=== PATIENT | male | born 1960 | race Caucasian/White ===

== ENCOUNTER 2017-05-13 15:17 | Emergency (ER) | payer OTHER ==
[2017-05-13 15:43] VITALS: BMI 26.5
--- NOTE | 2017-05-13 15:49 | PDOC ---
*Physical Exam - Vital Signs Last Vital Signs Temp Pulse Resp BP Pulse Ox 85 16 134/75 95 05/13/17 15:37 05/13/17 15:37 05/13/17 15:37 05/13/17 15:37 Medical Decision Making - Medical Decision Making 05/13/17 15:49 The patient was seen and evaluated in conjunction with DION Callahan under my direct supervision, ancillary studies were reviewed. I independently interviewed and evaluated the patient and I agree with the plan as outlined by Carlos . *DC/Admit/Observation/Transfer Diagnosis at time of Disposition: Cough - Discharge Dispostion Disposition: HOME Condition at time of disposition: Good - Referrals - Patient Instructions Printed Discharge Instructions: DI for Cough -- Adult Additional Instructions: Chest x-ray showed no signs of pneumonia. I do recommend providing feedings and keeping patient upright half hour after feedings to avoid aspiration. Use inhalers as recommended and keep nasal passages clear. - Post Discharge Activity
--- NOTE | 2017-05-13 17:47 | PDOC ---
History of Present Illness - General Chief Complaint: Shortness of Breath Stated Complaint: DIFF BREATHING Time Seen by Provider: 05/13/17 15:47 History Source: Long Term Records, Primary Care Provider Exam Limitations: No Limitations - History of Present Illness Initial Comments: 05/13/17 17:45 57-year-old male with history of MRDD and a PEG tube presents the ED for evaluation of possible pneumonia. As per staff patient was noted to have a moist cough along with mild wheezing this morning. Patient has had no fever, recent change in medications, recent change in PEG feedings. As per staff patient has had no vomiting episodes and has no difficulty breathing since arrival. Timing/Duration: reports: just prior to arrival Severity: reports: mild Possible Cause: Yes: occasional episodes Modifying Factors: improves with: other Associated Symptoms: reports: cough, wheezing Past History - Travel Traveled outside of the country in the last 30 days: No - Past Medical History Allergies/Adverse Reactions: Allergies Allergy/AdvReac Type Severity Reaction Status Date / Time Benzodiazepines Allergy Unknown Verified 05/13/17 15:45 Home Medications: Ambulatory Orders Budesonide [Pulmicort] 1 neb IH BID 07/04/12 Docusate Sodium [Colace Oral Solution -] 200 mg GT DAILY 07/04/12 Omeprazole [Prilosec (RX)] 20 mg GT DAILY 07/04/12 levETIRAcetam [Keppra Oral Solution -] 1,500 mg PO BID 07/04/12 Calcium Citrate/Vitamin D3 [Citracal + D Caplet] 1 each GT BID 06/27/13 OXcarbazepine [Trileptal] 60 mg GT BID 06/27/13 Albuterol 0.083% Nebulizer Mehnaz [Ventolin 0.083%] 1 neb NEB Q4H PRN 07/18/14 Alendronate Sodium [Binosto] 70 mg PO WEEKLY 07/18/14 Arformoterol Tartrate [Brovana] 15 mcg IH BID 07/18/14 Clindamycin Phos/Skin Clnsr 19 [Clindacin Etz Kit] 1 each TP HS 07/18/14 Ipratropium/Albuterol Sulfate [Iprat-Albut 0.5-3(2.5) mg/3 ml] 3 ml IH Q6H 07/18 Multivitamins [Tab-A-Vit -] 1 tab GT DAILY 07/18/14 [id number]/Sod Sulf,Bicarb,Cl/KCl [Peg 3350 Electrolyte Soln] 17 grams PO DAILY Anemia: No Asthma: Yes Cancer: No Cardiac Disorders: No CVA: No (hydrocephalous chronic) COPD: No CHF: No Dementia: No Diabetes: No GI Disorders: Yes (gerd/hiatal hernia/dysphagia/constipation) Disorders: No HTN: No Hypercholesterolemia: No Liver Disease: No Seizures: Yes Thyroid Disease: No (osteoporosis, osteoporosis) - Surgical History Abdominal Surgery: No Appendectomy: No Cardiac Surgery: No Cholecystectomy: No Lung Surgery: No Neurologic Surgery: No Orthopedic Surgery: No - Immunization History Immunization Up to Date: Yes - Suicide/Smoking/Psychosocial Hx Smoking Status: No Smoking History: Never smoked Have you smoked in the past 12 months: No Number of Cigarettes Smoked Daily: 0 Information on smoking cessation initiated: No Hx Alcohol Use: No Drug/Substance Use Hx: No Substance Use Type: None Hx Substance Use Treatment: No Patient Lives Alone: No Lives with/in: shelter Review of Systems - Review of Systems Able to Perform ROS?: No Constitutional: No: Symptoms Reported HEENTM: No: Symptoms Reported Respiratory: Yes: Cough, Wheezing ABD/GI: No: Symptoms Reported Musculoskeletal: No: Symptoms Reported Integumentary: No: Symptoms Reported Neurological: No: Symptoms reported *Physical Exam - Vital Signs Last Vital Signs Temp Pulse Resp BP Pulse Ox 85 16 134/75 95 05/13/17 15:37 05/13/17 15:37 05/13/17 15:37 05/13/17 15:37 - Physical Exam General Appearance: Yes: Nourished, Appropriately Dressed. No: Apparent Distress Respiratory/Chest: positive: Lungs Clear, Normal Breath Sounds. negative: Respiratory Distress, Accessory Muscle Use Cardiovascular: positive: Regular Rhythm, Regular Rate. negative: Murmur Gastrointestinal/Abdominal: positive: Other (PEG tube in place) Extremity: positive: Normal Capillary Refill. negative: Pedal Edema Integumentary: positive: Normal Color, Warm, Moist Neurologic: positive: Motor Strength 5/5 (moving extremities) ED Treatment Course - RADIOLOGY Radiology Studies Ordered: Category Date Time Status CHEST PA & LAT [RAD] Stat Radiology 05/13/17 16:33 Ordered Medical Decision Making - Medical Decision Making 05/13/17 17:08 Patient sent here to rule out pneumonia secondary to cough and wheezing noted this morning. Patient has had no other complaints including fever. Patient upon arrival had no acute findings. O2 sat 98% with no respiratory distress. Patient ordered for chest x-ray 05/13/17 18:35 Chest x-ray negative for infiltrate. Patient will be sent back to [facility] with staff *DC/Admit/Observation/Transfer Diagnosis at time of Disposition: Cough - Discharge Dispostion Disposition: RETIREMENT FACILITY Condition at time of disposition: Good - Referrals - Patient Instructions Printed Discharge Instructions: DI for Cough -- Adult Additional Instructions: Chest x-ray showed no signs of pneumonia. I do recommend providing feedings and keeping patient upright half hour after feedings to avoid aspiration. Use inhalers as recommended and keep nasal passages clear. - Post Discharge Activity
[2017-05-13 19:11] VITALS: BP 132/89; PULSE 81; TEMP 98.1
== END 2017-05-13 19:43 ==
LOC: JER 15:17
DX: R05 Cough (principal); F79 Unspecified intellectual disabilities; G91.9 Hydrocephalus, unspecified; G40.909 Epilepsy, unspecified, not intractable, without status epilepticus; Z93.1 Gastrostomy status
CPT/HCPCS: 71046-TC-FY; 99282-25

== ENCOUNTER 2018-08-21 17:42 | Inpatient (IN) | payer OTHER ==
--- NOTE | 2018-08-21 18:44 | PDOC ---
History of Present Illness - General Chief Complaint: Respiratory Stated Complaint: LOW OXYGEN Time Seen by Provider: 08/21/18 18:29 History Source: Care Provider Exam Limitations: Language Barrier - History of Present Illness Initial Comments: 08/21/18 18:58 Edison Holly is a 58yM with PMHx of mental retardation, seizure, spastic quadriplegia, hydrocephalus, asthma, blind, PEG tube presenting with hypoxia. History provided by product representative from [facility]. He has had increased wheezing, reduced motor activity, and nasal congestion over the last 2 days. Today, he was found with O2 sat of 87% at room air, elevated HR of 108, elevated RR of 24 and temperature of 98.2F (normal 96). Placed on supplemental O2, and subsequently transferred here for further evaluation. No changes in medication regimen Past History - Past Medical History Allergies/Adverse Reactions: Allergies Allergy/AdvReac Type Severity Reaction Status Date / Time Benzodiazepines Allergy Unknown Verified 08/21/18 18:25 Home Medications: Ambulatory Orders Budesonide [Pulmicort] 1 neb IH BID 07/04/12 Omeprazole [Prilosec (RX)] 20 mg GT DAILY 07/04/12 levETIRAcetam [Keppra Oral Solution -] 1,500 mg PO BID 07/04/12 Calcium Citrate/Vitamin D3 [Citracal + D Caplet] 1 each GT BID 06/27/13 Albuterol 0.083% Nebulizer Mehnaz [Ventolin 0.083%] 1 neb NEB Q4H PRN 07/18/14 Arformoterol Tartrate [Brovana] 15 mcg IH BID 07/18/14 Clindamycin Phos/Skin Clnsr 19 [Clindacin Etz Kit] 1 each TP HS 07/18/14 Ipratropium/Albuterol Sulfate [Iprat-Albut 0.5-3(2.5) mg/3 ml] 3 ml IH Q6H 07/18 Multivitamins [Tab-A-Vit -] 1 tab GT DAILY 07/18/14 Electrolyte,Oral [Pedialyte -] 60 ml GT BID 08/21/18 Polyethylene Glycol 3350 [Clearlax] 17 gm GT DAILY 08/21/18 Sennosides [Senna] 2 tab GT HS 08/21/18 Anemia: No Asthma: Yes Cancer: No Cardiac Disorders: No CVA: No (hydrocephalous chronic) COPD: No CHF: No Dementia: No Diabetes: No GI Disorders: Yes (gerd/hiatal hernia/dysphagia/constipation) Disorders: No HTN: No Hypercholesterolemia: No Liver Disease: No Seizures: Yes Thyroid Disease: No (osteoporosis, osteoporosis) Other medical history: profound intellectual and physical disabilities, Spastic Quadriplegia - Surgical History Abdominal Surgery: No Appendectomy: No Cardiac Surgery: No Cholecystectomy: No GI Surgery: Yes (G tube) Lung Surgery: No Neurologic Surgery: No Orthopedic Surgery: No - Immunization History Immunization Up to Date: Yes - Suicide/Smoking/Psychosocial Hx Smoking Status: No Smoking History: Never smoked Have you smoked in the past 12 months: No Number of Cigarettes Smoked Daily: 0 Information on smoking cessation initiated: No Hx Alcohol Use: No Drug/Substance Use Hx: No Substance Use Type: None Hx Substance Use Treatment: No Review of Systems - Review of Systems Able to Perform ROS?: No (non verbal) Is the patient limited Israeli proficient: Yes *Physical Exam - Vital Signs Last Vital Signs Temp Pulse Resp BP Pulse Ox 98.6 F 93 H 20 112/76 95 08/21/18 18:18 08/21/18 18:18 08/21/18 18:18 08/21/18 18:18 08/21/18 18:31 - Physical Exam General Appearance: Yes: Nourished, Other (lying down, curled up facing left side of bed). No: Apparent Distress HEENT: positive: Nasal Congestion, Rhinorrhea, Other (eyes turned upwards). negative: Pale Conjunctivae, Scleral Icterus (R), Scleral Icterus (L), Excessive drooling Respiratory/Chest: positive: Crackles (bilateral), Rhonchi (bilateral, L worse than R, upper lung rivera more prominent). negative: Respiratory Distress, Labored Respiration, Dullness Cardiovascular: positive: Regular Rhythm, Regular Rate, S1, S2. negative: Edema , JVD, Murmur Gastrointestinal/Abdominal: positive: Flat, Soft, Other (PEG tube, non- erythematous insertion site). negative: Pulsatile Mass, Distended, Guarding, Rebound Integumentary: positive: Normal Color Neurologic: positive: Respond to painful stimul. negative: Fully Oriented, Alert ED Treatment Course - LABORATORY CBC & Chemistry Diagram: 08/21/18 19:30 08/21/18 19:30 Medical Decision Making - Critical Care Time Total Critical Care Time (minutes): 30 Critical Care Statement: The care of this patient involved high complexity decision making to prevent further life threatening deterioration of the patient 's condition and/or to evaluate & treat vital organ system(s) failure or risk of failure. - Medical Decision Making 08/21/18 18:59 portable CXR showed indeterminate increased interstitial markings in lung rivera , ordered chest CT sepsis order set based on abnormal vital signs at longterm lactate 0.[address] showed bilateral atelectatic changes and patchy airspace opacities suggestive of pneumonic infiltrates Started 1L NS and zosyn to cover aspiration pneumonia (last ED visit) Edison Holly is a 58yM with PMHx of mental retardation, seizure, spastic quadriplegia, hydrocephalus, blind, PEG tube presenting with hypoxia. Likely sepsis secondary to pneumonia. Normal labs, lactate 0.8. Chest CT showed bilateral atelectatic changes and patchy airspace opacities suggestive of pneumonic infiltrates. Started zosyn to cover for aspiration pneumonia, which was what he was treated for during his last ED visit. Admitted to inpatient service for multiple comorbidities, treatment of lung infection, and acute respiratory failure. *DC/Admit/Observation/Transfer Diagnosis at time of Disposition: Sepsis due to pneumonia - Discharge Dispostion Decision to Admit order: Yes - Referrals - Patient Instructions - Post Discharge Activity
[2018-08-21 19:50] LABS: BASO % 0.5 % (0-2.0); EOS % 1.6 % (0-4.5); HEMATOCRIT 44.5 % (35.4-49); HEMOGLOBIN 15.3 GM/dL (11.7-16.9); LYMPH % 20.1 % (8-40); MCH 31.5 pg (25.7-33.7); MCHC 34.4 g/dl (32.0-35.9); MEAN CELL VOLUME 91.6 fl (80-96); MEAN PLT VOLUME 8.3 fl (7.5-11.1); MONO % 9.4 % (3.8-10.2); NEUT % 68.4 % (42.8-82.8); PLATELET COUNT 241 K/MM3 (134-434); RBC 4.86 M/mm3 (4.00-5.60); RDW 13.5 % (11.9-15.9); WHITE BLOOD COUNT 7.5 K/mm3 (4.0-10.0)
[2018-08-21 19:53] LABS: VENOUS PC02 43.8 mmHg (41-51); VENOUS PH 7.44 (7.31-7.41); VENOUS PO2 59.4 mmHg (30-40)
[2018-08-21 20:05] LABS: INR 0.96 (0.83-1.09); PROTHROMBIN TIME (PATIENT) 11.3 SEC (9.7-13.0)
[2018-08-21 20:08] LABS: ACTIVATED PTT 34.9 SECONDS (25.2-36.5)
[2018-08-21 20:21] LABS: ALBUMIN 3.3 g/dl (3.4-5.0); ALK PHOS 166 U/L (45-117); ANION GAP 4 MMOL/L (8-16); BILIRUBIN,TOTAL 0.3 mg/dL (0.2-1); BLOOD UREA NITROGEN 11.4 mg/dL (7-18); CHLORIDE 98 mmol/L (98-107); CO2 31 mmol/L (21-32); CREATININE 0.7 mg/dL (0.55-1.3); GLUCOSE,RANDOM 90 mg/dL (74-106); POTASSIUM 3.9 mmol/L (3.5-5.1); SGOT/AST 51 U/L (15-37); SGPT/ALT 51 U/L (13-61); SODIUM 133 mmol/L (136-145); TOT PROT 6.9 g/dl (6.4-8.2)
[2018-08-21] MEDS ORDERED: PIPERACILLIN/TAZOB 4.5 GM 4.5 GM in DEXTROSE 5%-WATER 100 ML IVPB ONE (21:13)
[2018-08-21] MEDS ORDERED: SODIUM CHLORIDE 0.9% 500 ML INFUS.BAG IV ONE (21:14)
[2018-08-21] MEDS ORDERED: ALBUTEROL SO4 2.5/IPRATROPIUM 0.5 INH SOL 3 ML VIAL.NEB. NEB ONE ×2 (21:22→21:50)
[2018-08-21] MEDS ORDERED: methylPREDNISolone NA SUCC 125 MG/2 ML VIAL IVPUSH ONE (21:24)
[2018-08-21 21:26] LABS: PH,URINE 7.5 (5.0-8.0); URINE APPEARANCE CLEAR; URINE BILIRUBIN NEGATIVE (NEGATIVE); URINE COLOR YELLOW; URINE GLUCOSE (UA) NEGATIVE (NEGATIVE); URINE KETONE NEGATIVE (NEGATIVE); URINE LEUK ESTERASE NEGATIVE (NEGATIVE); URINE NITRITE NEGATIVE (NEGATIVE); URINE PROTEIN NEGATIVE (NEGATIVE); URINE UROBILINOGEN 0.2 mg/dL (0.2-1.0)
--- NOTE | 2018-08-21 21:30 | PDOC ---
Documentation entered by Leigh Ann Cm SCRIBE, acting as scribe for Yulissa Jolley DO. Yulissa Jolley DO: This documentation has been prepared by the Soila rudolph Adrianna, SCRIBE, under my direction and personally reviewed by me in its entirety. I confirm that the documentation accurately reflects all work, treatment, procedures, and medical decision making performed by me. Attending Attestation - Resident Resident Name: Mariano Rajan - ED Attending Attestation I have performed the following: I have examined & evaluated the patient, The case was reviewed & discussed with the resident, I agree w/resident's findings & plan - HPI HPI: The patient is a 58 year old male, with a significant PMH of mental retardation , hydrocephalus, quadriplegia, seizure disorder, legally blind, recurrent apiration pneumonia, and asthma, who presents to the ED [facility] from [place] for evaluation of hypoxia. As per patient's aid at bedside, he has developed wheezing and congestion x 2 days. Today, patient was found to be hypoxic (87% on room air), with an elevated heart rate, RR, and temperature. He was sent to the ED for evaluation. Patient is non-verbal at baseline. Allergies: Benzodiazepines Surgical History: GT, PEG Social History: Mental retardation. Legally blind. Non-verbal. 08/21/18 19:47 - Physicial Exam PE: GENERAL: chronically il mild distress HEAD: No signs of trauma EYES: ENT: Moist mucosa LUNGS:. Prolonged expiratory phase with end expiratory wheezing bilaterall HEART: Regular rate and rhythm, ABDOMEN: Soft, nondistended CHEST WALL: NEUROLOGICAL: Alert SKIN: Warm, Dry 08/21/18 19:49 08/21/18 21:27 - Critical Care Time Total Critical Care Time: 60 Critical Care Statement: The care of this patient involved high complexity decision making to prevent further life threatening deterioration of the patient 's condition and/or to evaluate & treat vital organ system(s) failure or risk of failure. - Medical Decision Making 08/21/18 21:26 58-year-old male with shortness of breath and cough Chest x-ray and CT of the chest show left-sided infiltrate that appears new when compared to previous Patient now exhibits prolonged expiratory phase and and expiratory wheezing on reevaluation at 9:20 PM Plan for ian Aritao nebs and IV steroids with admission to medical service
[2018-08-21] MEDS ORDERED: PIPERACILLIN/TAZOB 4.5 GM 4.5 GM/100 ML BAG IVPB ONE (21:50)
[2018-08-21] MEDS ORDERED: methylPREDNISolone NA SUCC 125 MG/2 ML VIAL ONE (21:50)
--- NOTE | 2018-08-22 00:15 | HP ---
CHIEF COMPLAINT: Respiratory distress PCP: HISTORY OF PRESENT ILLNESS: 58M with pmh of MR, PEG-dependent, seizure disorder, hydrocephalus, quadraplegia , legal blindness, asthma, h/o of aspiration PNA brought in from [facility] due to concern by patient's family of respiratory issues. Patient was displaying wheezing, rhinorrhea x2d; desaturating to 87% on room air. At [facility] , the patient was placed on supplemental O2, at one point requiring nonrebreather 10L. Patient is noncommunicative. Crime Investigator Special Agent at bedside reports no fevers. ER course was notable for: (1) venturi-mask, @12L (2) CXR with increased interstitial markings (3) CT Chest showing b/l atelectatic changes, patchy airspace opacities Recent Travel: PAST MEDICAL HISTORY: MR, PEG-dependent, seizure disorder, hydrocephalus, quadraplegia, legal blindness, asthma, h/o of aspiration PNA PAST SURGICAL HISTORY: PEG Social History: Smoking: none Alcohol: none Drugs: none Family History: Allergies Benzodiazepines Allergy (Unknown, Verified 08/21/18 18:25) HOME MEDICATIONS: Home Medications Medication Instructions Recorded Budesonide [Pulmicort] 1 neb IH BID 07/04/12 Omeprazole [Prilosec (RX)] 20 mg GT DAILY 07/04/12 levETIRAcetam [Keppra Oral 1,500 mg PO BID 07/04/12 Solution -] Calcium Citrate/Vitamin D3 1 each GT BID 06/27/13 [Citracal + D Caplet] Albuterol 0.083% Nebulizer Mehnaz 1 neb NEB Q4H PRN 07/18/14 [Ventolin 0.083%] Arformoterol Tartrate [Brovana] 15 mcg IH BID 07/18/14 Clindamycin Phos/Skin Clnsr 19 1 each TP HS 07/18/14 [Clindacin Etz Kit] Ipratropium/Albuterol Sulfate 3 ml IH Q6H 07/18/14 [Iprat-Albut 0.5-3(2.5) mg/3 ml] Multivitamins [Tab-A-Vit -] 1 tab GT DAILY 07/18/14 Electrolyte,Oral [Pedialyte -] 60 ml GT BID 08/21/18 Polyethylene Glycol 3350 [Clearlax] 17 gm GT DAILY 08/21/18 Sennosides [Senna] 2 tab GT HS 08/21/18 REVIEW OF SYSTEMS - unable to assess as the patient has severe MR, unable to communicate PHYSICAL EXAMINATION Vital Signs - 24 hr 08/21/18 08/21/18 08/21/18 18:18 18:28 18:29 Temperature 98.6 F Pulse Rate 93 H Pulse Rate [ Apical] Respiratory 20 Rate Blood Pressure 112/76 Blood Pressure [Left Arm] O2 Sat by Pulse 95 95 95 Oximetry (%) 08/21/18 08/21/18 08/21/18 18:30 18:31 20:20 Temperature Pulse Rate Pulse Rate [ Apical] Respiratory Rate Blood Pressure Blood Pressure [Left Arm] O2 Sat by Pulse 95 95 89 L Oximetry (%) 08/21/18 20:28 Temperature Pulse Rate Pulse Rate [ 89 Apical] Respiratory 20 Rate Blood Pressure Blood Pressure 118/77 [Left Arm] O2 Sat by Pulse 93 L Oximetry (%) GENERAL: Awake, no acute distress HEAD: AT/NC. No temporal wasting EYES: cloudy lenses EARS, NOSE, THROAT: rhinorhea. Moist mucous membranes. Nonproductive spontaneous cough NECK: Normal range of motion, supple without lymphadenopathy, JVD, or masses. LUNGS: expiratory wheezes HEART: Regular rate and rhythm, normal S1 and S2 without murmur, rub or gallop. ABDOMEN: Soft, nontender, not distended, no guarding, no rebound, no masses. Gtube in place MUSCULOSKELETAL: upper and lower extremity contractures NEUROLOGICAL: unable to speak. Spontaneous movement of upper extremities PSYCHIATRIC: does not respond to questioning or acknowledge provider presence SKIN: Warm, dry, normal turgor, no rashes or lesions noted, normal capillary refill. Laboratory Results - last 24 hr 08/21/18 08/21/18 08/21/18 19:30 19:30 19:30 WBC 7.5 RBC 4.86 Hgb 15.3 Hct 44.5 MCV 91.6 MCH 31.5 MCHC 34.4 RDW 13.5 Plt Count 241 D MPV 8.3 D Absolute Neuts (auto) 5.1 Neutrophils % 68.4 Lymphocytes % 20.1 Monocytes % 9.4 Eosinophils % 1.6 Basophils % 0.5 D Nucleated RBC % 0 PT with INR 11.30 INR 0.96 PTT (Actin FS) 34.9 VBG pH 7.44 H POC VBG pCO2 43.8 POC VBG pO2 59.4 H VBG HCO3 28.9 VBG O2 Sat (Amol) 90.4 H VBG Base Excess 4.5 H Sodium Potassium Chloride Carbon Dioxide Anion Gap BUN Creatinine Est GFR (CKD-EPI)AfAm Est GFR (CKD-EPI)NonAf Random Glucose Lactic Acid Calcium Total Bilirubin AST ALT Alkaline Phosphatase Troponin I B-Natriuretic Peptide Total Protein Albumin Urine Color Urine Appearance Urine pH Ur Specific [place] Urine Protein Urine Glucose (UA) Urine Ketones Urine Blood Urine Nitrite Urine Bilirubin Urine Urobilinogen Ur Leukocyte Esterase 08/21/18 08/21/18 08/21/18 19:30 19:30 21:15 WBC RBC Hgb Hct MCV MCH MCHC RDW Plt Count MPV Absolute Neuts (auto) Neutrophils % Lymphocytes % Monocytes % Eosinophils % Basophils % Nucleated RBC % PT with INR INR PTT (Actin FS) VBG pH POC VBG pCO2 POC VBG pO2 VBG HCO3 VBG O2 Sat (Amol) VBG Base Excess Sodium 133 L Potassium 3.9 Chloride 98 Carbon Dioxide 31 Anion Gap 4 L BUN 11.4 Creatinine 0.7 Est GFR (CKD-EPI)AfAm 120.56 Est GFR (CKD-EPI)NonAf 104.02 Random Glucose 90 Lactic Acid 0.8 Calcium 9.0 Total Bilirubin 0.3 AST 51 H ALT 51 Alkaline Phosphatase 166 H Troponin I < 0.02 B-Natriuretic Peptide 79.0 Total Protein 6.9 Albumin 3.3 L Urine Color Yellow Urine Appearance Clear Urine pH 7.5 Ur Specific [place] 1.008 L Urine Protein Negative Urine Glucose (UA) Negative Urine Ketones Negative Urine Blood Negative Urine Nitrite Negative Urine Bilirubin Negative Urine Urobilinogen 0.2 Ur Leukocyte Esterase Negative ASSESSMENT/PLAN: 58M with pmh of MR, PEG-dependent, seizure disorder, hydrocephalus, quadraplegia , legal blindness, asthma, h/o of aspiration PNA presenting with respiratory issues possibly 2/2 to asthma exacerbation vs URI. Afebrile and w/o leukocytosis. # respiratory distress >CXR(08/22/18): increased interstitial lung markings >CT chest(08/22/18): b/l atelectatic changes, patchy airspace opacities - s/p zosyn(08/22) -- discontinued - s/p methylprednisolone(125mg) -- discontinued - fu Legionella antigen - albuterol PRN q6h - prednisone 60mg QD NEURO: # seizure disorder - cw home Keprra CARDIO: # no acutely active issues - vitals q4h GI: # GT-dependent - hold TF - cw home omeprazole : # no acutely active issues - monitor I/Os FEN: - NPO - D51/2NS+K @100 HEME/ID - fu BCX - fu UCX DISPO - return to [facility] pending resolution of above issues Ayan Arreguin, DO PGY-1 Medicine, PM Float [id number] 08/22/18 Visit type - Emergency Visit Emergency Visit: Yes ED Registration Date: 08/21/18 Care time: The patient presented to the Emergency Department on the above date and was hospitalized for further evaluation of their emergent condition. - New Patient This patient is new to me today: Yes Date on this admission: 08/22/18 - Critical Care Critical Care patient: No
[2018-08-22 01:17] LABS: GAMMA GLUTAMYL TRANSPEPTIDASE 36 U/L (5-85)
[2018-08-22] MEDS ORDERED: ALBUTEROL SO4 0.083% IH SOL 2.5 MG/3 ML VIAL.NEB. NEB PRN ×2 (01:31→07:27)
[2018-08-22] MEDS ORDERED: D5-1/2NS+20 MEQ KCL - 20 MEQ/1,000 ML INFUS.BAG IV SCH (03:45)
[2018-08-22] MEDS ORDERED: ALBUTEROL SO4 0.083% IH SOL 2.5 MG/3 ML VIAL.NEB. NEB ONE (04:01)
[2018-08-22 07:22] LABS: ARTERIAL BLOOD GAS BASE EXCESS 2.2 meq/l (-2-2); ARTERIAL BLOOD GAS PCO2 45.4 mmHg (35-45); ARTERIAL BLOOD GAS PO2 81.5 mmHg (80-105); ARTERIAL BLOOD GAS pH 7.39 (7.35-7.45)
[2018-08-22 07:25] LABS: ALLENS TEST POSITIVE
[2018-08-22] MEDS: ALBUTEROL SO4 2.5/IPRATROPIUM 0.5 INH SOL 3 ML VIAL.NEB. NEB SCH ×4 (08:45→20:30)
[2018-08-22] MEDS ORDERED: predniSONE 20 MG TABLET (UD) GT SCH (10:00)
[2018-08-22] MEDS ORDERED: predniSONE 20 MG TABLET (UD) PO SCH (10:00)
[2018-08-22] MEDS: AZITHROMYCIN IVPB 500 MG/250 ML BAG IVPB SCH (10:34)
[2018-08-22] MEDS: ENOXAPARIN NA (PORCINE) 40 MG/0.4 ML DISP.SYRIN SQ SCH (10:35)
[2018-08-22] MEDS: levETIRAcetam 500 MG/5 ML ORAL SOLUTION (UNIT-DOSE CUPS) GT SCH ×2 (10:35→21:45)
[2018-08-22] MEDS ORDERED: PIPERACILLIN/TAZOBACTAM 3.375 GM VIAL IVPB ONE ×2 (10:40→17:09)
[2018-08-22] MEDS ORDERED: PT OWN MED DRAWER 7, Y5N ONE ×2 (10:40→20:25)
[2018-08-22] MEDS ORDERED: DEXTROSE 5%-WATER - 50 ML IVPB ONE ×2 (10:40→17:10)
--- NOTE | 2018-08-22 10:43 | EKG ---
Test Reason : Blood Pressure : / mmHG Vent. Rate : 085 BPM Atrial Rate : 085 BPM P-R Int : 128 ms QRS Dur : 088 ms QT Int : 356 ms P-R-T Axes : 061 -27 032 degrees QTc Int : 423 ms NORMAL SINUS RHYTHM NORMAL ECG WHEN COMPARED WITH ECG OF 20-AUG-2018 11:15, CRITERIA FOR INFERIOR INFARCT ARE NO LONGER PRESENT Confirmed by DELVIN JUAREZ, PANKAJ ([id number]) on 08/22/2018 10:42:27 AM Referred By: Confirmed By:PANKAJ HARGROVE MD
[2018-08-22] MEDS: RANITIDINE HCL 150 MG/10 ML UNIT-DOSE GT SCH ×2 (10:55→21:45)
[2018-08-22] MEDS: POLYETHYLENE GLYCOL 3350 119 GM BTL GT SCH (10:55)
[2018-08-22] MEDS: PIPERACILLIN/TAZOB 3.375 GM 3.375 GM in DEXTROSE 5%-WATER - 50 ML IVPB SCH ×2 (10:55→17:15)
--- NOTE | 2018-08-22 11:31 | PN ---
Physical Exam: SUBJECTIVE: Patient seen and examined at bedside. on exam pt was unable to participate in interview. he is non verbal. pt was seen on venti mask saturating at 97%. OBJECTIVE: Vital Signs Period Temp Pulse Resp BP Sys/Karimi Pulse Ox Last 24 Hr 97.2 F-98.6 F 80-100 18-22 112-120/68-80 89-98 GENERAL: The patient is awake, alert, and fully oriented, in no acute distress. LUNGS: Breath sounds equal, + crackles B/L, no accessory muscle use. HEART: Regular rate and rhythm, S1, S2 without murmur, rub or gallop. ABDOMEN: Soft, nondistended, normoactive bowel sounds EXTREMITIES: 2+ pulses, warm, well-perfused, no edema. SKIN: Warm, dry, normal turgor, no rashes or lesions noted Laboratory Last Values WBC 7.5 K/mm3 (4.0-10.0) 08/21/18 19:30 RBC 4.86 M/mm3 (4.00-5.60) 08/21/18 19:30 Hgb 15.3 GM/dL (11.7-16.9) 08/21/18 19:30 Hct 44.5 % (35.4-49) 08/21/18 19:30 MCV 91.6 fl (80-96) 08/21/18 19:30 MCH 31.5 pg (25.7-33.7) 08/21/18 19:30 MCHC 34.4 g/dl (32.0-35.9) 08/21/18 19:30 RDW 13.5 % (11.9-15.9) 08/21/18 19:30 Plt Count 241 K/MM3 (134-434) D 08/21/18 19:30 MPV 8.3 fl (7.5-11.1) D 08/21/18 19:30 Absolute Neuts (auto) 5.1 K/mm3 (1.5-8.0) 08/21/18 19:30 Neutrophils % 68.4 % (42.8-82.8) 08/21/18 19:30 Lymphocytes % 20.1 % (8-40) 08/21/18 19:30 Monocytes % 9.4 % (3.8-10.2) 08/21/18 19:30 Eosinophils % 1.6 % (0-4.5) 08/21/18 19:30 Basophils % 0.5 % (0-2.0) D 08/21/18 19:30 Nucleated RBC % 0 % (0-0) 08/21/18 19:30 PT with INR 11.30 SEC (9.7-13.0) 08/21/18 19:30 INR 0.96 (0.83-1.09) 08/21/18 19:30 PTT (Actin FS) 34.9 SECONDS (25.2-36.5) 08/21/18 19:30 Anticoagulation Therapy No Result Required. 08/22/18 06:50 Puncture Site Right radial 08/22/18 06:50 ABG pH 7.39 (7.35-7.45) 08/22/18 06:50 ABG pCO2 at Pt Temp 45.4 mmHg (35-45) H 08/22/18 06:50 ABG pO2 at Pt Temp 81.5 mmHg (80-105) 08/22/18 06:50 ABG HCO3 27.2 mmol/L (22-27) H 08/22/18 06:50 ABG O2 Sat (Measured) 96.0 % (95-98) 08/22/18 06:50 ABG O2 Content 19.2 % vol (15-22) 08/22/18 06:50 ABG Base Excess 2.2 meq/l (-2-2) H 08/22/18 06:50 Gian Test Positive 08/22/18 06:50 VBG pH 7.44 (7.31-7.41) H 08/21/18 19:30 POC VBG pCO2 43.8 mmHg (41-51) 08/21/18 19:30 POC VBG pO2 59.4 mmHg (30-40) H 08/21/18 19:30 VBG HCO3 28.9 mmol/L (23-29) 08/21/18 19:30 VBG O2 Sat (Amol) 90.4 % (70-80) H 08/21/18 19:30 VBG Base Excess 4.5 meq/l (-2-2) H 08/21/18 19:30 O2 Delivery Device V/m 08/22/18 06:50 Oxygen Flow Rate 50% 08/22/18 06:50 Vent Mode No Result Required. 08/22/18 06:50 Vent Rate No Result Required. 08/22/18 06:50 Mechanical Rate No Result Required. 08/22/18 06:50 Pressure Support Vent No Result Required. 08/22/18 06:50 Sodium 133 mmol/L (136-145) L 08/21/18 19:30 Potassium 3.9 mmol/L (3.5-5.1) 08/21/18 19:30 Chloride 98 mmol/L (98-107) 08/21/18 19:30 Carbon Dioxide 31 mmol/L (21-32) 08/21/18 19:30 Anion Gap 4 MMOL/L (8-16) L 08/21/18 19:30 BUN 11.4 mg/dL (7-18) 08/21/18 19:30 Creatinine 0.7 mg/dL (0.55-1.3) 08/21/18 19:30 Est GFR (CKD-EPI)AfAm 120.56 08/21/18 19:30 Est GFR (CKD-EPI)NonAf 104.02 08/21/18 19:30 Random Glucose 90 mg/dL (74-106) 08/21/18 19:30 Lactic Acid 0.8 mmol/L (0.4-2.0) 08/21/18 19:30 Calcium 9.0 mg/dL (8.5-10.1) 08/21/18 19:30 Total Bilirubin 0.3 mg/dL (0.2-1) 08/21/18 19:30 GGT 36 U/L (5-85) 08/21/18 19:30 AST 51 U/L (15-37) H 08/21/18 19:30 ALT 51 U/L (13-61) 08/21/18 19:30 Alkaline Phosphatase 166 U/L (45-117) H 08/21/18 19:30 Troponin I < 0.02 ng/ml (0.00-0.05) 08/21/18 19:30 B-Natriuretic Peptide 79.0 pg/ml (5-125) 08/21/18 19:30 Total Protein 6.9 g/dl (6.4-8.2) 08/21/18 19:30 Albumin 3.3 g/dl (3.4-5.0) L 08/21/18 19:30 Urine Color Yellow 08/21/18 21:15 Urine Appearance Clear 08/21/18 21:15 Urine pH 7.5 (5.0-8.0) 08/21/18 21:15 Ur Specific [place] 1.008 (1.010-1.035) L 08/21/18 21:15 Urine Protein Negative (NEGATIVE) 08/21/18 21:15 Urine Glucose (UA) Negative (NEGATIVE) 08/21/18 21:15 Urine Ketones Negative (NEGATIVE) 08/21/18 21:15 Urine Blood Negative (NEGATIVE) 08/21/18 21:15 Urine Nitrite Negative (NEGATIVE) 08/21/18 21:15 Urine Bilirubin Negative (NEGATIVE) 08/21/18 21:15 Urine Urobilinogen 0.2 mg/dL (0.2-1.0) 08/21/18 21:15 Ur Leukocyte Esterase Negative (NEGATIVE) 08/21/18 21:15 Active Medications Albuterol Sulfate (Ventolin 0.083% Nebulizer Soln -) 1 amp NEB Q4H PRN PRN Reason: SHORT OF BREATH/WHEEZING Albuterol/Ipratropium (Duoneb -) 1 amp NEB RQID [facility] Last Admin: 08/22/18 08:45 Dose: 1 amp Enoxaparin Sodium (Lovenox -) 40 mg SQ DAILY CONSTANCE Last Admin: 08/22/18 10:35 Dose: 40 mg Piperacillin Sod/Tazobactam (Sod 3.375 gm/ Dextrose) 50 mls @ 100 mls/hr IVPB Q8H-IV CONSTANCE; Protocol Azithromycin (Zithromax 500mg Ivpb (Pre-Docked)) 500 mg in 250 mls @ 250 mls/ hr IVPB DAILY CONSTANCE Last Admin: 08/22/18 10:34 Dose: 250 mls/hr Piperacillin Sod/Tazobactam (Sod 3.375 gm/ Dextrose) 50 mls @ 100 mls/hr IVPB Q8H-IV CONSTANCE; Protocol Stop: 08/23/18 02:29 Last Admin: 08/22/18 10:55 Dose: 100 mls/hr Levetiracetam (Keppra Oral Solution -) 1,500 mg GT BID CONSTANCE Last Admin: 08/22/18 10:35 Dose: 1,500 mg Polyethylene Glycol (Miralax (For Daily Use) -) 17 gm GT DAILY [facility] Last Admin: 08/22/18 10:55 Dose: 17 gm Ranitidine HCl (Zantac Oral Solution -) 150 mg GT BID [facility] Last Admin: 08/22/18 10:55 Dose: 150 mg Senna (Senna Oral Solution -) 17.6 mg PO HS [facility] Chest XRAY: Bilateral increased interstitial lung markings again seen without gross evidence of focal infiltrates CT chest: Bilateral atelectatic changes and patchy airspace opacities, as described above suggestive of pneumonic infiltrates. No pneumothorax or pleural effusion are identified. ASSESSMENT/PLAN: 58M with pmh of Mental Retardation, PEG-dependent, seizure disorder, hydrocephalus, quadraplegia, legal blindness, asthma, h/o of aspiration PNA brought in from [facility]. Pt was p/w respiratory issues. Patient was displaying wheezes, rhinorrhea x2d; desaturating to 87% on room air. Respiratory distress 2/2 Pneumonia -pt pCO2 on AB.4 -CT Chest showing b/l atetelectic changes and patchy airspace opacities -ID consult appreciated -awaiting blood cultures -tx w/ Zosyn and Azithromycin -Titrate down O2 -D/C prednisone -c/w albuterol Seizure disorder -c/w keppra DVT ppx: Lovenox SQ Visit type - Emergency Visit Emergency Visit: No - New Patient This patient is new to me today: No - Critical Care Critical Care patient: No - Discharge Referral Referred to [facility] Med P.C.: No
--- NOTE | 2018-08-22 14:26 | PN ---
Teaching Attending Note Name of Resident: Annmarie Louise ATTENDING PHYSICIAN STATEMENT I saw and evaluated the patient. I reviewed the resident's note and discussed the case with the resident. I agree with the resident's findings and plan as documented. SUBJECTIVE: Cognitively impaired, unable to participate in medical interview. OBJECTIVE: Afebrile, Hemodynamically Stable. Last Vital Signs Temp Pulse Resp BP Pulse Ox 98.1 F 98 H 18 113/80 98 08/22/18 10:25 08/22/18 10:25 08/22/18 10:08/22/18 10:08/22/18 09:00 HEENT - Atraumatic Heart - S1, S2, RRR Lungs - bibasal crackles Abdomen - Soft, non-tender. PEG in Situ. Bowel Sounds normal. Extremities - no edema, no calf tenderness, contractures++ Laboratory Results - last 24 hr 08/21/18 08/21/18 08/21/18 19:30 19:30 19:30 WBC 7.5 RBC 4.86 Hgb 15.3 Hct 44.5 MCV 91.6 MCH 31.5 MCHC 34.4 RDW 13.5 Plt Count 241 D MPV 8.3 D Absolute Neuts (auto) 5.1 Neutrophils % 68.4 Lymphocytes % 20.1 Monocytes % 9.4 Eosinophils % 1.6 Basophils % 0.5 D Nucleated RBC % 0 PT with INR 11.30 INR 0.96 PTT (Actin FS) 34.9 Anticoagulation Therapy Puncture Site ABG pH ABG pCO2 at Pt Temp ABG pO2 at Pt Temp ABG HCO3 ABG O2 Sat (Measured) ABG O2 Content ABG Base Excess Gian Test VBG pH 7.44 H POC VBG pCO2 43.8 POC VBG pO2 59.4 H VBG HCO3 28.9 VBG O2 Sat (Amol) 90.4 H VBG Base Excess 4.5 H O2 Delivery Device Oxygen Flow Rate Vent Mode Vent Rate Mechanical Rate Pressure Support Vent Sodium Potassium Chloride Carbon Dioxide Anion Gap BUN Creatinine Est GFR (CKD-EPI)AfAm Est GFR (CKD-EPI)NonAf Random Glucose Lactic Acid Calcium Total Bilirubin GGT AST ALT Alkaline Phosphatase Troponin I B-Natriuretic Peptide Total Protein Albumin Urine Color Urine Appearance Urine pH Ur Specific [place] Urine Protein Urine Glucose (UA) Urine Ketones Urine Blood Urine Nitrite Urine Bilirubin Urine Urobilinogen Ur Leukocyte Esterase 07/04/1008/21/18 08/21/18 19:30 19:30 21:15 WBC RBC Hgb Hct MCV MCH MCHC RDW Plt Count MPV Absolute Neuts (auto) Neutrophils % Lymphocytes % Monocytes % Eosinophils % Basophils % Nucleated RBC % PT with INR INR PTT (Actin FS) Anticoagulation Therapy Puncture Site ABG pH ABG pCO2 at Pt Temp ABG pO2 at Pt Temp ABG HCO3 ABG O2 Sat (Measured) ABG O2 Content ABG Base Excess Gian Test VBG pH POC VBG pCO2 POC VBG pO2 VBG HCO3 VBG O2 Sat (Amol) VBG Base Excess O2 Delivery Device Oxygen Flow Rate Vent Mode Vent Rate Mechanical Rate Pressure Support Vent Sodium 133 L Potassium 3.9 Chloride 98 Carbon Dioxide 31 Anion Gap 4 L BUN 11.4 Creatinine 0.7 Est GFR (CKD-EPI)AfAm 120.56 Est GFR (CKD-EPI)NonAf 104.02 Random Glucose 90 Lactic Acid 0.8 Calcium 9.0 Total Bilirubin 0.3 GGT 36 AST 51 H ALT 51 Alkaline Phosphatase 166 H Troponin I < 0.02 B-Natriuretic Peptide 79.0 Total Protein 6.9 Albumin 3.3 L Urine Color Yellow Urine Appearance Clear Urine pH 7.5 Ur Specific [place] 1.008 L Urine Protein Negative Urine Glucose (UA) Negative Urine Ketones Negative Urine Blood Negative Urine Nitrite Negative Urine Bilirubin Negative Urine Urobilinogen 0.2 Ur Leukocyte Esterase Negative 08/22/18 06:50 WBC RBC Hgb Hct MCV MCH MCHC RDW Plt Count MPV Absolute Neuts (auto) Neutrophils % Lymphocytes % Monocytes % Eosinophils % Basophils % Nucleated RBC % PT with INR INR PTT (Actin FS) Anticoagulation Therapy No Result Required. Puncture Site Right radial ABG pH 7.39 ABG pCO2 at Pt Temp 45.4 H ABG pO2 at Pt Temp 81.5 ABG HCO3 27.2 H ABG O2 Sat (Measured) 96.0 ABG O2 Content 19.2 ABG Base Excess 2.2 H Gian Test Positive VBG pH POC VBG pCO2 POC VBG pO2 VBG HCO3 VBG O2 Sat (Amol) VBG Base Excess O2 Delivery Device V/m Oxygen Flow Rate 50% Vent Mode No Result Required. Vent Rate No Result Required. Mechanical Rate No Result Required. Pressure Support Vent No Result Required. Sodium Potassium Chloride Carbon Dioxide Anion Gap BUN Creatinine Est GFR (CKD-EPI)AfAm Est GFR (CKD-EPI)NonAf Random Glucose Lactic Acid Calcium Total Bilirubin GGT AST ALT Alkaline Phosphatase Troponin I B-Natriuretic Peptide Total Protein Albumin Urine Color Urine Appearance Urine pH Ur Specific [place] Urine Protein Urine Glucose (UA) Urine Ketones Urine Blood Urine Nitrite Urine Bilirubin Urine Urobilinogen Ur Leukocyte Esterase Current Medications Generic Name Dose Route Start Last Admin Trade Name Freq PRN Reason Stop Dose Admin Albuterol Sulfate 1 amp 08/22/18 07:27 Ventolin 0.083% Nebulizer Soln - NEB Q4H PRN SHORT OF BREATH/WHEEZING Albuterol/Ipratropium 1 amp 08/22/18 08:00 08/22/18 13:00 Duoneb - NEB 1 amp RQID CONSTANCE Administration Enoxaparin Sodium 40 mg 08/22/18 10:00 08/22/18 10:35 Lovenox - SQ 40 mg DAILY CONSTANCE Administration Piperacillin Sod/Tazobactam 50 mls @ 100 mls/hr 08/23/18 10:00 Sod 3.375 gm/ Dextrose IVPB Q8H-IV CONSTANCE Protocol Azithromycin 500 mg in 250 mls @ 250 mls/hr 08/22/18 10:00 08/22/18 10:34 Zithromax 500mg Ivpb (Pre-Docked) IVPB 250 mls/hr DAILY CONSTANCE Administration Piperacillin Sod/Tazobactam 50 mls @ 100 mls/hr 08/22/18 10:00 08/22/18 10:55 Sod 3.375 gm/ Dextrose IVPB 08/23/18 02:29 100 mls/hr Q8H-IV CONSTANCE Administration Protocol Levetiracetam 1,500 mg 08/22/18 10:00 08/22/18 10:35 Keppra Oral Solution - GT 1,500 mg BID CONSTANCE Administration Polyethylene Glycol 17 gm 08/22/18 10:00 08/22/18 10:55 Miralax (For Daily Use) - GT 17 gm DAILY CONSTANCE Administration Ranitidine HCl 150 mg 08/22/18 10:00 08/22/18 10:55 Zantac Oral Solution - GT 150 mg BID CONSTANCE Administration Senna 17.6 mg 08/22/18 22:00 Senna Oral Solution - PO HS [facility] Home Medications Medication Instructions Recorded Budesonide [Pulmicort] 1 neb IH BID 07/04/12 Omeprazole [Prilosec (RX)] 20 mg GT DAILY 07/04/12 levETIRAcetam [Keppra Oral 1,500 mg PO BID 07/04/12 Solution -] Calcium Citrate/Vitamin D3 315 mg GT BID 06/27/13 [Citracal + D Caplet] Albuterol 0.083% Nebulizer Mehnaz 1 neb NEB Q4H PRN 07/18/14 [Ventolin 0.083%] Arformoterol Tartrate [Brovana] 15 mcg IH BID 07/18/14 Clindamycin Phos/Skin Clnsr 19 1 each TP HS 07/18/14 [Clindacin Etz Kit] Ipratropium/Albuterol Sulfate 3 ml IH Q6H 07/18/14 [Iprat-Albut 0.5-3(2.5) mg/3 ml] Multivitamins [Tab-A-Vit -] 1 tab GT DAILY 07/18/14 Electrolyte,Oral [Pedialyte -] 60 ml GT BID 08/21/18 Polyethylene Glycol 3350 [Clearlax] 17 gm GT DAILY 08/21/18 Sennosides [Senna] 2 tab GT HS 08/21/18 ASSESSMENT AND PLAN: 58 yea rold male with history of Hydrocephalus, Cognitive Impairment, Non-verbal , Seizure Disorder, Functional Quadriplegia, PEG-feed dependent, Legally Blind, Asthma, history of aspiration pneumonia, [place] resident, sent to ED with repiratory distress, wheezing, desaturation to 87%. CXR with increased interstitial markings CT Chest - b/l atelectatic changes, patchy airspace opacities consistent with infiltrates. 1. Acute Hypoxic Respiratory Failure secondary to bilateral Pneumonia ? aspiration versus Community Acquired. Started on Zosyn/Azithromycin Blood Cx pending. Urine for legionella and Sputum Cx requested. No wheeze, no sign of Asthma exacerbation, will discontinue Prednisone. For slow weaning off of O2. Continue Bronchodilator Nebs PRN. 2. History of Cognitive Impairment/Hydrocephalus/Non-verbal/Visually Impaired Feeds via PEG [place] Resident - for return to [place] after adequate in-patient treatment. 3. Seizure Disorder - Continue Keppra. DVT Px - Lovenox SQ
--- NOTE | 2018-08-22 14:52 | CON.ID ---
Consult Consult Specialty:: infectious disease Referred by:: hospitalist service Reason for Consultation:: hypoxia, pulmonary infiltrates - History of Present Illness Chief Complaint: hypoxia History of Present Illness: 58 yo man admitted from [facility] wheezing rhinorrhea and hypoxia for last 2 days +cough chest ct with patchy infiltrates no fevers noted- usually hypothermic - History Source History Provided By: Medical Record - Past Medical History [employer] DIRECTOR: Yes: Seizure, Other (Chronic hydrocephalus, Severe mental and physical disability, and quadroplegia.). No: Alzheimer's Pulmonary: Yes: Asthma, Pneumonia (multiple admissions in the past for pneumonia ) Gastrointestinal: Yes: Constipation (Dysphagia.), GERD, Hiatal Hernia, Other Infectious Disease: Yes: Other (history of meningitis at age 4 months) - Past Surgical History Additional Surgical History: peg tube - Alcohol/Substance Use Hx Alcohol Use: No History of Substance Use: reports: None - Smoking History Smoking history: Never smoked Have you smoked in the past 12 months: No Aproximately how many cigarettes per day: 0 - Social History Usual Living Arrangement: [facility] ADL: Support Services History of Recent Travel: No Home Medications - Allergies Allergies/Adverse Reactions: Allergies Allergy/AdvReac Type Severity Reaction Status Date / Time Benzodiazepines Allergy Unknown Verified 08/21/18 18:25 - Home Medications Home Medications: Ambulatory Orders Budesonide [Pulmicort] 1 neb IH BID 07/04/12 Omeprazole [Prilosec (RX)] 20 mg GT DAILY 07/04/12 levETIRAcetam [Keppra Oral Solution -] 1,500 mg PO BID 07/04/12 Calcium Citrate/Vitamin D3 [Citracal + D Caplet] 315 mg GT BID 06/27/13 Albuterol 0.083% Nebulizer Mehnaz [Ventolin 0.083%] 1 neb NEB Q4H PRN 07/18/14 Arformoterol Tartrate [Brovana] 15 mcg IH BID 07/18/14 Clindamycin Phos/Skin Clnsr 19 [Clindacin Etz Kit] 1 each TP HS 07/18/14 Ipratropium/Albuterol Sulfate [Iprat-Albut 0.5-3(2.5) mg/3 ml] 3 ml IH Q6H 07/18 Multivitamins [Tab-A-Vit -] 1 tab GT DAILY 07/18/14 Electrolyte,Oral [Pedialyte -] 60 ml GT BID 08/21/18 Polyethylene Glycol 3350 [Clearlax] 17 gm GT DAILY 08/21/18 Sennosides [Senna] 2 tab GT HS 08/21/18 Family Disease History - Family Disease History Family Disease History: Diabetes: Mother (HTN), Heart Disease: Mother, CA: Grandparent (Breast), Other: Mother Review of Systems Unable to obtain ROS, reason: unable to obtain, see HPI Physical Exam Vital Signs: Vital Signs Temperature 98.1 F 08/22/18 10:25 Pulse Rate 98 H 08/22/18 10:25 Respiratory Rate 18 08/22/18 10:25 Blood Pressure 113/80 08/22/18 10:25 O2 Sat by Pulse Oximetry (%) 98 08/22/18 09:00 Constitutional: Yes: No Distress HENT: Yes: Atraumatic, Normocephalic Cardiovascular: Yes: Regular Rate and Rhythm Respiratory: Yes: Regular, Diminished Gastrointestinal: Yes: Normal Bowel Sounds, Other (+GT). No: Tenderness, Epigastrium ...Rectal Exam: Yes: Deferred Edema: No Labs: CBC, BMP 08/21/18 19:30 08/21/18 19:30 Imaging - Results Cat Scan: Report Reviewed (patchy bilateral /nodular infiltrates), Image Reviewed Problem List - Problems (1) Hypoxia Code(s): R09.02 - HYPOXEMIA (2) Pneumonia Code(s): J18.9 - PNEUMONIA, UNSPECIFIED ORGANISM Qualifiers: Pneumonia type: pneumonia due to unspecified organism Qualified Code(s): J18.9 - Pneumonia, unspecified organism Assessment/Plan agree with zosyn and zithromax check legionella urinary angitens appears improved on steroids f/u cultures in am
[2018-08-22] MEDS: SENNOSIDES 8.8 MG/5 ML BULK BOTTLE PO SCH (21:45)
[2018-08-23] MEDS ORDERED: DEXTROSE 5%-WATER - 50 ML IVPB ONE ×3 (01:02→17:19)
[2018-08-23] MEDS ORDERED: PIPERACILLIN/TAZOBACTAM 3.375 GM VIAL IVPB ONE ×3 (01:02→17:19)
[2018-08-23] MEDS: PIPERACILLIN/TAZOB 3.375 GM 3.375 GM in DEXTROSE 5%-WATER - 50 ML IVPB SCH ×3 (01:03→17:27)
[2018-08-23 02:02] VITALS: BMI 27.2
[2018-08-23] MEDS: ALBUTEROL SO4 2.5/IPRATROPIUM 0.5 INH SOL 3 ML VIAL.NEB. NEB SCH ×4 (07:37→20:45)
[2018-08-23 07:56] LABS: HEMATOCRIT 41.8 % (35.4-49); HEMOGLOBIN 14.1 GM/dL (11.7-16.9); MCHC 33.8 g/dl (32.0-35.9); MEAN CELL VOLUME 91.6 fl (80-96); MEAN PLT VOLUME 8.7 fl (7.5-11.1); RBC 4.56 M/mm3 (4.00-5.60); RDW 13.4 % (11.9-15.9); WHITE BLOOD COUNT 9.6 K/mm3 (4.0-10.0)
[2018-08-23 08:31] LABS: BLOOD UREA NITROGEN 9.9 mg/dL (7-18); CALCIUM 8.6 mg/dL (8.5-10.1); CREATININE 0.5 mg/dL (0.55-1.3); MAGNESIUM 2.5 mg/dL (1.8-2.4); PHOSPHOROUS 3.5 mg/dL (2.5-4.9); POTASSIUM 3.6 mmol/L (3.5-5.1)
[2018-08-23 08:38] LABS: PLATELET COUNT 268 K/MM3 (134-434)
[2018-08-23] MEDS: AZITHROMYCIN IVPB 500 MG/250 ML BAG IVPB SCH (09:52)
[2018-08-23] MEDS: RANITIDINE HCL 150 MG/10 ML UNIT-DOSE GT SCH ×2 (09:55→22:01)
[2018-08-23] MEDS: ENOXAPARIN NA (PORCINE) 40 MG/0.4 ML DISP.SYRIN SQ SCH (09:56)
[2018-08-23] MEDS: levETIRAcetam 500 MG/5 ML ORAL SOLUTION (UNIT-DOSE CUPS) GT SCH ×2 (09:56→22:01)
[2018-08-23] MEDS: POLYETHYLENE GLYCOL 3350 119 GM BTL GT SCH (09:56)
[2018-08-23] MEDS ORDERED: PIPERACILLIN/TAZOB 3.375 GM 3.375 GM in DEXTROSE 5%-WATER - 50 ML IVPB SCH (10:00)
--- NOTE | 2018-08-23 11:43 | PN ---
Teaching Attending Note Name of Resident: Ele Bernard ATTENDING PHYSICIAN STATEMENT I saw and evaluated the patient. I reviewed the resident's note and discussed the case with the resident. I agree with the resident's findings and plan as documented. SUBJECTIVE: Cognitively impaired, unable to participate in medical interview. OBJECTIVE: Afebrile, Hemodynamically Stable. Sleeping. Last Vital Signs Temp Pulse Resp BP Pulse Ox 97.6 F 73 20 124/88 98 08/23/18 06:00 08/23/18 06:00 08/23/18 08:18 08/23/18 06:00 08/23/18 08:18 Heart - S1, S2, RRR Lungs - bibasal crackles Abdomen - Soft, non-tender. PEG in Situ. Bowel Sounds normal. Extremities - no edema, no calf tenderness, wasting LEs, contractures+ Laboratory Results - last 24 hr 08/23/18 08/23/18 07:28 07:28 WBC 9.6 RBC 4.56 Hgb 14.1 Hct 41.8 MCV 91.6 MCH 31.0 MCHC 33.8 RDW 13.4 Plt Count 268 MPV 8.7 Sodium 141 Potassium 3.6 Chloride 104 Carbon Dioxide 29 Anion Gap 7 L BUN 9.9 Creatinine 0.5 L Est GFR (CKD-EPI)AfAm 138.44 Est GFR (CKD-EPI)NonAf 119.45 Random Glucose 94 Calcium 8.6 Phosphorus 3.5 Magnesium 2.5 H Current Medications Generic Name Dose Route Start Last Admin Trade Name Freq PRN Reason Stop Dose Admin Albuterol Sulfate 1 amp 08/22/18 07:27 Ventolin 0.083% Nebulizer Soln - NEB Q4H PRN SHORT OF BREATH/WHEEZING Albuterol/Ipratropium 1 amp 08/22/18 08:00 08/23/18 11:17 Duoneb - NEB 1 amp RQID CONSTANCE Administration Enoxaparin Sodium 40 mg 08/22/18 10:00 08/23/18 09:56 Lovenox - SQ 40 mg DAILY CONSTANCE Administration Azithromycin 500 mg in 250 mls @ 250 mls/hr 08/22/18 10:00 08/23/18 09:52 Zithromax 500mg Ivpb (Pre-Docked) IVPB 250 mls/hr DAILY CONSTANCE Administration Piperacillin Sod/Tazobactam 50 mls @ 100 mls/hr 08/23/18 10:00 08/23/18 09:55 Sod 3.375 gm/ Dextrose IVPB 100 mls/hr Q8H-IV CONSTANCE Administration Protocol Levetiracetam 1,500 mg 08/22/18 10:00 08/23/18 09:56 Keppra Oral Solution - GT 1,500 mg BID CONSTANCE Administration Polyethylene Glycol 17 gm 08/22/18 10:00 08/23/18 09:56 Miralax (For Daily Use) - GT Not Given DAILY CONSTANCE Ranitidine HCl 150 mg 08/22/18 10:00 08/23/18 09:55 Zantac Oral Solution - GT 150 mg BID CONSTANCE Administration Senna 17.6 mg 08/22/18 22:00 08/22/18 21:45 Senna Oral Solution - PO 17.6 mg HS CONSTANCE Administration ASSESSMENT AND PLAN: 58 year old male with history of Hydrocephalus, Cognitive Impairment, Non-verbal , Seizure Disorder, Functional Quadriplegia, PEG-feed dependent, Legally Blind, Asthma, history of aspiration pneumonia, [place] resident, sent to ED with repiratory distress, wheezing, desaturation to 87%. CXR with increased interstitial markings CT Chest - b/l atelectatic changes, patchy airspace opacities consistent with infiltrates. 1. Acute Hypoxic Respiratory Failure secondary to bilateral Pneumonia ? aspiration versus Community Acquired. Continue Zosyn/Azithromycin, ID following Blood Cx negative Urine for legionella and Sputum Cx requested. No wheeze, no sign of Asthma exacerbation, Prednisone discontinued. SpO2 92% on RA, will maintain on 1L today and slowly wean. Continue Bronchodilator Nebs. 2. History of Cognitive Impairment/Hydrocephalus/Non-verbal/Visually Impaired Feeds via PEG [place] Resident - for return to [place] after adequate in-patient treatment and weaning off O2. 3. Seizure Disorder - Continue Keppra. DVT Px - Lovenox SQ
--- NOTE | 2018-08-23 14:19 | PN ---
Physical Exam: SUBJECTIVE: Patient seen and examined this AM. No acute events overnight. Remains on nasal cannulla. OBJECTIVE: Vital Signs Period Temp Pulse Resp BP Sys/Karimi Pulse Ox Last 24 Hr 96.6 F-98.4 F 73-106 18-20 114-132/69-88 98-98 GENERAL: Awake HEAD: NCAT EYES: PERRL ENT: moist mucous membranes NECK: Supple LUNGS: Diminished breath sounds at the bases, No wheezes HEART: Regular rate and rhythm, S1, S2 without murmur ABDOMEN: Soft, nontender, nondistended, + bowel sounds, G Tube in place without surrounding drainage or erythema EXTREMITIES: No edema NEUROLOGICAL: Spontaneous Upper extremity movements SKIN: Warm, dry Laboratory Results - last 24 hr 08/23/18 08/23/18 07:28 07:28 WBC 9.6 RBC 4.56 Hgb 14.1 Hct 41.8 MCV 91.6 MCH 31.0 MCHC 33.8 RDW 13.4 Plt Count 268 MPV 8.7 Sodium 141 Potassium 3.6 Chloride 104 Carbon Dioxide 29 Anion Gap 7 L BUN 9.9 Creatinine 0.5 L Est GFR (CKD-EPI)AfAm 138.44 Est GFR (CKD-EPI)NonAf 119.45 Random Glucose 94 Calcium 8.6 Phosphorus 3.5 Magnesium 2.5 H Microbiology 08/21/18 21:15 Urine - Urine - Catheterized Urine Culture - Final NO GROWTH OBTAINED 08/21/18 20:52 Blood - Peripheral Venous Blood Culture - Preliminary NO GROWTH OBTAINED AFTER 24 HOURS, INCUBATION TO CONTINUE FOR 4 DAYS. 08/21/18 19:35 Blood - Peripheral Venous Blood Culture - Preliminary NO GROWTH OBTAINED AFTER 24 HOURS, INCUBATION TO CONTINUE FOR 4 DAYS. Active Medications Albuterol Sulfate (Ventolin 0.083% Nebulizer Soln -) 1 amp NEB Q4H PRN PRN Reason: SHORT OF BREATH/WHEEZING Albuterol/Ipratropium (Duoneb -) 1 amp NEB RQID [facility] Last Admin: 08/23/18 11:17 Dose: 1 amp Enoxaparin Sodium (Lovenox -) 40 mg SQ DAILY [facility] Last Admin: 08/23/18 09:56 Dose: 40 mg Azithromycin (Zithromax 500mg Ivpb (Pre-Docked)) 500 mg in 250 mls @ 250 mls/ hr IVPB DAILY [facility] Last Admin: 08/23/18 09:52 Dose: 250 mls/hr Piperacillin Sod/Tazobactam (Sod 3.375 gm/ Dextrose) 50 mls @ 100 mls/hr IVPB Q8H-IV [facility]; Protocol Last Admin: 08/23/18 09:55 Dose: 100 mls/hr Levetiracetam (Keppra Oral Solution -) 1,500 mg GT BID [facility] Last Admin: 08/23/18 09:56 Dose: 1,500 mg Polyethylene Glycol (Miralax (For Daily Use) -) 17 gm GT DAILY [facility] Last Admin: 08/23/18 09:56 Dose: Not Given Ranitidine HCl (Zantac Oral Solution -) 150 mg GT BID [facility] Last Admin: 08/23/18 09:55 Dose: 150 mg Senna (Senna Oral Solution -) 17.6 mg PO HS [facility] Last Admin: 08/22/18 21:45 Dose: 17.6 mg IMAGING: -CXR: Bilateral increased interstitial lung markings again seen without gross evidence of focal infiltrates -CT Chest without contrast: Bilateral atelectatic changes and patchy airspace opacities, as described above suggestive of pneumonic infiltrates. No pneumothorax or pleural effusion are identified. Follow-up CT scan of the chest in a couple of weeks is needed for further evaluation. Gastrostomy tube tip is in satisfactory position, in the gastric antrum. -EKG: NSR, VR 85, QTc 423 ASSESSMENT/PLAN: 58 y/o M with PMHx of MR, Seizure disorder, Hydrocephalus, Quadraplegia, Legal blindness, Asthma, Aspiration PNA, presents from [facility] for desaturation. #AHHRF -Likely due to Aspiration VS CAP -CT Chest without contrast suggestive of pneumonic infiltrates. -Remains Afebrile without leukocytosis, No longer wheezing -O2 Saturation improving, Transitioned off of ventimask to nasal canulla -Blood Cx NGTD, Urine Cx Negative -Continue Inhaled bronchodilators -Continue Azithromycin 500mg Daily, Piperacillin/Tazobactam 3.375gm Q8H ( Started on 08/22) -ID (Dr. verde) consulted, Appreciate Rec's #Seizure disorder -Home dose Levetiracetam #FEN -No Standing fluids -Lytes WNL -Dietary consulted for Jevity feeding rates #PPx -DVT: Lovenox SQ Visit type - Emergency Visit Emergency Visit: Yes ED Registration Date: 08/21/18 Care time: The patient presented to the Emergency Department on the above date and was hospitalized for further evaluation of their emergent condition. - New Patient This patient is new to me today: No - Critical Care Critical Care patient: No - Discharge Referral Referred to [facility] No
[2018-08-23] MEDS ORDERED: PT OWN MED DRAWER 7, Y5N ONE ×2 (15:06→21:42)
[2018-08-23] MEDS: SENNOSIDES 8.8 MG/5 ML BULK BOTTLE PO SCH (22:01)
[2018-08-24] MEDS: PIPERACILLIN/TAZOB 3.375 GM 3.375 GM in DEXTROSE 5%-WATER - 50 ML IVPB SCH ×2 (02:50→09:22)
[2018-08-24] MEDS ORDERED: PIPERACILLIN/TAZOBACTAM 3.375 GM VIAL IVPB ONE ×2 (03:43→08:46)
[2018-08-24] MEDS ORDERED: DEXTROSE 5%-WATER - 50 ML IVPB ONE ×2 (03:44→08:46)
[2018-08-24] MEDS: ALBUTEROL SO4 2.5/IPRATROPIUM 0.5 INH SOL 3 ML VIAL.NEB. NEB SCH ×2 (07:34→11:00)
[2018-08-24 09:18] VITALS: BP 137/67; PULSE 95; TEMP 98.1
[2018-08-24] MEDS: AZITHROMYCIN IVPB 500 MG/250 ML BAG IVPB SCH (09:19)
[2018-08-24] MEDS: ENOXAPARIN NA (PORCINE) 40 MG/0.4 ML DISP.SYRIN SQ SCH (09:22)
[2018-08-24] MEDS: levETIRAcetam 500 MG/5 ML ORAL SOLUTION (UNIT-DOSE CUPS) GT SCH (09:22)
[2018-08-24] MEDS: RANITIDINE HCL 150 MG/10 ML UNIT-DOSE GT SCH (09:23)
[2018-08-24] MEDS: POLYETHYLENE GLYCOL 3350 119 GM BTL GT SCH (09:23)
[2018-08-24] MEDS ORDERED: PT OWN MED DRAWER 7, Y5N ONE (10:08)
--- NOTE | 2018-08-24 12:57 | DS ---
Physical Exam: SUBJECTIVE: Patient seen and examined at bedside. Pt saturating well on room air. OBJECTIVE: Vital Signs Period Temp Pulse Resp BP Sys/Karimi Pulse Ox Last 24 Hr 96.5 F-98.1 F 84-95 16-20 112-143/66-90 98-98 PHYSICAL EXAM GENERAL: The patient is awake, in no acute distress. LUNGS: Breath sounds equal, mild wheezes, no crackles, no accessory muscle use. HEART: Regular rate and rhythm, S1, S2 without murmur, rub or gallop. ABDOMEN: Soft, nontender, nondistended, normoactive bowel sounds EXTREMITIES: 2+ pulses, warm, well-perfused, no edema. SKIN: Warm, dry, normal turgor, no rashes or lesions noted. LABS Laboratory Last Values WBC 9.6 K/mm3 (4.0-10.0) 08/23/18 07:28 RBC 4.56 M/mm3 (4.00-5.60) 08/23/18 07:28 Hgb 14.1 GM/dL (11.7-16.9) 08/23/18 07:28 Hct 41.8 % (35.4-49) 08/23/18 07:28 MCV 91.6 fl (80-96) 08/23/18 07:28 MCH 31.0 pg (25.7-33.7) 08/23/18 07:28 MCHC 33.8 g/dl (32.0-35.9) 08/23/18 07:28 RDW 13.4 % (11.9-15.9) 08/23/18 07:28 Plt Count 268 K/MM3 (134-434) 08/23/18 07:28 MPV 8.7 fl (7.5-11.1) 08/23/18 07:28 Absolute Neuts (auto) 5.1 K/mm3 (1.5-8.0) 08/21/18 19:30 Neutrophils % 68.4 % (42.8-82.8) 08/21/18 19:30 Lymphocytes % 20.1 % (8-40) 08/21/18 19:30 Monocytes % 9.4 % (3.8-10.2) 08/21/18 19:30 Eosinophils % 1.6 % (0-4.5) 08/21/18 19:30 Basophils % 0.5 % (0-2.0) D 08/21/18 19:30 Nucleated RBC % 0 % (0-0) 08/21/18 19:30 PT with INR 11.30 SEC (9.7-13.0) 08/21/18 19:30 INR 0.96 (0.83-1.09) 08/21/18 19:30 PTT (Actin FS) 34.9 SECONDS (25.2-36.5) 08/21/18 19:30 Anticoagulation Therapy No Result Required. 08/22/18 06:50 Puncture Site Right radial 08/22/18 06:50 ABG pH 7.39 (7.35-7.45) 08/22/18 06:50 ABG pCO2 at Pt Temp 45.4 mmHg (35-45) H 08/22/18 06:50 ABG pO2 at Pt Temp 81.5 mmHg (80-105) 08/22/18 06:50 ABG HCO3 27.2 mmol/L (22-27) H 08/22/18 06:50 ABG O2 Sat (Measured) 96.0 % (95-98) 08/22/18 06:50 ABG O2 Content 19.2 % vol (15-22) 08/22/18 06:50 ABG Base Excess 2.2 meq/l (-2-2) H 08/22/18 06:50 Gian Test Positive 08/22/18 06:50 VBG pH 7.44 (7.31-7.41) H 08/21/18 19:30 POC VBG pCO2 43.8 mmHg (41-51) 08/21/18 19:30 POC VBG pO2 59.4 mmHg (30-40) H 08/21/18 19:30 VBG HCO3 28.9 mmol/L (23-29) 08/21/18 19:30 VBG O2 Sat (Amol) 90.4 % (70-80) H 08/21/18 19:30 VBG Base Excess 4.5 meq/l (-2-2) H 08/21/18 19:30 O2 Delivery Device V/m 08/22/18 06:50 Oxygen Flow Rate 50% 08/22/18 06:50 Vent Mode No Result Required. 08/22/18 06:50 Vent Rate No Result Required. 08/22/18 06:50 Mechanical Rate No Result Required. 08/22/18 06:50 Pressure Support Vent No Result Required. 08/22/18 06:50 Sodium 141 mmol/L (136-145) 08/23/18 07:28 Potassium 3.6 mmol/L (3.5-5.1) 08/23/18 07:28 Chloride 104 mmol/L (98-107) 08/23/18 07:28 Carbon Dioxide 29 mmol/L (21-32) 08/23/18 07:28 Anion Gap 7 MMOL/L (8-16) L 08/23/18 07:28 BUN 9.9 mg/dL (7-18) 08/23/18 07:28 Creatinine 0.5 mg/dL (0.55-1.3) L 08/23/18 07:28 Est GFR (CKD-EPI)AfAm 138.44 08/23/18 07:28 Est GFR (CKD-EPI)NonAf 119.45 08/23/18 07:28 Random Glucose 94 mg/dL (74-106) 08/23/18 07:28 Lactic Acid 0.8 mmol/L (0.4-2.0) 08/21/18 19:30 Calcium 8.6 mg/dL (8.5-10.1) 08/23/18 07:28 Phosphorus 3.5 mg/dL (2.5-4.9) 08/23/18 07:28 Magnesium 2.5 mg/dL (1.8-2.4) H 08/23/18 07:28 Total Bilirubin 0.3 mg/dL (0.2-1) 08/21/18 19:30 GGT 36 U/L (5-85) 08/21/18 19:30 AST 51 U/L (15-37) H 08/21/18 19:30 ALT 51 U/L (13-61) 08/21/18 19:30 Alkaline Phosphatase 166 U/L (45-117) H 08/21/18 19:30 Troponin I < 0.02 ng/ml (0.00-0.05) 08/21/18 19:30 B-Natriuretic Peptide 79.0 pg/ml (5-125) 08/21/18 19:30 Total Protein 6.9 g/dl (6.4-8.2) 08/21/18 19:30 Albumin 3.3 g/dl (3.4-5.0) L 08/21/18 19:30 Urine Color Yellow 08/21/18 21:15 Urine Appearance Clear 08/21/18 21:15 Urine pH 7.5 (5.0-8.0) 08/21/18 21:15 Ur Specific [place] 1.008 (1.010-1.035) L 08/21/18 21:15 Urine Protein Negative (NEGATIVE) 08/21/18 21:15 Urine Glucose (UA) Negative (NEGATIVE) 08/21/18 21:15 Urine Ketones Negative (NEGATIVE) 08/21/18 21:15 Urine Blood Negative (NEGATIVE) 08/21/18 21:15 Urine Nitrite Negative (NEGATIVE) 08/21/18 21:15 Urine Bilirubin Negative (NEGATIVE) 08/21/18 21:15 Urine Urobilinogen 0.2 mg/dL (0.2-1.0) 08/21/18 21:15 Ur Leukocyte Esterase Negative (NEGATIVE) 08/21/18 21:[address]: Bilateral atelectatic changes and patchy airspace opacities, as described above suggestive of pneumonic infiltrates. No pneumothorax or pleural effusion are identified. Follow-up CT scan of the chest in a couple of weeks is needed for further evaluation. Gastrostomy tube tip is in satisfactory position, in the gastric antrum. HOSPITAL COURSE: Date of Admission:08/21/18 58M with pmh of Mental Retardation, PEG-dependent, seizure disorder, hydrocephalus, quadraplegia, legal blindness, asthma, h/o of aspiration PNA brought in from [facility]. Pt was p/w respiratory issues. Patient was displaying wheezes, rhinorrhea x2d; desaturating to 87% on room air. Pt was placed on a venti mask. while admitted pt had CT chest showing b/l atetelectic changes and patchy airspace opacities. Pt was followed by ID. Pt was treated with Zosyn and Azithromycin x 4 days. Pt was also treated with inhaled bronchodilators prn. pt was tapered off supplemental oxygen and was stable on room air . pt is discharged on augmentin ( completing 7 d course ) and azithromycin ( to complete a 5 day course) Date of discharge 08/25/2018 Dispo: [place] Minutes to complete discharge: 36 Discharge Summary Reason For Visit: PNEUMONIA Current Active Problems Sepsis due to pneumonia (Acute) Condition: Improved - Instructions Diet, Activity, Other Instructions: You presented to the hospital with trouble breathing because of an infection in your lungs. You were treated with antibiotics. Medications: 1. Continue taking Azithromycin 250mg once a day for 2 days. 2. Continue taking Augmentin 875mg twice a day for four more days. Follow up with the following physicians: 1. Primary physician in one week, please call to schedule follow up to further manage your infection. You are being discharged back to the [facility]. Continue your medications as prescribed. Continue using your Inhalers as needed. Please return to the ER if you have any signs or symptoms of chest pain, shortness of breath, uncontrollable fever, chills, nausea, vomiting, numbness, tingling, or weakness in any part of your body, changes in vision, or slurred speech. Please return to the ER if symptoms persist, worsen, or new symptoms arise. Disposition: LONGTERM FACILITY - Home Medications Comprehensive Discharge Medication List: Ambulatory Orders Budesonide [Pulmicort] 1 neb IH BID 07/04/12 Omeprazole [Prilosec (RX)] 20 mg GT DAILY 07/04/12 levETIRAcetam [Keppra Oral Solution -] 1,500 mg PO BID 07/04/12 Calcium Citrate/Vitamin D3 [Citracal + D Caplet] 315 mg GT BID 06/27/13 Albuterol 0.083% Nebulizer Mehnaz [Ventolin 0.083% Nebulizer Soln -] 1 neb NEB Q4H PRN 07/18/14 Arformoterol Tartrate [Brovana] 15 mcg IH BID 07/18/14 Clindamycin Phos/Skin Clnsr 19 [Clindacin Etz Kit] 1 each TP HS 07/18/14 Ipratropium/Albuterol Sulfate [Iprat-Albut 0.5-3(2.5) mg/3 ml] 3 ml IH Q6H 07/18 Multivitamins [Multivit ([facility] Formulary)] 1 tab GT DAILY 07/18/14 Electrolyte,Oral [Pedialyte -] 60 ml GT BID 08/21/18 Polyethylene Glycol 3350 [Clearlax] 17 gm GT DAILY 08/21/18 Sennosides [Senna] 2 tab GT HS 08/21/18 Albuterol 0.083% Nebulizer Mehnaz [Ventolin 0.083% Nebulizer Soln -] 1 amp NEB Q4H PRN amp 08/24/18 Albuterol 2.5/Ipratropium 0.5 [Duoneb -] 1 amp NEB RQID amp 08/24/18 Amoxicillin/Potassium Clav [Augmentin 875-125 Tablet] 1 each PO BID 4 Days #8 tablet 08/24/18 Azithromycin [Zithromax 250mg Tablets -] 250 mg PO DAILY #2 tablet 08/24/18 This patient is new to me today: No Emergency Visit: No Critical Care patient: No - Discharge Referral Referred to [facility] No
--- NOTE | 2018-08-24 14:07 | PN ---
Teaching Attending Note Name of Resident: Annmarie Louise ATTENDING PHYSICIAN STATEMENT I saw and evaluated the patient. I reviewed the resident's note and discussed the case with the resident. I agree with the resident's findings and plan as documented. SUBJECTIVE: Cognitively impaired, unable to participate in medical interview. OBJECTIVE: Afebrile, Hemodynamically Stable. Resting comfortably. Last Vital Signs Temp Pulse Resp BP Pulse Ox 98.1 F 95 H 18 137/67 98 08/24/18 09:18 08/24/18 09:18 08/24/18 09:18 08/24/18 09:18 08/24/18 08:12 Heart - S1, S2, RRR Lungs - few bibasal crackles Abdomen - Soft, non-tender. PEG in Situ. Bowel Sounds normal. Extremities - no edema, no calf tenderness, wasting LEs, contractures+ Laboratory Tests 08/21/18 08/21/18 08/21/18 19:30 19:30 19:30 WBC 7.5 RBC 4.86 Hgb 15.3 Hct 44.5 MCV 91.6 MCH 31.5 MCHC 34.4 RDW 13.5 Plt Count 241 D MPV 8.3 D Absolute Neuts (auto) 5.1 Neutrophils % 68.4 Lymphocytes % 20.1 Monocytes % 9.4 Eosinophils % 1.6 Basophils % 0.5 D Nucleated RBC % 0 PT with INR 11.30 INR 0.96 PTT (Actin FS) 34.9 Anticoagulation Therapy Puncture Site ABG pH ABG pCO2 at Pt Temp ABG pO2 at Pt Temp ABG HCO3 ABG O2 Sat (Measured) ABG O2 Content ABG Base Excess Gian Test VBG pH 7.44 H POC VBG pCO2 43.8 POC VBG pO2 59.4 H VBG HCO3 28.9 VBG O2 Sat (Amol) 90.4 H VBG Base Excess 4.5 H O2 Delivery Device Oxygen Flow Rate Vent Mode Vent Rate Mechanical Rate Pressure Support Vent Sodium Potassium Chloride Carbon Dioxide Anion Gap BUN Creatinine Est GFR (CKD-EPI)AfAm Est GFR (CKD-EPI)NonAf Random Glucose Lactic Acid Calcium Phosphorus Magnesium Total Bilirubin GGT AST ALT Alkaline Phosphatase Troponin I B-Natriuretic Peptide Total Protein Albumin Urine Color Urine Appearance Urine pH Ur Specific [place] Urine Protein Urine Glucose (UA) Urine Ketones Urine Blood Urine Nitrite Urine Bilirubin Urine Urobilinogen Ur Leukocyte Esterase 08/21/18 08/21/1808/21/19 19:30 19:30 21:15 WBC RBC Hgb Hct MCV MCH MCHC RDW Plt Count MPV Absolute Neuts (auto) Neutrophils % Lymphocytes % Monocytes % Eosinophils % Basophils % Nucleated RBC % PT with INR INR PTT (Actin FS) Anticoagulation Therapy Puncture Site ABG pH ABG pCO2 at Pt Temp ABG pO2 at Pt Temp ABG HCO3 ABG O2 Sat (Measured) ABG O2 Content ABG Base Excess Gian Test VBG pH POC VBG pCO2 POC VBG pO2 VBG HCO3 VBG O2 Sat (Amol) VBG Base Excess O2 Delivery Device Oxygen Flow Rate Vent Mode Vent Rate Mechanical Rate Pressure Support Vent Sodium 133 L Potassium 3.9 Chloride 98 Carbon Dioxide 31 Anion Gap 4 L BUN 11.4 Creatinine 0.7 Est GFR (CKD-EPI)AfAm 120.56 Est GFR (CKD-EPI)NonAf 104.02 Random Glucose 90 Lactic Acid 0.8 Calcium 9.0 Phosphorus Magnesium Total Bilirubin 0.3 GGT 36 AST 51 H ALT 51 Alkaline Phosphatase 166 H Troponin I < 0.02 B-Natriuretic Peptide 79.0 Total Protein 6.9 Albumin 3.3 L Urine Color Yellow Urine Appearance Clear Urine pH 7.5 Ur Specific [place] 1.008 L Urine Protein Negative Urine Glucose (UA) Negative Urine Ketones Negative Urine Blood Negative Urine Nitrite Negative Urine Bilirubin Negative Urine Urobilinogen 0.2 Ur Leukocyte Esterase Negative 08/22/18 08/23/18 08/23/18 06:50 07:28 07:28 WBC 9.6 RBC 4.56 Hgb 14.1 Hct 41.8 MCV 91.6 MCH 31.0 MCHC 33.8 RDW 13.4 Plt Count 268 MPV 8.7 Absolute Neuts (auto) Neutrophils % Lymphocytes % Monocytes % Eosinophils % Basophils % Nucleated RBC % PT with INR INR PTT (Actin FS) Anticoagulation Therapy No Result Required. Puncture Site Right radial ABG pH 7.39 ABG pCO2 at Pt Temp 45.4 H ABG pO2 at Pt Temp 81.5 ABG HCO3 27.2 H ABG O2 Sat (Measured) 96.0 ABG O2 Content 19.2 ABG Base Excess 2.2 H Gian Test Positive VBG pH POC VBG pCO2 POC VBG pO2 VBG HCO3 VBG O2 Sat (Amol) VBG Base Excess O2 Delivery Device V/m Oxygen Flow Rate 50% Vent Mode No Result Required. Vent Rate No Result Required. Mechanical Rate No Result Required. Pressure Support Vent No Result Required. Sodium 141 Potassium 3.6 Chloride 104 Carbon Dioxide 29 Anion Gap 7 L BUN 9.9 Creatinine 0.5 L Est GFR (CKD-EPI)AfAm 138.44 Est GFR (CKD-EPI)NonAf 119.45 Random Glucose 94 Lactic Acid Calcium 8.6 Phosphorus 3.5 Magnesium 2.5 H Total Bilirubin GGT AST ALT Alkaline Phosphatase Troponin I B-Natriuretic Peptide Total Protein Albumin Urine Color Urine Appearance Urine pH Ur Specific [place] Urine Protein Urine Glucose (UA) Urine Ketones Urine Blood Urine Nitrite Urine Bilirubin Urine Urobilinogen Ur Leukocyte Esterase Discharge Medications Medication Instructions Recorded Budesonide [Pulmicort] 1 neb IH BID 07/04/12 Omeprazole [Prilosec (RX)] 20 mg GT DAILY 07/04/12 levETIRAcetam [Keppra Oral 1,500 mg PO BID 07/04/12 Solution -] Calcium Citrate/Vitamin D3 315 mg GT BID 06/27/13 [Citracal + D Caplet] Albuterol 0.083% Nebulizer Mehnaz 1 neb NEB Q4H PRN 07/18/14 [Ventolin 0.083% Nebulizer Soln -] Arformoterol Tartrate [Brovana] 15 mcg IH BID 07/18/14 Clindamycin Phos/Skin Clnsr 19 1 each TP HS 07/18/14 [Clindacin Etz Kit] Ipratropium/Albuterol Sulfate 3 ml IH Q6H 07/18/14 [Iprat-Albut 0.5-3(2.5) mg/3 ml] Multivitamins [Multivit ([facility] 1 tab GT DAILY 07/18/14 Formulary)] Electrolyte,Oral [Pedialyte -] 60 ml GT BID 08/21/18 Polyethylene Glycol 3350 [Clearlax] 17 gm GT DAILY 08/21/18 Sennosides [Senna] 2 tab GT HS 08/21/18 Albuterol 0.083% Nebulizer Mehnaz 1 amp NEB Q4H PRN amp 08/24/18 [Ventolin 0.083% Nebulizer Soln -] Albuterol 2.5/Ipratropium 0.5 1 amp NEB RQID amp 08/24/18 [Duoneb -] Amoxicillin/Potassium Clav 1 each PO BID 4 Days #8 tablet 08/24/18 [Augmentin 875-125 Tablet] Azithromycin [Zithromax 250mg 250 mg PO DAILY #2 tablet 08/24/18 Tablets -] ASSESSMENT AND PLAN: 58 year old male with history of Hydrocephalus, Cognitive Impairment, Non-verbal , Seizure Disorder, Functional Quadriplegia, PEG-feed dependent, Legally Blind, Asthma, history of aspiration pneumonia, [place] resident, sent to ED with repiratory distress, wheezing, desaturation to 87%. CXR with increased interstitial markings CT Chest - b/l atelectatic changes, patchy airspace opacities consistent with infiltrates. 1. Acute Hypoxic Respiratory Failure secondary to bilateral Pneumonia ? aspiration versus Community Acquired. Hypoxia resolved. SpO2 93% on RA. Blood Cx negative Received 4 days of Zosyn/Azithromycin - for discharge on Augmentin (to complete 7 day course) and Azithromcyin (to complete a 5 day course). No wheeze, no sign of Asthma exacerbation, Prednisone discontinued. Medically optimized for discharge. 2. History of Cognitive Impairment/Hydrocephalus/Non-verbal/Visually Impaired Feeds via PEG [place] Resident - for return to [place] today. 3. Seizure Disorder - Continue Keppra. DVT Px - Lovenox SQ Medically optimized for transfer to [place]. Discussed with Dr. Benson who accepts patient for return to [place].
== END 2018-08-24 13:31 | DRG 177 ==
LOC: JER 17:42 → JERBED 23:07 → J4W 08-22 03:19
PROVIDERS: ADMIT Internal Medicine
DX: J69.0 Pneumonitis due to inhalation of food and vomit (principal); J96.01 Acute respiratory failure with hypoxia; G80.0 Spastic quadriplegic cerebral palsy; F72 Severe intellectual disabilities; H54.8 Legal blindness, as defined in USA; G40.909 Epilepsy, unspecified, not intractable, without status epilepticus; J45.909 Unspecified asthma, uncomplicated; Q03.9 Congenital hydrocephalus, unspecified; K21.9 Gastro-esophageal reflux disease without esophagitis; K44.9 Diaphragmatic hernia without obstruction or gangrene; K59.00 Constipation, unspecified; R13.19 Other dysphagia; M81.8 Other osteoporosis without current pathological fracture; Z93.1 Gastrostomy status
CPT/HCPCS: 36415; 36600; 71045-TC-FY; 71250-TC; 80048; 80053; 81003; 82803; 82977; 83605; 83735; 83880; 84100; 84484; 85025; 85027; 85610; 85730; 87040; 87086; 93005; 93010; 94640; 99284-25

== ENCOUNTER 2018-10-31 11:31 | Inpatient (IN) | payer OTHER ==
--- NOTE | 2018-10-31 13:33 | PDOC ---
History of Present Illness - General Chief Complaint: Respiratory Stated Complaint: Shortness of Breath Time Seen by Provider: 10/31/18 13:20 Past History - Past Medical History Allergies/Adverse Reactions: Allergies Allergy/AdvReac Type Severity Reaction Status Date / Time Benzodiazepines Allergy Unknown Verified 08/21/18 18:25 Home Medications: Ambulatory Orders Budesonide [Pulmicort] 1 neb IH BID 07/04/12 Omeprazole [Prilosec (RX)] 20 mg GT HS 07/04/12 levETIRAcetam [Keppra Oral Solution -] 1,500 mg PO BID 07/04/12 Calcium Citrate/Vitamin D3 [Citracal + D Caplet] 315 mg GT BID 06/27/13 Albuterol 0.083% Nebulizer Mehnaz [Ventolin 0.083% Nebulizer Soln -] 1 neb NEB Q4H PRN 07/18/14 Arformoterol Tartrate [Brovana] 15 mcg IH BID 07/18/14 Multivitamins [Multivit ([facility] Formulary)] 1 tab GT DAILY 07/18/14 Electrolyte,Oral [Pedialyte -] 60 ml GT BID 08/21/18 Polyethylene Glycol 3350 [Clearlax] 17 gm GT DAILY 08/21/18 Sennosides [Senna] 2 tab GT HS 08/21/18 Albuterol 0.083% Nebulizer Mehnaz [Ventolin 0.083% Nebulizer Soln -] 1 amp NEB PRN PRN 10/31/18 Albuterol 2.5/Ipratropium 0.5 [Duoneb -] 1 amp NEB PRN 10/31/18 Anemia: No Asthma: Yes Cancer: No Cardiac Disorders: No CVA: No (hydrocephalous chronic) COPD: No CHF: No Dementia: No Diabetes: No GI Disorders: Yes (gerd/hiatal hernia/dysphagia/constipation) Disorders: No HTN: No Hypercholesterolemia: No Liver Disease: No Seizures: Yes Thyroid Disease: No (osteoporosis, osteoporosis) - Surgical History Abdominal Surgery: No Appendectomy: No Cardiac Surgery: No Cholecystectomy: No GI Surgery: Yes (G tube) Lung Surgery: No Neurologic Surgery: No Orthopedic Surgery: No - Immunization History Immunization Up to Date: Yes - Suicide/Smoking/Psychosocial Hx Smoking Status: No Smoking History: Never smoked Have you smoked in the past 12 months: No Number of Cigarettes Smoked Daily: 0 Hx Alcohol Use: No Drug/Substance Use Hx: No Substance Use Type: None Hx Substance Use Treatment: No *Physical Exam - Vital Signs Last Vital Signs Temp Pulse Resp BP Pulse Ox 99 F 87 20 114/71 98 10/31/18 12:07 10/31/18 12:15 10/31/18 12:07 10/31/18 12:07 10/31/18 12:15 ED Treatment Course - LABORATORY CBC & Chemistry Diagram: 11/01/18 07:32 11/01/18 07:32 Medical Decision Making - Medical Decision Making HPI: 58yo M with PMH of Mental Retardation, PEG-dependent, seizure disorder, hydrocephalus, quadraplegia, legal blindness, asthma, h/o of aspiration PNA sent from [facility] for evaluation of hypoxia. Patient was reported to have oxygen saturation of 83 and cough for the past couple days. History limited as patient is nonverbal at baseline. Per [facility] notes: "b/l rales, desat 83% on RA, started on O2 2 liters- 93 % and tachycardic (HR 100-106), lethargic. Usually hypothermic 95-96. Give duonebs at 1 x 9am. Provider Jessa Salinas, RACKMAN-C [phone] T 97.6, O2 83% RA, 92% 2L NC, P 105, BP 138/81" ROS: unable to complete (patient is nonverbal) PE: General: Awake, alert, in position Head: No signs of trauma Eyes: EOMI, sclera anicteric ENT: Moist mucus membranes Neck: Normal ROM, supple Lungs: Lungs with diffuse rales bilaterally Cardio: Regular rhythm, S1 and S2 present Abdomen: Soft, nondistended. PEG tube in place. Extremities: Upper and lower limbs contracted, Distal pulses present SKIN: Warm, Dry, normal turgor Neurologic: Cranial nerves II through XII grossly intact. Nonverbal ED Course/MDM: DDX including but not limited to pneumonia, bronchitis, UTI, bacteremia, asthma exacerbation COPD Labs, EKG, CXR Patient afebrile and with stable vitals Patient satting 94-95 on 2L NC Per chart review, patient was admitted 08/21/18-08/24/18 for sepsis with pneumonia ( CT chest showing b/l atetelectic changes and patchy airspace opacities) and treated with Zosyn and Azithromycin x 4 days. 10/31/18 13:28 CXR shows atelectasis, per radiology: The heart size is within normal limits. The lung rivera are free of pulmonary infiltrates or pleural effusions. Mild atelectatic changes are seen at the lung bases. There is a levoscoliosis of the thoracic spine also noted. IMPRESSION: Bibasilar atelectasis 10/31/18 14:34 EKG: rate 93, QTc 395, NSR CT with development of small right lower lobe infiltrate:"ADDENDUM * ADDENDUM #1 Addendum: The main pulmonary diameter appears mildly prominent measuring 3.1 cm which could be on the basis of increased pulmonary arterial pressure. Follow-up evaluation is suggested. ORIGINAL REPORT Chest CT without contrast Clinical information: hypoxia Multiplanar imaging was performed. Intravenous contrast was not administered. In comparison to a prior CT study of 08/21/2018 interval development of a small right lower lobe infiltrate is noted posteriorly. Interval resolution of small patchy infiltrates is seen within the right middle lobe and lingula. A small chronic right upper lobe posterior segment infiltrate is noted which is also unchanged in comparison to a 2014 CT exam. No pleural effusion is seen. Several enlarged bilateral hilar lymph nodes are seen. There are also several mildly enlarged subcarinal mediastinal lymph nodes without gross interval change in comparison to the prior exam as well as a comparison to a more remote CT study of 2014. Precise comparison is somewhat difficult given that the current exam was performed without intravenous contrast. There is no definite cardiac enlargement. No pericardial effusion is seen. There is no aortic aneurysm. The visualized osseous structures demonstrate no obvious CT evidence of acute pathology. Impression: In comparison to an exam of 08/21/2018 interval development of a small right lower lobe infiltrate is seen posteriorly. Interval resolution of small infiltrates is noted within the right middle lobe and lingula. Small chronic right upper lobe infiltrate. Mediastinal lymphadenopathy and bilateral hilar lymphadenopathy is seen without gross interval change in comparison to prior CT studies including a 2015 exam. Correlation with nonemergent contrast-enhanced CT is suggested in this regard for more accurate comparison. " 10/31/18 17:[address] Allison who accepted patient for admission Per her request, I will ascertain whether the patient is Full Code and if the patient takes food by mouth 10/31/18 18:28 Per Jesus paperwork, no note is made of code status. Patient is only fed through his PEG tube. 10/31/18 18:46 *DC/Admit/Observation/Transfer Diagnosis at time of Disposition: Hypoxia Pneumonia Qualifiers: Pneumonia type: due to unspecified organism Laterality: right Lung location: lower lobe of lung Qualified Code(s): J18.1 - Lobar pneumonia, unspecified organism - Discharge Dispostion Condition at time of disposition: Guarded Decision to Admit order: Yes - Referrals - Patient Instructions - Post Discharge Activity
[2018-10-31] MEDS ORDERED: ALBUTEROL SO4 2.5/IPRATROPIUM 0.5 INH SOL 3 ML VIAL.NEB. NEB ONE (14:06)
[2018-10-31] MEDS ORDERED: SODIUM CHLORIDE 1,000 ML IV STA (14:07)
[2018-10-31 14:08] LABS: VENOUS PC02 54.9 mmHg (38-52); VENOUS PH 7.38 (7.31-7.41); VENOUS PO2 < 49 mmHg (28-48)
[2018-10-31 14:20] LABS: BASO % 0.6 % (0-2.0); EOS % 2.7 % (0-4.5); HEMOGLOBIN 15.3 GM/dL (11.7-16.9); LYMPH % 13.4 % (8-40); MCH 31.6 pg (25.7-33.7); MCHC 34.8 g/dl (32.0-35.9); MEAN CELL VOLUME 90.9 fl (80-96); MEAN PLT VOLUME 8.5 fl (7.5-11.1); MONO % 8.7 % (3.8-10.2); NEUT % 74.6 % (42.8-82.8); PLATELET COUNT 375 K/MM3 (134-434); RBC 4.84 M/mm3 (4.00-5.60); RDW 14.6 % (11.9-15.9); WHITE BLOOD COUNT 9.1 K/mm3 (4.0-10.0)
[2018-10-31 14:27] LABS: INR 0.98 (0.83-1.09); PROTHROMBIN TIME (PATIENT) 11.6 SEC (9.7-13.0)
[2018-10-31 14:29] LABS: ACTIVATED PTT 35.2 SECONDS (25.2-36.5)
--- NOTE | 2018-10-31 14:40 | EKG ---
Test Reason : Blood Pressure : / mmHG Vent. Rate : 093 BPM Atrial Rate : 093 BPM P-R Int : 136 ms QRS Dur : 084 ms QT Int : 318 ms P-R-T Axes : 063 -43 021 degrees QTc Int : 395 ms NORMAL SINUS RHYTHM LEFT AXIS DEVIATION ABNORMAL ECG WHEN COMPARED WITH ECG OF 21-AUG-2018 19:49, NO SIGNIFICANT CHANGE WAS FOUND Confirmed by PANKAJ HARGROVE MD ([id number]) on 10/31/2018 2:39:33 PM Referred By: Confirmed By:PANKAJ HARGROVE MD
[2018-10-31 14:52] LABS: ALBUMIN 3.6 g/dl (3.4-5.0); ALK PHOS 193 U/L (45-117); ANION GAP 7 MMOL/L (8-16); BILIRUBIN,TOTAL 0.6 mg/dL (0.2-1); BLOOD UREA NITROGEN 8.4 mg/dL (7-18); CALCIUM 9.4 mg/dL (8.5-10.1); CHLORIDE 90 mmol/L (98-107); CO2 31 mmol/L (21-32); CREATININE 0.7 mg/dL (0.55-1.3); GLUCOSE,RANDOM 89 mg/dL (74-106); POTASSIUM 5.6 mmol/L (3.5-5.1); SGOT/AST 63 U/L (15-37); SGPT/ALT 60 U/L (13-61); SODIUM 128 mmol/L (136-145); TOT PROT 7.6 g/dl (6.4-8.2)
[2018-10-31 15:46] LABS: PH,URINE 7.5 (5.0-8.0); URINE APPEARANCE CLEAR; URINE BILIRUBIN NEGATIVE (NEGATIVE); URINE COLOR YELLOW; URINE GLUCOSE (UA) NEGATIVE (NEGATIVE); URINE KETONE NEGATIVE (NEGATIVE); URINE LEUK ESTERASE NEGATIVE (NEGATIVE); URINE NITRITE NEGATIVE (NEGATIVE); URINE PROTEIN NEGATIVE (NEGATIVE); URINE UROBILINOGEN 0.2 mg/dL (0.2-1.0)
[2018-10-31] MEDS ORDERED: AZITHROMYCIN IVPB 500 MG in DEXTROSE 5%-WATER - 250 ML IVPB ONE (18:19)
[2018-10-31] MEDS ORDERED: PIPERACILLIN/TAZOB 4.5 GM 4.5 GM in DEXTROSE 5%-WATER 100 ML IVPB ONE (18:19)
--- NOTE | 2018-10-31 18:40 | PDOC ---
Documentation entered by Abel Awad SCRIBE, acting as scribe for Bre Griggs MD. Bre Griggs MD: This documentation has been prepared by the Ritesh rudolph Daniel, SCRIBE, under my direction and personally reviewed by me in its entirety. I confirm that the documentation accurately reflects all work, treatment, procedures, and medical decision making performed by me. Attending Attestation - Resident Resident Name: RobynHelena - ED Attending Attestation I have performed the following: I have examined & evaluated the patient, The case was reviewed & discussed with the resident, I agree w/resident's findings & plan, Exceptions are as noted - HPI HPI: 10/31/18 15:19 The patient is a 58 year old male with a past medical history of mental retardation, PEG-dependent, seizure disorder, hydrocephalus, quadriplegia, legal blindness, asthma, history of aspiration pneumonia brought in today from [place] for evaluation of hypoxia. As per EMS, the patient had an O2 saturation of 93 and had a cough. Patient is not able to provide history. Allergies: benzodiazepines - Physicial Exam PE: 10/31/18 16:52 GENERAL: The patient is in no acute distress. Nonverbal. HEAD: Normal EYES: PERRLA, sclera anicteric ENT: Dry mucous membranes. NECK: Normal range of motion, supple . LUNGS: +coarse breath sounds diffusely. Breath sounds equal. No wheezes. On supplemental O2 HEART:Regular rate and rhythm ABDOMEN: Soft, nontender EXTREMITIES: Pt is contracted into the position NEUROLOGICAL: Pt responsive to verbile and tactile stimuli - Medical Decision Making 10/31/18 14:33 58 yo M p/w cough and congestion lung examination reveals rhonchi CT performed and demonstrates pneumonia EKG - NSR rate of [address] elevation or depression, t waves up right 10/31/18 18:38 Laboratory Tests 10/31/18 10/31/18 10/31/18 13:54 13:54 13:54 WBC 9.1 Hgb 15.3 Hct 44.0 Plt Count 375 D INR 0.98 VBG pH POC VBG pCO2 POC VBG pO2 VBG HCO3 Sodium 128 L Potassium 5.6 H Chloride 90 L BUN 8.4 Creatinine 0.7 10/31/18 14:00 WBC Hgb Hct Plt Count INR VBG pH 7.38 POC VBG pCO2 54.9 H POC VBG pO2 < 49 H VBG HCO3 31.8 H Sodium Potassium Chloride BUN Creatinine CXR - not impressive Pt has increased O2 requirement and coarse lung sounds CT performed Demonstrates infiltrate Zosyn and Azithromycin Will admit to Dr Allison
[2018-10-31] MEDS ORDERED: AZITHROMYCIN IVPB 500 MG/250 ML BAG IVPB ONE ×2 (19:48→21:08)
--- NOTE | 2018-10-31 20:31 | HP ---
Admitting History and Physical - Primary Care Physician PCP: Kun Allison - Admission History of Present Illness: 58 year old male with a past medical history of mental retardation, PEG- dependent, seizure disorder, hydrocephalus, quadriplegia, legal blindness, asthma, history of aspiration pneumonia brought in today from [place] for evaluation of hypoxia. As per EMS, the patient had an O2 saturation of 93 and had a cough. Patient is not able to provide history. 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 No: Alzheimer's Pulmonary: Yes: Asthma, Pneumonia (multiple admissions in the past for pneumonia ) Gastrointestinal: Yes: Constipation (Dysphagia.), GERD, Hiatal Hernia, Other Infectious Disease: Yes: Other (history of meningitis at age 4 months) - Past Surgical History Past Surgical History: Yes: None - Smoking History Smoking history: Never smoked Have you smoked in the past 12 months: No Aproximately how many cigarettes per day: 0 - Alcohol/Substance Use Hx Alcohol Use: No History of Substance Use: reports: None - Social History ADL: Support Services History of Recent Travel: No Home Medications - Allergies Allergies/Adverse Reactions: Allergies Allergy/AdvReac Type Severity Reaction Status Date / Time Benzodiazepines Allergy Unknown Verified 08/21/18 18:25 - Home Medications Home Medications: Ambulatory Orders Budesonide [Pulmicort] 1 neb IH BID 07/04/12 Omeprazole [Prilosec (RX)] 20 mg GT HS 07/04/12 levETIRAcetam [Keppra Oral Solution -] 1,500 mg PO BID 07/04/12 Calcium Citrate/Vitamin D3 [Citracal + D Caplet] 315 mg GT BID 06/27/13 Albuterol 0.083% Nebulizer Mehnaz [Ventolin 0.083% Nebulizer Soln -] 1 neb NEB Q4H PRN 07/18/14 Arformoterol Tartrate [Brovana] 15 mcg IH BID 07/18/14 Multivitamins [Multivit ([facility] Formulary)] 1 tab GT DAILY 07/18/14 Electrolyte,Oral [Pedialyte -] 60 ml GT BID 08/21/18 Polyethylene Glycol 3350 [Clearlax] 17 gm GT DAILY 08/21/18 Sennosides [Senna] 2 tab GT HS 08/21/18 Albuterol 0.083% Nebulizer Mehnaz [Ventolin 0.083% Nebulizer Soln -] 1 amp NEB PRN PRN 10/31/18 Albuterol 2.5/Ipratropium 0.5 [Duoneb -] 1 amp NEB PRN 10/31/18 Family Disease History - Family Disease History Family Disease History: Diabetes: Mother (HTN), Heart Disease: Mother, CA: Grandparent (Breast), Other: Mother Physical Examination Vital Signs: Vital Signs Temperature 98.4 F 10/31/18 18:46 Pulse Rate 83 10/31/18 18:46 Respiratory Rate 20 10/31/18 18:46 Blood Pressure 110/68 10/31/18 18:46 O2 Sat by Pulse Oximetry (%) 94 L 10/31/18 18:46 Constitutional: Yes: No Distress HENT: Yes: Atraumatic Neck: Yes: Supple Cardiovascular: Yes: Regular Rate and Rhythm Respiratory: Yes: Rhonchi Gastrointestinal: Yes: Normal Bowel Sounds Extremities: Yes: Other Neurological: Yes: Other (awake) Labs: CBC, BMP 10/31/18 13:54 10/31/18 13:54 Imaging - Results Cat Scan: Report Reviewed Problem List - Problems (1) Hypoxia Assessment/Plan: oxygen inhalation prn duo nebs Code(s): R09.02 - HYPOXEMIA (2) Pneumonia Assessment/Plan: on abx id consult aspiration precautions Code(s): J18.9 - PNEUMONIA, UNSPECIFIED ORGANISM Qualifiers: Pneumonia type: due to unspecified organism Laterality: right Lung location: lower lobe of lung Qualified Code(s): J18.1 - Lobar pneumonia, unspecified organism (3) GERD (gastroesophageal reflux disease) Code(s): K21.9 - GASTRO-ESOPHAGEAL REFLUX DISEASE WITHOUT ESOPHAGITIS (4) Hydrocephalus Code(s): G91.9 - HYDROCEPHALUS, UNSPECIFIED (5) Mental retardation Code(s): F79 - UNSPECIFIED INTELLECTUAL DISABILITIES Assessment/Plan Laboratory Tests 10/31/18 10/31/18 10/31/18 13:54 13:54 13:54 WBC 9.1 RBC 4.84 Hgb 15.3 Hct 44.0 MCV 90.9 MCH 31.6 MCHC 34.8 RDW 14.6 Plt Count 375 D MPV 8.5 Absolute Neuts (auto) 6.8 Neutrophils % 74.6 Lymphocytes % 13.4 D Monocytes % 8.7 Eosinophils % 2.7 Basophils % 0.6 Nucleated RBC % 0 PT with INR 11.60 INR 0.98 PTT (Actin FS) 35.2 VBG pH POC VBG pCO2 POC VBG pO2 VBG HCO3 VBG O2 Sat (Amol) VBG Base Excess Sodium 128 L Potassium 5.6 H Chloride 90 L Carbon Dioxide 31 Anion Gap 7 L BUN 8.4 Creatinine 0.7 Est GFR (CKD-EPI)AfAm 120.56 Est GFR (CKD-EPI)NonAf 104.02 Random Glucose 89 Lactic Acid Calcium 9.4 Total Bilirubin 0.6 AST 63 H ALT 60 Alkaline Phosphatase 193 H Creatine Kinase Creatine Kinase Index CK-MB (CK-2) < 1.0 Troponin I Total Protein 7.6 Albumin 3.6 Urine Color Urine Appearance Urine pH Ur Specific [place] Urine Protein Urine Glucose (UA) Urine Ketones Urine Blood Urine Nitrite Urine Bilirubin Urine Urobilinogen Ur Leukocyte Esterase 10/31/18 10/31/18 10/31/18 13:54 13:54 14:00 WBC RBC Hgb Hct MCV MCH MCHC RDW Plt Count MPV Absolute Neuts (auto) Neutrophils % Lymphocytes % Monocytes % Eosinophils % Basophils % Nucleated RBC % PT with INR INR PTT (Actin FS) VBG pH 7.38 POC VBG pCO2 54.9 H POC VBG pO2 < 49 H VBG HCO3 31.8 H VBG O2 Sat (Amol) 27.4 L VBG Base Excess 5.3 H Sodium Potassium Chloride Carbon Dioxide Anion Gap BUN Creatinine Est GFR (CKD-EPI)AfAm Est GFR (CKD-EPI)NonAf Random Glucose Lactic Acid 1.2 Calcium Total Bilirubin AST ALT Alkaline Phosphatase Creatine Kinase 216 Creatine Kinase Index No Result Required. CK-MB (CK-2) < 1.0 Troponin I < 0.02 Total Protein Albumin Urine Color Urine Appearance Urine pH Ur Specific [place] Urine Protein Urine Glucose (UA) Urine Ketones Urine Blood Urine Nitrite Urine Bilirubin Urine Urobilinogen Ur Leukocyte Esterase 10/31/18 15:12 WBC RBC Hgb Hct MCV MCH MCHC RDW Plt Count MPV Absolute Neuts (auto) Neutrophils % Lymphocytes % Monocytes % Eosinophils % Basophils % Nucleated RBC % PT with INR INR PTT (Actin FS) VBG pH POC VBG pCO2 POC VBG pO2 VBG HCO3 VBG O2 Sat (Amol) VBG Base Excess Sodium Potassium Chloride Carbon Dioxide Anion Gap BUN Creatinine Est GFR (CKD-EPI)AfAm Est GFR (CKD-EPI)NonAf Random Glucose Lactic Acid Calcium Total Bilirubin AST ALT Alkaline Phosphatase Creatine Kinase Creatine Kinase Index CK-MB (CK-2) Troponin I Total Protein Albumin Urine Color Yellow Urine Appearance Clear Urine pH 7.5 Ur Specific [place] 1.004 L Urine Protein Negative Urine Glucose (UA) Negative Urine Ketones Negative Urine Blood Negative Urine Nitrite Negative Urine Bilirubin Negative Urine Urobilinogen 0.2 Ur Leukocyte Esterase Negative Active Medications Generic Name Dose Route Start Last Admin Trade Name Freq PRN Reason Stop Dose Admin Albuterol Sulfate 1 amp 10/31/18 20:32 Ventolin 0.083% Nebulizer Soln - NEB Q4H PRN WHEEZING Arformoterol Tartrate 1 amp 10/31/18 23:26 11/02/18 08:00 Brovana (Restricted To Pulmonology/Resp) - NEB 1 amp RBID CONSTACNE Administration Budesonide 1 amp 10/31/18 23:26 11/02/18 08:00 Pulmicort 0.5 Mg Nebulizer - NEB 1 amp RBID CONSTANCE Administration Heparin Sodium (Porcine) 5,000 unit 10/31/18 22:00 11/02/18 09:24 Heparin - SQ 5,000 unit BID CONSTANCE Administration Sodium Chloride 1,000 mls @ 75 mls/hr 10/31/18 20:45 11/02/18 09:29 Normal Saline - IV 75 mls/hr ASDIR CONSTANCE Administration Piperacillin Sod/Tazobactam 50 mls @ 100 mls/hr 11/01/18 10:45 11/02/18 09:24 Sod 3.375 gm/ Dextrose IVPB 100 mls/hr Q8H-IV CONSTANCE Administration Protocol Levetiracetam 1,500 mg 10/31/18 22:00 11/02/18 09:24 Keppra Oral Solution - PO 1,500 mg BID CONSTANCE Administration Multivitamins/Minerals/Vitamin C 1 tab 11/01/18 10:00 11/02/18 09:24 Tab-A-Vit - PO 1 tab DAILY CONSTANCE Administration Non-Formulary Medication 315 mg 10/31/18 22:00 Calcium Citrate/Vitamin D3 [Citracal + D Caplet] GT BID CONSTANCE Polyethylene Glycol 17 gm 11/01/18 10:00 11/02/18 09:25 Miralax (For Daily Use) - GT 17 gm DAILY CONSTANCE Administration Ranitidine HCl 75 mg 10/31/18 22:00 11/02/18 09:24 Zantac Oral Solution - GT 75 mg BID CONSTANCE Administration Senna 2 tab 10/31/18 22:00 11/01/18 21:33 Senna - PO 2 tab HS CONSTANCE Administration
[2018-10-31] MEDS ORDERED: ALBUTEROL SO4 0.083% IH SOL 2.5 MG/3 ML VIAL.NEB. NEB PRN (20:32)
[2018-10-31] MEDS ORDERED: PIPERACILLIN/TAZOB 4.5 GM 4.5 GM/100 ML BAG IVPB ONE (21:09)
[2018-10-31] MEDS: SODIUM CHLORIDE 1,000 ML IV SCH (21:13)
[2018-10-31] MEDS ORDERED: ARFORMOTEROL TARTRATE 15 MCG/2 ML VIAL NEB SCH (22:00)
[2018-10-31] MEDS ORDERED: BUDESONIDE 0.5 MG/2 ML INH SUSP VIAL NEB SCH (22:00)
[2018-10-31] MEDS ORDERED: PATIENT'S OWN MEDICATION (NON-FORMULARY) (Omeprazole [Prilosec (Rx)] 20 MG) GT SCH (22:00)
[2018-11-01] MEDS ORDERED: HEPARIN NA (PORCINE) 5,000 UNITS/ML 1ML VIAL ONE (00:03)
[2018-11-01] MEDS ORDERED: SENNOSIDES 8.6MG TABLET (FP) PO ONE (00:03)
[2018-11-01] MEDS: HEPARIN NA (PORCINE) 5,000 UNITS/ML 1ML VIAL SQ SCH ×3 (00:14→21:32)
[2018-11-01] MEDS: SENNOSIDES 8.6MG TABLET (FP) PO SCH ×2 (00:15→21:33)
[2018-11-01] MEDS: levETIRAcetam 500 MG/5 ML ORAL SOLUTION (UNIT-DOSE CUPS) PO SCH ×3 (01:12→21:34)
[2018-11-01] MEDS: RANITIDINE HCL 150 MG/10 ML UNIT-DOSE GT SCH ×3 (01:12→21:33)
[2018-11-01] MEDS: BUDESONIDE 0.5 MG/2 ML INH SUSP VIAL NEB SCH ×2 (08:30→20:30)
[2018-11-01 08:45] LABS: BASO % 0.4 % (0-2.0); EOS % 3.2 % (0-4.5); HEMATOCRIT 41.4 % (35.4-49); HEMOGLOBIN 14.3 GM/dL (11.7-16.9); LYMPH % 23.2 % (8-40); MCH 31.5 pg (25.7-33.7); MCHC 34.5 g/dl (32.0-35.9); MEAN CELL VOLUME 91.4 fl (80-96); MEAN PLT VOLUME 8.1 fl (7.5-11.1); MONO % 10.4 % (3.8-10.2); NEUT % 62.8 % (42.8-82.8); PLATELET COUNT 314 K/MM3 (134-434); RBC 4.53 M/mm3 (4.00-5.60); RDW 14.3 % (11.9-15.9); WHITE BLOOD COUNT 6.8 K/mm3 (4.0-10.0)
[2018-11-01] MEDS: ARFORMOTEROL TARTRATE 15 MCG/2 ML VIAL NEB SCH ×2 (08:50→20:29)
[2018-11-01 08:56] LABS: ALBUMIN 3.3 g/dl (3.4-5.0); BILIRUBIN,TOTAL 0.4 mg/dL (0.2-1); BLOOD UREA NITROGEN 6.1 mg/dL (7-18); CALCIUM 8.7 mg/dL (8.5-10.1); CREATININE 0.5 mg/dL (0.55-1.3); POTASSIUM 4.3 mmol/L (3.5-5.1); TOT PROT 6.8 g/dl (6.4-8.2)
[2018-11-01] MEDS ORDERED: POLYETHYLENE GLYCOL 17 GM GT SCH (10:00)
--- NOTE | 2018-11-01 10:16 | CON.PULM ---
Consult Consult Specialty:: PULMONARY Referred by:: Dr Allison Reason for Consultation:: COPD/PNA - History of Present Illness Chief Complaint: cough History of Present Illness: 58yo male with h/o mental retardation, seizure disorder, functional quadriplegia , blindness, asthma who was transferred from [place] for cough and hypoxia. Pt unable to provide further history at this time. Mildly hypothermic on admission , no leukocytosis present but with RUL and RLL infiltrate seen on CT chest. On exam, pt with frequent coughing which is new per aide at bedside. 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 No: Alzheimer's Pulmonary: Yes: Asthma, Pneumonia (multiple admissions in the past for pneumonia ) Gastrointestinal: Yes: Constipation (Dysphagia.), GERD, Hiatal Hernia, Other Infectious Disease: Yes: Other (history of meningitis at age 4 months) - Past Surgical History Past Surgical History: Yes: None - Alcohol/Substance Use Hx Alcohol Use: No History of Substance Use: reports: None - Smoking History Smoking history: Never smoked Have you smoked in the past 12 months: No Aproximately how many cigarettes per day: 0 - Social History Usual Living Arrangement: Senior Living ADL: Support Services History of Recent Travel: No Home Medications - Allergies Allergies/Adverse Reactions: Allergies Allergy/AdvReac Type Severity Reaction Status Date / Time Benzodiazepines Allergy Unknown Verified 08/21/18 18:25 - Home Medications Home Medications: Ambulatory Orders Budesonide [Pulmicort] 1 neb IH BID 07/04/12 Omeprazole [Prilosec (RX)] 20 mg GT HS 07/04/12 levETIRAcetam [Keppra Oral Solution -] 1,500 mg PO BID 07/04/12 Calcium Citrate/Vitamin D3 [Citracal + D Caplet] 315 mg GT BID 06/27/13 Albuterol 0.083% Nebulizer Mehnaz [Ventolin 0.083% Nebulizer Soln -] 1 neb NEB Q4H PRN 07/18/14 Arformoterol Tartrate [Brovana] 15 mcg IH BID 07/18/14 Multivitamins [Multivit ([facility] Formulary)] 1 tab GT DAILY 07/18/14 Electrolyte,Oral [Pedialyte -] 60 ml GT BID 08/21/18 Polyethylene Glycol 3350 [Clearlax] 17 gm GT DAILY 08/21/18 Sennosides [Senna] 2 tab GT HS 08/21/18 Albuterol 0.083% Nebulizer Mehnaz [Ventolin 0.083% Nebulizer Soln -] 1 amp NEB PRN PRN 10/31/18 Albuterol 2.5/Ipratropium 0.5 [Duoneb -] 1 amp NEB PRN 10/31/18 Family Disease History - Family Disease History Family Disease History: Diabetes: Mother (HTN), Heart Disease: Mother, CA: Grandparent (Breast), Other: Mother Review of Systems Unable to obtain ROS, reason: pt nonverbal Physical Exam Vital Sings: Vital Signs Temperature 97.9 F 11/01/18 07:00 Pulse Rate 100 H 11/01/18 07:00 Respiratory Rate 20 11/01/18 07:00 Blood Pressure 122/69 11/01/18 07:00 O2 Sat by Pulse Oximetry (%) 92 L 11/01/18 03:06 Constitutional: Yes: Other (frequent coughing) Eyes: Yes: Conjunctiva Clear HENT: Yes: Atraumatic, Normocephalic Neck: Yes: Supple, Trachea Midline Cardiovascular: Yes: Regular Rate and Rhythm Respiratory: Yes: Rhonchi, Wheezes ...Clubbing: No Gastrointestinal: Yes: Normal Bowel Sounds, Soft, Other (+PEG). No: Tenderness Extremities: Yes: Other (contracted) Edema: No Neurological: No: Alert, Oriented Labs: CBC, BMP 11/01/18 07:32 11/01/18 07:32 Imaging - Results Chest X-ray: Report Reviewed, Image Reviewed Cat Scan: Report Reviewed, Image Reviewed (small RUL, RLL infiltrates) Problem List - Problems (1) Pneumonia Code(s): J18.9 - PNEUMONIA, UNSPECIFIED ORGANISM Qualifiers: Pneumonia type: due to unspecified organism Laterality: right Lung location: lower lobe of lung Qualified Code(s): J18.1 - Lobar pneumonia, unspecified organism (2) Acute asthma exacerbation Code(s): J45.901 - UNSPECIFIED ASTHMA WITH (ACUTE) EXACERBATION Assessment/Plan Pneumonia likely Aspiration Acute Asthma Exacerbation Cerebral Palsy Mental Retardation Seizure Disorder Blindness Functional Quadriplegia - antibiotics per ID - f/u cultures - will start short course of medrol - inhaled bronchodilators standing and PRN - O2 to keep SpO2 >90% - aspiration precautions - DVT prophylaxis Thank you for this consult Gino Lr MD
--- NOTE | 2018-11-01 10:33 | CON.ID ---
Consult Consult Specialty:: infectious diseases Referred by:: Reason for Consultation:: pneumonia - History of Present Illness Chief Complaint: resp difficuilty History of Present Illness: 58 year old male with a past medical history of mental retardation, PEG- dependent, seizure disorder, hydrocephalus, quadriplegia, legal blindness, asthma, history of aspiration pneumonia brought in today from [place] for evaluation of hypoxia. As per EMS, the patient had an O2 saturation of 93 and had a cough. Patient is not able to provide history because of his condition. patients aid in the room - History Source History Provided By: Medical Record Limitations to Obtaining History: Clinical Condition - Past Medical History [employer]: Yes: Seizure, Other (Chronic hydrocephalus, Severe mental and physical disability, and quadroplegia.). No: Alzheimer's Pulmonary: Yes: Asthma, Pneumonia (multiple admissions in the past for pneumonia ) Gastrointestinal: Yes: Constipation (Dysphagia.), GERD, Hiatal Hernia, Other Infectious Disease: Yes: Other (history of meningitis at age 4 months) - Past Surgical History Past Surgical History: Yes: None - Alcohol/Substance Use Hx Alcohol Use: No History of Substance Use: reports: None - Smoking History Smoking history: Never smoked Have you smoked in the past 12 months: No Aproximately how many cigarettes per day: 0 - Social History Usual Living Arrangement: Custodial ADL: Support Services History of Recent Travel: No Home Medications - Allergies Allergies/Adverse Reactions: Allergies Allergy/AdvReac Type Severity Reaction Status Date / Time Benzodiazepines Allergy Unknown Verified 08/21/18 18:25 - Home Medications Home Medications: Ambulatory Orders Budesonide [Pulmicort] 1 neb IH BID 07/04/12 Omeprazole [Prilosec (RX)] 20 mg GT HS 07/04/12 levETIRAcetam [Keppra Oral Solution -] 1,500 mg PO BID 07/04/12 Calcium Citrate/Vitamin D3 [Citracal + D Caplet] 315 mg GT BID 06/27/13 Albuterol 0.083% Nebulizer Mehnaz [Ventolin 0.083% Nebulizer Soln -] 1 neb NEB Q4H PRN 07/18/14 Arformoterol Tartrate [Brovana] 15 mcg IH BID 07/18/14 Multivitamins [Multivit ([facility] Formulary)] 1 tab GT DAILY 07/18/14 Electrolyte,Oral [Pedialyte -] 60 ml GT BID 08/21/18 Polyethylene Glycol 3350 [Clearlax] 17 gm GT DAILY 08/21/18 Sennosides [Senna] 2 tab GT HS 08/21/18 Albuterol 0.083% Nebulizer Mehnaz [Ventolin 0.083% Nebulizer Soln -] 1 amp NEB PRN PRN 10/31/18 Albuterol 2.5/Ipratropium 0.5 [Duoneb -] 1 amp NEB PRN 10/31/18 Family Disease History - Family Disease History Family Disease History: Diabetes: Mother (HTN), Heart Disease: Mother, CA: Grandparent (Breast), Other: Mother Review of Systems Unable to obtain ROS, reason: unable to obtain Physical Exam Vital Signs: Vital Signs Temperature 97.9 F 11/01/18 07:00 Pulse Rate 100 H 11/01/18 07:00 Respiratory Rate 20 11/01/18 07:00 Blood Pressure 122/69 11/01/18 07:00 O2 Sat by Pulse Oximetry (%) 92 L 11/01/18 03:06 Constitutional: Yes: Other (coughing) Neck: Yes: Supple Cardiovascular: Yes: Regular Rate and Rhythm Respiratory: Yes: On Nasal O2, Poor Air Entry, Rhonchi Gastrointestinal: Yes: Normal Bowel Sounds, Soft, Other (peg) Extremities: Yes: Other (contracted) Neurological: Yes: Alert, Other Psychiatric: Yes: Other Labs: CBC, BMP 11/01/18 07:32 11/01/18 07:32 Imaging - Results Chest X-ray: Report Reviewed, Image Reviewed Cat Scan: Report Reviewed, Image Reviewed Assessment/Plan Problem List - Problems (1) Hypoxia Code(s): R09.02 - HYPOXEMIA (2) Pneumonia Code(s): J18.9 - PNEUMONIA, UNSPECIFIED ORGANISM Qualifiers: Pneumonia type: due to unspecified organism Laterality: right Lung location: lower lobe of lung Qualified Code(s): J18.1 - Lobar pneumonia, unspecified organism (3) GERD (gastroesophageal reflux disease) Code(s): K21.9 - GASTRO-ESOPHAGEAL REFLUX DISEASE WITHOUT ESOPHAGITIS (4) Hydrocephalus Code(s): G91.9 - HYDROCEPHALUS, UNSPECIFIED (5) Mental retardation Code(s): F79 - UNSPECIFIED INTELLECTUAL DISABILITIES probably dues to aspiration,also patient coughing plan will start on zosyn consider npo asp precautions rest as per the team
[2018-11-01] MEDS ORDERED: DEXTROSE 5%-WATER - 50 ML IVPB ONE ×2 (10:43→17:05)
[2018-11-01] MEDS ORDERED: PIPERACILLIN/TAZOBACTAM 3.375 GM VIAL IVPB ONE ×2 (10:43→17:05)
[2018-11-01] MEDS: PIPERACILLIN/TAZOB 3.375 GM 3.375 GM in DEXTROSE 5%-WATER - 50 ML IVPB SCH ×2 (10:55→17:47)
[2018-11-01] MEDS: MULTIVITAMINS (DAILY MVI) TABLET (FP) PO SCH (10:56)
[2018-11-01] MEDS: POLYETHYLENE GLYCOL 3350 119 GM BTL GT SCH (10:58)
[2018-11-01] MEDS ORDERED: PT OWN MED DRAWER 7, Y5N ONE (11:10)
--- NOTE | 2018-11-01 16:35 | PN ---
Progress Note, Physician - Current Medication List Current Medications: Active Medications Albuterol Sulfate (Ventolin 0.083% Nebulizer Soln -) 1 amp NEB Q4H PRN PRN Reason: WHEEZING Arformoterol Tartrate (Brovana (Restricted To Pulmonology/Resp) -) 1 amp NEB RBID [facility] Last Admin: 11/01/18 08:50 Dose: 1 amp Budesonide (Pulmicort 0.5 Mg Nebulizer -) 1 amp NEB RBID [facility] Last Admin: 11/01/18 08:30 Dose: Not Given Heparin Sodium (Porcine) (Heparin -) 5,000 unit SQ BID [facility] Last Admin: 11/01/18 10:55 Dose: 5,000 unit Sodium Chloride (Normal Saline -) 1,000 mls @ 75 mls/hr IV ASDIR [facility] Last Admin: 10/31/18 21:13 Dose: 75 mls/hr Piperacillin Sod/Tazobactam (Sod 3.375 gm/ Dextrose) 50 mls @ 100 mls/hr IVPB Q8H-IV [facility]; Protocol Last Admin: 11/01/18 10:55 Dose: 100 mls/hr Levetiracetam (Keppra Oral Solution -) 1,500 mg PO BID [facility] Last Admin: 11/01/18 10:56 Dose: 1,500 mg Multivitamins/Minerals/Vitamin C (Tab-A-Vit -) 1 tab PO DAILY [facility] Last Admin: 11/01/18 10:56 Dose: 1 tab Non-Formulary Medication (Calcium Citrate/Vitamin D3 [Citracal + D Caplet]) 315 mg GT BID [facility] Polyethylene Glycol (Miralax (For Daily Use) -) 17 gm GT DAILY [facility] Last Admin: 11/01/18 10:58 Dose: 17 gm Ranitidine HCl (Zantac Oral Solution -) 75 mg GT BID [facility] Last Admin: 11/01/18 10:55 Dose: 75 mg Senna (Senna -) 2 tab PO HS [facility] Last Admin: 11/01/18 00:15 Dose: 2 tab - Objective Vital Signs: Vital Signs Temperature 97.9 F 11/01/18 14:00 Pulse Rate 108 H 11/01/18 14:00 Respiratory Rate 20 11/01/18 14:00 Blood Pressure 140/81 11/01/18 14:00 O2 Sat by Pulse Oximetry (%) 92 L 11/01/18 03:06 Constitutional: Yes: No Distress HENT: Yes: Atraumatic Neck: Yes: Supple Cardiovascular: Yes: Regular Rate and Rhythm Respiratory: Yes: CTA Bilaterally Gastrointestinal: Yes: Normal Bowel Sounds, Other (peg in place) Extremities: Yes: WNL Neurological: Yes: Alert Labs: CBC, BMP 11/01/18 07:32 11/01/18 07:32 INR, PTT INR 0.98 (0.83-1.09) 10/31/18 13:54 Problem List - Problems (1) Hypoxia Assessment/Plan: oxygen inhalation prn duo nebs Code(s): R09.02 - HYPOXEMIA (2) Pneumonia Assessment/Plan: on abx id consult aspiration precautions Code(s): J18.9 - PNEUMONIA, UNSPECIFIED ORGANISM Qualifiers: Pneumonia type: due to unspecified organism Laterality: right Lung location: lower lobe of lung Qualified Code(s): J18.1 - Lobar pneumonia, unspecified organism (3) GERD (gastroesophageal reflux disease) Assessment/Plan: gi prophylaxis Code(s): K21.9 - GASTRO-ESOPHAGEAL REFLUX DISEASE WITHOUT ESOPHAGITIS (4) Hydrocephalus Code(s): G91.9 - HYDROCEPHALUS, UNSPECIFIED (5) Mental retardation Code(s): F79 - UNSPECIFIED INTELLECTUAL DISABILITIES
[2018-11-01] MEDS: SODIUM CHLORIDE 1,000 ML IV SCH (21:35)
[2018-11-02] MEDS ORDERED: DEXTROSE 5%-WATER - 50 ML IVPB ONE ×3 (00:59→17:02)
[2018-11-02] MEDS ORDERED: PIPERACILLIN/TAZOBACTAM 3.375 GM VIAL IVPB ONE ×3 (00:59→17:02)
[2018-11-02] MEDS: PIPERACILLIN/TAZOB 3.375 GM 3.375 GM in DEXTROSE 5%-WATER - 50 ML IVPB SCH ×3 (01:18→17:10)
[2018-11-02] MEDS: BUDESONIDE 0.5 MG/2 ML INH SUSP VIAL NEB SCH ×2 (08:00→20:13)
[2018-11-02] MEDS: ARFORMOTEROL TARTRATE 15 MCG/2 ML VIAL NEB SCH ×2 (08:00→20:13)
[2018-11-02] MEDS: HEPARIN NA (PORCINE) 5,000 UNITS/ML 1ML VIAL SQ SCH ×2 (09:24→21:44)
[2018-11-02] MEDS: RANITIDINE HCL 150 MG/10 ML UNIT-DOSE GT SCH ×2 (09:24→21:45)
[2018-11-02] MEDS: levETIRAcetam 500 MG/5 ML ORAL SOLUTION (UNIT-DOSE CUPS) PO SCH ×2 (09:24→21:45)
[2018-11-02] MEDS: MULTIVITAMINS (DAILY MVI) TABLET (FP) PO SCH (09:24)
[2018-11-02] MEDS: POLYETHYLENE GLYCOL 3350 119 GM BTL GT SCH (09:25)
[2018-11-02] MEDS: SODIUM CHLORIDE 1,000 ML IV SCH (09:29)
--- NOTE | 2018-11-02 12:05 | PN ---
Progress Note, Physician - Current Medication List Current Medications: Active Medications Albuterol Sulfate (Ventolin 0.083% Nebulizer Soln -) 1 amp NEB Q4H PRN PRN Reason: WHEEZING Arformoterol Tartrate (Brovana (Restricted To Pulmonology/Resp) -) 1 amp NEB RBID [facility] Last Admin: 11/02/18 08:00 Dose: 1 amp Budesonide (Pulmicort 0.5 Mg Nebulizer -) 1 amp NEB RBID [facility] Last Admin: 11/02/18 08:00 Dose: 1 amp Heparin Sodium (Porcine) (Heparin -) 5,000 unit SQ BID [facility] Last Admin: 11/02/18 09:24 Dose: 5,000 unit Sodium Chloride (Normal Saline -) 1,000 mls @ 75 mls/hr IV ASDIR [facility] Last Admin: 11/02/18 09:29 Dose: 75 mls/hr Piperacillin Sod/Tazobactam (Sod 3.375 gm/ Dextrose) 50 mls @ 100 mls/hr IVPB Q8H-IV [facility]; Protocol Last Admin: 11/02/18 09:24 Dose: 100 mls/hr Levetiracetam (Keppra Oral Solution -) 1,500 mg PO BID [facility] Last Admin: 11/02/18 09:24 Dose: 1,500 mg Multivitamins/Minerals/Vitamin C (Tab-A-Vit -) 1 tab PO DAILY [facility] Last Admin: 11/02/18 09:24 Dose: 1 tab Non-Formulary Medication (Calcium Citrate/Vitamin D3 [Citracal + D Caplet]) 315 mg GT BID [facility] Polyethylene Glycol (Miralax (For Daily Use) -) 17 gm GT DAILY [facility] Last Admin: 11/02/18 09:25 Dose: 17 gm Ranitidine HCl (Zantac Oral Solution -) 75 mg GT BID [facility] Last Admin: 11/02/18 09:24 Dose: 75 mg Senna (Senna -) 2 tab PO HS [facility] Last Admin: 11/01/18 21:33 Dose: 2 tab - Objective Vital Signs: Vital Signs Temperature 98.7 F 11/02/18 09:43 Pulse Rate 98 H 11/02/18 09:43 Respiratory Rate 18 11/02/18 09:43 Blood Pressure 143/85 11/02/18 09:43 O2 Sat by Pulse Oximetry (%) 92 L 11/01/18 03:06 Labs: CBC, BMP 11/01/18 07:32 11/01/18 07:32 INR, PTT INR 0.98 (0.83-1.09) 10/31/18 13:54
--- NOTE | 2018-11-02 12:43 | PN ---
Progress Note (short form) - Note Progress Note: PULMONARY APPEARS COMFORTABLE NOT COUGHING VSS/AFEBRILE
--- NOTE | 2018-11-02 12:44 | PN ---
Progress Note (short form) - Note Progress Note: PULMONARY APPEARS COMFORTABLE NOT COUGHING VSS/AFEBRILE/SPO2 88% R/A Eyes: Yes: Conjunctiva Clear HENT: Yes: Atraumatic, Normocephalic Neck: Yes: Supple, Trachea Midline Cardiovascular: Yes: Regular Rate and Rhythm Respiratory: Yes: Rhonchi, Wheezes ...Clubbing: No Gastrointestinal: Yes: Normal Bowel Sounds, Soft, Other (+PEG). No: Tenderness Extremities: Yes: Other (contracted) Edema: No Neurological: No: Alert, Oriented Labs: reviewed Imaging - Results Chest X-ray: Report Reviewed, Image Reviewed Cat Scan: Report Reviewed, Image Reviewed (small RUL, RLL infiltrates) Problem List - Problems (1) Pneumonia Code(s): J18.9 - PNEUMONIA, UNSPECIFIED ORGANISM Qualifiers: Pneumonia type: due to unspecified organism Laterality: right Lung location: lower lobe of lung Qualified Code(s): J18.1 - Lobar pneumonia, unspecified organism (2) Acute asthma exacerbation Code(s): J45.901 - UNSPECIFIED ASTHMA WITH (ACUTE) EXACERBATION Assessment/Plan Pneumonia likely Aspiration Acute Asthma Exacerbation Cerebral Palsy Mental Retardation Seizure Disorder Blindness Functional Quadriplegia - antibiotics per ID - f/u cultures - will start short course of medrol - inhaled bronchodilators standing and PRN - O2 to keep SpO2 >90% - aspiration precautions - DVT prophylaxis Tita PATTON MD
--- NOTE | 2018-11-02 14:44 | PN ---
Progress Note, Physician - Current Medication List Current Medications: Active Medications Albuterol Sulfate (Ventolin 0.083% Nebulizer Soln -) 1 amp NEB Q4H PRN PRN Reason: WHEEZING Arformoterol Tartrate (Brovana (Restricted To Pulmonology/Resp) -) 1 amp NEB RBID [facility] Last Admin: 11/02/18 08:00 Dose: 1 amp Budesonide (Pulmicort 0.5 Mg Nebulizer -) 1 amp NEB RBID [facility] Last Admin: 11/02/18 08:00 Dose: 1 amp Heparin Sodium (Porcine) (Heparin -) 5,000 unit SQ BID [facility] Last Admin: 11/02/18 09:24 Dose: 5,000 unit Sodium Chloride (Normal Saline -) 1,000 mls @ 75 mls/hr IV ASDIR [facility] Last Admin: 11/02/18 09:29 Dose: 75 mls/hr Piperacillin Sod/Tazobactam (Sod 3.375 gm/ Dextrose) 50 mls @ 100 mls/hr IVPB Q8H-IV [facility]; Protocol Last Admin: 11/02/18 09:24 Dose: 100 mls/hr Levetiracetam (Keppra Oral Solution -) 1,500 mg PO BID [facility] Last Admin: 11/02/18 09:24 Dose: 1,500 mg Multivitamins/Minerals/Vitamin C (Tab-A-Vit -) 1 tab PO DAILY [facility] Last Admin: 11/02/18 09:24 Dose: 1 tab Non-Formulary Medication (Calcium Citrate/Vitamin D3 [Citracal + D Caplet]) 315 mg GT BID [facility] Polyethylene Glycol (Miralax (For Daily Use) -) 17 gm GT DAILY [facility] Last Admin: 11/02/18 09:25 Dose: 17 gm Ranitidine HCl (Zantac Oral Solution -) 75 mg GT BID [facility] Last Admin: 11/02/18 09:24 Dose: 75 mg Senna (Senna -) 2 tab PO HS [facility] Last Admin: 11/01/18 21:33 Dose: 2 tab - Objective Vital Signs: Vital Signs Temperature 98.7 F 11/02/18 09:43 Pulse Rate 98 H 11/02/18 09:43 Respiratory Rate 18 11/02/18 09:43 Blood Pressure 143/85 11/02/18 09:43 O2 Sat by Pulse Oximetry (%) 92 L 11/01/18 03:06 Constitutional: Yes: No Distress HENT: Yes: Atraumatic Neck: Yes: Supple Cardiovascular: Yes: Regular Rate and Rhythm Respiratory: Yes: CTA Bilaterally Gastrointestinal: Yes: Normal Bowel Sounds, Other (peg in place) Edema: No Neurological: Yes: Alert Labs: CBC, BMP 11/01/18 07:32 11/01/18 07:32 INR, PTT INR 0.98 (0.83-1.09) 10/31/18 13:54 Problem List - Problems (1) Hypoxia Assessment/Plan: oxygen inhalation..prn prn duo nebs Code(s): R09.02 - HYPOXEMIA (2) Pneumonia Assessment/Plan: on abx id consult aspiration precautions Code(s): J18.9 - PNEUMONIA, UNSPECIFIED ORGANISM Qualifiers: Pneumonia type: due to unspecified organism Laterality: right Lung location: lower lobe of lung Qualified Code(s): J18.1 - Lobar pneumonia, unspecified organism (3) GERD (gastroesophageal reflux disease) Assessment/Plan: gi prophylaxis Code(s): K21.9 - GASTRO-ESOPHAGEAL REFLUX DISEASE WITHOUT ESOPHAGITIS (4) Hydrocephalus Code(s): G91.9 - HYDROCEPHALUS, UNSPECIFIED (5) Mental retardation Code(s): F79 - UNSPECIFIED INTELLECTUAL DISABILITIES
[2018-11-02] MEDS: SENNOSIDES 8.6MG TABLET (FP) PO SCH (21:44)
[2018-11-03] MEDS ORDERED: PIPERACILLIN/TAZOBACTAM 3.375 GM VIAL IVPB ONE ×3 (01:59→17:01)
[2018-11-03] MEDS ORDERED: DEXTROSE 5%-WATER - 50 ML IVPB ONE ×3 (01:59→17:01)
[2018-11-03] MEDS: PIPERACILLIN/TAZOB 3.375 GM 3.375 GM in DEXTROSE 5%-WATER - 50 ML IVPB SCH ×3 (02:13→17:31)
[2018-11-03] MEDS: SODIUM CHLORIDE 1,000 ML IV SCH (02:13)
[2018-11-03] MEDS: BUDESONIDE 0.5 MG/2 ML INH SUSP VIAL NEB SCH ×2 (07:30→20:27)
[2018-11-03] MEDS: ARFORMOTEROL TARTRATE 15 MCG/2 ML VIAL NEB SCH ×2 (07:30→20:26)
[2018-11-03] MEDS: RANITIDINE HCL 150 MG/10 ML UNIT-DOSE GT SCH (10:45)
[2018-11-03] MEDS: POLYETHYLENE GLYCOL 3350 119 GM BTL GT SCH (10:45)
[2018-11-03] MEDS: levETIRAcetam 500 MG/5 ML ORAL SOLUTION (UNIT-DOSE CUPS) PO SCH (10:45)
[2018-11-03] MEDS: HEPARIN NA (PORCINE) 5,000 UNITS/ML 1ML VIAL SQ SCH (10:46)
[2018-11-03] MEDS: MULTIVITAMINS (DAILY MVI) TABLET (FP) PO SCH (10:46)
--- NOTE | 2018-11-03 11:28 | PN ---
Progress Note (short form) - Note Progress Note: Resting in NAD. No acute events overnight. Afebrile. Intake & Output 10/31/18 11/01/18 11/02/18 11/03/18 23:59 23:59 23:59 23:59 Intake Total 1000 1575 1475 50 Balance 1000 1575 1475 50 Weight 140 lb 118 lb 14.4 oz Last Vital Signs Temp Pulse Resp BP Pulse Ox 98.1 F 93 H 16 128/73 96 11/03/18 10:46 11/03/18 10:46 11/03/18 10:46 11/03/18 10:46 11/02/18 21:00 Active Medications Albuterol Sulfate (Ventolin 0.083% Nebulizer Soln -) 1 amp NEB Q4H PRN PRN Reason: WHEEZING Arformoterol Tartrate (Brovana (Restricted To Pulmonology/Resp) -) 1 amp NEB RBID [facility] Last Admin: 11/03/18 07:30 Dose: 1 amp Budesonide (Pulmicort 0.5 Mg Nebulizer -) 1 amp NEB RBID [facility] Last Admin: 11/03/18 07:30 Dose: Not Given Heparin Sodium (Porcine) (Heparin -) 5,000 unit SQ BID [facility] Last Admin: 11/03/18 10:46 Dose: 5,000 unit Sodium Chloride (Normal Saline -) 1,000 mls @ 75 mls/hr IV ASDIR [facility] Last Admin: 11/03/18 02:13 Dose: Not Given Piperacillin Sod/Tazobactam (Sod 3.375 gm/ Dextrose) 50 mls @ 100 mls/hr IVPB Q8H-IV [facility]; Protocol Last Admin: 11/03/18 10:45 Dose: 100 mls/hr Levetiracetam (Keppra Oral Solution -) 1,500 mg PO BID [facility] Last Admin: 11/03/18 10:45 Dose: 1,500 mg Multivitamins/Minerals/Vitamin C (Tab-A-Vit -) 1 tab PO DAILY [facility] Last Admin: 11/03/18 10:46 Dose: 1 tab Non-Formulary Medication (Calcium Citrate/Vitamin D3 [Citracal + D Caplet]) 315 mg GT BID [facility] Polyethylene Glycol (Miralax (For Daily Use) -) 17 gm GT DAILY [facility] Last Admin: 11/03/18 10:45 Dose: 17 gm Ranitidine HCl (Zantac Oral Solution -) 75 mg GT BID [facility] Last Admin: 11/03/18 10:45 Dose: 75 mg Senna (Senna -) 2 tab PO HS [facility] Last Admin: 11/02/18 21:44 Dose: 2 tab Eyes: Yes: Conjunctiva Clear HENT: Yes: Atraumatic, Normocephalic Neck: Yes: Supple, Trachea Midline Cardiovascular: Yes: Regular Rate and Rhythm Respiratory: Yes: Few scattered rhonchi, No wheezes ...Clubbing: No Gastrointestinal: Yes: Normal Bowel Sounds, Soft, Other (+PEG). No: Tenderness Extremities: Yes: Other (contracted) Edema: No Neurological: No: Alert, Oriented Labs: reviewed Problem List - Problems (1) Pneumonia Code(s): J18.9 - PNEUMONIA, UNSPECIFIED ORGANISM Qualifiers: Pneumonia type: due to unspecified organism Laterality: right Lung location: lower lobe of lung Qualified Code(s): J18.1 - Lobar pneumonia, unspecified organism (2) Acute asthma exacerbation Code(s): J45.901 - UNSPECIFIED ASTHMA WITH (ACUTE) EXACERBATION Assessment/Plan Pneumonia likely Aspiration Acute Asthma Exacerbation Cerebral Palsy Mental Retardation Seizure Disorder Blindness Functional Quadriplegia - antibiotics per ID - f/u final cultures - Medrol - inhaled bronchodilators standing and PRN - O2 to keep SpO2 >90% - aspiration precautions - DVT prophylaxis Dr Douglass
--- NOTE | 2018-11-03 15:45 | PN ---
Progress Note, Physician History of Present Illness: Pt remains afebrile. +coughing but no acute respiratory distress. Mother at bedside states he keeps removing his nasal cannula. - Current Medication List Current Medications: Active Medications Albuterol Sulfate (Ventolin 0.083% Nebulizer Soln -) 1 amp NEB Q4H PRN PRN Reason: WHEEZING Arformoterol Tartrate (Brovana (Restricted To Pulmonology/Resp) -) 1 amp NEB RBID [facility] Last Admin: 11/03/18 07:30 Dose: 1 amp Budesonide (Pulmicort 0.5 Mg Nebulizer -) 1 amp NEB RBID [facility] Last Admin: 11/03/18 07:30 Dose: Not Given Heparin Sodium (Porcine) (Heparin -) 5,000 unit SQ BID [facility] Last Admin: 11/03/18 10:46 Dose: 5,000 unit Sodium Chloride (Normal Saline -) 1,000 mls @ 75 mls/hr IV ASDIR [facility] Last Admin: 11/03/18 02:13 Dose: Not Given Piperacillin Sod/Tazobactam (Sod 3.375 gm/ Dextrose) 50 mls @ 100 mls/hr IVPB Q8H-IV [facility]; Protocol Last Admin: 11/03/18 10:45 Dose: 100 mls/hr Levetiracetam (Keppra Oral Solution -) 1,500 mg PO BID [facility] Last Admin: 11/03/18 10:45 Dose: 1,500 mg Multivitamins/Minerals/Vitamin C (Tab-A-Vit -) 1 tab PO DAILY [facility] Last Admin: 11/03/18 10:46 Dose: 1 tab Non-Formulary Medication (Calcium Citrate/Vitamin D3 [Citracal + D Caplet]) 315 mg GT BID [facility] Polyethylene Glycol (Miralax (For Daily Use) -) 17 gm GT DAILY [facility] Last Admin: 11/03/18 10:45 Dose: 17 gm Ranitidine HCl (Zantac Oral Solution -) 75 mg GT BID [facility] Last Admin: 11/03/18 10:45 Dose: 75 mg Senna (Senna -) 2 tab PO HS [facility] Last Admin: 11/02/18 21:44 Dose: 2 tab - Objective Vital Signs: Vital Signs Temperature 98.1 F 11/03/18 10:46 Pulse Rate 93 H 11/03/18 10:46 Respiratory Rate 16 11/03/18 10:46 Blood Pressure 128/73 11/03/18 10:46 O2 Sat by Pulse Oximetry (%) 96 11/02/18 21:00 Constitutional: Yes: No Distress Eyes: Yes: Conjunctiva Clear Cardiovascular: Yes: Regular Rate and Rhythm Respiratory: Yes: Rhonchi Gastrointestinal: Yes: Normal Bowel Sounds, Soft Genitourinary: Yes: WNL Edema: No Integumentary: Yes: WNL Neurological: Yes: Alert, Other (nonverbal, not following commands) Labs: CBC, BMP 11/01/18 07:32 11/01/18 07:32 INR, PTT INR 0.98 (0.83-1.09) 10/31/18 13:54 Microbiology 10/31/18 13:54 Blood - Peripheral Venous Blood Culture - Preliminary NO GROWTH OBTAINED AFTER 72 HOURS, INCUBATION TO CONTINUE FOR 2 DAYS. 10/31/18 13:54 Blood - Peripheral Venous Blood Culture - Preliminary NO GROWTH OBTAINED AFTER 72 HOURS, INCUBATION TO CONTINUE FOR 2 DAYS. 10/31/18 15:12 Urine - Urine Storey Urine Culture - Final NO GROWTH OBTAINED - ....Imaging Chest X-ray: Report Reviewed Cat Scan: Report Reviewed Problem List - Problems (1) Acute asthma exacerbation Code(s): J45.901 - UNSPECIFIED ASTHMA WITH (ACUTE) EXACERBATION (2) Pneumonia Code(s): J18.9 - PNEUMONIA, UNSPECIFIED ORGANISM Qualifiers: Pneumonia type: due to unspecified organism Laterality: right Lung location: lower lobe of lung Qualified Code(s): J18.1 - Lobar pneumonia, unspecified organism (3) Mental retardation Code(s): F79 - UNSPECIFIED INTELLECTUAL DISABILITIES (4) PEG (percutaneous endoscopic gastrostomy) status Code(s): Z93.1 - GASTROSTOMY STATUS (5) Quadriparesis Code(s): G82.50 - QUADRIPLEGIA, UNSPECIFIED (6) Seizure disorder Code(s): G40.909 - EPILEPSY, UNSP, NOT INTRACTABLE, WITHOUT STATUS EPILEPTICUS Assessment/Plan PNA Asthma exacerbation Cerebral Palsy Mental retardation Quadraparesis Blindness -- continue antibiotics -- on O2 NC, bronchodilators -- maintain on aspiration precautions -- suction as needed -- pt afebrile, without acute respiratory distress continue monitor
--- NOTE | 2018-11-03 22:58 | PN ---
Progress Note, Physician - Current Medication List Current Medications: Active Medications Albuterol Sulfate (Ventolin 0.083% Nebulizer Soln -) 1 amp NEB Q4H PRN PRN Reason: WHEEZING Arformoterol Tartrate (Brovana (Restricted To Pulmonology/Resp) -) 1 amp NEB RBID [facility] Last Admin: 11/03/18 20:26 Dose: 1 amp Budesonide (Pulmicort 0.5 Mg Nebulizer -) 1 amp NEB RBID [facility] Last Admin: 11/03/18 20:27 Dose: 1 amp Heparin Sodium (Porcine) (Heparin -) 5,000 unit SQ BID [facility] Last Admin: 11/03/18 10:46 Dose: 5,000 unit Sodium Chloride (Normal Saline -) 1,000 mls @ 75 mls/hr IV ASDIR [facility] Last Admin: 11/03/18 02:13 Dose: Not Given Piperacillin Sod/Tazobactam (Sod 3.375 gm/ Dextrose) 50 mls @ 100 mls/hr IVPB Q8H-IV [facility]; Protocol Last Admin: 11/03/18 17:31 Dose: 100 mls/hr Levetiracetam (Keppra Oral Solution -) 1,500 mg PO BID [facility] Last Admin: 11/03/18 10:45 Dose: 1,500 mg Multivitamins/Minerals/Vitamin C (Tab-A-Vit -) 1 tab PO DAILY [facility] Last Admin: 11/03/18 10:46 Dose: 1 tab Non-Formulary Medication (Calcium Citrate/Vitamin D3 [Citracal + D Caplet]) 315 mg GT BID [facility] Polyethylene Glycol (Miralax (For Daily Use) -) 17 gm GT DAILY [facility] Last Admin: 11/03/18 10:45 Dose: 17 gm Ranitidine HCl (Zantac Oral Solution -) 75 mg GT BID [facility] Last Admin: 11/03/18 10:45 Dose: 75 mg Senna (Senna -) 2 tab PO HS [facility] Last Admin: 11/02/18 21:44 Dose: 2 tab - Objective Vital Signs: Vital Signs Temperature 98.1 F 11/03/18 10:46 Pulse Rate 93 H 11/03/18 10:46 Respiratory Rate 16 11/03/18 10:46 Blood Pressure 128/73 11/03/18 10:46 O2 Sat by Pulse Oximetry (%) 96 11/03/18 09:00 Labs: CBC, BMP 11/01/18 07:32 11/01/18 07:32 INR, PTT INR 0.98 (0.83-1.09) 10/31/18 13:54
[2018-11-04] MEDS: SENNOSIDES 8.6MG TABLET (FP) PO SCH ×2 (00:17→21:15)
[2018-11-04] MEDS: levETIRAcetam 500 MG/5 ML ORAL SOLUTION (UNIT-DOSE CUPS) PO SCH ×3 (00:17→21:16)
[2018-11-04] MEDS: RANITIDINE HCL 150 MG/10 ML UNIT-DOSE GT SCH ×3 (00:17→21:16)
[2018-11-04] MEDS ORDERED: PIPERACILLIN/TAZOBACTAM 3.375 GM VIAL IVPB ONE ×2 (01:39→09:39)
[2018-11-04] MEDS ORDERED: DEXTROSE 5%-WATER - 50 ML IVPB ONE ×2 (01:40→09:39)
[2018-11-04] MEDS: PIPERACILLIN/TAZOB 3.375 GM 3.375 GM in DEXTROSE 5%-WATER - 50 ML IVPB SCH ×4 (02:23→18:54)
[2018-11-04] MEDS: BUDESONIDE 0.5 MG/2 ML INH SUSP VIAL NEB SCH ×2 (07:30→19:49)
[2018-11-04] MEDS: ARFORMOTEROL TARTRATE 15 MCG/2 ML VIAL NEB SCH ×2 (07:30→19:49)
--- NOTE | 2018-11-04 11:31 | PN ---
Progress Note (short form) - Note Progress Note: Resting in NAD. No acute events overnight. Afebrile. Intake & Output 11/01/18 11/02/18 11/03/18 11/04/18 23:59 23:59 23:59 23:59 Intake Total 1575 1475 50 50 Balance 1575 1475 50 50 Weight 118 lb 14.4 oz Last Vital Signs Temp Pulse Resp BP Pulse Ox 97.7 F 105 H 20 155/98 95 11/04/18 07:16 11/04/18 07:16 11/04/18 07:16 11/04/18 07:16 11/03/18 21:00 Active Medications Albuterol Sulfate (Ventolin 0.083% Nebulizer Soln -) 1 amp NEB Q4H PRN PRN Reason: WHEEZING Arformoterol Tartrate (Brovana (Restricted To Pulmonology/Resp) -) 1 amp NEB RBID [facility] Last Admin: 11/03/18 20:26 Dose: 1 amp Budesonide (Pulmicort 0.5 Mg Nebulizer -) 1 amp NEB RBID [facility] Last Admin: 11/03/18 20:27 Dose: 1 amp Heparin Sodium (Porcine) (Heparin -) 5,000 unit SQ BID [facility] Last Admin: 11/03/18 10:46 Dose: 5,000 unit Sodium Chloride (Normal Saline -) 1,000 mls @ 75 mls/hr IV ASDIR [facility] Last Admin: 11/03/18 02:13 Dose: Not Given Piperacillin Sod/Tazobactam (Sod 3.375 gm/ Dextrose) 50 mls @ 100 mls/hr IVPB Q8H-IV [facility]; Protocol Last Admin: 11/04/18 02:23 Dose: 100 mls/hr Levetiracetam (Keppra Oral Solution -) 1,500 mg PO BID [facility] Last Admin: 11/04/18 00:17 Dose: 1,500 mg Multivitamins/Minerals/Vitamin C (Tab-A-Vit -) 1 tab PO DAILY [facility] Last Admin: 11/03/18 10:46 Dose: 1 tab Non-Formulary Medication (Calcium Citrate/Vitamin D3 [Citracal + D Caplet]) 315 mg GT BID [facility] Polyethylene Glycol (Miralax (For Daily Use) -) 17 gm GT DAILY [facility] Last Admin: 11/03/18 10:45 Dose: 17 gm Ranitidine HCl (Zantac Oral Solution -) 75 mg GT BID [facility] Last Admin: 11/04/18 00:17 Dose: 75 mg Senna (Senna -) 2 tab PO HS [facility] Last Admin: 11/04/18 00:17 Dose: 2 tab Eyes: Yes: Conjunctiva Clear HENT: Yes: Atraumatic, Normocephalic Neck: Yes: Supple, Trachea Midline Cardiovascular: Yes: Regular Rate and Rhythm Respiratory: Yes: Few scattered rhonchi, No wheezes ...Clubbing: No Gastrointestinal: Yes: Normal Bowel Sounds, Soft, Other (+PEG). No: Tenderness Extremities: Yes: Other (contracted) Edema: No Neurological: No: Alert, Oriented Labs: reviewed Problem List - Problems (1) Pneumonia Code(s): J18.9 - PNEUMONIA, UNSPECIFIED ORGANISM Qualifiers: Pneumonia type: due to unspecified organism Laterality: right Lung location: lower lobe of lung Qualified Code(s): J18.1 - Lobar pneumonia, unspecified organism (2) Acute asthma exacerbation Code(s): J45.901 - UNSPECIFIED ASTHMA WITH (ACUTE) EXACERBATION Assessment/Plan Pneumonia likely Aspiration Acute Asthma Exacerbation Cerebral Palsy Mental Retardation Seizure Disorder Blindness Functional Quadriplegia - antibiotics per ID - f/u final cultures - Monitor off systemic steroids - inhaled bronchodilators standing and PRN - O2 to keep SpO2 >90% - aspiration precautions - DVT prophylaxis Dr Douglass
[2018-11-04] MEDS: HEPARIN NA (PORCINE) 5,000 UNITS/ML 1ML VIAL SQ SCH ×2 (11:36→21:16)
[2018-11-04] MEDS: MULTIVITAMINS (DAILY MVI) TABLET (FP) PO SCH (11:38)
[2018-11-04] MEDS: POLYETHYLENE GLYCOL 3350 119 GM BTL GT SCH (11:39)
[2018-11-04] MEDS ORDERED: PT OWN MED DRAWER 7, Y5N ONE ×3 (11:42→21:44)
--- NOTE | 2018-11-04 20:06 | PN ---
Progress Note, Physician History of Present Illness: Pt with current temp of 99.8F. No respiratory distress noted. - Current Medication List Current Medications: Active Medications Albuterol Sulfate (Ventolin 0.083% Nebulizer Soln -) 1 amp NEB Q4H PRN PRN Reason: WHEEZING Arformoterol Tartrate (Brovana (Restricted To Pulmonology/Resp) -) 1 amp NEB RBID [facility] Last Admin: 11/04/18 19:49 Dose: 1 amp Budesonide (Pulmicort 0.5 Mg Nebulizer -) 1 amp NEB RBID [facility] Last Admin: 11/04/18 19:49 Dose: 1 amp Heparin Sodium (Porcine) (Heparin -) 5,000 unit SQ BID [facility] Last Admin: 11/04/18 11:36 Dose: 5,000 unit Sodium Chloride (Normal Saline -) 1,000 mls @ 75 mls/hr IV ASDIR [facility] Last Admin: 11/03/18 02:13 Dose: Not Given Piperacillin Sod/Tazobactam (Sod 3.375 gm/ Dextrose) 50 mls @ 100 mls/hr IVPB Q8H-IV [facility]; Protocol Last Admin: 11/04/18 18:54 Dose: 100 mls/hr Levetiracetam (Keppra Oral Solution -) 1,500 mg PO BID [facility] Last Admin: 11/04/18 11:00 Dose: 1,500 mg Multivitamins/Minerals/Vitamin C (Tab-A-Vit -) 1 tab PO DAILY [facility] Last Admin: 11/04/18 11:38 Dose: 1 tab Non-Formulary Medication (Calcium Citrate/Vitamin D3 [Citracal + D Caplet]) 315 mg GT BID [facility] Polyethylene Glycol (Miralax (For Daily Use) -) 17 gm GT DAILY [facility] Last Admin: 11/04/18 11:39 Dose: 17 gm Ranitidine HCl (Zantac Oral Solution -) 75 mg GT BID [facility] Last Admin: 11/04/18 11:38 Dose: 75 mg Senna (Senna -) 2 tab PO HS [facility] Last Admin: 11/04/18 00:17 Dose: 2 tab - Objective Vital Signs: Vital Signs Temperature 99.8 F H 11/04/18 18:00 Pulse Rate 102 H 11/04/18 18:00 Respiratory Rate 18 11/04/18 18:00 Blood Pressure 128/78 11/04/18 18:00 O2 Sat by Pulse Oximetry (%) 95 11/04/18 09:00 Constitutional: Yes: No Distress, Calm Cardiovascular: Yes: Tachycardia Respiratory: Yes: Rhonchi (scattered) Gastrointestinal: Yes: Normal Bowel Sounds, Soft, Other (GT) Genitourinary: Yes: WNL Extremities: Yes: Other (contracted) Integumentary: Yes: WNL Neurological: Yes: Other (arousable, nonverbal) Labs: CBC, BMP 11/01/18 07:32 11/01/18 07:32 INR, PTT INR 0.98 (0.83-1.09) 10/31/18 13:54 Microbiology 10/31/18 13:54 Blood - Peripheral Venous Blood Culture - Preliminary NO GROWTH OBTAINED AFTER 96 HOURS, INCUBATION TO CONTINUE FOR 1 DAYS. 10/31/18 13:54 Blood - Peripheral Venous Blood Culture - Preliminary NO GROWTH OBTAINED AFTER 96 HOURS, INCUBATION TO CONTINUE FOR 1 DAYS. 10/31/18 15:12 Urine - Urine Storey Urine Culture - Final NO GROWTH OBTAINED Problem List - Problems (1) Acute asthma exacerbation Code(s): J45.901 - UNSPECIFIED ASTHMA WITH (ACUTE) EXACERBATION (2) Pneumonia Code(s): J18.9 - PNEUMONIA, UNSPECIFIED ORGANISM Qualifiers: Pneumonia type: due to unspecified organism Laterality: right Lung location: lower lobe of lung Qualified Code(s): J18.1 - Lobar pneumonia, unspecified organism (3) Mental retardation Code(s): F79 - UNSPECIFIED INTELLECTUAL DISABILITIES (4) PEG (percutaneous endoscopic gastrostomy) status Code(s): Z93.1 - GASTROSTOMY STATUS (5) Quadriparesis Code(s): G82.50 - QUADRIPLEGIA, UNSPECIFIED (6) Seizure disorder Code(s): G40.909 - EPILEPSY, UNSP, NOT INTRACTABLE, WITHOUT STATUS EPILEPTICUS Assessment/Plan PNA - possible aspiration Asthma exacerbation Cerebral Palsy Mental retardation Quadraparesis Blindness -- Pt with mild temp elevation to 99.8F, continue to monitor -- repeat cbc, bmp in a.m. -- continue Zosyn for now -- on O2 NC, bronchodilators -- aspiration precautions -- suction as needed -- pt without acute respiratory distress at this time continue monitor
[2018-11-04] MEDS: SODIUM CHLORIDE 1,000 ML IV SCH (21:17)
--- NOTE | 2018-11-04 22:37 | PN ---
Progress Note, Physician - Current Medication List Current Medications: Active Medications Albuterol Sulfate (Ventolin 0.083% Nebulizer Soln -) 1 amp NEB Q4H PRN PRN Reason: WHEEZING Arformoterol Tartrate (Brovana (Restricted To Pulmonology/Resp) -) 1 amp NEB RBID [facility] Last Admin: 11/04/18 19:49 Dose: 1 amp Budesonide (Pulmicort 0.5 Mg Nebulizer -) 1 amp NEB RBID [facility] Last Admin: 11/04/18 19:49 Dose: 1 amp Heparin Sodium (Porcine) (Heparin -) 5,000 unit SQ BID [facility] Last Admin: 11/04/18 21:16 Dose: 5,000 unit Sodium Chloride (Normal Saline -) 1,000 mls @ 75 mls/hr IV ASDIR [facility] Last Admin: 11/04/18 21:17 Dose: Not Given Piperacillin Sod/Tazobactam (Sod 3.375 gm/ Dextrose) 50 mls @ 100 mls/hr IVPB Q8H-IV [facility]; Protocol Last Admin: 11/04/18 18:54 Dose: 100 mls/hr Levetiracetam (Keppra Oral Solution -) 1,500 mg PO BID [facility] Last Admin: 11/04/18 21:16 Dose: 1,500 mg Multivitamins/Minerals/Vitamin C (Tab-A-Vit -) 1 tab PO DAILY [facility] Last Admin: 11/04/18 11:38 Dose: 1 tab Non-Formulary Medication (Calcium Citrate/Vitamin D3 [Citracal + D Caplet]) 315 mg GT BID [facility] Polyethylene Glycol (Miralax (For Daily Use) -) 17 gm GT DAILY [facility] Last Admin: 11/04/18 11:39 Dose: 17 gm Ranitidine HCl (Zantac Oral Solution -) 75 mg GT BID [facility] Last Admin: 11/04/18 21:16 Dose: 75 mg Senna (Senna -) 2 tab PO HS [facility] Last Admin: 11/04/18 21:15 Dose: 2 tab - Objective Vital Signs: Vital Signs Temperature 98.4 F 11/04/18 20:48 Pulse Rate 102 H 11/04/18 18:00 Respiratory Rate 18 11/04/18 20:48 Blood Pressure 125/78 11/04/18 20:48 O2 Sat by Pulse Oximetry (%) 95 11/04/18 21:00 Labs: CBC, BMP 11/01/18 07:32 11/01/18 07:32 INR, PTT INR 0.98 (0.83-1.09) 10/31/18 13:54
[2018-11-05] MEDS ORDERED: PIPERACILLIN/TAZOBACTAM 3.375 GM VIAL IVPB ONE ×2 (01:13→09:12)
[2018-11-05] MEDS ORDERED: DEXTROSE 5%-WATER - 50 ML IVPB ONE ×2 (01:13→09:13)
[2018-11-05] MEDS: SODIUM CHLORIDE 1,000 ML IV SCH ×2 (01:30→21:23)
[2018-11-05] MEDS: PIPERACILLIN/TAZOB 3.375 GM 3.375 GM in DEXTROSE 5%-WATER - 50 ML IVPB SCH ×2 (01:38→09:18)
[2018-11-05 07:38] LABS: BASO % 0.8 % (0-2.0); EOS % 0.2 % (0-4.5); HEMOGLOBIN 13.4 GM/dL (11.7-16.9); LYMPH % 27.9 % (8-40); MCH 31.5 pg (25.7-33.7); MCHC 34.3 g/dl (32.0-35.9); MEAN CELL VOLUME 91.7 fl (80-96); MEAN PLT VOLUME 7.5 fl (7.5-11.1); MONO % 15.5 % (3.8-10.2); NEUT % 55.6 % (42.8-82.8); PLATELET COUNT 376 K/MM3 (134-434); RBC 4.25 M/mm3 (4.00-5.60); RDW 14.2 % (11.9-15.9); WHITE BLOOD COUNT 5.9 K/mm3 (4.0-10.0)
[2018-11-05] MEDS: BUDESONIDE 0.5 MG/2 ML INH SUSP VIAL NEB SCH ×2 (07:40→20:23)
[2018-11-05] MEDS: ARFORMOTEROL TARTRATE 15 MCG/2 ML VIAL NEB SCH ×2 (07:40→20:13)
[2018-11-05 08:07] LABS: CALCIUM 8.2 mg/dL (8.5-10.1); CREATININE 0.7 mg/dL (0.55-1.3)
[2018-11-05] MEDS: MULTIVITAMINS (DAILY MVI) TABLET (FP) PO SCH (09:18)
[2018-11-05] MEDS: RANITIDINE HCL 150 MG/10 ML UNIT-DOSE GT SCH ×2 (09:18→21:22)
[2018-11-05] MEDS: POLYETHYLENE GLYCOL 3350 119 GM BTL GT SCH (09:18)
[2018-11-05] MEDS: levETIRAcetam 500 MG/5 ML ORAL SOLUTION (UNIT-DOSE CUPS) PO SCH ×2 (09:18→21:23)
[2018-11-05] MEDS: HEPARIN NA (PORCINE) 5,000 UNITS/ML 1ML VIAL SQ SCH ×2 (09:18→21:22)
--- NOTE | 2018-11-05 09:36 | PN ---
Progress Note (short form) - Note Progress Note: Resting in NAD. No acute events overnight. Afebrile. Intake & Output 11/02/18 11/03/18 11/04/18 11/05/18 23:59 23:59 23:59 23:59 Intake Total 1475 50 570 1435 Balance 1475 50 570 1435 Last Vital Signs Temp Pulse Resp BP Pulse Ox 98.2 F 102 H 16 128/67 95 11/05/18 06:20 11/04/18 18:00 11/05/18 06:20 11/05/18 06:20 11/04/18 21:00 Active Medications Albuterol Sulfate (Ventolin 0.083% Nebulizer Soln -) 1 amp NEB Q4H PRN PRN Reason: WHEEZING Arformoterol Tartrate (Brovana (Restricted To Pulmonology/Resp) -) 1 amp NEB RBID [facility] Last Admin: 11/05/18 07:40 Dose: 1 amp Budesonide (Pulmicort 0.5 Mg Nebulizer -) 1 amp NEB RBID [facility] Last Admin: 11/05/18 07:40 Dose: 1 amp Heparin Sodium (Porcine) (Heparin -) 5,000 unit SQ BID [facility] Last Admin: 11/05/18 09:18 Dose: 5,000 unit Sodium Chloride (Normal Saline -) 1,000 mls @ 75 mls/hr IV ASDIR [facility] Last Admin: 11/05/18 01:30 Dose: 75 mls/hr Piperacillin Sod/Tazobactam (Sod 3.375 gm/ Dextrose) 50 mls @ 100 mls/hr IVPB Q8H-IV [facility]; Protocol Last Admin: 11/05/18 09:18 Dose: 100 mls/hr Levetiracetam (Keppra Oral Solution -) 1,500 mg PO BID [facility] Last Admin: 11/05/18 09:18 Dose: 1,500 mg Multivitamins/Minerals/Vitamin C (Tab-A-Vit -) 1 tab PO DAILY [facility] Last Admin: 11/05/18 09:18 Dose: 1 tab Non-Formulary Medication (Calcium Citrate/Vitamin D3 [Citracal + D Caplet]) 315 mg GT BID [facility] Polyethylene Glycol (Miralax (For Daily Use) -) 17 gm GT DAILY [facility] Last Admin: 11/05/18 09:18 Dose: 17 gm Ranitidine HCl (Zantac Oral Solution -) 75 mg GT BID [facility] Last Admin: 11/05/18 09:18 Dose: 75 mg Senna (Senna -) 2 tab PO HS [facility] Last Admin: 11/04/18 21:15 Dose: 2 tab Eyes: Yes: Conjunctiva Clear HENT: Yes: Atraumatic, Normocephalic Neck: Yes: Supple, Trachea Midline Cardiovascular: Yes: Regular Rate and Rhythm Respiratory: Yes: Few scattered rhonchi, No wheezes ...Clubbing: No Gastrointestinal: Yes: Normal Bowel Sounds, Soft, Other (+PEG). No: Tenderness Extremities: Yes: Other (contracted) Edema: No Neurological: No: Alert Labs: reviewed Laboratory Results - last 24 hr 11/05/18 11/05/18 06:00 06:50 WBC 5.9 RBC 4.25 Hgb 13.4 Hct 39.0 MCV 91.7 MCH 31.5 MCHC 34.3 RDW 14.2 Plt Count 376 MPV 7.5 Absolute Neuts (auto) 3.3 Neutrophils % 55.6 Lymphocytes % 27.9 D Monocytes % 15.5 H Eosinophils % 0.2 D Basophils % 0.8 Nucleated RBC % 0 Sodium 142 Potassium 4.0 Chloride 107 Carbon Dioxide 28 Anion Gap 7 L BUN 8.0 Creatinine 0.7 Est GFR (CKD-EPI)AfAm 120.56 Est GFR (CKD-EPI)NonAf 104.02 Random Glucose 122 H Calcium 8.2 L Problem List - Problems (1) Pneumonia Code(s): J18.9 - PNEUMONIA, UNSPECIFIED ORGANISM Qualifiers: Pneumonia type: due to unspecified organism Laterality: right Lung location: lower lobe of lung Qualified Code(s): J18.1 - Lobar pneumonia, unspecified organism (2) Acute asthma exacerbation Code(s): J45.901 - UNSPECIFIED ASTHMA WITH (ACUTE) EXACERBATION Assessment/Plan Pneumonia likely Aspiration Acute Asthma Exacerbation Cerebral Palsy Mental Retardation Seizure Disorder Blindness Functional Quadriplegia - antibiotics per ID (?) Change PO - Monitor off systemic steroids - inhaled bronchodilators standing and PRN - O2 to keep SpO2 >90% - aspiration precautions - DVT prophylaxis - DC planning once off ABX Dr Douglass
--- NOTE | 2018-11-05 11:35 | PN ---
Progress Note, Physician History of Present Illness: patient stable has developed rash on the left arm fungal rash on the groin - Current Medication List Current Medications: Active Medications Albuterol Sulfate (Ventolin 0.083% Nebulizer Soln -) 1 amp NEB Q4H PRN PRN Reason: WHEEZING Arformoterol Tartrate (Brovana (Restricted To Pulmonology/Resp) -) 1 amp NEB RBID [facility] Last Admin: 11/05/18 07:40 Dose: 1 amp Budesonide (Pulmicort 0.5 Mg Nebulizer -) 1 amp NEB RBID [facility] Last Admin: 11/05/18 07:40 Dose: 1 amp Doxycycline Monohydrate (Vibramycin Oral Suspension -) 100 mg PO BID@1000,1800 [facility] Heparin Sodium (Porcine) (Heparin -) 5,000 unit SQ BID [facility] Last Admin: 11/05/18 09:18 Dose: 5,000 unit Sodium Chloride (Normal Saline -) 1,000 mls @ 75 mls/hr IV ASDIR [facility] Last Admin: 11/05/18 01:30 Dose: 75 mls/hr Piperacillin Sod/Tazobactam (Sod 3.375 gm/ Dextrose) 50 mls @ 100 mls/hr IVPB Q8H-IV [facility]; Protocol Last Admin: 11/05/18 09:18 Dose: 100 mls/hr Levetiracetam (Keppra Oral Solution -) 1,500 mg PO BID [facility] Last Admin: 11/05/18 09:18 Dose: 1,500 mg Multivitamins/Minerals/Vitamin C (Tab-A-Vit -) 1 tab PO DAILY [facility] Last Admin: 11/05/18 09:18 Dose: 1 tab Non-Formulary Medication (Calcium Citrate/Vitamin D3 [Citracal + D Caplet]) 315 mg GT BID [facility] Nystatin (Mycostatin Cream -) 1 applic TP BID [facility] Polyethylene Glycol (Miralax (For Daily Use) -) 17 gm GT DAILY [facility] Last Admin: 11/05/18 09:18 Dose: 17 gm Ranitidine HCl (Zantac Oral Solution -) 75 mg GT BID [facility] Last Admin: 11/05/18 09:18 Dose: 75 mg Senna (Senna -) 2 tab PO HS [facility] Last Admin: 11/04/18 21:15 Dose: 2 tab - Objective Vital Signs: Vital Signs Temperature 98.7 F 11/05/18 10:39 Pulse Rate 103 H 11/05/18 10:39 Respiratory Rate 22 H 11/05/18 10:39 Blood Pressure 159/100 11/05/18 10:39 O2 Sat by Pulse Oximetry (%) 95 11/04/18 21:00 Constitutional: Yes: No Distress, Calm Cardiovascular: Yes: S1, S2 Respiratory: Yes: Regular, Poor Air Entry Gastrointestinal: Yes: Normal Bowel Sounds, Soft Musculoskeletal: Yes: Other Extremities: Yes: Other (contraced) Integumentary: Yes: Other (funal rash on groin,rash on the skin) Neurological: Yes: Other Psychiatric: Yes: Other Labs: CBC, BMP 11/05/18 06:50 11/05/18 06:00 INR, PTT INR 0.98 (0.83-1.09) 10/31/18 13:54 Assessment/Plan Problem List - Problems (1) Acute asthma exacerbation Code(s): J45.901 - UNSPECIFIED ASTHMA WITH (ACUTE) EXACERBATION (2) Pneumonia Code(s): J18.9 - PNEUMONIA, UNSPECIFIED ORGANISM Qualifiers: Pneumonia type: due to unspecified organism Laterality: right Lung location: lower lobe of lung Qualified Code(s): J18.1 - Lobar pneumonia, unspecified organism (3) Mental retardation Code(s): F79 - UNSPECIFIED INTELLECTUAL DISABILITIES (4) PEG (percutaneous endoscopic gastrostomy) status Code(s): Z93.1 - GASTROSTOMY STATUS (5) Quadriparesis Code(s): G82.50 - QUADRIPLEGIA, UNSPECIFIED (6) Seizure disorder Code(s): G40.909 - EPILEPSY, UNSP, NOT INTRACTABLE, WITHOUT STATUS EPILEPTICUS 7 rash Assessment/Plan will add doxy will change to augmentin nystatin cream for the groins rest as per the team
[2018-11-05] MEDS ORDERED: NYSTATIN 100,000 UNIT/GM TOPICAL CREAM 15 GM TUBE TP SCH (11:45)
[2018-11-05] MEDS ORDERED: PT OWN MED DRAWER 7, Y5N ONE ×3 (12:59→17:59)
[2018-11-05] MEDS: DOXYCYCLINE MONOHYDRATE 25 MG/5 ML SUSPENSION PO SCH ×2 (13:01→18:00)
[2018-11-05] MEDS: [UNRECOGNIZED DRUG - OTHER] GT SCH ×2 (13:40→13:41)
[2018-11-05] MEDS: VITAMIN D3 GT SCH ×2 (13:40→13:41)
[2018-11-05] MEDS: CALCIUM CITRATE GT SCH ×2 (13:40→13:41)
[2018-11-05 15:18] VITALS: BMI 25.5
[2018-11-05] MEDS: NYSTATIN 100,000 UNIT/GM TOPICAL CREAM 15 GM TUBE TP SCH ×2 (16:10→21:24)
--- NOTE | 2018-11-05 16:40 | PN ---
Progress Note, Physician - Current Medication List Current Medications: Active Medications Albuterol Sulfate (Ventolin 0.083% Nebulizer Soln -) 1 amp NEB Q4H PRN PRN Reason: WHEEZING Amoxicillin/Clavulanate Potassium (Augmentin 250 Mg/5 Ml Oral Suspension -) 500 mg GT BID@0800,1730 [facility] Arformoterol Tartrate (Brovana (Restricted To Pulmonology/Resp) -) 1 amp NEB RBID [facility] Last Admin: 11/05/18 07:40 Dose: 1 amp Budesonide (Pulmicort 0.5 Mg Nebulizer -) 1 amp NEB RBID [facility] Last Admin: 11/05/18 07:40 Dose: 1 amp Doxycycline Monohydrate (Vibramycin Oral Suspension -) 100 mg PO BID@1000,1800 [facility] Last Admin: 11/05/18 13:01 Dose: 100 mg Heparin Sodium (Porcine) (Heparin -) 5,000 unit SQ BID [facility] Last Admin: 11/05/18 09:18 Dose: 5,000 unit Sodium Chloride (Normal Saline -) 1,000 mls @ 75 mls/hr IV ASDIR [facility] Last Admin: 11/05/18 01:30 Dose: 75 mls/hr Levetiracetam (Keppra Oral Solution -) 1,500 mg PO BID [facility] Last Admin: 11/05/18 09:18 Dose: 1,500 mg Multivitamins/Minerals/Vitamin C (Tab-A-Vit -) 1 tab PO DAILY [facility] Last Admin: 11/05/18 09:18 Dose: 1 tab Nystatin (Mycostatin Cream -) 1 applic TP BID [facility] Last Admin: 11/05/18 16:10 Dose: 1 applic Polyethylene Glycol (Miralax (For Daily Use) -) 17 gm GT DAILY [facility] Last Admin: 11/05/18 09:18 Dose: 17 gm Ranitidine HCl (Zantac Oral Solution -) 75 mg GT BID [facility] Last Admin: 11/05/18 09:18 Dose: 75 mg Senna (Senna -) 2 tab PO HS [facility] Last Admin: 11/04/18 21:15 Dose: 2 tab - Objective Vital Signs: Vital Signs Temperature 98.6 F 11/05/18 14:00 Pulse Rate 90 11/05/18 14:00 Respiratory Rate 22 H 11/05/18 14:00 Blood Pressure 150/89 11/05/18 14:00 O2 Sat by Pulse Oximetry (%) 94 L 11/05/18 09:00 Constitutional: Yes: No Distress HENT: Yes: Atraumatic Neck: Yes: Supple Cardiovascular: Yes: Regular Rate and Rhythm Respiratory: Yes: Rhonchi Gastrointestinal: Yes: Normal Bowel Sounds, Other (peg in place) Neurological: Yes: Alert Labs: CBC, BMP 11/05/18 06:50 11/05/18 06:00 INR, PTT INR 0.98 (0.83-1.09) 10/31/18 13:54 Problem List - Problems (1) Hypoxia Assessment/Plan: oxygen inhalation..prn prn duo nebs Code(s): R09.02 - HYPOXEMIA (2) Pneumonia Assessment/Plan: on abx id consult aspiration precautions Code(s): J18.9 - PNEUMONIA, UNSPECIFIED ORGANISM Qualifiers: Pneumonia type: due to unspecified organism Laterality: right Lung location: lower lobe of lung Qualified Code(s): J18.1 - Lobar pneumonia, unspecified organism (3) GERD (gastroesophageal reflux disease) Assessment/Plan: gi prophylaxis Code(s): K21.9 - GASTRO-ESOPHAGEAL REFLUX DISEASE WITHOUT ESOPHAGITIS (4) Hydrocephalus Code(s): G91.9 - HYDROCEPHALUS, UNSPECIFIED (5) Mental retardation Code(s): F79 - UNSPECIFIED INTELLECTUAL DISABILITIES
--- NOTE | 2018-11-05 16:41 | DS ---
Physical Examination Vital Signs: Vital Signs Temperature 98.6 F 11/05/18 14:00 Pulse Rate 90 11/05/18 14:00 Respiratory Rate 22 H 11/05/18 14:00 Blood Pressure 150/89 11/05/18 14:00 O2 Sat by Pulse Oximetry (%) 94 L 11/05/18 09:00 Labs: CBC, BMP 11/05/18 06:50 11/05/18 06:00 Discharge Summary Reason For Visit: HYPOXIA PNEUMONIA Current Active Problems Acute asthma exacerbation (Acute) Hypoxia (Acute) Pneumonia (Acute) Condition: Guarded - Instructions Diet, Activity, Other Instructions: continue po abx for 7 days - Home Medications Comprehensive Discharge Medication List: Ambulatory Orders Budesonide [Pulmicort] 1 neb IH BID 07/04/12 Omeprazole [Prilosec (RX)] 20 mg GT HS 07/04/12 levETIRAcetam [Keppra Oral Solution -] 1,500 mg PO BID 07/04/12 Calcium Citrate/Vitamin D3 [Citracal + D Caplet] 315 mg GT BID 06/27/13 Albuterol 0.083% Nebulizer Mehnaz [Ventolin 0.083% Nebulizer Soln -] 1 neb NEB Q4H PRN 07/18/14 Arformoterol Tartrate [Brovana] 15 mcg IH BID 07/18/14 Multivitamins [Multivit ([facility] Formulary)] 1 tab GT DAILY 07/18/14 Electrolyte,Oral [Pedialyte -] 60 ml GT BID 08/21/18 Polyethylene Glycol 3350 [Clearlax] 17 gm GT DAILY 08/21/18 Sennosides [Senna] 2 tab GT HS 08/21/18 Albuterol 0.083% Nebulizer Mehnaz [Ventolin 0.083% Nebulizer Soln -] 1 amp NEB PRN PRN 10/31/18 Albuterol 2.5/Ipratropium 0.5 [Duoneb -] 1 amp NEB PRN 10/31/18 Amox-Tr/K Cl [Augmentin 875-125mg Tablet -] 1 tab PO BID@0800,1730 #14 tablet Doxycycline Oral Suspension [Vibramycin Oral Suspension -] 100 mg PO BID@1000, 1800 #100 ml 11/05/18 Nystatin Cream [Mycostatin Cream -] 1 applic TP BID #1 applic 11/05/18
[2018-11-05] MEDS ORDERED: AMOX TR/POT CLAV 875MG/125MG TABLETS (FP) PO SCH (17:30)
[2018-11-05] MEDS: AMOX TR/POTASSIUM CLAVULANATE 250 MG/5 ML BOTTLE GT SCH (17:59)
[2018-11-05] MEDS: SENNOSIDES 8.6MG TABLET (FP) PO SCH (21:22)
[2018-11-06] MEDS: BUDESONIDE 0.5 MG/2 ML INH SUSP VIAL NEB SCH (07:25)
[2018-11-06] MEDS: ARFORMOTEROL TARTRATE 15 MCG/2 ML VIAL NEB SCH (07:25)
[2018-11-06] MEDS: AMOX TR/POTASSIUM CLAVULANATE 250 MG/5 ML BOTTLE GT SCH (08:10)
--- NOTE | 2018-11-06 09:47 | PN ---
Progress Note (short form) - Note Progress Note: Resting in NAD on RA. No acute events overnight. Afebrile. Intake & Output 11/03/18 11/04/18 11/05/18 11/06/18 23:59 23:59 23:59 23:59 Intake Total 50 570 2255 840 Balance 50 570 2255 840 Last Vital Signs Temp Pulse Resp BP Pulse Ox 97.5 F L 93 H 20 149/89 94 L 11/06/18 06:48 11/06/18 06:48 11/06/18 06:48 11/06/18 06:48 11/05/18 21:00 Active Medications Amoxicillin/Clavulanate Potassium (Augmentin 250 Mg/5 Ml Oral Suspension -) 500 mg GT BID@0800,1730 [facility] Last Admin: 11/06/18 08:10 Dose: 500 mg Arformoterol Tartrate (Brovana (Restricted To Pulmonology/Resp) -) 1 amp NEB RBID [facility] Last Admin: 11/06/18 07:25 Dose: 1 amp Budesonide (Pulmicort 0.5 Mg Nebulizer -) 1 amp NEB RBID [facility] Last Admin: 11/06/18 07:25 Dose: 1 amp Doxycycline Monohydrate (Vibramycin Oral Suspension -) 100 mg PO BID@1000,1800 [facility] Last Admin: 11/05/18 18:00 Dose: 100 mg Heparin Sodium (Porcine) (Heparin -) 5,000 unit SQ BID [facility] Last Admin: 11/05/18 21:22 Dose: 5,000 unit Sodium Chloride (Normal Saline -) 1,000 mls @ 75 mls/hr IV ASDIR [facility] Last Admin: 11/05/18 21:23 Dose: Not Given Levetiracetam (Keppra Oral Solution -) 1,500 mg PO BID [facility] Last Admin: 11/05/18 21:23 Dose: 1,500 mg Multivitamins/Minerals/Vitamin C (Tab-A-Vit -) 1 tab PO DAILY [facility] Last Admin: 11/05/18 09:18 Dose: 1 tab Nystatin (Mycostatin Cream -) 1 applic TP BID [facility] Last Admin: 11/05/18 21:24 Dose: 1 applic Polyethylene Glycol (Miralax (For Daily Use) -) 17 gm GT DAILY [facility] Last Admin: 11/05/18 09:18 Dose: 17 gm Ranitidine HCl (Zantac Oral Solution -) 75 mg GT BID [facility] Last Admin: 11/05/18 21:22 Dose: 75 mg Senna (Senna -) 2 tab PO HS [facility] Last Admin: 11/05/18 21:22 Dose: 2 tab Eyes: Yes: Conjunctiva Clear HENT: Yes: Atraumatic, Normocephalic Neck: Yes: Supple, Trachea Midline Cardiovascular: Yes: Regular Rate and Rhythm Respiratory: Yes: Few scattered rhonchi, No wheezes ...Clubbing: No Gastrointestinal: Yes: Normal Bowel Sounds, Soft, Other (+PEG). No: Tenderness Extremities: Yes: Other (contracted) Edema: No Neurological: No: Alert Labs: reviewed Problem List - Problems (1) Pneumonia Code(s): J18.9 - PNEUMONIA, UNSPECIFIED ORGANISM Qualifiers: Pneumonia type: due to unspecified organism Laterality: right Lung location: lower lobe of lung Qualified Code(s): J18.1 - Lobar pneumonia, unspecified organism (2) Acute asthma exacerbation Code(s): J45.901 - UNSPECIFIED ASTHMA WITH (ACUTE) EXACERBATION Assessment/Plan Pneumonia likely Aspiration Acute Asthma Exacerbation Cerebral Palsy Mental Retardation Seizure Disorder Blindness Functional Quadriplegia - antibiotics per ID: Noted change to PO - Monitor off systemic steroids - inhaled bronchodilators standing and PRN - aspiration precautions - DVT prophylaxis - No Pulmonary contraindication for DC planning Dr Douglass
[2018-11-06] MEDS: levETIRAcetam 500 MG/5 ML ORAL SOLUTION (UNIT-DOSE CUPS) PO SCH (10:21)
[2018-11-06] MEDS: RANITIDINE HCL 150 MG/10 ML UNIT-DOSE GT SCH (10:21)
[2018-11-06] MEDS: MULTIVITAMINS (DAILY MVI) TABLET (FP) PO SCH (10:22)
[2018-11-06] MEDS: HEPARIN NA (PORCINE) 5,000 UNITS/ML 1ML VIAL SQ SCH (10:22)
[2018-11-06] MEDS: DOXYCYCLINE MONOHYDRATE 25 MG/5 ML SUSPENSION PO SCH (10:23)
[2018-11-06] MEDS: POLYETHYLENE GLYCOL 3350 119 GM BTL GT SCH (10:23)
[2018-11-06] MEDS: NYSTATIN 100,000 UNIT/GM TOPICAL CREAM 15 GM TUBE TP SCH (10:24)
--- NOTE | 2018-11-06 11:31 | PN ---
Progress Note, Physician History of Present Illness: stable no new issues - Current Medication List Current Medications: Active Medications Amoxicillin/Clavulanate Potassium (Augmentin 250 Mg/5 Ml Oral Suspension -) 500 mg GT BID@0800,1730 [facility] Last Admin: 11/06/18 08:10 Dose: 500 mg Arformoterol Tartrate (Brovana (Restricted To Pulmonology/Resp) -) 1 amp NEB RBID [facility] Last Admin: 11/06/18 07:25 Dose: 1 amp Budesonide (Pulmicort 0.5 Mg Nebulizer -) 1 amp NEB RBID [facility] Last Admin: 11/06/18 07:25 Dose: 1 amp Doxycycline Monohydrate (Vibramycin Oral Suspension -) 100 mg PO BID@1000,1800 [facility] Last Admin: 11/06/18 10:23 Dose: 100 mg Heparin Sodium (Porcine) (Heparin -) 5,000 unit SQ BID [facility] Last Admin: 11/06/18 10:22 Dose: 5,000 unit Sodium Chloride (Normal Saline -) 1,000 mls @ 75 mls/hr IV ASDIR [facility] Last Admin: 11/05/18 21:23 Dose: Not Given Levetiracetam (Keppra Oral Solution -) 1,500 mg PO BID [facility] Last Admin: 11/06/18 10:21 Dose: 1,500 mg Multivitamins/Minerals/Vitamin C (Tab-A-Vit -) 1 tab PO DAILY [facility] Last Admin: 11/06/18 10:22 Dose: 1 tab Nystatin (Mycostatin Cream -) 1 applic TP BID [facility] Last Admin: 11/06/18 10:24 Dose: 1 applic Polyethylene Glycol (Miralax (For Daily Use) -) 17 gm GT DAILY [facility] Last Admin: 11/06/18 10:23 Dose: Not Given Ranitidine HCl (Zantac Oral Solution -) 75 mg GT BID [facility] Last Admin: 11/06/18 10:21 Dose: 75 mg Senna (Senna -) 2 tab PO HS [facility] Last Admin: 11/05/18 21:22 Dose: 2 tab - Objective Vital Signs: Vital Signs Temperature 97.5 F L 11/06/18 06:48 Pulse Rate 93 H 11/06/18 06:48 Respiratory Rate 20 11/06/18 06:48 Blood Pressure 149/89 11/06/18 06:48 O2 Sat by Pulse Oximetry (%) 94 L 11/05/18 21:00 Constitutional: Yes: No Distress, Calm Cardiovascular: Yes: S1, S2 Respiratory: Yes: Regular, CTA Bilaterally Gastrointestinal: Yes: Normal Bowel Sounds, Soft Musculoskeletal: Yes: WNL Extremities: Yes: Other Integumentary: Yes: Rash Neurological: Yes: Alert Psychiatric: Yes: Alert Labs: CBC, BMP 11/05/18 06:50 11/05/18 06:00 INR, PTT INR 0.98 (0.83-1.09) 10/31/18 13:54 Assessment/Plan Problem List - Problems (1) Acute asthma exacerbation Code(s): J45.901 - UNSPECIFIED ASTHMA WITH (ACUTE) EXACERBATION (2) Pneumonia Code(s): J18.9 - PNEUMONIA, UNSPECIFIED ORGANISM Qualifiers: Pneumonia type: due to unspecified organism Laterality: right Lung location: lower lobe of lung Qualified Code(s): J18.1 - Lobar pneumonia, unspecified organism (3) Mental retardation Code(s): F79 - UNSPECIFIED INTELLECTUAL DISABILITIES (4) PEG (percutaneous endoscopic gastrostomy) status Code(s): Z93.1 - GASTROSTOMY STATUS (5) Quadriparesis Code(s): G82.50 - QUADRIPLEGIA, UNSPECIFIED (6) Seizure disorder Code(s): G40.909 - EPILEPSY, UNSP, NOT INTRACTABLE, WITHOUT STATUS EPILEPTICUS 7 rash Assessment/Plan continue current mgmt nutrition rest as per the team
--- NOTE | 2018-11-06 11:55 | DS ---
Physical Examination Vital Signs: Vital Signs Temperature 97.5 F L 11/06/18 06:48 Pulse Rate 93 H 11/06/18 06:48 Respiratory Rate 20 11/06/18 06:48 Blood Pressure 149/89 11/06/18 06:48 O2 Sat by Pulse Oximetry (%) 94 L 11/05/18 21:00 Constitutional: Yes: Calm HENT: Yes: Atraumatic, Tonsillar Exudate Cardiovascular: Yes: Regular Rate and Rhythm Respiratory: Yes: CTA Bilaterally Gastrointestinal: Yes: Normal Bowel Sounds Extremities: Yes: WNL Edema: No Peripheral Pulses WNL: Yes Neurological: Yes: Alert Labs: CBC, BMP 11/05/18 06:50 11/05/18 06:00 Discharge Summary Reason For Visit: HYPOXIA PNEUMONIA Current Active Problems Acute asthma exacerbation (Acute) Hypoxia (Acute) Pneumonia (Acute) Condition: Guarded - Instructions Diet, Activity, Other Instructions: continue po abx for 7 days Disposition: HOME - Home Medications Comprehensive Discharge Medication List: Ambulatory Orders Budesonide [Pulmicort] 1 neb IH BID 07/04/12 Omeprazole [Prilosec (RX)] 20 mg GT HS 07/04/12 levETIRAcetam [Keppra Oral Solution -] 1,500 mg PO BID 07/04/12 Calcium Citrate/Vitamin D3 [Citracal + D Caplet] 315 mg GT BID 06/27/13 Albuterol 0.083% Nebulizer Mehnaz [Ventolin 0.083% Nebulizer Soln -] 1 neb NEB Q4H PRN 07/18/14 Arformoterol Tartrate [Brovana] 15 mcg IH BID 07/18/14 Multivitamins [Multivit ([facility] Formulary)] 1 tab GT DAILY 07/18/14 Electrolyte,Oral [Pedialyte -] 60 ml GT BID 08/21/18 Polyethylene Glycol 3350 [Clearlax] 17 gm GT DAILY 08/21/18 Sennosides [Senna] 2 tab GT HS 08/21/18 Albuterol 0.083% Nebulizer Mehnaz [Ventolin 0.083% Nebulizer Soln -] 1 amp NEB PRN PRN 10/31/18 Albuterol 2.5/Ipratropium 0.5 [Duoneb -] 1 amp NEB PRN 10/31/18 Amox-Tr/K Cl [Augmentin 875-125mg Tablet -] 1 tab PO BID@0800,1730 #14 tablet Doxycycline Oral Suspension [Vibramycin Oral Suspension -] 100 mg PO BID@1000, 1800 #100 ml 11/05/18 Nystatin Cream [Mycostatin Cream -] 1 applic TP BID #1 applic 11/05/18
[2018-11-06 17:48] VITALS: BP 141/99; PULSE 88; TEMP 98.6
== END 2018-11-06 16:38 | disposition home or self-care (01) | DRG 177 ==
LOC: JER 11:31 → JERBED 18:35 → J8W 11-01 02:45
PROVIDERS: ADMIT Internal Medicine; ATTEND Internal Medicine
DX: J69.0 Pneumonitis due to inhalation of food and vomit (principal); R53.2 Functional quadriplegia; G91.8 Other hydrocephalus; J98.11 Atelectasis; J45.901 Unspecified asthma with (acute) exacerbation; F72 Severe intellectual disabilities; K21.9 Gastro-esophageal reflux disease without esophagitis; K44.9 Diaphragmatic hernia without obstruction or gangrene; K59.09 Other constipation; M81.8 Other osteoporosis without current pathological fracture; R13.19 Other dysphagia; G40.909 Epilepsy, unspecified, not intractable, without status epilepticus; R09.02 Hypoxemia; H54.3 Unqualified visual loss, both eyes; G80.8 Other cerebral palsy; R21 Rash and other nonspecific skin eruption; Z93.1 Gastrostomy status
CPT/HCPCS: 36415; 71045-TC-FY; 71250-TC; 80048; 80053; 81003; 82550; 82553; 82803; 83605; 84484; 85025; 85610; 85730; 87040; 87086; 93005; 93010; 94640; 99284-25; J1644; J7030

== ENCOUNTER 2018-12-29 21:36 | Emergency (ER) | payer OTHER ==
[2018-12-29] MEDS ORDERED: levETIRAcetam 500 MG/5 ML INJECTION VIAL IVPB ONE ×2 (22:19→22:33)
--- NOTE | 2018-12-29 23:11 | PDOC ---
History of Present Illness - General Chief Complaint: Seizure Stated Complaint: SEIZURE Time Seen by Provider: 12/29/18 22:06 History Source: EMS - History of Present Illness Initial Comments: 12/29/18 23:11 58 yo M PMH of seizure disorder, PEG-dependent, hydrocephalus, quadraplegia, legal blindness, asthma, h/o of aspiration PNA brought in from [facility] for seizure. EMS states that they were reported a 6 minute grand mal seizure. Reportedly nothing was given by [facility] or by EMS for seizure. The aid at bedside states that pt behavior is different from usual. pt is nonverbal. unable to get accurate hx from pt or aid. 12/29/18 23:11 Past History - Past Medical History Allergies/Adverse Reactions: Allergies Allergy/AdvReac Type Severity Reaction Status Date / Time Benzodiazepines Allergy Unknown Verified 12/29/18 23:40 Home Medications: Ambulatory Orders Budesonide [Pulmicort] 1 neb IH BID 07/04/12 Omeprazole [Prilosec (RX)] 20 mg GT HS 07/04/12 levETIRAcetam [Keppra Oral Solution -] 1,500 mg PO BID 07/04/12 Calcium Citrate/Vitamin D3 [Citracal + D Caplet] 315 mg GT BID 06/27/13 Albuterol 0.083% Nebulizer Mehnaz [Ventolin 0.083% Nebulizer Soln -] 1 neb NEB Q4H PRN 07/18/14 Arformoterol Tartrate [Brovana] 15 mcg IH BID 07/18/14 Multivitamins [Multivit ([facility] Formulary)] 1 tab GT DAILY 07/18/14 Electrolyte,Oral [Pedialyte -] 60 ml GT BID 08/21/18 Polyethylene Glycol 3350 [Clearlax] 17 gm GT DAILY 08/21/18 Sennosides [Senna] 2 tab GT HS 08/21/18 Albuterol 0.083% Nebulizer Mehnaz [Ventolin 0.083% Nebulizer Soln -] 1 amp NEB PRN PRN 10/31/18 Albuterol 2.5/Ipratropium 0.5 [Duoneb -] 1 amp NEB PRN 10/31/18 Amox-Tr/K Cl [Augmentin 875-125mg Tablet -] 1 tab PO BID@0800,1730 #14 tablet Doxycycline Oral Suspension [Vibramycin Oral Suspension -] 100 mg PO BID@1000, 1800 #100 ml 11/05/18 Nystatin Cream [Mycostatin Cream -] 1 applic TP BID #1 applic 11/05/18 Anemia: No Asthma: Yes Cancer: No Cardiac Disorders: No CVA: No (hydrocephalous chronic) COPD: No CHF: No Dementia: No Diabetes: No GI Disorders: Yes (gerd/hiatal hernia/dysphagia/constipation) Disorders: No HTN: No Hypercholesterolemia: No Liver Disease: No Seizures: Yes Thyroid Disease: No (osteoporosis, osteoporosis) - Surgical History Abdominal Surgery: No Appendectomy: No Cardiac Surgery: No Cholecystectomy: No GI Surgery: Yes (G tube) Lung Surgery: No Neurologic Surgery: No Orthopedic Surgery: No - Immunization History Immunization Up to Date: Yes - Psycho Social/Smoking Cessation Hx Smoking Status: No Smoking History: Never smoked Have you smoked in the past 12 months: No Number of Cigarettes Smoked Daily: 0 Hx Alcohol Use: No Drug/Substance Use Hx: No Substance Use Type: None Hx Substance Use Treatment: No Review of Systems - Review of Systems Able to Perform ROS?: No (pt nonverbal) *Physical Exam - Physical Exam General Appearance: Yes: Nourished, Appropriately Dressed Respiratory/Chest: positive: Rhonchi (b/l), Wheezing. negative: Accessory Muscle Use Cardiovascular: positive: Regular Rhythm, Regular Rate, S1, S2. negative: JVD, Murmur Gastrointestinal/Abdominal: positive: Normal Bowel Sounds, Soft. negative: Tender, Distended Extremity: positive: Normal Capillary Refill, Normal Inspection Integumentary: positive: Normal Color, Dry, Warm Neurologic: positive: Responsive ED Treatment Course - LABORATORY CBC & Chemistry Diagram: 12/29/18 23:20 12/29/18 23:20 - RADIOLOGY Radiology Studies Ordered: Category Date Time Status CHEST X-RAY PORTABLE* [RAD] Stat Radiology 12/29/18 22:15 Ordered Medical Decision Making - Medical Decision Making 12/29/18 23:23 58 yo M presenting with seizure and possible aspiration -CXR -CBC,CMP, Mg , Phos -BCx -EKG -on initial presentation, pt hypoxic to 85 , improved with 3 L NC 12/29/18 23:25 -keppra and phenobarbitol level -keppra 1000mg IV once 12/29/18 23:51 -rpt pulse ox monitoring shows the pt saturating 99% on RA 12/29/18 23:52 -duonebs 12/30/18 00:04 -cbc, cmp reviewed 12/30/18 01:35 -will give dose of phenobarb. -pt has no leukocytosis, afebrile, saturating well on RA with no signs of respiratory distress -cxr reviewed -will dc with augmentin Discharge - Discharge Information Problems reviewed: Yes Clinical Impression/Diagnosis: Seizure Condition: Good Disposition: NURSING HOME FACILITY - Follow up/Referral - Patient Discharge Instructions Patient Printed Discharge Instructions: DI for Seizure Disorder -- Adult Additional Instructions: You came into the hospital for a seizure. While you were here we took some blood , and chest Xrays. Your chest Xray shows that you may have an aspiration pneumonia in your Left lower lung. You have no white count and no fever. Please continue to take Augmentin 875mg ( liquid) through the NG Tube twice daily for the aspiration pneumonia for 7 days. Please follow up with your primary care physician to manage you medically. Please follow up with your neurologist regarding your seizures. If you develop any new, worsening, alarming symptoms please return to the ED. - Post Discharge Activity
[2018-12-29 23:43] LABS: BASO % 0.9 % (0-2.0); EOS % 1.8 % (0-4.5); HEMATOCRIT 47.1 % (35.4-49); HEMOGLOBIN 15.9 GM/dL (11.7-16.9); LYMPH % 20.5 % (8-40); MCH 31.7 pg (25.7-33.7); MCHC 33.9 g/dl (32.0-35.9); MEAN CELL VOLUME 93.6 fl (80-96); MEAN PLT VOLUME 9.1 fl (7.5-11.1); MONO % 8.8 % (3.8-10.2); PLATELET COUNT 269 K/MM3 (134-434); RBC 5.03 M/mm3 (4.00-5.60); RDW 14.2 % (11.9-15.9); WHITE BLOOD COUNT 5.3 K/mm3 (4.0-10.0)
[2018-12-29 23:48] VITALS: TEMP 94.9; BMI 30.4
[2018-12-29] MEDS ORDERED: ALBUTEROL SO4 2.5/IPRATROPIUM 0.5 INH SOL 3 ML VIAL.NEB. NEB ONE ×2 (23:49→23:55)
[2018-12-30 00:02] LABS: ALBUMIN 3.9 g/dl (3.4-5.0); BILIRUBIN,TOTAL 0.4 mg/dL (0.2-1); BLOOD UREA NITROGEN 10.5 mg/dL (7-18); CALCIUM 9.1 mg/dL (8.5-10.1); CREATININE 0.6 mg/dL (0.55-1.3); MAGNESIUM 2.2 mg/dL (1.8-2.4); PHOSPHOROUS 2.6 mg/dL (2.5-4.9); POTASSIUM 4.1 mmol/L (3.5-5.1); TOT PROT 7.5 g/dl (6.4-8.2)
--- NOTE | 2018-12-30 00:40 | PDOC ---
Documentation entered by Kaylee Tubbs SCRIBE, acting as scribe for Filiberto Mcconnell MD. Filiberto Mcconnell MD: This documentation has been prepared by the catiaibeArley Lincy, SCRIBE, under my direction and personally reviewed by me in its entirety. I confirm that the documentation accurately reflects all work, treatment, procedures, and medical decision making performed by me. Attending Attestation - Resident Resident Name: Annmarie Louise - ED Attending Attestation I have performed the following: I have examined & evaluated the patient, The case was reviewed & discussed with the resident, I agree w/resident's findings & plan, Exceptions are as noted - HPI HPI: 12/29/18 22:26 The patient is a 58-year-old male with a past medical history significant for MR , PEG tube dependent, seizure disorder (on 1000mg Keppra), hydrocephalus, quadriplegia, and hx of aspiration pneumonia who presents to the emergency department via EMS from [facility] s/p a seizure episode lasting 6 minutes. History obtained through the healthcare aide at the bedside, the patient had a seizure episode lasting for about 6 minutes, which self resolved without medical interventions. Following the incident, the patient hasn't returned to baseline, per aide. During the incident, the patient did bite his tongue. Allergies: Benzodiazepines - Physicial Exam PE: 12/30/18 00:34 Patient is lethargic, localizes to sternal rub hypoxemic to 88% on room air Normocephalic atraumatic Corneas are cloudy bilaterally (known to be chronic) mmm Neck is supple Diffuse rhonchi and wheezing bilaterally RRR Flexion contracture at the hip and knees with extension of the ankles noted; Patient noted to be moving upper extremities spontaneously - Medical Decision Making 12/30/18 00:39 58-year-old male from [facility] with history of seizure disorder, hydrocephalus, paraplegia, asthma, PEG dependent presents after a witnessed prolonged generalized tonic-clonic seizure. No other history is provided and patient is unable to cooperate with a detailed H&P. Patient is noted to be hypothermic and hypoxemic in initial evaluation. Patient is lethargic but localizes to sternal rub. Will administer IV Keppra. Will obtain chest x-ray to rule out aspiration pneumonia. Will administer DuoNeb. Will obtain CBC and CMP. Will observe. Will reassess
[2018-12-30] MEDS ORDERED: PHENobarbital 15 MG TABLET NGT SCH (01:47)
[2018-12-30] MEDS ORDERED: PHENOBARBITAL 20 MG/5 ML LIQUID NGT SCH (02:02)
[2018-12-30 03:22] LABS: EPI CELLS 2.2 /HPF (0-5/HPF); HYALINE CASTS 2 /lpf (0-8); PH,URINE 6.5 (5.0-8.0); URINE APPEARANCE CLEAR; URINE BACTERIA 2.4 /hpf (NEGATIVE); URINE BILIRUBIN NEGATIVE (NEGATIVE); URINE COLOR YELLOW; URINE GLUCOSE (UA) NEGATIVE (NEGATIVE); URINE KETONE TRACE (NEGATIVE); URINE LEUK ESTERASE NEGATIVE (NEGATIVE); URINE NITRITE NEGATIVE (NEGATIVE); URINE PROTEIN NEGATIVE (NEGATIVE); URINE RBC 6 /hpf (0-4); URINE UROBILINOGEN 0.2 mg/dL (0.2-1.0); URINE WBC 1 /hpf (0-5)
[2018-12-30 04:38] VITALS: BP 135/95; PULSE 61
--- NOTE | 2018-12-30 10:50 | EKG ---
Test Reason : Blood Pressure : / mmHG Vent. Rate : 073 BPM Atrial Rate : 073 BPM P-R Int : 150 ms QRS Dur : 092 ms QT Int : 376 ms P-R-T Axes : 050 -32 002 degrees QTc Int : 414 ms NORMAL SINUS RHYTHM LEFT AXIS DEVIATION ABNORMAL ECG WHEN COMPARED WITH ECG OF 31-OCT-2018 13:29, NO SIGNIFICANT CHANGE WAS FOUND Confirmed by TONYA PETTY MD ([id number]) on 12/30/2018 10:50:14 AM Referred By: Confirmed By:TONYA PETTY MD
--- NOTE | 2019-01-02 09:49 | PDOC ---
Patient Follow-up (Call Back) - Post ED Follow - Up Condition at time of discharge: Good Disposition at time of original discharge: RESIDENTIAL FACILITY - Disposition Additional Instructions/Notes: Received call from lab that patient had 1 positive blood culture bottle showing gram positive bacilli, final organism pending. On chart review, it was noted that patient was discharged on Augmentin for possible aspiration PNA D/W Dr. Hough - recommends waiting for final organism and sensitivities to see Augmentin would provide coverage
== END 2018-12-30 04:40 ==
LOC: JER 21:36
PROC: 3E0F7GC Introduction of Other Therapeutic Substance into Respiratory Tract, Via Natural or Artificial Opening (ICD-10-PCS; principal; 2018-12-29)
PROC: 3E033GC Introduction of Other Therapeutic Substance into Peripheral Vein, Percutaneous Approach (ICD-10-PCS; 2018-12-29)
DX: G40.909 Epilepsy, unspecified, not intractable, without status epilepticus (principal); J45.909 Unspecified asthma, uncomplicated; F78 Other intellectual disabilities; G82.50 Quadriplegia, unspecified; G91.8 Other hydrocephalus; H54.8 Legal blindness, as defined in USA; Z93.1 Gastrostomy status; M81.8 Other osteoporosis without current pathological fracture; Z87.19 Personal history of other diseases of the digestive system; Z88.8 Allergy status to other drugs, medicaments and biological substances
CPT/HCPCS: 36415; 71045-TC-FY; 80053; 80177; 80184; 81003; 83735; 84100; 85025; 87040; 87077; 93005; 93010; 94640; 96374; 99284-25

== ENCOUNTER 2019-03-08 11:10 | Inpatient (IN) | payer OTHER ==
--- NOTE | 2019-03-08 12:42 | PDOC ---
History of Present Illness - General Chief Complaint: Cold Symptoms Stated Complaint: R/O FLU Time Seen by Provider: 03/08/19 11:27 History Source: Patient Exam Limitations: No Limitations - History of Present Illness Initial Comments: 03/08/19 18:33 58 yo M PMH of seizure disorder, PEG-dependent, hydrocephalus, quadraplegia, legal blindness, asthma, and h/o of aspiration [facility] (in the midst of an influenza outbreak ) with SOB. Per the aide at bedside, the patient has had SOB since Monday with cough, but without production. Per the aide, the patient is normally more reactive towards her with facial expressions. Since Monday, the patient has had more lethargy than usual and has felt warm to the touch. Per the aide, the patient was started on antibiotics (augmentin) without improvement in symptoms. The aide denies the following symptoms: vomiting, diarrhea, seizures, hematochezia, hemoptysis, and abdominal distension. Allergies: Benzodiazepines Past History - Past Medical History Allergies/Adverse Reactions: Allergies Allergy/AdvReac Type Severity Reaction Status Date / Time Benzodiazepines Allergy Unknown Verified 03/08/19 11:48 Home Medications: Ambulatory Orders Acetaminophen Liquid [Tylenol 100mg/mL * Drops* -] 650 mg GT TID PRN 03/08 Citrate Phosphate Dextros Soln [Citrate Phosphate Dextrose] 315 mg GT BID Denosumab [Prolia -] 60 mg SQ ASDIR 03/08/19 Omeprazole 20 mg GT DAILY 03/08/19 Polyethylene Glycol 3350 [Clearlax] 17 gm GT DAILY 03/08/19 Sennosides/Docusate Sodium [Senna-S Tablet] 2 each GT HS 03/08/19 levETIRAcetam [levETIRAcetam ORAL SUSPENSION] 1,500 mg GT BID 03/08/19 Albuterol 0.083% Nebulizer Mehnaz [Ventolin 0.083% Nebulizer Soln -] 1 amp NEB Q4H PRN amp 03/14/19 Budesonide/Formeterol Fumarate [SYMBICORT 160/4.5mcg -] 2 puff IH BID inhaler 03/14/19 Anemia: No Asthma: Yes Cancer: No Cardiac Disorders: No CVA: No (hydrocephalous chronic) COPD: No CHF: No Dementia: No Diabetes: No GI Disorders: Yes (gerd/hiatal hernia/dysphagia/constipation) Disorders: No HTN: No Hypercholesterolemia: No Liver Disease: No Seizures: Yes Thyroid Disease: No (osteoporosis, osteoporosis) - Surgical History Abdominal Surgery: No Appendectomy: No Cardiac Surgery: No Cholecystectomy: No GI Surgery: Yes (G tube) Lung Surgery: No Neurologic Surgery: No Orthopedic Surgery: No - Immunization History Immunization Up to Date: Yes - Psycho Social/Smoking Cessation Hx Smoking Status: No Smoking History: Never smoked Have you smoked in the past 12 months: No Number of Cigarettes Smoked Daily: 0 Hx Alcohol Use: No Drug/Substance Use Hx: No Substance Use Type: None Hx Substance Use Treatment: No Review of Systems - Review of Systems Able to Perform ROS?: No (clinical condition) *Physical Exam - Vital Signs Last Vital Signs Temp Pulse Resp BP Pulse Ox 97.1 F L 97 H 18 129/82 97 03/08/19 11:10 03/08/19 11:10 03/08/19 11:10 03/08/19 11:10 03/08/19 11:10 - Physical Exam General Appearance: Yes: Nourished, Appropriately Dressed. No: Apparent Distress, Intoxicated HEENT: positive: EOMI, MAK, Normal ENT Inspection, TMs Normal, Pharynx Normal, Hearing Grossly Normal, Other (dry mucous membranes). negative: Pale Conjunctivae, Scleral Icterus (R), Scleral Icterus (L), Pharyngeal Erythema, Tonsillar Exudate, Tonsillar Erythema, Nasal Congestion, Rhinorrhea, Excessive drooling Neck: positive: Trachea midline, Supple. negative: Tender, Lymphadenopathy (R) , Lymphadenopathy (L) Respiratory/Chest: positive: Rapid RR, Decreased Breath Sounds, Rhonchi ( bilaterally in the upper and lower lung rivera), Wheezing. negative: Chest Tender, Accessory Muscle Use, Crackles, Stridor Cardiovascular: positive: Regular Rhythm, Regular Rate, S1, S2. negative: Systolic Murmur Gastrointestinal/Abdominal: positive: Normal Bowel Sounds, Flat, Soft, Other ( PEG tube in place with site clean. no purulence or erythema noted). negative: Tender, Distended, Guarding, Rebound Lymphatic: negative: Adenopathy Musculoskeletal: positive: Normal Inspection. negative: CVA Tenderness, Vertebral Tenderness Extremity: positive: Normal Capillary Refill, Normal Range of Motion. negative : Normal Inspection (atrophied), Tender, Swelling, Calf Tenderness Integumentary: positive: Normal Color, Dry, Warm Neurologic: positive: Alert ED Treatment Course - LABORATORY CBC & Chemistry Diagram: 03/13/19 08:20 03/13/19 08:20 Medical Decision Making - Medical Decision Making 58 yo M PMH of seizure disorder, PEG-dependent, hydrocephalus, quadraplegia, legal blindness, asthma, and h/o of aspiration [facility] (in the midst of an influenza outbreak ) with SOB. Initial vitals: Initial Vital Signs Temp Pulse Resp BP Pulse Ox 97.1 F L 97 H 18 129/82 97 03/08/19 11:10 03/08/19 11:10 03/08/19 11:10 03/08/19 11:10 03/08/19 11:10 Work up: ddx: patient presents from [facility] in the midst of an outbreak of influenza with fever, cough, and SOB. ddx includes influenza with or without a superimposing PNA vs PNA vs aspiration PNA. Because the patient has a high index of suspicion for PNA, will obtain cultures Laboratory Tests 03/08/19 11:36 Influenza A (Rapid) Positive A Influenza B (Rapid) Negative No leukocytosis or lactic acid elevation CXR shows some focal atelectasis or infiltrate at the left base Patient was given duoneb and solumedrol and NS. The patient continues to require oxygen (no oxygen required at baseline) to support SpO2% > 95%. The patient is to be admitted for complications related to influenza with persistent hypoxia. Discharge - Discharge Information Problems reviewed: Yes Clinical Impression/Diagnosis: Influenza - Follow up/Referral - Patient Discharge Instructions - Post Discharge Activity
[2019-03-08] MEDS ORDERED: ALBUTEROL SO4 2.5/IPRATROPIUM 0.5 INH SOL 3 ML VIAL.NEB. NEB ONE ×2 (13:01→13:06)
[2019-03-08] MEDS ORDERED: SODIUM CHLORIDE 1,687 ML IV ONE (13:58)
[2019-03-08] MEDS ORDERED: methylPREDNISolone NA SUCC 125 MG/2 ML VIAL IVPB ONE (13:59)
--- NOTE | 2019-03-08 14:29 | PDOC ---
Attending Attestation - Resident Resident Name: Maulik Tompkins - ED Attending Attestation I have performed the following: I have examined & evaluated the patient, The case was reviewed & discussed with the resident, I agree w/resident's findings & plan, Exceptions are as noted - HPI HPI: 59 yo M sent by [place] for flu-like symptoms. +Cough, congestion, difficulty breathing as per aide at bedside. Patient is unable to provide any history. - Physicial Exam PE: GENERAL: Awake, alert. Appears ill. HEAD: No signs of trauma EYES: PERRLA, EOMI, sclera anicteric, conjunctiva clear ENT: Auricles normal inspection, hearing grossly normal, nares patent, oropharynx clear without exudates. Dry mucosa NECK: Normal ROM, supple, no lymphadenopathy, JVD, or masses LUNGS: Diffuse rhonchi and wheezes B/L, dec air entry B/L HEART: Regular rate and rhythm, normal S1 and S2, no murmurs, rubs or gallops ABDOMEN: Soft, nontender, normoactive bowel sounds. No guarding, no rebound. No masses EXTREMITIES: Normal range of motion, no edema. No clubbing or cyanosis. No cords, erythema, or tenderness NEUROLOGICAL: Limited by nonverbal state, unable to follow commands SKIN: Warm, dry, normal turgor, no rashes or lesions noted. - Medical Decision Making Pt presents with flu-like symptoms, likely flu as there is currently an outbreak at [place]. Will plan for admission, as he is requiring oxygen and his lung exam is remarkable for diffuse rhonchi and wheezes.
[2019-03-08] MEDS ORDERED: methylPREDNISolone NA SUCC 125 MG/2 ML VIAL ONE (15:39)
[2019-03-08 16:03] LABS: INR 0.87 (0.83-1.09); PROTHROMBIN TIME (PATIENT) 10.3 SEC (9.7-13.0)
[2019-03-08 16:05] LABS: ACTIVATED PTT 37.2 SECONDS (25.2-36.5)
[2019-03-08 16:31] LABS: BASO % 0.2 % (0-2.0); EOS % 0.1 % (0-4.5); HEMATOCRIT 44.6 % (35.4-49); HEMOGLOBIN 14.7 GM/dL (11.7-16.9); LYMPH % 13.6 % (8-40); MCH 31.1 pg (25.7-33.7); MEAN CELL VOLUME 94.3 fl (80-96); MONO % 10.3 % (3.8-10.2); NEUT % 75.8 % (42.8-82.8); PLATELET COUNT 192 K/MM3 (134-434); RBC 4.73 M/mm3 (4.00-5.60); RDW 14.7 % (11.9-15.9); WHITE BLOOD COUNT 5.9 K/mm3 (4.0-10.0)
[2019-03-08 17:09] LABS: ARTERIAL BLOOD GAS PCO2 43.5 mmHg (35-45); ARTERIAL BLOOD GAS pH 7.46 (7.35-7.45)
[2019-03-08 17:10] LABS: ALLENS TEST POSITIVE; ARTERIAL BLD GAS O2 SATURATION 96.2 % (95-98); ARTERIAL BLOOD GAS BASE EXCESS 5.9 meq/l (-2-2); ARTERIAL BLOOD GAS PO2 81.1 mmHg (80-100); CARBOXYHEMOGLOBIN 0.7 % (0-2)
[2019-03-08 17:57] LABS: ALBUMIN 3.2 g/dl (3.4-5.0); ALK PHOS 151 U/L (45-117); ANION GAP 5 MMOL/L (8-16); BILIRUBIN,TOTAL 0.3 mg/dL (0.2-1); BLOOD UREA NITROGEN 10.4 mg/dL (7-18); CALCIUM 8.8 mg/dL (8.5-10.1); CHLORIDE 98 mmol/L (98-107); CO2 32 mmol/L (21-32); CREATININE 0.6 mg/dL (0.55-1.3); GLUCOSE,RANDOM 118 mg/dL (74-106); POTASSIUM 4.4 mmol/L (3.5-5.1); SGOT/AST 102 U/L (15-37); SGPT/ALT 69 U/L (13-61); SODIUM 134 mmol/L (136-145); TOT PROT 6.7 g/dl (6.4-8.2)
--- NOTE | 2019-03-08 19:30 | PN ---
Teaching Attending Note Name of Resident: Darien Gee ATTENDING PHYSICIAN STATEMENT I saw and evaluated the patient. I reviewed the resident's note and discussed the case with the resident. I agree with the resident's findings and plan as documented. SUBJECTIVE: Patient is a 58 year old man with a PMH of Seizure disorder, PEG-dependent, Hydrocephalus, Quadraplegia, Legal blindness, Asthma, and Aspiration pneumonia brought in from [facility] for Flu-like symptoms. Patient is nonverbal and additional information is not available. No history of alcohol, tobacco or illicit drug use. [facility]. OBJECTIVE: Awake Vital Signs Period Temp Pulse Resp BP Sys/Karimi Pulse Ox Last 24 Hr 97.1 F-99.4 F 97 18 129/82 97 HEENT: No Jaundice, eye redness or discharge, Normocephalic, atraumatic. External ears are normal. No nasal discharge. Neck: Supple, nontender. No palpable adenopathy or thyromegaly. No JVD Chest: Good effort. Clear to auscultation and percussion. Heart: Regular. No S3, rub or murmur Abdomen: Not distended, soft, nontender and no HSM. No rebound or guarding. PEG in place. Normal bowel sounds. Ext: Peripheral pulses intact. No leg edema. Limb contractures. Skin: Warm and dry. No petechiae, rash or ecchymosis. Neuro: Upper and lower extremity contractures. Unable to speak. Spontaneous movement of upper extremities Psych: Unable to assess Current Medications Generic Name Dose Route Start Last Admin Trade Name Freq PRN Reason Stop Dose Admin Acetaminophen 1,000 mg 03/08/19 20:56 Ofirmev Injection - IVPB Q6H PRN FEVER Albuterol Sulfate 1 amp 03/08/19 20:30 Ventolin 0.083% Nebulizer Soln - NEB Q4H PRN SHORT OF BREATH/WHEEZING Albuterol/Ipratropium 1 amp 03/08/19 20:29 Duoneb - NEB Q6H PRN SHORTNESS OF BREATH Budesonide/Formoterol Fumarate 2 puff 03/08/19 22:00 Symbicort 160/4.5mcg - IH BID CONSTANCE Enoxaparin Sodium 40 mg 03/09/19 10:00 Lovenox - SQ DAILY CONSTANCE Famotidine 20 mg 03/09/19 10:00 Pepcid NGT BID [facility] Sodium Chloride 1,000 mls @ 83 mls/hr 03/08/19 20:30 Normal Saline - IV 03/09/19 08:33 ASDIR [facility] Methylprednisolone Sodium Succinate 40 mg 03/09/19 02:00 Solu-Medrol - IVPUSH Q8H-IV [facility] Non-Formulary Medication 15 mg 03/08/19 22:00 Levetiracetam GT BID [facility] Oseltamivir Phosphate 75 mg 03/08/19 22:00 Tamiflu - GT 03/13/19 21:59 BID [facility] Polyethylene Glycol 17 gm 03/08/19 20:56 Miralax (For Daily Use) - GT DAILY PRN CONSTIPATION Senna/Docusate Sodium 2 tablet 03/08/19 22:00 Pericolace - PO [facility] Home Medications Medication Instructions Recorded Acetaminophen Liquid [Tylenol 650 mg GT TID PRN 03/08/19 * Drops* -] Amox-Tr/K Cl [Augmentin - 875Mg 1 tab GT BID 03/08/19 Tablet] Citrate Phosphate Dextros Soln 315 mg GT BID 03/08/19 [Citrate Phosphate Dextrose] Denosumab [Prolia] 60 mg SQ ASDIR 03/08/19 Diazepam Rectal Gel [Diastat 20 mg RC PRN 03/08/19 *Rectal Gel*] Omeprazole 20 mg GT DAILY 03/08/19 Polyethylene Glycol 3350 [Clearlax] 17 gm GT DAILY 03/08/19 Sennosides/Docusate Sodium 2 each GT HS 03/08/19 [Senna-S Tablet] levETIRAcetam [levETIRAcetam ORAL 15 mg GT BID 03/08/19 SUSPENSION] Abnormal Lab Results 03/08/19 03/08/19 03/08/19 11:36 14:42 14:42 Monocytes % PTT (Actin FS) 37.2 H ABG pH ABG HCO3 ABG Base Excess Sodium 134 L Anion Gap 5 L Random Glucose 118 H AST 102 H ALT 69 H Alkaline Phosphatase 151 H Albumin 3.2 L Influenza A (Rapid) Positive A 03/08/19 03/08/19 14:42 16:42 Monocytes % 10.3 H PTT (Actin FS) ABG pH 7.46 H ABG HCO3 30.2 H ABG Base Excess 5.9 H Sodium Anion Gap Random Glucose AST ALT Alkaline Phosphatase Albumin Influenza A (Rapid) ASSESSMENT AND PLAN: 1. Influenza A infection and LLL pneumonia - CXR shows LLL infiltrate. Will place on isolation, send sputum culture, urinalysis, urine for legionella antigen and treat with Tamiflu, Solumedrol, Duoneb, Symbicort, Supplemental oxygen and IV Zosyn for possible aspiration pneumonia. Monitor LFTs and get RUQ sonogram. EKG shows sinus tachycardia at 108. Will continue comprehensive care for all of patients comorbid conditions including PEG care, seizure/aspiration precautions and adequate nutrition. Consult ID. 2. Hypoalbuminemia - Possibly due to combined effects of malnutrition and inflammation associated with comorbid chronic conditions. Will ensure adequate dietary protein intake and also consult can capper. Urinalysis pending. 3. DVT prophylaxis - Lovenox 40 mg SQ q 24 hours. 4. Advance directives - Full code
--- NOTE | 2019-03-08 20:26 | HP ---
CHIEF COMPLAINT: shortness of breath PCP: Dr. Benson HISTORY OF PRESENT ILLNESS: Patient is a 59 year old male with history of hydrocephalus, seizure disorder, functional quadriplegia, asthma presents from [facility] with complaint of shortness of breath. Per Aide at bedside, patient has been experiencing shortness of breath since Monday, with associated cough (nonproductive). Patient is more lethargic than his baseline. Reportedly, patient was started on Augmentin for these symptoms, however they did not resolve, prompting ED presentation. Denies any seizure activity, hemoptysis, vomiting, hematemesis, melena, hematochezia. ER course was notable for: (1) Chest radiograph with LLL infiltrate (2) Influenza A positive (3) Recent Travel: denies PAST MEDICAL HISTORY: hydrocephalus, seizure disorder, functional quadriplegia, asthma PAST SURGICAL HISTORY: PEG tube Social History: Resident of [facility] Smoking: Denies Alcohol: Denies Drugs: Denies Allergies Benzodiazepines Allergy (Unknown, Verified 03/08/19 11:48) HOME MEDICATIONS: Home Medications Medication Instructions Recorded Acetaminophen Liquid [Tylenol 650 mg GT TID PRN 03/08/19 * Drops* -] Amox-Tr/K Cl [Augmentin - 875Mg 1 tab GT BID 03/08/19 Tablet] Citrate Phosphate Dextros Soln 315 mg GT BID 03/08/19 [Citrate Phosphate Dextrose] Denosumab [Prolia] 60 mg SQ ASDIR 03/08/19 Diazepam Rectal Gel [Diastat 20 mg RC PRN 03/08/19 *Rectal Gel*] Omeprazole 20 mg GT DAILY 03/08/19 Polyethylene Glycol 3350 [Clearlax] 17 gm GT DAILY 03/08/19 Sennosides/Docusate Sodium 2 each GT HS 03/08/19 [Senna-S Tablet] levETIRAcetam [levETIRAcetam ORAL 15 mg GT BID 03/08/19 SUSPENSION] REVIEW OF SYSTEMS As per HPI; unable to obtain further as patient is non verbal at baseline. PHYSICAL EXAMINATION Vital Signs - 24 hr 03/08/19 03/08/19 11:10 17:55 Temperature 97.1 F L 99.4 F Pulse Rate 97 H Respiratory 18 Rate Blood Pressure 129/82 O2 Sat by Pulse 97 Oximetry (%) GENERAL: The patient is awake, in no acute distress. HEAD: Normocephalic, atraumatic. EYES: PERRL, conjunctiva clear. ENT: Oropharynx clear, without erythema or exudates. Dry mucous membranes. NECK: Supple without lymphadenopathy. Negative stridor LUNGS: Rhonchi auscultated bilaterally, with end expiratory wheezing. No accessory muscle use. HEART: Regular rate and rhythm. S1, S2 without murmur, rub or gallop. ABDOMEN: Soft, nondistended, nontender to light and deep palpation x4 quadrants. No rebound tenderness, no guarding. Normoactive bowel sounds x4 quadrants. No hepatosplenomegaly, no masses appreciated. EXTREMITIES: 2+ radial, dorsalis pedis pulses bilaterally. Warm, well-perfused. No lower extremity edema bilaterally. SKIN: Warm, dry. PEG tube in situ; site clean dry. Laboratory Results - last 24 hr 03/08/19 03/08/19 03/08/19 11:36 14:42 14:42 WBC RBC Hgb Hct MCV MCH MCHC RDW Plt Count MPV Absolute Neuts (auto) Neutrophils % Lymphocytes % Monocytes % Eosinophils % Basophils % Nucleated RBC % PT with INR 10.30 INR 0.87 PTT (Actin FS) 37.2 H Anticoagulation Therapy Puncture Site ABG pH ABG pCO2 at Pt Temp ABG pO2 at Pt Temp ABG HCO3 ABG O2 Sat (Measured) ABG O2 Content ABG Base Excess Gian Test Carboxyhemoglobin Methemoglobin O2 Delivery Device Oxygen Flow Rate Vent Mode Vent Rate Mechanical Rate Pressure Support Vent Sodium 134 L Potassium 4.4 Chloride 98 Carbon Dioxide 32 Anion Gap 5 L BUN 10.4 Creatinine 0.6 Est GFR (CKD-EPI)AfAm 127.55 Est GFR (CKD-EPI)NonAf 110.05 Random Glucose 118 H Lactic Acid Calcium 8.8 Total Bilirubin 0.3 AST 102 H ALT 69 H Alkaline Phosphatase 151 H Troponin I < 0.02 Total Protein 6.7 Albumin 3.2 L Influenza A (Rapid) Positive A Influenza B (Rapid) Negative 03/08/19 03/08/19 03/08/19 14:42 14:42 16:42 WBC 5.9 RBC 4.73 Hgb 14.7 Hct 44.6 MCV 94.3 MCH 31.1 MCHC 33.0 RDW 14.7 Plt Count 192 D MPV 10.0 Absolute Neuts (auto) 4.4 Neutrophils % 75.8 Lymphocytes % 13.6 D Monocytes % 10.3 H Eosinophils % 0.1 D Basophils % 0.2 Nucleated RBC % 0 PT with INR INR PTT (Actin FS) Anticoagulation Therapy No Result Required. Puncture Site Right radial ABG pH 7.46 H ABG pCO2 at Pt Temp 43.5 ABG pO2 at Pt Temp 81.1 ABG HCO3 30.2 H ABG O2 Sat (Measured) 96.2 ABG O2 Content 18.4 ABG Base Excess 5.9 H Gian Test Positive Carboxyhemoglobin 0.7 Methemoglobin < 1.0 O2 Delivery Device No Result Required. Oxygen Flow Rate No Result Required. Vent Mode No Result Required. Vent Rate No Result Required. Mechanical Rate No Result Required. Pressure Support Vent No Result Required. Sodium Potassium Chloride Carbon Dioxide Anion Gap BUN Creatinine Est GFR (CKD-EPI)AfAm Est GFR (CKD-EPI)NonAf Random Glucose Lactic Acid 1.3 Calcium Total Bilirubin AST ALT Alkaline Phosphatase Troponin I Total Protein Albumin Influenza A (Rapid) Influenza B (Rapid) ASSESSMENT/PLAN: Patient is a 59 year old male with history of hydrocephalus, seizure disorder, functional quadriplegia, asthma presents from [facility] with complaint of shortness of breath. Acute hypoxic respiratory failure secondary to Influenza -Chest radiograph reveals left lower lobe infiltrate. -Currently saturating well at 2L NC. ABG unimpressive for acidosis, or carbon dioxide retention. -Influenza A positive in ED. Begin Oseltamivir 75mg GT BID -Given that patient has been coughing excessively, and unable to rule out aspiration will treat with Zosyn 3,375mg IV Q8 hours -ID consult (Dr. Silver) -Droplet precautions -IV normal saline at 100mL/ hour -Acetaminophen for fevers History of asthma -Likely exacerbated by Influenza -Patient received Medrol 125mg IV in ED -Duonebs standing and PRN -Medrol 40mg IV Q8 hours -Symbicort -Chest radiograph in morning Seizures - Keppra 1500mg GT BID Constipation -Continue Miralax, Senna Transaminitis -Appears cholestatic pattern. Obtain right upper quadrant ultrasound -Follow transaminases. FEN -IV normal saline at 100mL/ hour -Follow BMP -NPO given concern for aspiration. Mechanical Detailer consult in reinstating tube feeds. Prophylaxis -Lovenox 40mg subq daily -Pepcid 20mg NGT BID Disposition -Admit to medical surgical floor Visit type - Emergency Visit Emergency Visit: Yes ED Registration Date: 03/08/19 Care time: The patient presented to the Emergency Department on the above date and was hospitalized for further evaluation of their emergent condition. - New Patient This patient is new to me today: Yes Date on this admission: 03/09/19 - Critical Care Critical Care patient: No ATTENDING PHYSICIAN STATEMENT I saw and evaluated the patient. I reviewed the resident's note and discussed the case with the resident. I agree with the resident's findings and plan as documented. SUBJECTIVE: OBJECTIVE: ASSESSMENT AND PLAN:
[2019-03-08] MEDS ORDERED: ALBUTEROL SO4 2.5/IPRATROPIUM 0.5 INH SOL 3 ML VIAL.NEB. NEB PRN (20:29)
[2019-03-08] MEDS ORDERED: ALBUTEROL SO4 0.083% IH SOL 2.5 MG/3 ML VIAL.NEB. NEB PRN (20:30)
[2019-03-08] MEDS ORDERED: SODIUM CHLORIDE 1,000 ML IV SCH (20:30)
[2019-03-08] MEDS ORDERED: ACETAMINOPHEN 1000 MG/100 ML VIAL (NON FORMULARY) IVPB PRN (20:56)
[2019-03-08] MEDS ORDERED: POLYETHYLENE GLYCOL 3350 119 GM BTL GT PRN (20:56)
[2019-03-08] MEDS ORDERED: LEVETIRACETAM GT SCH (22:00)
[2019-03-08] MEDS ORDERED: LEVETIRACETAM 1500 MG GT SCH (22:12)
[2019-03-08] MEDS: OSELTAMIVIR PHOSPHATE 75 MG CAPSULE GT SCH (23:50)
[2019-03-08] MEDS: levETIRAcetam 500 MG/5 ML ORAL SOLUTION (UNIT-DOSE CUPS) PO SCH (23:50)
[2019-03-08] MEDS: SENNOSIDES/DOCUSATE COMBO (SENNA PLUS) TABLET (UD) PO SCH (23:50)
[2019-03-09] MEDS: methylPREDNISolone NA SUCC 40 MG/1 ML VIAL IVPUSH SCH ×3 (01:40→18:03)
[2019-03-09] MEDS: BUDESONIDE/FORMETEROL FUMARATE 160/4.5 mcg INHALER IH SCH ×4 (05:53→23:33)
[2019-03-09 08:13] LABS: HEMATOCRIT 41.3 % (35.4-49); HEMOGLOBIN 13.8 GM/dL (11.7-16.9); MCH 31.2 pg (25.7-33.7); MCHC 33.5 g/dl (32.0-35.9); MEAN CELL VOLUME 93.2 fl (80-96); MEAN PLT VOLUME 9.2 fl (7.5-11.1); PLATELET COUNT 172 K/MM3 (134-434); RBC 4.44 M/mm3 (4.00-5.60); RDW 14.6 % (11.9-15.9); WHITE BLOOD COUNT 4.8 K/mm3 (4.0-10.0)
[2019-03-09 08:41] LABS: ALBUMIN 2.9 g/dl (3.4-5.0); BILIRUBIN,TOTAL 0.3 mg/dL (0.2-1); BLOOD UREA NITROGEN 9.3 mg/dL (7-18); CALCIUM 8.7 mg/dL (8.5-10.1); CREATININE 0.5 mg/dL (0.55-1.3); MAGNESIUM 1.9 mg/dL (1.8-2.4); PHOSPHOROUS 2.3 mg/dL (2.5-4.9); POTASSIUM 4.5 mmol/L (3.5-5.1); TOT PROT 6.4 g/dl (6.4-8.2)
[2019-03-09] MEDS: FAMOTIDINE 40 MG/5 ML ORAL SUSPENSION NGT SCH ×2 (10:16→23:33)
[2019-03-09] MEDS: OSELTAMIVIR PHOSPHATE 75 MG CAPSULE GT SCH ×2 (10:18→23:33)
[2019-03-09] MEDS: levETIRAcetam 500 MG/5 ML ORAL SOLUTION (UNIT-DOSE CUPS) PO SCH ×2 (10:50→23:32)
[2019-03-09] MEDS: ENOXAPARIN NA (PORCINE) 40 MG/0.4 ML DISP.SYRIN SQ SCH (10:50)
--- NOTE | 2019-03-09 11:23 | PN ---
Progress Note (short form) - Note Progress Note: Patient is a 59 year old male with history of hydrocephalus, seizure disorder, functional quadriplegia, asthma presents from [facility] with complaint of shortness of breath, and was found to have + for flu. Vital Signs Temperature 98.8 F 03/09/19 08:00 Pulse Rate 92 H 03/09/19 08:00 Respiratory Rate 19 03/09/19 08:00 Blood Pressure 123/80 03/09/19 08:00 O2 Sat by Pulse Oximetry (%) 96 03/08/19 22:00 GENERAL: nonverbal with functional quadraplegia . HEAD: Normal with no signs of trauma. EYES: sclera anicteric, conjunctiva clear. ENT: Ears normal, MMM. NECK: Trachea midline, supple. LUNGS: decreased BS BL, positive wheezing, no crackles, no accessory muscle use. HEART: Regular rate and rhythm, S1, S2 without murmur, rub or gallop. ABDOMEN: Soft, NT,ND, normoactive bowel sounds, no guarding, no rebound, no hepatosplenomegaly, no masses. EXTREMITIES: 2+ pulses, warm, well-perfused, no edema. NEUROLOGICAL: Cranial nerves II through XII grossly intact. PSYCH:cannt be assessed since MR SKIN: Warm, dry, CBCD WBC 4.8 K/mm3 (4.0-10.0) 03/09/19 07:32 RBC 4.44 M/mm3 (4.00-5.60) 03/09/19 07:32 Hgb 13.8 GM/dL (11.7-16.9) 03/09/19 07:32 Hct 41.3 % (35.4-49) 03/09/19 07:32 MCV 93.2 fl (80-96) 03/09/19 07:32 MCHC 33.5 g/dl (32.0-35.9) 03/09/19 07:32 RDW 14.6 % (11.9-15.9) 03/09/19 07:32 Plt Count 172 K/MM3 (134-434) 03/09/19 07:32 MPV 9.2 fl (7.5-11.1) 03/09/19 07:32 CMP Sodium 137 mmol/L (136-145) 03/09/19 07:32 Potassium 4.5 mmol/L (3.5-5.1) 03/09/19 07:32 Chloride 106 mmol/L (98-107) 03/09/19 07:32 Carbon Dioxide 24 mmol/L (21-32) 03/09/19 07:32 Anion Gap 8 MMOL/L (8-16) 03/09/19 07:32 BUN 9.3 mg/dL (7-18) 03/09/19 07:32 Creatinine 0.5 mg/dL (0.55-1.3) L 03/09/19 07:32 Random Glucose 127 mg/dL (74-106) H 03/09/19 07:32 Calcium 8.7 mg/dL (8.5-10.1) 03/09/19 07:32 Total Bilirubin 0.3 mg/dL (0.2-1) 03/09/19 07:32 AST 82 U/L (15-37) H 03/09/19 07:32 ALT 70 U/L (13-61) H 03/09/19 07:32 Alkaline Phosphatase 145 U/L (45-117) H 03/09/19 07:32 Total Protein 6.4 g/dl (6.4-8.2) 03/09/19 07:32 Albumin 2.9 g/dl (3.4-5.0) L 03/09/19 07:32 CARDIAC ENZYMES Troponin I < 0.02 ng/ml (0.00-0.05) 03/08/19 14:42 Current Medications Generic Name Dose Route Start Last Admin Trade Name Freq PRN Reason Stop Dose Admin Acetaminophen 1,000 mg 03/08/19 20:56 Ofirmev Injection - IVPB Q6H PRN FEVER Albuterol Sulfate 1 amp 03/08/19 20:30 Ventolin 0.083% Nebulizer Soln - NEB Q4H PRN SHORT OF BREATH/WHEEZING Albuterol/Ipratropium 1 amp 03/08/19 20:29 Duoneb - NEB Q6H PRN SHORTNESS OF BREATH Budesonide/Formoterol Fumarate 2 puff 03/08/19 22:00 03/09/19 10:17 Symbicort 160/4.5mcg - IH Not Given BID CONSTANCE Enoxaparin Sodium 40 mg 03/09/19 10:00 03/09/19 10:50 Lovenox - SQ 40 mg DAILY CONSTANCE Administration Famotidine 20 mg 03/09/19 10:00 03/09/19 10:16 Pepcid NGT 20 mg BID [facility]STANCE Administration Levetiracetam 1,500 mg 03/08/19 22:15 03/09/19 10:50 Keppra Oral Solution - PO 1,500 mg BID CONSTANCE Administration Methylprednisolone Sodium Succinate 40 mg 03/09/19 02:00 03/09/19 10:16 Solu-Medrol - IVPUSH 40 mg Q8H-IV [facility] Administration Oseltamivir Phosphate 75 mg 03/08/19 22:00 03/09/19 10:18 Tamiflu - GT 03/13/19 21:59 75 mg BID [facility]STANCE Administration Polyethylene Glycol 17 gm 03/08/19 20:56 Miralax (For Daily Use) - GT DAILY PRN CONSTIPATION Senna/Docusate Sodium 2 tablet 03/08/19 22:00 03/08/19 23:50 Pericolace - PO 2 tablet HS [facility]STANCE Administration Assessment and plan: Patient is a 59 year old male with history of hydrocephalus, seizure disorder, functional quadriplegia, asthma presents from [facility] with complaint of shortness of breath. #Acute hypoxic respiratory failure secondary to Influenza continue tamiflo, given a dose of vancomycin, rocephin daily continue ID on the case #History of asthma continue current treatment #Seizures: continue Keppra 1500mg GT BID #Constipation: continue Miralax, Senna #Transaminitis trend, US negative NPO given concern for aspiration. Slot Technician consult in reinstating tube feeds. DVT PX: Lovenox 40mg subq daily GI Px: Pepcid 20mg NGT BID Visit type - Emergency Visit Emergency Visit: Yes ED Registration Date: 03/08/19 Care time: The patient presented to the Emergency Department on the above date and was hospitalized for further evaluation of their emergent condition. - New Patient This patient is new to me today: Yes Date on this admission: 03/09/19 - Critical Care Critical Care patient: No - Discharge Referral Referred to [facility] Med P.C.: No
--- NOTE | 2019-03-09 13:16 | EKG ---
Test Reason : Blood Pressure : / mmHG Vent. Rate : 108 BPM Atrial Rate : 108 BPM P-R Int : 126 ms QRS Dur : 086 ms QT Int : 316 ms P-R-T Axes : 053 -22 025 degrees QTc Int : 423 ms SINUS TACHYCARDIA OTHERWISE NORMAL ECG WHEN COMPARED WITH ECG OF 29-DEC-2018 23:25, NO SIGNIFICANT CHANGE WAS FOUND Confirmed by TONYA PETTY MD ([id number]) on 03/09/2019 1:15:38 PM Referred By: Confirmed By:TONYA PETTY MD
[2019-03-09] MEDS ORDERED: VANCOMYCIN 1 GRAM (PRE-DOCKED) 1,000 MG/250 ML BAG IVPB ONE ×3 (14:30→19:00)
[2019-03-09] MEDS ORDERED: PIPERACILLIN/TAZOB 2.25 GM 2.25 GM/50 ML BAG IVPB ONE (16:21)
[2019-03-09] MEDS ORDERED: CEFTRIAXONE 1 GM/50 ML BAG ONE (17:03)
[2019-03-09] MEDS: CEFTRIAXONE 1 GM in DEXTROSE 5%-WATER - 50 ML IVPB SCH (17:10)
[2019-03-09] MEDS ORDERED: PT OWN MED DRAWER 7, Y5N ONE (23:08)
[2019-03-09] MEDS: SENNOSIDES/DOCUSATE COMBO (SENNA PLUS) TABLET (UD) PO SCH (23:33)
[2019-03-10] MEDS: methylPREDNISolone NA SUCC 40 MG/1 ML VIAL IVPUSH SCH ×3 (02:23→18:00)
[2019-03-10 08:32] VITALS: BMI 28.1
[2019-03-10 08:52] LABS: BASO % 0.1 % (0-2.0); HEMATOCRIT 40.4 % (35.4-49); HEMOGLOBIN 13.7 GM/dL (11.7-16.9); LYMPH % 8.1 % (8-40); MCH 31.4 pg (25.7-33.7); MCHC 33.9 g/dl (32.0-35.9); MEAN CELL VOLUME 92.6 fl (80-96); MEAN PLT VOLUME 8.7 fl (7.5-11.1); MONO % 7.7 % (3.8-10.2); NEUT % 84.1 % (42.8-82.8); PLATELET COUNT 194 K/MM3 (134-434); RBC 4.36 M/mm3 (4.00-5.60); RDW 14.3 % (11.9-15.9)
[2019-03-10] MEDS ORDERED: cefTRIAXone SODIUM 1 GM VIAL ONE (09:18)
[2019-03-10] MEDS ORDERED: DEXTROSE 5%-WATER - 50 ML IVPB ONE (09:18)
[2019-03-10] MEDS ORDERED: PT OWN MED DRAWER 7, Y5N ONE ×3 (09:18→23:27)
[2019-03-10 09:22] LABS: ALBUMIN 2.8 g/dl (3.4-5.0); BILIRUBIN,TOTAL 0.2 mg/dL (0.2-1); BLOOD UREA NITROGEN 12.1 mg/dL (7-18); CALCIUM 8.4 mg/dL (8.5-10.1); CREATININE 0.6 mg/dL (0.55-1.3); MAGNESIUM 1.9 mg/dL (1.8-2.4); PHOSPHOROUS 3.1 mg/dL (2.5-4.9); POTASSIUM 3.9 mmol/L (3.5-5.1); TOT PROT 6.1 g/dl (6.4-8.2)
--- NOTE | 2019-03-10 10:24 | PN ---
Physical Exam: SUBJECTIVE: Patient seen and examined. Pt pulled out IV overnight. IV replaced. Pt placed on wrist restraints. Pt had rectal Tmin of 92.6, placed on barehugger to good effect. OBJECTIVE: Vital Signs Period Temp Pulse Resp BP Sys/Karimi Pulse Ox Last 24 Hr 92.6 F-98.0 F 68-97 18-18 108-132/68-85 96-96 GENERAL: The patient is asleep, in no acute distress. HEAD: Normocephalic, atraumatic. EYES:Unable to open left eye, right eye looks cloudy, unable to observe pupillary reflex ENT: Dry mucous membranes. NECK: Supple without lymphadenopathy. Negative stridor LUNGS: Rhonchi auscultated bilaterally, No accessory muscle use. HEART: Regular rate and rhythm. S1, S2 without murmur, rub or gallop. ABDOMEN: Soft, nondistended, nontender to light and deep palpation x4 quadrants. No rebound tenderness, no guarding. Normoactive bowel sounds x4 quadrants. No hepatosplenomegaly, no masses appreciated. EXTREMITIES: 2+ radial, dorsalis pedis pulses bilaterally. Warm, well-perfused. No lower extremity edema bilaterally. SKIN: Warm, dry. PEG tube in situ; site clean dry. Laboratory Results - last 24 hr 03/10/19 03/10/19 07:00 07:00 WBC 8.0 RBC 4.36 Hgb 13.7 Hct 40.4 MCV 92.6 MCH 31.4 MCHC 33.9 RDW 14.3 Plt Count 194 MPV 8.7 Absolute Neuts (auto) 6.8 Neutrophils % 84.1 H Lymphocytes % 8.1 D Monocytes % 7.7 Eosinophils % 0.0 D Basophils % 0.1 Nucleated RBC % 0 Sodium 141 Potassium 3.9 Chloride 107 Carbon Dioxide 27 Anion Gap 7 L BUN 12.1 Creatinine 0.6 Est GFR (CKD-EPI)AfAm 127.55 Est GFR (CKD-EPI)NonAf 110.05 Random Glucose 113 H Calcium 8.4 L Phosphorus 3.1 Magnesium 1.9 Total Bilirubin 0.2 AST 68 H ALT 65 H Alkaline Phosphatase 127 H Total Protein 6.1 L Albumin 2.8 L Active Medications Home Medications Medication Instructions Recorded Acetaminophen Liquid [Tylenol 650 mg GT TID PRN 03/08/19 *Infant Drops* -] Amox-Tr/K Cl [Augmentin - 875Mg 1 tab GT BID 03/08/19 Tablet] Citrate Phosphate Dextros Soln 315 mg GT BID 03/08/19 [Citrate Phosphate Dextrose] Denosumab [Prolia] 60 mg SQ ASDIR 03/08/19 Diazepam Rectal Gel [Diastat 20 mg RC PRN 03/08/19 *Rectal Gel*] Omeprazole 20 mg GT DAILY 03/08/19 Polyethylene Glycol 3350 [Clearlax] 17 gm GT DAILY 03/08/19 Sennosides/Docusate Sodium 2 each GT HS 03/08/19 [Senna-S Tablet] levETIRAcetam [levETIRAcetam ORAL 15 mg GT BID 03/08/19 SUSPENSION] Current Medications Acetaminophen (Ofirmev Injection -) 1,000 mg IVPB Q6H PRN PRN Reason: FEVER Albuterol Sulfate (Ventolin 0.083% Nebulizer Soln -) 1 amp NEB Q4H PRN PRN Reason: SHORT OF BREATH/WHEEZING Albuterol/Ipratropium (Duoneb -) 1 amp NEB Q6H PRN PRN Reason: SHORTNESS OF BREATH Budesonide/Formoterol Fumarate (Symbicort 160/4.5mcg -) 2 puff IH BID [facility] Last Admin: 03/09/19 23:33 Dose: 2 puff Enoxaparin Sodium (Lovenox -) 40 mg SQ DAILY [facility] Last Admin: 03/09/19 10:50 Dose: 40 mg Famotidine (Pepcid) 20 mg NGT BID [facility] Last Admin: 03/09/19 23:33 Dose: 20 mg Ceftriaxone Sodium 1 gm/ (Dextrose) 50 mls @ 100 mls/hr IVPB DAILY [facility]; Protocol Last Admin: 03/09/19 17:10 Dose: 100 mls/hr Levetiracetam (Keppra Oral Solution -) 1,500 mg PO BID [facility] Last Admin: 03/09/19 23:32 Dose: 1,500 mg Methylprednisolone Sodium Succinate (Solu-Medrol -) 40 mg IVPUSH Q8H-IV [facility] Last Admin: 03/10/19 02:23 Dose: 40 mg Oseltamivir Phosphate (Tamiflu -) 75 mg GT BID [facility] Stop: 03/13/19 21:59 Last Admin: 03/09/19 23:33 Dose: 75 mg Polyethylene Glycol (Miralax (For Daily Use) -) 17 gm GT DAILY PRN PRN Reason: CONSTIPATION Senna/Docusate Sodium (Pericolace -) 2 tablet PO HS [facility] Last Admin: 03/09/19 23:33 Dose: 2 tablet ASSESSMENT/PLAN: Pt.is a 59 y.o. M w/ PMHx. of hydrocephalus, seizure disorder, functional quadriplegia, asthma presents from [facility] with shortness of breath. Acute hypoxic respiratory failure secondary to Influenza -Chest radiograph reveals left lower lobe infiltrate. -Currently saturating well at 2L NC. ABG unimpressive for acidosis, or carbon dioxide retention. -Influenza A positive in ED. C/w Oseltamivir 75mg GT BID -Given that patient has been coughing excessively, and unable to rule out aspiration will treat with Zosyn 3,375mg IV Q8 hours -ID consult (Dr. Silver) -Droplet precautions -Acetaminophen for fevers History of asthma -Likely exacerbated by Influenza -Patient received Medrol 125mg IV in ED -Duonebs standing and PRN -Medrol 40mg IV Q8 hours -Symbicort Seizures - Keppra 1500mg GT BID Constipation -Continue Miralax, Senna Transaminitis -Appears cholestatic pattern. -Trend transaminases, downtrending - Abd. US negative for acute process. FEN -No IVF -Follow BMP -NPO given concern for aspiration. Sports Trainer consult in reinstating tube feeds. Prophylaxis -Lovenox 40mg subq daily -Pepcid 20mg NGT BID Disposition -Admit to medical surgical floor Visit type - Emergency Visit Emergency Visit: Yes ED Registration Date: 03/08/19 Care time: The patient presented to the Emergency Department on the above date and was hospitalized for further evaluation of their emergent condition. - New Patient This patient is new to me today: Yes Date on this admission: 03/11/19 - Critical Care Critical Care patient: No - Discharge Referral Referred to [facility] Med P.C.: No ATTENDING PHYSICIAN STATEMENT I saw and evaluated the patient. I reviewed the resident's note and discussed the case with the resident. I agree with the resident's findings and plan as documented. SUBJECTIVE: OBJECTIVE: ASSESSMENT AND PLAN:
[2019-03-10] MEDS: CEFTRIAXONE 1 GM in DEXTROSE 5%-WATER - 50 ML IVPB SCH (10:29)
[2019-03-10] MEDS: levETIRAcetam 500 MG/5 ML ORAL SOLUTION (UNIT-DOSE CUPS) PO SCH ×2 (10:29→23:31)
[2019-03-10] MEDS: FAMOTIDINE 40 MG/5 ML ORAL SUSPENSION NGT SCH ×2 (10:30→23:32)
[2019-03-10] MEDS: ENOXAPARIN NA (PORCINE) 40 MG/0.4 ML DISP.SYRIN SQ SCH (10:31)
[2019-03-10] MEDS: OSELTAMIVIR PHOSPHATE 75 MG CAPSULE GT SCH ×2 (10:33→23:33)
[2019-03-10] MEDS: BUDESONIDE/FORMETEROL FUMARATE 160/4.5 mcg INHALER IH SCH ×2 (10:34→23:40)
--- NOTE | 2019-03-10 10:50 | PN ---
Teaching Attending Note Name of Resident: Aaron Wilde ATTENDING PHYSICIAN STATEMENT I saw and evaluated the patient. I reviewed the resident's note and discussed the case with the resident. I agree with the resident's findings and plan as documented. SUBJECTIVE: Patient is slightly better today. Vital Signs Temperature 98.0 F 03/10/19 06:00 Pulse Rate 97 H 03/10/19 06:00 Respiratory Rate 18 03/10/19 06:00 Blood Pressure 132/79 03/10/19 06:00 O2 Sat by Pulse Oximetry (%) 96 03/09/19 21:00 GENERAL: nonverbal with functional quadraplegia . HEAD: Normal with no signs of trauma. EYES: sclera anicteric, conjunctiva clear. ENT: Ears normal, MMM. NECK: Trachea midline, supple. LUNGS: decreased BS BL, positive wheezing, no crackles, no accessory muscle use. HEART: Regular rate and rhythm, S1, S2 without murmur, rub or gallop. ABDOMEN: Soft, NT,ND, normoactive bowel sounds, no guarding, no rebound, no hepatosplenomegaly, no masses. EXTREMITIES: 2+ pulses, warm, well-perfused, no edema. NEUROLOGICAL: Cranial nerves II through XII grossly intact. PSYCH:cannt be assessed since MR SKIN: Warm, dry, CBCD WBC 8.0 K/mm3 (4.0-10.0) 03/10/19 07:00 RBC 4.36 M/mm3 (4.00-5.60) 03/10/19 07:00 Hgb 13.7 GM/dL (11.7-16.9) 03/10/19 07:00 Hct 40.4 % (35.4-49) 03/10/19 07:00 MCV 92.6 fl (80-96) 03/10/19 07:00 MCHC 33.9 g/dl (32.0-35.9) 03/10/19 07:00 RDW 14.3 % (11.9-15.9) 03/10/19 07:00 Plt Count 194 K/MM3 (134-434) 03/10/19 07:00 MPV 8.7 fl (7.5-11.1) 03/10/19 07:00 CMP Sodium 141 mmol/L (136-145) 03/10/19 07:00 Potassium 3.9 mmol/L (3.5-5.1) 03/10/19 07:00 Chloride 107 mmol/L (98-107) 03/10/19 07:00 Carbon Dioxide 27 mmol/L (21-32) 03/10/19 07:00 Anion Gap 7 MMOL/L (8-16) L 03/10/19 07:00 BUN 12.1 mg/dL (7-18) 03/10/19 07:00 Creatinine 0.6 mg/dL (0.55-1.3) 03/10/19 07:00 Random Glucose 113 mg/dL (74-106) H 03/10/19 07:00 Calcium 8.4 mg/dL (8.5-10.1) L 03/10/19 07:00 Total Bilirubin 0.2 mg/dL (0.2-1) 03/10/19 07:00 AST 68 U/L (15-37) H 03/10/19 07:00 ALT 65 U/L (13-61) H 03/10/19 07:00 Alkaline Phosphatase 127 U/L (45-117) H 03/10/19 07:00 Total Protein 6.1 g/dl (6.4-8.2) L 03/10/19 07:00 Albumin 2.8 g/dl (3.4-5.0) L 03/10/19 07:00 CARDIAC ENZYMES Troponin I < 0.02 ng/ml (0.00-0.05) 03/08/19 14:42 Current Medications Generic Name Dose Route Start Last Admin Trade Name Freq PRN Reason Stop Dose Admin Acetaminophen 1,000 mg 03/08/19 20:56 Ofirmev Injection - IVPB Q6H PRN FEVER Albuterol Sulfate 1 amp 03/08/19 20:30 Ventolin 0.083% Nebulizer Soln - NEB Q4H PRN SHORT OF BREATH/WHEEZING Albuterol/Ipratropium 1 amp 03/08/19 20:29 Duoneb - NEB Q6H PRN SHORTNESS OF BREATH Budesonide/Formoterol Fumarate 2 puff 03/08/19 22:00 03/10/19 10:34 Symbicort 160/4.5mcg - IH Not Given BID CONSTANCE Enoxaparin Sodium 40 mg 03/09/19 10:00 03/10/19 10:31 Lovenox - SQ 40 mg DAILY CONSTANCE Administration Famotidine 20 mg 03/09/19 10:00 03/10/19 10:30 Pepcid NGT 20 mg BID CONSTANCE Administration Ceftriaxone Sodium 1 gm/ 50 mls @ 100 mls/hr 03/09/19 14:30 03/10/19 10:29 Dextrose IVPB 100 mls/hr DAILY CONSTANCE Administration Protocol Levetiracetam 1,500 mg 03/08/19 22:15 03/10/19 10:29 Keppra Oral Solution - PO 1,500 mg BID CONSTANCE Administration Methylprednisolone Sodium Succinate 40 mg 03/09/19 02:00 03/10/19 10:28 Solu-Medrol - IVPUSH 40 mg Q8H-IV CONSTANCE Administration Oseltamivir Phosphate 75 mg 03/08/19 22:00 03/10/19 10:33 Tamiflu - GT 03/13/19 21:59 75 mg BID CONSTANCE Administration Polyethylene Glycol 17 gm 03/08/19 20:56 Miralax (For Daily Use) - GT DAILY PRN CONSTIPATION Senna/Docusate Sodium 2 tablet 03/08/19 22:00 03/09/19 23:33 Pericolace - PO 2 tablet HS CONSTANCE Administration Home Medications Medication Instructions Recorded Acetaminophen Liquid [Tylenol 650 mg GT TID PRN 03/08/19 * Drops* -] Amox-Tr/K Cl [Augmentin - 875Mg 1 tab GT BID 03/08/19 Tablet] Citrate Phosphate Dextros Soln 315 mg GT BID 03/08/19 [Citrate Phosphate Dextrose] Denosumab [Prolia] 60 mg SQ ASDIR 03/08/19 Diazepam Rectal Gel [Diastat 20 mg RC PRN 03/08/19 *Rectal Gel*] Omeprazole 20 mg GT DAILY 03/08/19 Polyethylene Glycol 3350 [Clearlax] 17 gm GT DAILY 03/08/19 Sennosides/Docusate Sodium 2 each GT HS 03/08/19 [Senna-S Tablet] levETIRAcetam [levETIRAcetam ORAL 15 mg GT BID 03/08/19 SUSPENSION] Assessment and plan: Patient is a 59 year old male with history of hydrocephalus, seizure disorder, functional quadriplegia, asthma presents from [facility] with complaint of shortness of breath. #Acute hypoxic respiratory failure secondary to Influenza continue tamiflo, given a dose of vancomycin, rocephin daily continue, ID on the case #History of asthma continue current treatment #Seizures: continue Keppra 1500mg GT BID #Constipation: continue Miralax, Senna #Transaminitis trend, US negative will restart tube feeds. DVT PX: Lovenox 40mg subq daily GI Px: Pepcid 20mg NGT BID
[2019-03-10] MEDS ORDERED: SODIUM CHLORIDE 500 ML IV STA (18:25)
--- NOTE | 2019-03-10 19:46 | PN ---
Progress Note (short form) - Note Progress Note: ID CONSULT DICTATED ACUTE INFLUENZA A R/O BACTERIAL PNEUMONIA CP/MR CONTINUE TAMIFLU EMPIRIC [id number]
[2019-03-10] MEDS: SENNOSIDES/DOCUSATE COMBO (SENNA PLUS) TABLET (UD) PO SCH (23:32)
[2019-03-11] MEDS: methylPREDNISolone NA SUCC 40 MG/1 ML VIAL IVPUSH SCH ×3 (01:58→17:33)
[2019-03-11 01:59] LABS: HYALINE CASTS 9 /lpf (0-8); URINE APPEARANCE CLOUDY; URINE BACTERIA 2.2 /hpf (NEGATIVE); URINE BILIRUBIN NEGATIVE (NEGATIVE); URINE COLOR YELLOW; URINE GLUCOSE (UA) NEGATIVE (NEGATIVE); URINE KETONE 1+ (NEGATIVE); URINE LEUK ESTERASE NEGATIVE (NEGATIVE); URINE NITRITE NEGATIVE (NEGATIVE); URINE PROTEIN 1+ (NEGATIVE); URINE RBC 12 /hpf (0-4); URINE UROBILINOGEN 0.2 mg/dL (0.2-1.0); URINE WBC 5 /hpf (0-5)
[2019-03-11 09:00] LABS: HEMATOCRIT 40.8 % (35.4-49); HEMOGLOBIN 13.8 GM/dL (11.7-16.9); MCH 31.2 pg (25.7-33.7); MCHC 33.7 g/dl (32.0-35.9); MEAN CELL VOLUME 92.6 fl (80-96); MEAN PLT VOLUME 8.8 fl (7.5-11.1); PLATELET COUNT 212 K/MM3 (134-434); RBC 4.41 M/mm3 (4.00-5.60); RDW 14.2 % (11.9-15.9); WHITE BLOOD COUNT 9.7 K/mm3 (4.0-10.0)
[2019-03-11 09:31] LABS: ALBUMIN 2.9 g/dl (3.4-5.0); BILIRUBIN,TOTAL 0.4 mg/dL (0.2-1); CREATININE 0.5 mg/dL (0.55-1.3); MAGNESIUM 2.3 mg/dL (1.8-2.4); PHOSPHOROUS 2.4 mg/dL (2.5-4.9); POTASSIUM 3.8 mmol/L (3.5-5.1)
[2019-03-11] MEDS ORDERED: cefTRIAXone SODIUM 1 GM VIAL ONE (10:23)
[2019-03-11] MEDS ORDERED: DEXTROSE 5%-WATER - 50 ML IVPB ONE (10:24)
[2019-03-11] MEDS: CEFTRIAXONE 1 GM in DEXTROSE 5%-WATER - 50 ML IVPB SCH (10:56)
[2019-03-11] MEDS: levETIRAcetam 500 MG/5 ML ORAL SOLUTION (UNIT-DOSE CUPS) PO SCH ×2 (10:56→23:04)
[2019-03-11] MEDS: OSELTAMIVIR PHOSPHATE 75 MG CAPSULE GT SCH ×2 (10:57→23:05)
[2019-03-11] MEDS: ENOXAPARIN NA (PORCINE) 40 MG/0.4 ML DISP.SYRIN SQ SCH (10:57)
[2019-03-11] MEDS: BUDESONIDE/FORMETEROL FUMARATE 160/4.5 mcg INHALER IH SCH ×2 (10:59→21:43)
--- NOTE | 2019-03-11 12:42 | CON.PULM ---
Consult Consult Specialty:: PULM/CCM Referred by:: Hospitalist Reason for Consultation:: SOB - History of Present Illness Chief Complaint: SOB History of Present Illness: 59 M, hydrocephalus, seizure disorder, functional quadriplegia, and apparent asthma. Admitted via the ER from [facility] due to shortness of breath. Per the medical record he has been experiencing shortness of breath and nonproductive cough since Monday. He also apparently became more lethargic than his baseline. He is currently in NAD on NC O2. He is not able to provide any history. 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 No: Alzheimer's Pulmonary: Yes: Asthma, Pneumonia (multiple admissions in the past for pneumonia ) Gastrointestinal: Yes: Constipation (Dysphagia.), GERD, Hiatal Hernia, Other Infectious Disease: Yes: Other (history of meningitis at age 4 months) - Past Surgical History Past Surgical History: Yes: None - Alcohol/Substance Use Hx Alcohol Use: No History of Substance Use: reports: None - Smoking History Smoking history: Never smoked Have you smoked in the past 12 months: No Aproximately how many cigarettes per day: 0 - Social History Usual Living Arrangement: [facility] ADL: Support Services History of Recent Travel: No Home Medications - Allergies Allergies/Adverse Reactions: Allergies Allergy/AdvReac Type Severity Reaction Status Date / Time Benzodiazepines Allergy Unknown Verified 03/08/19 11:48 - Home Medications Home Medications: Ambulatory Orders Acetaminophen Liquid [Tylenol *Infant Drops* -] 650 mg GT TID PRN 03/08/19 Amox-Tr/K Cl [Augmentin - 875Mg Tablet] 1 tab GT BID 03/08/19 Citrate Phosphate Dextros Soln [Citrate Phosphate Dextrose] 315 mg GT BID Denosumab [Prolia] 60 mg SQ ASDIR 03/08/19 Diazepam Rectal Gel [Diastat *Rectal Gel*] 20 mg RC PRN 03/08/19 Omeprazole 20 mg GT DAILY 03/08/19 Polyethylene Glycol 3350 [Clearlax] 17 gm GT DAILY 03/08/19 Sennosides/Docusate Sodium [Senna-S Tablet] 2 each GT HS 03/08/19 levETIRAcetam [levETIRAcetam ORAL SUSPENSION] 15 mg GT BID 03/08/19 Review of Systems Unable to obtain ROS, reason: not able to provide Physical Exam Vital Sings: Vital Signs Temperature 97.9 F 03/11/19 09:48 Pulse Rate 78 03/11/19 09:48 Respiratory Rate 18 03/11/19 09:48 Blood Pressure 145/65 03/11/19 09:48 O2 Sat by Pulse Oximetry (%) 90 L 03/11/19 10:00 Constitutional: Yes: No Distress Eyes: Yes: Conjunctiva Clear, EOM Intact HENT: Yes: Atraumatic Neck: Yes: Supple, Trachea Midline Cardiovascular: Yes: Regular Rate and Rhythm Respiratory: Yes: On Nasal O2, Rhonchi, SOB. No: Accessory Muscle Use, Rales, SOB on Exertion, Stridor, Tachypnea, Wheezes ...Inspection: Yes: WNL ...Clubbing: No Gastrointestinal: Yes: Normal Bowel Sounds, Other (PEG) Musculoskeletal: Yes: Joint Stiffness Extremities: Yes: Shortened Edema: No Peripheral Pulses WNL: Yes Integumentary: Yes: WNL Neurological: Yes: Lethargy Labs: CBC, BMP 03/11/19 08:20 03/11/19 08:20 ABG Results ABG pH 7.46 (7.35-7.45) H 03/08/19 16:42 ABG pCO2 at Pt Temp 43.5 mmHg (35-45) 03/08/19 16:42 ABG pO2 at Pt Temp 81.1 mmHg (80-100) 03/08/19 16:42 ABG HCO3 30.2 mmol/L (22-27) H 03/08/19 16:42 ABG O2 Sat (Measured) 96.2 % (95-98) 03/08/19 16:42 ABG O2 Content 18.4 % vol 03/08/19 16:42 ABG Base Excess 5.9 meq/l (-2-2) H 03/08/19 16:42 Imaging - Results Chest X-ray: Report Reviewed, Image Reviewed Problem List - Problems (1) Acute asthma exacerbation Code(s): J45.901 - UNSPECIFIED ASTHMA WITH (ACUTE) EXACERBATION (2) Cough Code(s): R05 - COUGH (3) Hypoxia Code(s): R09.02 - HYPOXEMIA (4) Seizure Code(s): R56.9 - UNSPECIFIED CONVULSIONS (5) Asthma Code(s): J45.909 - UNSPECIFIED ASTHMA, UNCOMPLICATED (6) GERD (gastroesophageal reflux disease) Code(s): K21.9 - GASTRO-ESOPHAGEAL REFLUX DISEASE WITHOUT ESOPHAGITIS (7) Hydrocephalus Code(s): G91.9 - HYDROCEPHALUS, UNSPECIFIED (8) Mental retardation Code(s): F79 - UNSPECIFIED INTELLECTUAL DISABILITIES (9) PEG (percutaneous endoscopic gastrostomy) status Code(s): Z93.1 - GASTROSTOMY STATUS (10) Seizure disorder Code(s): G40.909 - EPILEPSY, UNSP, NOT INTRACTABLE, WITHOUT STATUS EPILEPTICUS Assessment/Plan Rocephin Tamiflu O2 as needed Medrol BD TX Follow cultures Aspiration precautions Will follow Thank you. Dr Douglass
[2019-03-11] MEDS: FAMOTIDINE 40 MG/5 ML ORAL SUSPENSION NGT SCH ×2 (13:10→23:06)
--- NOTE | 2019-03-11 13:23 | PN ---
Physical Exam: SUBJECTIVE: Patient seen and examined. NO acute events overnight. Pt. responded to 500cc fluid bolus, voiding in diaper as per RN. OBJECTIVE: Vital Signs Period Temp Pulse Resp BP Sys/Karimi Pulse Ox Last 24 Hr 97.5 F-99.2 F 69-92 18-18 107-145/65-85 90-95 GENERAL: The patient is asleep, in no acute distress. HEAD: Normocephalic, atraumatic. EYES:Unable to open left eye, right eye looks cloudy, unable to observe pupillary reflex ENT: Dry mucous membranes. NECK: Supple without lymphadenopathy. Negative stridor LUNGS: Rhonchi auscultated bilaterally, No accessory muscle use. HEART: Regular rate and rhythm. S1, S2 without murmur, rub or gallop. ABDOMEN: Soft, nondistended, nontender to light and deep palpation x4 quadrants. No rebound tenderness, no guarding. Normoactive bowel sounds x4 quadrants. No hepatosplenomegaly, no masses appreciated. EXTREMITIES: 2+ radial, dorsalis pedis pulses bilaterally. Warm, well-perfused. No lower extremity edema bilaterally. SKIN: Warm, dry. PEG tube in situ; site clean dry. Laboratory Results - last 24 hr 03/11/19 03/11/19 03/11/19 00:00 08:20 08:20 WBC 9.7 RBC 4.41 Hgb 13.8 Hct 40.8 MCV 92.6 MCH 31.2 MCHC 33.7 RDW 14.2 Plt Count 212 MPV 8.8 Sodium 139 Potassium 3.8 Chloride 106 Carbon Dioxide 27 Anion Gap 6 L BUN 19.0 H Creatinine 0.5 L Est GFR (CKD-EPI)AfAm 137.48 Est GFR (CKD-EPI)NonAf 118.62 Random Glucose 118 H Calcium 8.0 L Phosphorus 2.4 L Magnesium 2.3 Total Bilirubin 0.4 AST 45 H ALT 56 Alkaline Phosphatase 123 H Total Protein 6.0 L Albumin 2.9 L Urine Color Yellow Urine Appearance Cloudy Urine pH 6.0 Ur Specific [place] 1.029 Urine Protein 1+ H Urine Glucose (UA) Negative Urine Ketones 1+ H Urine Blood 1+ H Urine Nitrite Negative Urine Bilirubin Negative Urine Urobilinogen 0.2 Ur Leukocyte Esterase Negative Urine WBC (Auto) 5 Urine RBC (Auto) 12 Urine Casts (Auto) 9 U Epithel Cells (Auto) 6.0 Urine Bacteria (Auto) 2.2 Active Medications Home Medications Medication Instructions Recorded Acetaminophen Liquid [Tylenol 650 mg GT TID PRN 03/08/19 * Drops* -] Amox-Tr/K Cl [Augmentin - 875Mg 1 tab GT BID 03/08/19 Tablet] Citrate Phosphate Dextros Soln 315 mg GT BID 03/08/19 [Citrate Phosphate Dextrose] Denosumab [Prolia] 60 mg SQ ASDIR 03/08/19 Diazepam Rectal Gel [Diastat 20 mg RC PRN 03/08/19 *Rectal Gel*] Omeprazole 20 mg GT DAILY 03/08/19 Polyethylene Glycol 3350 [Clearlax] 17 gm GT DAILY 03/08/19 Sennosides/Docusate Sodium 2 each GT HS 03/08/19 [Senna-S Tablet] levETIRAcetam [levETIRAcetam ORAL 15 mg GT BID 03/08/19 SUSPENSION] Current Medications Acetaminophen (Ofirmev Injection -) 1,000 mg IVPB Q6H PRN PRN Reason: FEVER Albuterol Sulfate (Ventolin 0.083% Nebulizer Soln -) 1 amp NEB Q4H PRN PRN Reason: SHORT OF BREATH/WHEEZING Albuterol/Ipratropium (Duoneb -) 1 amp NEB Q6H PRN PRN Reason: SHORTNESS OF BREATH Budesonide/Formoterol Fumarate (Symbicort 160/4.5mcg -) 2 puff IH BID [facility] Last Admin: 03/11/19 10:59 Dose: Not Given Enoxaparin Sodium (Lovenox -) 40 mg SQ DAILY [facility] Last Admin: 03/11/19 10:57 Dose: 40 mg Famotidine (Pepcid) 20 mg NGT BID [facility] Last Admin: 03/11/19 13:10 Dose: 20 mg Ceftriaxone Sodium 1 gm/ (Dextrose) 50 mls @ 100 mls/hr IVPB DAILY [facility]; Protocol Last Admin: 03/11/19 10:56 Dose: 100 mls/hr Levetiracetam (Keppra Oral Solution -) 1,500 mg PO BID [facility] Last Admin: 03/11/19 10:56 Dose: 1,500 mg Methylprednisolone Sodium Succinate (Solu-Medrol -) 40 mg IVPUSH Q8H-IV CONSTANCE Last Admin: 03/11/19 10:56 Dose: 40 mg Oseltamivir Phosphate (Tamiflu -) 75 mg GT BID CONSTANCE Stop: 03/13/19 21:59 Last Admin: 03/11/19 10:57 Dose: 75 mg Polyethylene Glycol (Miralax (For Daily Use) -) 17 gm GT DAILY PRN PRN Reason: CONSTIPATION Senna/Docusate Sodium (Pericolace -) 2 tablet PO HS CONSTANCE Last Admin: 03/10/19 23:32 Dose: 2 tablet ASSESSMENT/PLAN: Pt.is a 59 y.o. M w/ PMHx. of hydrocephalus, seizure disorder, functional quadriplegia, asthma presents from [facility] with shortness of breath. Acute hypoxic respiratory failure secondary to Influenza Chest radiograph reveals left lower lobe infiltrate. Currently saturating well at 2L NC. ABG unimpressive for acidosis, or carbon dioxide retention. Influenza A positive in ED. C/w Oseltamivir 75mg GT BID D/c'd Zosyn, c/w Ceftriaxone (Day 3) ID consult (Dr. Silver) Droplet precautions Acetaminophen for fevers Pulmonology consult appreciated History of asthma -Likely exacerbated by Influenza -Patient received Medrol 125mg IV in ED -Duonebs standing and PRN -Medrol 40mg IV Q8 hours -Symbicort Seizures - Keppra 1500mg GT BID Constipation -Continue Miralax, Senna Transaminitis -Appears cholestatic pattern. -Trend transaminases, downtrending -Abd. US negative for acute process. FEN -No IVF (Given 500cc bolus overnight) -Follow BMP -Resumed Tube feeds as per Dietary instructions Prophylaxis -Lovenox 40mg subq daily -Pepcid 20mg NGT BID Disposition -Admit to medical surgical floor Visit type - Emergency Visit Emergency Visit: Yes ED Registration Date: 03/08/19 Care time: The patient presented to the Emergency Department on the above date and was hospitalized for further evaluation of their emergent condition. - New Patient This patient is new to me today: No - Critical Care Critical Care patient: No - Discharge Referral Referred to [facility] Med P.C.: No ATTENDING PHYSICIAN STATEMENT I saw and evaluated the patient. I reviewed the resident's note and discussed the case with the resident. I agree with the resident's findings and plan as documented. SUBJECTIVE: OBJECTIVE: ASSESSMENT AND PLAN:
--- NOTE | 2019-03-11 19:26 | PN ---
Teaching Attending Note Name of Resident: Aaron Wilde ATTENDING PHYSICIAN STATEMENT I saw and evaluated the patient. I reviewed the resident's note and discussed the case with the resident. I agree with the resident's findings and plan as documented. SUBJECTIVE: Patient is feeling better today Vital Signs Temperature 99.3 F 03/11/19 14:00 Pulse Rate 78 03/11/19 14:00 Respiratory Rate 18 03/11/19 14:00 Blood Pressure 119/70 03/11/19 14:00 O2 Sat by Pulse Oximetry (%) 90 L 03/11/19 10:00 GENERAL: nonverbal with functional quadraplegia . HEAD: Normal with no signs of trauma. EYES: sclera anicteric, conjunctiva clear. ENT: Ears normal, MMM. NECK: Trachea midline, supple. LUNGS: decreased BS BL, positive wheezing, no crackles, no accessory muscle use. HEART: Regular rate and rhythm, S1, S2 without murmur, rub or gallop. ABDOMEN: Soft, NT,ND, normoactive bowel sounds, no guarding, no rebound, no hepatosplenomegaly, no masses. EXTREMITIES: 2+ pulses, warm, well-perfused, no edema. NEUROLOGICAL: Cranial nerves II through XII grossly intact. PSYCH:cannt be assessed since MR SKIN: Warm, dry, CBCD WBC 9.7 K/mm3 (4.0-10.0) 03/11/19 08:20 RBC 4.41 M/mm3 (4.00-5.60) 03/11/19 08:20 Hgb 13.8 GM/dL (11.7-16.9) 03/11/19 08:20 Hct 40.8 % (35.4-49) 03/11/19 08:20 MCV 92.6 fl (80-96) 03/11/19 08:20 MCHC 33.7 g/dl (32.0-35.9) 03/11/19 08:20 RDW 14.2 % (11.9-15.9) 03/11/19 08:20 Plt Count 212 K/MM3 (134-434) 03/11/19 08:20 MPV 8.8 fl (7.5-11.1) 03/11/19 08:20 CMP Sodium 139 mmol/L (136-145) 03/11/19 08:20 Potassium 3.8 mmol/L (3.5-5.1) 03/11/19 08:20 Chloride 106 mmol/L (98-107) 03/11/19 08:20 Carbon Dioxide 27 mmol/L (21-32) 03/11/19 08:20 Anion Gap 6 MMOL/L (8-16) L 03/11/19 08:20 BUN 19.0 mg/dL (7-18) H 03/11/19 08:20 Creatinine 0.5 mg/dL (0.55-1.3) L 03/11/19 08:20 Random Glucose 118 mg/dL (74-106) H 03/11/19 08:20 Calcium 8.0 mg/dL (8.5-10.1) L 03/11/19 08:20 Total Bilirubin 0.4 mg/dL (0.2-1) 03/11/19 08:20 AST 45 U/L (15-37) H 03/11/19 08:20 ALT 56 U/L (13-61) 03/11/19 08:20 Alkaline Phosphatase 123 U/L (45-117) H 03/11/19 08:20 Total Protein 6.0 g/dl (6.4-8.2) L 03/11/19 08:20 Albumin 2.9 g/dl (3.4-5.0) L 03/11/19 08:20 CARDIAC ENZYMES Troponin I < 0.02 ng/ml (0.00-0.05) 03/08/19 14:42 Current Medications Generic Name Dose Route Start Last Admin Trade Name Freq PRN Reason Stop Dose Admin Acetaminophen 1,000 mg 03/08/19 20:56 Ofirmev Injection - IVPB Q6H PRN FEVER Albuterol Sulfate 1 amp 03/08/19 20:30 Ventolin 0.083% Nebulizer Soln - NEB Q4H PRN SHORT OF BREATH/WHEEZING Albuterol/Ipratropium 1 amp 03/08/19 20:29 Duoneb - NEB Q6H PRN SHORTNESS OF BREATH Budesonide/Formoterol Fumarate 2 puff 03/08/19 22:00 03/11/19 10:59 Symbicort 160/4.5mcg - IH Not Given BID CONSTANCE Enoxaparin Sodium 40 mg 03/09/19 10:00 03/11/19 10:57 Lovenox - SQ 40 mg DAILY CONSTANCE Administration Famotidine 20 mg 03/09/19 10:00 03/11/19 13:10 Pepcid NGT 20 mg BID CONSTANCE Administration Ceftriaxone Sodium 1 gm/ 50 mls @ 100 mls/hr 03/09/19 14:30 03/11/19 10:56 Dextrose IVPB 100 mls/hr DAILY CONSTANCE Administration Protocol Levetiracetam 1,500 mg 03/08/19 22:15 03/11/19 10:56 Keppra Oral Solution - PO 1,500 mg BID CONSTANCE Administration Methylprednisolone Sodium Succinate 40 mg 03/09/19 02:00 03/11/19 17:33 Solu-Medrol - IVPUSH 40 mg Q8H-IV CONSTANCE Administration Oseltamivir Phosphate 75 mg 03/08/19 22:00 03/11/19 10:57 Tamiflu - GT 03/13/19 21:59 75 mg BID CONSTANCE Administration Polyethylene Glycol 17 gm 03/08/19 20:56 Miralax (For Daily Use) - GT DAILY PRN CONSTIPATION Senna/Docusate Sodium 2 tablet 03/08/19 22:00 03/10/19 23:32 Pericolace - PO 2 tablet HS CONSTANCE Administration Home Medications Medication Instructions Recorded Acetaminophen Liquid [Tylenol 650 mg GT TID PRN 03/08/19 * Drops* -] Amox-Tr/K Cl [Augmentin - 875Mg 1 tab GT BID 03/08/19 Tablet] Citrate Phosphate Dextros Soln 315 mg GT BID 03/08/19 [Citrate Phosphate Dextrose] Denosumab [Prolia] 60 mg SQ ASDIR 03/08/19 Diazepam Rectal Gel [Diastat 20 mg RC PRN 03/08/19 *Rectal Gel*] Omeprazole 20 mg GT DAILY 03/08/19 Polyethylene Glycol 3350 [Clearlax] 17 gm GT DAILY 03/08/19 Sennosides/Docusate Sodium 2 each GT HS 03/08/19 [Senna-S Tablet] levETIRAcetam [levETIRAcetam ORAL 15 mg GT BID 03/08/19 SUSPENSION] Assessment and plan: Patient is a 59 year old male with history of hydrocephalus, seizure disorder, functional quadriplegia, asthma presents from [facility] with complaint of shortness of breath. #Acute hypoxic respiratory failure secondary to Influenza continue tamiflo, s/p vancomycin, rocephin daily continue, ID on the case , on IV steroid #History of asthma continue current treatment #Seizures: continue Keppra 1500mg GT BID #Constipation: continue Miralax, Senna #Transaminitis trend, US negative continue tube feeds. DVT PX: Lovenox 40mg subq daily GI Px: Pepcid 20mg NGT BID droplet precaution 02 sat is 91-95% noted.
[2019-03-11] MEDS: SENNOSIDES/DOCUSATE COMBO (SENNA PLUS) TABLET (UD) PO SCH (23:05)
[2019-03-12] MEDS: methylPREDNISolone NA SUCC 40 MG/1 ML VIAL IVPUSH SCH ×3 (01:17→17:22)
[2019-03-12] MEDS ORDERED: DEXTROSE 5%-WATER - 50 ML IVPB ONE (10:04)
[2019-03-12] MEDS ORDERED: cefTRIAXone SODIUM 1 GM VIAL ONE (10:04)
[2019-03-12] MEDS: ENOXAPARIN NA (PORCINE) 40 MG/0.4 ML DISP.SYRIN SQ SCH (10:06)
[2019-03-12] MEDS: CEFTRIAXONE 1 GM in DEXTROSE 5%-WATER - 50 ML IVPB SCH (10:06)
[2019-03-12] MEDS: levETIRAcetam 500 MG/5 ML ORAL SOLUTION (UNIT-DOSE CUPS) PO SCH ×2 (10:06→22:28)
[2019-03-12] MEDS: FAMOTIDINE 40 MG/5 ML ORAL SUSPENSION NGT SCH ×2 (10:07→22:29)
[2019-03-12] MEDS: OSELTAMIVIR PHOSPHATE 75 MG CAPSULE GT SCH ×2 (10:07→22:28)
[2019-03-12] MEDS: BUDESONIDE/FORMETEROL FUMARATE 160/4.5 mcg INHALER IH SCH ×2 (10:08→22:29)
--- NOTE | 2019-03-12 10:47 | PN ---
Progress Note (short form) - Note Progress Note: Breathing is less labored today. NAD on 4 L NC O2. No acute events overnight. Intake & Output 03/09/19 03/10/19 03/11/19 03/12/19 23:59 23:59 23:59 23:59 Intake Total 1878 300 475 600 Balance 1878 300 475 600 Weight 130 lb 130 lb Last Vital Signs Temp Pulse Resp BP Pulse Ox 99.7 F H 87 20 131/76 92 L 03/12/19 07:38 03/12/19 07:38 03/12/19 07:38 03/12/19 07:38 03/11/19 21:00 Active Medications Acetaminophen (Ofirmev Injection -) 1,000 mg IVPB Q6H PRN PRN Reason: FEVER Albuterol Sulfate (Ventolin 0.083% Nebulizer Soln -) 1 amp NEB Q4H PRN PRN Reason: SHORT OF BREATH/WHEEZING Albuterol/Ipratropium (Duoneb -) 1 amp NEB Q6H PRN PRN Reason: SHORTNESS OF BREATH Budesonide/Formoterol Fumarate (Symbicort 160/4.5mcg -) 2 puff IH BID [facility] Last Admin: 03/12/19 10:08 Dose: Not Given Enoxaparin Sodium (Lovenox -) 40 mg SQ DAILY CONSTANCE Last Admin: 03/12/19 10:06 Dose: 40 mg Famotidine (Pepcid) 20 mg NGT BID CONSTANCE Last Admin: 03/12/19 10:07 Dose: 20 mg Ceftriaxone Sodium 1 gm/ (Dextrose) 50 mls @ 100 mls/hr IVPB DAILY CONSTANCE; Protocol Last Admin: 03/12/19 10:06 Dose: 100 mls/hr Levetiracetam (Keppra Oral Solution -) 1,500 mg PO BID CONSTANCE Last Admin: 03/12/19 10:06 Dose: 1,500 mg Methylprednisolone Sodium Succinate (Solu-Medrol -) 40 mg IVPUSH Q8H-IV CONSTANCE Last Admin: 03/12/19 10:06 Dose: 40 mg Oseltamivir Phosphate (Tamiflu -) 75 mg GT BID CONSTANCE Stop: 03/13/19 21:59 Last Admin: 03/12/19 10:07 Dose: 75 mg Polyethylene Glycol (Miralax (For Daily Use) -) 17 gm GT DAILY PRN PRN Reason: CONSTIPATION Last Admin: 03/12/19 10:08 Dose: 17 gm Senna/Docusate Sodium (Pericolace -) 2 tablet PO HS CONSTANCE Last Admin: 03/11/19 23:05 Dose: 2 tablet Constitutional: Yes: No Distress Eyes: Yes: Conjunctiva Clear, EOM Intact HENT: Yes: Atraumatic Neck: Yes: Supple, Trachea Midline Cardiovascular: Yes: Regular Rate and Rhythm Respiratory: Yes: On Nasal O2, coarse bilateral rhonchi. No: Accessory Muscle Use, Rales, SOB on Exertion, Stridor, Tachypnea, Wheezes ...Inspection: Yes: WNL ...Clubbing: No Gastrointestinal: Yes: Normal Bowel Sounds, Other (PEG) Musculoskeletal: Yes: Joint Stiffness Extremities: Yes: Shortened Edema: No Peripheral Pulses WNL: Yes Integumentary: Yes: WNL Neurological: Yes: non-focal Labs: Problem List - Problems (1) Acute asthma exacerbation Code(s): J45.901 - UNSPECIFIED ASTHMA WITH (ACUTE) EXACERBATION (2) Cough Code(s): R05 - COUGH (3) Hypoxia Code(s): R09.02 - HYPOXEMIA (4) Seizure Code(s): R56.9 - UNSPECIFIED CONVULSIONS (5) Asthma Code(s): J45.909 - UNSPECIFIED ASTHMA, UNCOMPLICATED (6) GERD (gastroesophageal reflux disease) Code(s): K21.9 - GASTRO-ESOPHAGEAL REFLUX DISEASE WITHOUT ESOPHAGITIS (7) Hydrocephalus Code(s): G91.9 - HYDROCEPHALUS, UNSPECIFIED (8) Mental retardation Code(s): F79 - UNSPECIFIED INTELLECTUAL DISABILITIES (9) PEG (percutaneous endoscopic gastrostomy) status Code(s): Z93.1 - GASTROSTOMY STATUS (10) Seizure disorder Code(s): G40.909 - EPILEPSY, UNSP, NOT INTRACTABLE, WITHOUT STATUS EPILEPTICUS Assessment/Plan Rocephin Tamiflu O2 @ 4 L NC O2 Medrol BD TX Follow cultures Aspiration precautions Dr Douglass Problem List - Problems (1) Acute asthma exacerbation Code(s): J45.901 - UNSPECIFIED ASTHMA WITH (ACUTE) EXACERBATION (2) Cough Code(s): R05 - COUGH (3) Hypoxia Code(s): R09.02 - HYPOXEMIA (4) Seizure Code(s): R56.9 - UNSPECIFIED CONVULSIONS (5) Asthma Code(s): J45.909 - UNSPECIFIED ASTHMA, UNCOMPLICATED (6) GERD (gastroesophageal reflux disease) Code(s): K21.9 - GASTRO-ESOPHAGEAL REFLUX DISEASE WITHOUT ESOPHAGITIS (7) Hydrocephalus Code(s): G91.9 - HYDROCEPHALUS, UNSPECIFIED (8) Mental retardation Code(s): F79 - UNSPECIFIED INTELLECTUAL DISABILITIES (9) PEG (percutaneous endoscopic gastrostomy) status Code(s): Z93.1 - GASTROSTOMY STATUS (10) Seizure disorder Code(s): G40.909 - EPILEPSY, UNSP, NOT INTRACTABLE, WITHOUT STATUS EPILEPTICUS
[2019-03-12 12:09] LABS: HEMATOCRIT 42.2 % (35.4-49); HEMOGLOBIN 14.2 GM/dL (11.7-16.9); MCH 31.4 pg (25.7-33.7); MCHC 33.6 g/dl (32.0-35.9); MEAN CELL VOLUME 93.4 fl (80-96); MEAN PLT VOLUME 8.5 fl (7.5-11.1); PLATELET COUNT 249 K/MM3 (134-434); RBC 4.52 M/mm3 (4.00-5.60); RDW 14.3 % (11.9-15.9); WHITE BLOOD COUNT 8.2 K/mm3 (4.0-10.0)
[2019-03-12 12:38] LABS: ALBUMIN 2.7 g/dl (3.4-5.0); BILIRUBIN,TOTAL 0.4 mg/dL (0.2-1); CALCIUM 8.3 mg/dL (8.5-10.1); CREATININE 0.7 mg/dL (0.55-1.3); MAGNESIUM 2.4 mg/dL (1.8-2.4); PHOSPHOROUS 2.1 mg/dL (2.5-4.9); POTASSIUM 3.6 mmol/L (3.5-5.1); TOT PROT 6.3 g/dl (6.4-8.2)
[2019-03-12] MEDS ORDERED: POTASSIUM PHOSPHATE 15 MM in SODIUM CHLORIDE 250 ML IVPB ONE (14:00)
[2019-03-12] MEDS ORDERED: PT OWN MED DRAWER 7, Y5N ONE ×3 (16:56→22:18)
[2019-03-12] MEDS ORDERED: ACETAMINOPHEN 650 MG/20.3 ML ORAL SOLUTION (CUPS) GT PRN (17:03)
--- NOTE | 2019-03-12 19:05 | PN ---
Physical Exam: SUBJECTIVE: Patient seen and examined NAEON Lethargic OBJECTIVE: Vital Signs Period Temp Pulse Resp BP Sys/Karimi Pulse Ox Last 24 Hr 97.4 F-99.7 F 60-87 18-20 126-150/76-87 92-94 GENERAL: The patient is asleep, in no acute distress. HEAD: Normocephalic, atraumatic. EYES: Unable to open left eye, right eye looks cloudy, unable to observe pupillary reflex ENT: Dry mucous membranes. NECK: Supple without lymphadenopathy. Negative stridor LUNGS: Rhonchi auscultated bilaterally, No accessory muscle use. HEART: Regular rate and rhythm. S1, S2 without murmur, rub or gallop. ABDOMEN: Soft, nondistended, nontender to light and deep palpation x4 quadrants. No rebound tenderness, no guarding. Normoactive bowel sounds x4 quadrants. EXTREMITIES: 2+ radial, dorsalis pedis pulses bilaterally. Warm, well-perfused. No lower extremity edema bilaterally. SKIN: Warm, dry. PEG tube in situ; site clean dry. Laboratory Results - last 24 hr 03/12/19 03/12/19 11:30 11:30 WBC 8.2 RBC 4.52 Hgb 14.2 Hct 42.2 MCV 93.4 MCH 31.4 MCHC 33.6 RDW 14.3 Plt Count 249 MPV 8.5 Sodium 140 Potassium 3.6 Chloride 106 Carbon Dioxide 28 Anion Gap 6 L BUN 22.0 H Creatinine 0.7 Est GFR (CKD-EPI)AfAm 119.72 Est GFR (CKD-EPI)NonAf 103.30 Random Glucose 162 H Calcium 8.3 L Phosphorus 2.1 L Magnesium 2.4 Total Bilirubin 0.4 AST 33 ALT 45 Alkaline Phosphatase 126 H Total Protein 6.3 L Albumin 2.7 L Active Medications Generic Name Dose Route Start Last Admin Trade Name Freq PRN Reason Stop Dose Admin Acetaminophen 1,000 mg 03/12/19 17:03 Tylenol Oral Solution - GT Q6H PRN FEVER Albuterol Sulfate 1 amp 03/08/19 20:30 Ventolin 0.083% Nebulizer Soln - NEB Q4H PRN SHORT OF BREATH/WHEEZING Albuterol/Ipratropium 1 amp 03/08/19 20:29 Duoneb - NEB Q6H PRN SHORTNESS OF BREATH Budesonide/Formoterol Fumarate 2 puff 03/08/19 22:00 03/12/19 10:08 Symbicort 160/4.5mcg - IH Not Given BID CONSTANCE Enoxaparin Sodium 40 mg 03/09/19 10:00 03/12/19 10:06 Lovenox - SQ 40 mg DAILY CONSTANCE Administration Famotidine 20 mg 03/09/19 10:00 03/12/19 10:07 Pepcid NGT 20 mg BID CONSTANCE Administration Ceftriaxone Sodium 1 gm/ 50 mls @ 100 mls/hr 03/09/19 14:30 03/12/19 10:06 Dextrose IVPB 100 mls/hr DAILY CONSTANCE Administration Protocol Levetiracetam 1,500 mg 03/08/19 22:15 03/12/19 10:06 Keppra Oral Solution - PO 1,500 mg BID CONSTANCE Administration Methylprednisolone Sodium Succinate 40 mg 03/09/19 02:00 03/12/19 17:22 Solu-Medrol - IVPUSH 40 mg Q8H-IV CONSTANCE Administration Oseltamivir Phosphate 75 mg 03/08/19 22:00 03/12/19 10:07 Tamiflu - GT 03/13/19 21:59 75 mg BID CONSTANCE Administration Polyethylene Glycol 17 gm 03/08/19 20:56 03/12/19 10:08 Miralax (For Daily Use) - GT 17 gm DAILY PRN Administration CONSTIPATION Senna/Docusate Sodium 2 tablet 03/08/19 22:00 03/11/19 23:05 Pericolace - PO 2 tablet HS CONSTANCE Administration ASSESSMENT/PLAN: 59 y.o. M w/ PMHx. of hydrocephalus, seizure disorder, functional quadriplegia, asthma presents from [facility] with shortness of breath. CXR with LLL infiltrates. Influenza A postived. Admitted for PNA. Being treated with IV abx( cetriaxone), tamiflu. # Acute hypoxic respiratory failure secondary to PNA and Influenza --2L NC > CXR: left lower lobe infiltrate > ABG(03/08/19): 7.46/43.5/81.1/30.2 > Influenza A positive - C/w Oseltamivir 75mg GT BID - PNA Regimen: --Abx regimen: D/c'd Zosyn, c/w Ceftriaxone (Day 4) --solumedrol 40mg q8h --symbicort 160/4.5 - Influ Regimen: --tamiflu 75mg BID, (Day 4) - Pulmonology(Evonne) consult appreciated --rocephin, tamiflu --medrol History of asthma -Likely exacerbated by Influenza -Patient received Medrol 125mg IV in ED -Duonebs standing and PRN -Medrol 40mg IV Q8 hours -Symbicort Seizures - Keppra 1500mg GT BID Constipation -Continue Miralax, Senna Transaminitis -Appears cholestatic pattern. -Trend transaminases, downtrending > US RUQ Abd: cholelithiasis FEN -Follow BMP -Resumed Tube feeds as per Dietary instructions Prophylaxis -Lovenox 40mg subq daily -Pepcid 20mg NGT BID Visit type - Emergency Visit Emergency Visit: No - New Patient This patient is new to me today: No - Critical Care Critical Care patient: No ATTENDING PHYSICIAN STATEMENT I saw and evaluated the patient. I reviewed the resident's note and discussed the case with the resident. I agree with the resident's findings and plan as documented. SUBJECTIVE: OBJECTIVE: ASSESSMENT AND PLAN:
--- NOTE | 2019-03-12 19:39 | PN ---
Teaching Attending Note Name of Resident: Ayan Arreguin ATTENDING PHYSICIAN STATEMENT I saw and evaluated the patient. I reviewed the resident's note and discussed the case with the resident. I agree with the resident's findings and plan as documented. SUBJECTIVE: Patient is feeling better with no acute distress. eyes open with no acute distress. Vital Signs Temperature 97.4 F L 03/12/19 14:45 Pulse Rate 62 03/12/19 14:45 Respiratory Rate 20 03/12/19 14:45 Blood Pressure 150/87 03/12/19 14:45 O2 Sat by Pulse Oximetry (%) 94 L 03/12/19 10:00 GENERAL: nonverbal with functional quadraplegia . HEAD: Normal with no signs of trauma. EYES: sclera anicteric, conjunctiva clear. right eye blindness, increased opacity ENT: Ears normal, MMM. NECK: Trachea midline, supple. LUNGS: decreased BS BL, positive wheezing, no crackles, no accessory muscle use. HEART: Regular rate and rhythm, S1, S2 without murmur, rub or gallop. ABDOMEN: Soft, NT, ND, + BS , no guarding, no rebound, no hepatosplenomegaly, no masses. EXTREMITIES: 2+ pulses, warm, well-perfused, no edema. NEUROLOGICAL: Cranial nerves II through XII grossly intact. PSYCH:cannt be assessed since MR SKIN: Warm, dry, CBCD WBC 9.7 K/mm3 (4.0-10.0) 03/11/19 08:20 RBC 4.41 M/mm3 (4.00-5.60) 03/11/19 08:20 Hgb 13.8 GM/dL (11.7-16.9) 03/11/19 08:20 Hct 40.8 % (35.4-49) 03/11/19 08:20 MCV 92.6 fl (80-96) 03/11/19 08:20 MCHC 33.7 g/dl (32.0-35.9) 03/11/19 08:20 RDW 14.2 % (11.9-15.9) 03/11/19 08:20 Plt Count 212 K/MM3 (134-434) 03/11/19 08:20 MPV 8.8 fl (7.5-11.1) 03/11/19 08:20 CMP Sodium 139 mmol/L (136-145) 03/11/19 08:20 Potassium 3.8 mmol/L (3.5-5.1) 03/11/19 08:20 Chloride 106 mmol/L (98-107) 03/11/19 08:20 Carbon Dioxide 27 mmol/L (21-32) 03/11/19 08:20 Anion Gap 6 MMOL/L (8-16) L 03/11/19 08:20 BUN 19.0 mg/dL (7-18) H 03/11/19 08:20 Creatinine 0.5 mg/dL (0.55-1.3) L 03/11/19 08:20 Random Glucose 118 mg/dL (74-106) H 03/11/19 08:20 Calcium 8.0 mg/dL (8.5-10.1) L 03/11/19 08:20 Total Bilirubin 0.4 mg/dL (0.2-1) 03/11/19 08:20 AST 45 U/L (15-37) H 03/11/19 08:20 ALT 56 U/L (13-61) 03/11/19 08:20 Alkaline Phosphatase 123 U/L (45-117) H 03/11/19 08:20 Total Protein 6.0 g/dl (6.4-8.2) L 03/11/19 08:20 Albumin 2.9 g/dl (3.4-5.0) L 03/11/19 08:20 CARDIAC ENZYMES Troponin I < 0.02 ng/ml (0.00-0.05) 03/08/19 14:42 Current Medications Generic Name Dose Route Start Last Admin Trade Name Freq PRN Reason Stop Dose Admin Acetaminophen 1,000 mg 03/08/19 20:56 Ofirmev Injection - IVPB Q6H PRN FEVER Albuterol Sulfate 1 amp 03/08/19 20:30 Ventolin 0.083% Nebulizer Soln - NEB Q4H PRN SHORT OF BREATH/WHEEZING Albuterol/Ipratropium 1 amp 03/08/19 20:29 Duoneb - NEB Q6H PRN SHORTNESS OF BREATH Budesonide/Formoterol Fumarate 2 puff 03/08/19 22:00 03/11/19 10:59 Symbicort 160/4.5mcg - IH Not Given BID CONSTANCE Enoxaparin Sodium 40 mg 03/09/19 10:00 03/11/19 10:57 Lovenox - SQ 40 mg DAILY CONSTANCE Administration Famotidine 20 mg 03/09/19 10:00 03/11/19 13:10 Pepcid NGT 20 mg BID CONSTANCE Administration Ceftriaxone Sodium 1 gm/ 50 mls @ 100 mls/hr 03/09/19 14:30 03/11/19 10:56 Dextrose IVPB 100 mls/hr DAILY CONSTANCE Administration Protocol Levetiracetam 1,500 mg 03/08/19 22:15 03/11/19 10:56 Keppra Oral Solution - PO 1,500 mg BID CONSTANCE Administration Methylprednisolone Sodium Succinate 40 mg 03/09/19 02:00 03/11/19 17:33 Solu-Medrol - IVPUSH 40 mg Q8H-IV CONSTANCE Administration Oseltamivir Phosphate 75 mg 03/08/19 22:00 03/11/19 10:57 Tamiflu - GT 03/13/19 21:59 75 mg BID CONSTANCE Administration Polyethylene Glycol 17 gm 03/08/19 20:56 Miralax (For Daily Use) - GT DAILY PRN CONSTIPATION Senna/Docusate Sodium 2 tablet 03/08/19 22:00 03/10/19 23:32 Pericolace - PO 2 tablet HS CONSTANCE Administration Home Medications Medication Instructions Recorded Acetaminophen Liquid [Tylenol 650 mg GT TID PRN 03/08/19 * Drops* -] Amox-Tr/K Cl [Augmentin - 875Mg 1 tab GT BID 03/08/19 Tablet] Citrate Phosphate Dextros Soln 315 mg GT BID 03/08/19 [Citrate Phosphate Dextrose] Denosumab [Prolia] 60 mg SQ ASDIR 03/08/19 Diazepam Rectal Gel [Diastat 20 mg RC PRN 03/08/19 *Rectal Gel*] Omeprazole 20 mg GT DAILY 03/08/19 Polyethylene Glycol 3350 [Clearlax] 17 gm GT DAILY 03/08/19 Sennosides/Docusate Sodium 2 each GT HS 03/08/19 [Senna-S Tablet] levETIRAcetam [levETIRAcetam ORAL 15 mg GT BID 03/08/19 SUSPENSION] Assessment and plan: Patient is a 59 year old male with history of hydrocephalus, seizure disorder, functional quadriplegia, asthma presents from [facility] with complaint of shortness of breath. #Acute hypoxic respiratory failure secondary to Influenza continue tamiflo, s/p vancomycin, rocephin daily continue, ID on the case , on IV steroid, improving #History of asthma continue current treatment #Seizures: continue Keppra 1500mg GT BID #Constipation: continue Miralax, Senna #Transaminitis trend, US negative continue tube feeds. DVT PX: Lovenox 40mg subq daily GI Px: Pepcid 20mg NGT BID droplet precaution 02 sat is 91-95% noted. continue to monitor possible dc on
[2019-03-12] MEDS: SENNOSIDES/DOCUSATE COMBO (SENNA PLUS) TABLET (UD) PO SCH (22:29)
[2019-03-13] MEDS: methylPREDNISolone NA SUCC 40 MG/1 ML VIAL IVPUSH SCH ×3 (02:36→18:38)
--- NOTE | 2019-03-13 08:55 | PN ---
Progress Note (short form) - Note Progress Note: Breathing is less labored today. NAD on 2.5 L NC O2. No acute events overnight. Intake & Output 03/10/19 03/11/19 03/12/19 03/13/19 23:59 23:59 23:59 23:59 Intake Total 884 852 8578 Balance 309 546 0306 Weight 130 lb Last Vital Signs Temp Pulse Resp BP Pulse Ox 97.1 F L 55 L 20 121/68 95 03/13/19 06:00 03/13/19 06:00 03/13/19 06:00 03/13/19 06:00 03/12/19 21:00 Active Medications Acetaminophen (Tylenol Oral Solution -) 1,000 mg GT Q6H PRN PRN Reason: FEVER Albuterol Sulfate (Ventolin 0.083% Nebulizer Soln -) 1 amp NEB Q4H PRN PRN Reason: SHORT OF BREATH/WHEEZING Albuterol/Ipratropium (Duoneb -) 1 amp NEB Q6H PRN PRN Reason: SHORTNESS OF BREATH Budesonide/Formoterol Fumarate (Symbicort 160/4.5mcg -) 2 puff IH BID CONSTANCE Last Admin: 03/12/19 22:29 Dose: Not Given Enoxaparin Sodium (Lovenox -) 40 mg SQ DAILY CONSTANCE Last Admin: 03/12/19 10:06 Dose: 40 mg Famotidine (Pepcid) 20 mg NGT BID CONSTANCE Last Admin: 03/12/19 22:29 Dose: 20 mg Ceftriaxone Sodium 1 gm/ (Dextrose) 50 mls @ 100 mls/hr IVPB DAILY CONSTANCE; Protocol Last Admin: 03/12/19 10:06 Dose: 100 mls/hr Levetiracetam (Keppra Oral Solution -) 1,500 mg PO BID CONSTANCE Last Admin: 03/12/19 22:28 Dose: 1,500 mg Methylprednisolone Sodium Succinate (Solu-Medrol -) 40 mg IVPUSH Q8H-IV CONSTANCE Last Admin: 03/13/19 02:36 Dose: 40 mg Oseltamivir Phosphate (Tamiflu -) 75 mg GT BID CONSTANCE Stop: 03/13/19 21:59 Last Admin: 03/12/19 22:28 Dose: 75 mg Polyethylene Glycol (Miralax (For Daily Use) -) 17 gm GT DAILY PRN PRN Reason: CONSTIPATION Last Admin: 03/12/19 10:08 Dose: 17 gm Senna/Docusate Sodium (Pericolace -) 2 tablet PO HS CONSTANCE Last Admin: 03/12/19 22:29 Dose: 2 tablet Constitutional: Yes: No Distress Eyes: Yes: Conjunctiva Clear, EOM Intact HENT: Yes: Atraumatic Neck: Yes: Supple, Trachea Midline Cardiovascular: Yes: Regular Rate and Rhythm Respiratory: Yes: On Nasal O2, coarse bilateral rhonchi. No: Accessory Muscle Use, Rales, SOB on Exertion, Stridor, Tachypnea, Wheezes ...Inspection: Yes: WNL ...Clubbing: No Gastrointestinal: Yes: Normal Bowel Sounds, Other (PEG) Musculoskeletal: Yes: Joint Stiffness Extremities: Yes: Shortened Edema: No Peripheral Pulses WNL: Yes Integumentary: Yes: WNL Neurological: Yes: non-focal Labs: Laboratory Results - last 24 hr 03/12/19 03/12/19 11:30 11:30 WBC 8.2 RBC 4.52 Hgb 14.2 Hct 42.2 MCV 93.4 MCH 31.4 MCHC 33.6 RDW 14.3 Plt Count 249 MPV 8.5 Sodium 140 Potassium 3.6 Chloride 106 Carbon Dioxide 28 Anion Gap 6 L BUN 22.0 H Creatinine 0.7 Est GFR (CKD-EPI)AfAm 119.72 Est GFR (CKD-EPI)NonAf 103.30 Random Glucose 162 H Calcium 8.3 L Phosphorus 2.1 L Magnesium 2.4 Total Bilirubin 0.4 AST 33 ALT 45 Alkaline Phosphatase 126 H Total Protein 6.3 L Albumin 2.7 L Problem List - Problems (1) Acute asthma exacerbation Code(s): J45.901 - UNSPECIFIED ASTHMA WITH (ACUTE) EXACERBATION (2) Cough Code(s): R05 - COUGH (3) Hypoxia Code(s): R09.02 - HYPOXEMIA (4) Seizure Code(s): R56.9 - UNSPECIFIED CONVULSIONS (5) Asthma Code(s): J45.909 - UNSPECIFIED ASTHMA, UNCOMPLICATED (6) GERD (gastroesophageal reflux disease) Code(s): K21.9 - GASTRO-ESOPHAGEAL REFLUX DISEASE WITHOUT ESOPHAGITIS (7) Hydrocephalus Code(s): G91.9 - HYDROCEPHALUS, UNSPECIFIED (8) Mental retardation Code(s): F79 - UNSPECIFIED INTELLECTUAL DISABILITIES (9) PEG (percutaneous endoscopic gastrostomy) status Code(s): Z93.1 - GASTROSTOMY STATUS (10) Seizure disorder Code(s): G40.909 - EPILEPSY, UNSP, NOT INTRACTABLE, WITHOUT STATUS EPILEPTICUS Assessment/Plan Rocephin Tamiflu NC O2 to maintain saturation Can likely DC medrol tomorrow BD TX Follow cultures Aspiration precautions Dr Douglass Problem List - Problems (1) Acute asthma exacerbation Code(s): J45.901 - UNSPECIFIED ASTHMA WITH (ACUTE) EXACERBATION (2) Cough Code(s): R05 - COUGH (3) Hypoxia Code(s): R09.02 - HYPOXEMIA (4) Seizure Code(s): R56.9 - UNSPECIFIED CONVULSIONS (5) Asthma Code(s): J45.909 - UNSPECIFIED ASTHMA, UNCOMPLICATED (6) GERD (gastroesophageal reflux disease) Code(s): K21.9 - GASTRO-ESOPHAGEAL REFLUX DISEASE WITHOUT ESOPHAGITIS (7) Hydrocephalus Code(s): G91.9 - HYDROCEPHALUS, UNSPECIFIED (8) Mental retardation Code(s): F79 - UNSPECIFIED INTELLECTUAL DISABILITIES (9) PEG (percutaneous endoscopic gastrostomy) status Code(s): Z93.1 - GASTROSTOMY STATUS (10) Seizure disorder Code(s): G40.909 - EPILEPSY, UNSP, NOT INTRACTABLE, WITHOUT STATUS EPILEPTICUS
[2019-03-13 09:02] LABS: HEMATOCRIT 40.1 % (35.4-49); HEMOGLOBIN 13.6 GM/dL (11.7-16.9); MCH 31.2 pg (25.7-33.7); MCHC 33.8 g/dl (32.0-35.9); MEAN CELL VOLUME 92.5 fl (80-96); MEAN PLT VOLUME 8.6 fl (7.5-11.1); PLATELET COUNT 266 K/MM3 (134-434); RBC 4.34 M/mm3 (4.00-5.60); RDW 14.3 % (11.9-15.9); WHITE BLOOD COUNT 7.9 K/mm3 (4.0-10.0)
[2019-03-13 10:03] LABS: BLOOD UREA NITROGEN 22.3 mg/dL (7-18); CALCIUM 8.4 mg/dL (8.5-10.1); CREATININE 0.5 mg/dL (0.55-1.3); MAGNESIUM 2.4 mg/dL (1.8-2.4); PHOSPHOROUS 3.2 mg/dL (2.5-4.9); POTASSIUM 4.2 mmol/L (3.5-5.1)
[2019-03-13] MEDS ORDERED: cefTRIAXone SODIUM 1 GM VIAL ONE (11:32)
[2019-03-13] MEDS ORDERED: DEXTROSE 5%-WATER - 50 ML IVPB ONE (11:32)
[2019-03-13] MEDS: CEFTRIAXONE 1 GM in DEXTROSE 5%-WATER - 50 ML IVPB SCH (11:51)
[2019-03-13] MEDS: ENOXAPARIN NA (PORCINE) 40 MG/0.4 ML DISP.SYRIN SQ SCH (11:51)
[2019-03-13] MEDS: levETIRAcetam 500 MG/5 ML ORAL SOLUTION (UNIT-DOSE CUPS) PO SCH ×2 (11:52→22:47)
[2019-03-13] MEDS: FAMOTIDINE 40 MG/5 ML ORAL SUSPENSION NGT SCH ×2 (11:52→22:48)
[2019-03-13] MEDS: OSELTAMIVIR PHOSPHATE 75 MG CAPSULE GT SCH (11:54)
[2019-03-13] MEDS: BUDESONIDE/FORMETEROL FUMARATE 160/4.5 mcg INHALER IH SCH ×2 (11:55→22:46)
[2019-03-13] MEDS: AMINO ACIDS/PROTEIN HYDROLYS 30 ML LIQUID.PKT GT SCH (18:38)
--- NOTE | 2019-03-13 18:45 | PN ---
Physical Exam: SUBJECTIVE: Patient seen and examined NAEON Nonverbal, which is baseline OBJECTIVE: Vital Signs Period Temp Pulse Resp BP Sys/Karimi Pulse Ox Last 24 Hr 97.1 F-98.0 F 45-101 20-20 106-126/63-91 95-95 GENERAL: The patient is asleep, in no acute distress. HEAD: Normocephalic, atraumatic. EYES: Unable to open left eye, right eye looks cloudy, unable to observe pupillary reflex ENT: Dry mucous membranes. NECK: Supple without lymphadenopathy. Negative stridor LUNGS: Mild rhonchi auscultated bilaterally, No accessory muscle use. HEART: Regular rate and rhythm. S1, S2 without murmur, rub or gallop. ABDOMEN: Soft, nondistended, nontender to light and deep palpation x4 quadrants. No rebound tenderness, no guarding. Normoactive bowel sounds x4 quadrants. EXTREMITIES: 2+ radial, dorsalis pedis pulses bilaterally. Warm, well-perfused. No lower extremity edema bilaterally. SKIN: Warm, dry. PEG tube in situ; site clean dry. Laboratory Results - last 24 hr 03/13/19 03/13/19 08:20 08:20 WBC 7.9 RBC 4.34 Hgb 13.6 Hct 40.1 MCV 92.5 MCH 31.2 MCHC 33.8 RDW 14.3 Plt Count 266 MPV 8.6 Sodium 139 Potassium 4.2 Chloride 104 Carbon Dioxide 29 Anion Gap 7 L BUN 22.3 H Creatinine 0.5 L Est GFR (CKD-EPI)AfAm 137.48 Est GFR (CKD-EPI)NonAf 118.62 Random Glucose 175 H Calcium 8.4 L Phosphorus 3.2 Magnesium 2.4 Active Medications Generic Name Dose Route Start Last Admin Trade Name Freq PRN Reason Stop Dose Admin Acetaminophen 1,000 mg 03/12/19 17:03 Tylenol Oral Solution - GT Q6H PRN FEVER Albuterol Sulfate 1 amp 03/08/19 20:30 Ventolin 0.083% Nebulizer Soln - NEB Q4H PRN SHORT OF BREATH/WHEEZING Albuterol/Ipratropium 1 amp 03/08/19 20:29 Duoneb - NEB Q6H PRN SHORTNESS OF BREATH Amino Acids 30 ml 03/13/19 17:30 03/13/19 18:38 Prosource No Carb Liquid Pkt GT 30 ml BID@0800,1730 CONSTANCE Administration Budesonide/Formoterol Fumarate 2 puff 03/08/19 22:00 03/13/19 11:55 Symbicort 160/4.5mcg - IH Not Given BID CONSTANCE Enoxaparin Sodium 40 mg 03/09/19 10:00 03/13/19 11:51 Lovenox - SQ 40 mg DAILY CONSTANCE Administration Famotidine 20 mg 03/09/19 10:00 03/13/19 11:52 Pepcid NGT 20 mg BID CONSTANCE Administration Ceftriaxone Sodium 1 gm/ 50 mls @ 100 mls/hr 03/09/19 14:30 03/13/19 11:51 Dextrose IVPB 100 mls/hr DAILY CONSTANCE Administration Protocol Levetiracetam 1,500 mg 03/08/19 22:15 03/13/19 11:52 Keppra Oral Solution - PO 1,500 mg BID CONSTANCE Administration Methylprednisolone Sodium Succinate 40 mg 03/09/19 02:00 03/13/19 18:38 Solu-Medrol - IVPUSH 40 mg Q8H-IV CONSTANCE Administration Oseltamivir Phosphate 75 mg 03/08/19 22:00 03/13/19 11:54 Tamiflu - GT 03/13/19 21:59 75 mg BID CONSTANCE Administration Polyethylene Glycol 17 gm 03/08/19 20:56 03/12/19 10:08 Miralax (For Daily Use) - GT 17 gm DAILY PRN Administration CONSTIPATION Senna/Docusate Sodium 2 tablet 03/08/19 22:00 03/12/19 22:29 Pericolace - PO 2 tablet HS CONSTANCE Administration ASSESSMENT/PLAN: 59 y.o. M w/ PMHx. of hydrocephalus, seizure disorder, functional quadriplegia, asthma presents from [facility] with shortness of breath. CXR with LLL infiltrates. Influenza A postived. Admitted for PNA. Being treated with IV abx( cetriaxone), tamiflu. # Acute hypoxic respiratory failure secondary to PNA and Influenza --2L NC > CXR: left lower lobe infiltrate > ABG(03/08/19): 7.46/43.5/81.1/30.2 > Influenza A positive > Sputum Cx(03/11/19): Hafnia Alvei, GBS - C/w Oseltamivir 75mg GT BID - PNA Regimen: --Abx regimen: D/c'd Zosyn, c/w Ceftriaxone (Day 4) --solumedrol 40mg q8h --symbicort 160/4.5 - Influ Regimen: --tamiflu 75mg BID, (Day 4) - Pulmonology(Evonne) consult appreciated --rocephin, tamiflu --medrol --likely to finish 03/14/19 History of asthma -Likely exacerbated by Influenza -Patient received Medrol 125mg IV in ED -Duonebs standing and PRN -Medrol 40mg IV Q8 hours -Symbicort Seizures - Keppra 1500mg GT BID Constipation -Continue Miralax, Senna Transaminitis --resolved > US RUQ Abd: cholelithiasis FEN -Follow BMP -Tube feeds as per Dietary instructions Prophylaxis -Lovenox 40mg subq daily -Pepcid 20mg NGT BID Visit type - Emergency Visit Emergency Visit: No - New Patient This patient is new to me today: No - Critical Care Critical Care patient: No ATTENDING PHYSICIAN STATEMENT I saw and evaluated the patient. I reviewed the resident's note and discussed the case with the resident. I agree with the resident's findings and plan as documented. SUBJECTIVE: OBJECTIVE: ASSESSMENT AND PLAN:
--- NOTE | 2019-03-13 19:50 | PN ---
Teaching Attending Note Name of Resident: Ayan Arreguin ATTENDING PHYSICIAN STATEMENT I saw and evaluated the patient. I reviewed the resident's note and discussed the case with the resident. I agree with the resident's findings and plan as documented. SUBJECTIVE: No events over night OBJECTIVE: NAD Cv : RRR Lungs: clear anteriorly abd: soft, NT, ND, nl BS, PEG in Ext : No edema or erytehma ASSESSMENT AND PLAN: 59 y/o man with h/o NAD, awake, alert. MMM Cv: RRR, possible 2/6 SM at LLSB Lungs: bibasilar crackles have diminished. Abd: soft, NT, nl BS Ext: No edema. 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 sputum cx noted, suspect Bronchitis vs PNA . - cont steroids - cont O2 supp. 2- h/o seizures, cont Keppra DVT Px: cont lovenox
[2019-03-13] MEDS: SENNOSIDES/DOCUSATE COMBO (SENNA PLUS) TABLET (UD) PO SCH (22:47)
[2019-03-14] MEDS: methylPREDNISolone NA SUCC 40 MG/1 ML VIAL IVPUSH SCH ×2 (02:16→10:51)
--- NOTE | 2019-03-14 10:24 | PN ---
Progress Note (short form) - Note Progress Note: Breathing non-labored on NC O2. Appears more comfortable. No acute events overnight. Intake & Output 03/11/19 03/12/19 03/13/19 03/14/19 23:59 23:59 23:59 23:59 Intake Total 475 1570 570 Balance 475 1570 570 Last Vital Signs Temp Pulse Resp BP Pulse Ox 98 F 52 L 20 133/75 96 03/14/19 06:00 03/14/19 09:15 03/14/19 06:00 03/14/19 06:00 03/14/19 09:15 Active Medications Acetaminophen (Tylenol Oral Solution -) 1,000 mg GT Q6H PRN PRN Reason: FEVER Albuterol Sulfate (Ventolin 0.083% Nebulizer Soln -) 1 amp NEB Q4H PRN PRN Reason: SHORT OF BREATH/WHEEZING Albuterol/Ipratropium (Duoneb -) 1 amp NEB Q6H PRN PRN Reason: SHORTNESS OF BREATH Amino Acids (Prosource No Carb Liquid Pkt) 30 ml GT BID@0800,1730 [facility] Last Admin: 03/13/19 18:38 Dose: 30 ml Budesonide/Formoterol Fumarate (Symbicort 160/4.5mcg -) 2 puff IH BID [facility] Last Admin: 03/13/19 22:46 Dose: Not Given Enoxaparin Sodium (Lovenox -) 40 mg SQ DAILY [facility] Last Admin: 03/13/19 11:51 Dose: 40 mg Famotidine (Pepcid) 20 mg NGT BID [facility] Last Admin: 03/13/19 22:48 Dose: 20 mg Ceftriaxone Sodium 1 gm/ (Dextrose) 50 mls @ 100 mls/hr IVPB DAILY [facility]; Protocol Last Admin: 03/13/19 11:51 Dose: 100 mls/hr Levetiracetam (Keppra Oral Solution -) 1,500 mg PO BID [facility] Last Admin: 03/13/19 22:47 Dose: 1,500 mg Methylprednisolone Sodium Succinate (Solu-Medrol -) 40 mg IVPUSH Q8H-IV [facility] Last Admin: 03/14/19 02:16 Dose: 40 mg Polyethylene Glycol (Miralax (For Daily Use) -) 17 gm GT DAILY PRN PRN Reason: CONSTIPATION Last Admin: 03/12/19 10:08 Dose: 17 gm Senna/Docusate Sodium (Pericolace -) 2 tablet PO HS [facility] Last Admin: 03/13/19 22:47 Dose: 2 tablet Constitutional: Yes: No Distress Eyes: Yes: Conjunctiva Clear, EOM Intact HENT: Yes: Atraumatic Neck: Yes: Supple, Trachea Midline Cardiovascular: Yes: Regular Rate and Rhythm Respiratory: Yes: On Nasal O2, few scattered rhonchi. No: Accessory Muscle Use , Rales, SOB on Exertion, Stridor, Tachypnea, Wheezes ...Inspection: Yes: WNL ...Clubbing: No Gastrointestinal: Yes: Normal Bowel Sounds, Other (PEG) Musculoskeletal: Yes: Joint Stiffness Extremities: Yes: Shortened Edema: No Peripheral Pulses WNL: Yes Integumentary: Yes: WNL Neurological: Yes: non-focal Labs: Problem List - Problems (1) Acute asthma exacerbation Code(s): J45.901 - UNSPECIFIED ASTHMA WITH (ACUTE) EXACERBATION (2) Cough Code(s): R05 - COUGH (3) Hypoxia Code(s): R09.02 - HYPOXEMIA (4) Seizure Code(s): R56.9 - UNSPECIFIED CONVULSIONS (5) Asthma Code(s): J45.909 - UNSPECIFIED ASTHMA, UNCOMPLICATED (6) GERD (gastroesophageal reflux disease) Code(s): K21.9 - GASTRO-ESOPHAGEAL REFLUX DISEASE WITHOUT ESOPHAGITIS (7) Hydrocephalus Code(s): G91.9 - HYDROCEPHALUS, UNSPECIFIED (8) Mental retardation Code(s): F79 - UNSPECIFIED INTELLECTUAL DISABILITIES (9) PEG (percutaneous endoscopic gastrostomy) status Code(s): Z93.1 - GASTROSTOMY STATUS (10) Seizure disorder Code(s): G40.909 - EPILEPSY, UNSP, NOT INTRACTABLE, WITHOUT STATUS EPILEPTICUS Assessment/Plan Consider Rocephin to PO therapy Tamiflu completed NC O2 to maintain saturation DC medrol and monitor BD TX Aspiration precautions Dr Douglass Problem List - Problems (1) Acute asthma exacerbation Code(s): J45.901 - UNSPECIFIED ASTHMA WITH (ACUTE) EXACERBATION (2) Cough Code(s): R05 - COUGH (3) Hypoxia Code(s): R09.02 - HYPOXEMIA (4) Seizure Code(s): R56.9 - UNSPECIFIED CONVULSIONS (5) Asthma Code(s): J45.909 - UNSPECIFIED ASTHMA, UNCOMPLICATED (6) GERD (gastroesophageal reflux disease) Code(s): K21.9 - GASTRO-ESOPHAGEAL REFLUX DISEASE WITHOUT ESOPHAGITIS (7) Hydrocephalus Code(s): G91.9 - HYDROCEPHALUS, UNSPECIFIED (8) Mental retardation Code(s): F79 - UNSPECIFIED INTELLECTUAL DISABILITIES (9) PEG (percutaneous endoscopic gastrostomy) status Code(s): Z93.1 - GASTROSTOMY STATUS (10) Seizure disorder Code(s): G40.909 - EPILEPSY, UNSP, NOT INTRACTABLE, WITHOUT STATUS EPILEPTICUS
[2019-03-14] MEDS ORDERED: DEXTROSE 5%-WATER - 50 ML IVPB ONE (10:27)
[2019-03-14] MEDS ORDERED: cefTRIAXone SODIUM 1 GM VIAL ONE (10:27)
[2019-03-14] MEDS: CEFTRIAXONE 1 GM in DEXTROSE 5%-WATER - 50 ML IVPB SCH (10:36)
[2019-03-14] MEDS: AMINO ACIDS/PROTEIN HYDROLYS 30 ML LIQUID.PKT GT SCH ×2 (10:36→17:39)
[2019-03-14] MEDS: levETIRAcetam 500 MG/5 ML ORAL SOLUTION (UNIT-DOSE CUPS) PO SCH ×2 (10:36→23:52)
[2019-03-14] MEDS: ENOXAPARIN NA (PORCINE) 40 MG/0.4 ML DISP.SYRIN SQ SCH (10:37)
[2019-03-14] MEDS ORDERED: PT OWN MED DRAWER 7, Y5N ONE (10:39)
[2019-03-14] MEDS: BUDESONIDE/FORMETEROL FUMARATE 160/4.5 mcg INHALER IH SCH ×2 (10:40→23:51)
[2019-03-14] MEDS: FAMOTIDINE 40 MG/5 ML ORAL SUSPENSION NGT SCH ×2 (10:40→23:53)
--- NOTE | 2019-03-14 14:26 | PN ---
Teaching Attending Note Name of Resident: Ayan Arreguin ATTENDING PHYSICIAN STATEMENT I saw and evaluated the patient. I reviewed the resident's note and discussed the case with the resident. I agree with the resident's findings and plan as documented. SUBJECTIVE: No events over night . OBJECTIVE: NAD Cv : RRR Lungs: CTAB , no crackles or wheezes. Abd: soft, NT, ND, nl BS, PEG in Ext: No edema or erythema ASSESSMENT AND PLAN: 63 y/o man with h/o functional quadriplegia, seizure, and hydrocephalus who presented [facility] and being treated for Influenza A 1- Influenza A: 2- Possible PNA 3- possible asthma exacerbation plan: s/p tamiflu day 6 of Abx , dc . No signs of sepsis dc steroids ( , 1 week ) pre-post: no need for O2 at rest will dc on symbicort and Albuterol Nebs cont Keppra dc back to [facility]. case was d/w staff and patient was accepted
--- NOTE | 2019-03-14 18:19 | PN ---
Physical Exam: SUBJECTIVE: Patient seen and examined NAEON Pt moving BUE spontaneously. Has NC 2L on face, not in nasal passages OBJECTIVE: Vital Signs Period Temp Pulse Resp BP Sys/Karimi Pulse Ox Last 24 Hr 97.2 F-98.8 F 51-58 20-20 105-139/55-80 91-96 GENERAL: The patient is asleep, in no acute distress. HEAD: Normocephalic, atraumatic. EYES: Unable to open left eye, right eye looks cloudy, unable to observe pupillary reflex ENT: Dry mucous membranes. NECK: Supple without lymphadenopathy. Negative stridor LUNGS: Mild rhonchi auscultated bilaterally, No accessory muscle use. HEART: Regular rate and rhythm. S1, S2 without murmur, rub or gallop. ABDOMEN: Soft, nondistended, nontender to light and deep palpation x4 quadrants. No rebound tenderness, no guarding. Normoactive bowel sounds x4 quadrants. EXTREMITIES: 2+ radial, dorsalis pedis pulses bilaterally. Warm, well-perfused. No lower extremity edema bilaterally. SKIN: Warm, dry. PEG tube in situ; site clean dry. Active Medications Generic Name Dose Route Start Last Admin Trade Name Freq PRN Reason Stop Dose Admin Acetaminophen 1,000 mg 03/12/19 17:03 Tylenol Oral Solution - GT Q6H PRN FEVER Albuterol Sulfate 1 amp 03/08/19 20:30 Ventolin 0.083% Nebulizer Soln - NEB Q4H PRN SHORT OF BREATH/WHEEZING Albuterol/Ipratropium 1 amp 03/08/19 20:29 Duoneb - NEB Q6H PRN SHORTNESS OF BREATH Amino Acids 30 ml 03/13/19 17:30 03/14/19 17:39 Prosource No Carb Liquid Pkt GT 30 ml BID@0800,1730 [facility] Administration Budesonide/Formoterol Fumarate 2 puff 03/08/19 22:00 03/14/19 10:40 Symbicort 160/4.5mcg - IH Not Given BID [facility] Enoxaparin Sodium 40 mg 03/09/19 10:00 03/14/19 10:37 Lovenox - SQ 40 mg DAILY [facility] Administration Famotidine 20 mg 03/09/19 10:00 03/14/19 10:40 Pepcid NGT 20 mg BID [facility] Administration Levetiracetam 1,500 mg 03/08/19 22:15 03/14/19 10:36 Keppra Oral Solution - PO 1,500 mg BID [facility] Administration Polyethylene Glycol 17 gm 03/08/19 20:56 03/12/19 10:08 Miralax (For Daily Use) - GT 17 gm DAILY PRN Administration CONSTIPATION Senna/Docusate Sodium 2 tablet 03/08/19 22:00 03/13/19 22:47 Pericolace - PO 2 tablet HS [facility] Administration ASSESSMENT/PLAN: 59 y.o. M w/ PMHx. of hydrocephalus, seizure disorder, functional quadriplegia, asthma presents from [facility] with shortness of breath. CXR with LLL infiltrates. Influenza A postived. Admitted for PNA. Treated with IV abx( cetriaxone x6d), tamiflu x5d. Off NC. Will be stable for [place] if NC off for >24hs. # Acute hypoxic respiratory failure secondary to PNA and Influenza --treated w/ IV abx and tamiflu > CXR: left lower lobe infiltrate > ABG(03/08/19): 7.46/43.5/81.1/30.2 > Influenza A positive > Sputum Cx(03/11/19): Hafnia Alvei, GBS - Oseltamivir 75mg GT BID --completed on 03/13/19 - PNA Regimen: --Abx regimen: Zosyn then Ceftriaxone --completed 6d --solumedrol 40mg q8h --stopped 03/14/19 --symbicort 160/4.5 - Influ Regimen: --tamiflu 75mg BID --completed 5d - Pulmonology(Evonne) consult appreciated --rocephin, tamiflu --medrol --finish 03/14/19 History of asthma --likely exacerbated by Influenza -Duonebs standing and PRN -Medrol 40mg IV Q8 hours --completed -Symbicort Seizures - Keppra 1500mg GT BID Constipation -Continue Miralax, Senna Transaminitis --resolved > US RUQ Abd: cholelithiasis FEN -Tube feeds as per Dietary instructions Prophylaxis -Lovenox 40mg subq daily -Pepcid 20mg NGT BID Visit type - Emergency Visit Emergency Visit: No - New Patient This patient is new to me today: No - Critical Care Critical Care patient: No ATTENDING PHYSICIAN STATEMENT I saw and evaluated the patient. I reviewed the resident's note and discussed the case with the resident. I agree with the resident's findings and plan as documented. SUBJECTIVE: OBJECTIVE: ASSESSMENT AND PLAN:
[2019-03-14] MEDS: SENNOSIDES/DOCUSATE COMBO (SENNA PLUS) TABLET (UD) PO SCH (23:53)
[2019-03-15 06:51] VITALS: TEMP 97.1
[2019-03-15] MEDS ORDERED: PT OWN MED DRAWER 7, Y5N ONE (11:11)
[2019-03-15] MEDS: ENOXAPARIN NA (PORCINE) 40 MG/0.4 ML DISP.SYRIN SQ SCH (11:22)
[2019-03-15] MEDS: AMINO ACIDS/PROTEIN HYDROLYS 30 ML LIQUID.PKT GT SCH (11:22)
[2019-03-15] MEDS: levETIRAcetam 500 MG/5 ML ORAL SOLUTION (UNIT-DOSE CUPS) PO SCH (11:22)
[2019-03-15] MEDS: BUDESONIDE/FORMETEROL FUMARATE 160/4.5 mcg INHALER IH SCH (11:23)
[2019-03-15] MEDS: FAMOTIDINE 40 MG/5 ML ORAL SUSPENSION NGT SCH (11:23)
[2019-03-15 13:13] VITALS: BP 107/72; PULSE 71
--- NOTE | 2019-03-15 14:19 | PN ---
Progress Note (short form) - Note Progress Note: Breathing non-labored on RA, saturation 94%. Appears comfortable. No acute events overnight. Intake & Output 03/12/19 03/13/19 03/14/19 03/15/19 23:59 23:59 23:59 23:59 Intake Total 1570 770 Balance 1570 770 Last Vital Signs Temp Pulse Resp BP Pulse Ox 97.1 F L 71 20 107/72 94 L 03/15/19 10:00 03/15/19 10:00 03/15/19 10:00 03/15/19 10:00 03/15/19 09:00 Active Medications Acetaminophen (Tylenol Oral Solution -) 1,000 mg GT Q6H PRN PRN Reason: FEVER Albuterol Sulfate (Ventolin 0.083% Nebulizer Soln -) 1 amp NEB Q4H PRN PRN Reason: SHORT OF BREATH/WHEEZING Albuterol/Ipratropium (Duoneb -) 1 amp NEB Q6H PRN PRN Reason: SHORTNESS OF BREATH Amino Acids (Prosource No Carb Liquid Pkt) 30 ml GT BID@0800,1730 [facility] Last Admin: 03/15/19 11:22 Dose: 30 ml Budesonide/Formoterol Fumarate (Symbicort 160/4.5mcg -) 2 puff IH BID [facility] Last Admin: 03/15/19 11:23 Dose: Not Given Enoxaparin Sodium (Lovenox -) 40 mg SQ DAILY [facility] Last Admin: 03/15/19 11:22 Dose: 40 mg Famotidine (Pepcid) 20 mg NGT BID [facility] Last Admin: 03/15/19 11:23 Dose: 20 mg Levetiracetam (Keppra Oral Solution -) 1,500 mg PO BID [facility] Last Admin: 03/15/19 11:22 Dose: 1,500 mg Polyethylene Glycol (Miralax (For Daily Use) -) 17 gm GT DAILY PRN PRN Reason: CONSTIPATION Last Admin: 03/12/19 10:08 Dose: 17 gm Senna/Docusate Sodium (Pericolace -) 2 tablet PO HS [facility] Last Admin: 03/14/19 23:53 Dose: 2 tablet Constitutional: Yes: No Distress Eyes: Yes: Conjunctiva Clear, EOM Intact HENT: Yes: Atraumatic Neck: Yes: Supple, Trachea Midline Cardiovascular: Yes: Regular Rate and Rhythm Respiratory: Yes: few scattered rhonchi. No: Accessory Muscle Use, Rales, SOB on Exertion, Stridor, Tachypnea, Wheezes ...Inspection: Yes: WNL ...Clubbing: No Gastrointestinal: Yes: Normal Bowel Sounds, Other (PEG) Musculoskeletal: Yes: Joint Stiffness Extremities: Yes: Shortened Edema: No Peripheral Pulses WNL: Yes Integumentary: Yes: WNL Neurological: Yes: non-focal Labs: Problem List - Problems (1) Acute asthma exacerbation Code(s): J45.901 - UNSPECIFIED ASTHMA WITH (ACUTE) EXACERBATION (2) Cough Code(s): R05 - COUGH (3) Hypoxia Code(s): R09.02 - HYPOXEMIA (4) Seizure Code(s): R56.9 - UNSPECIFIED CONVULSIONS (5) Asthma Code(s): J45.909 - UNSPECIFIED ASTHMA, UNCOMPLICATED (6) GERD (gastroesophageal reflux disease) Code(s): K21.9 - GASTRO-ESOPHAGEAL REFLUX DISEASE WITHOUT ESOPHAGITIS (7) Hydrocephalus Code(s): G91.9 - HYDROCEPHALUS, UNSPECIFIED (8) Mental retardation Code(s): F79 - UNSPECIFIED INTELLECTUAL DISABILITIES (9) PEG (percutaneous endoscopic gastrostomy) status Code(s): Z93.1 - GASTROSTOMY STATUS (10) Seizure disorder Code(s): G40.909 - EPILEPSY, UNSP, NOT INTRACTABLE, WITHOUT STATUS EPILEPTICUS Assessment/Plan Tamiflu completed BD TX PRN Aspiration precautions There is no Pulmonary contraindication for DC Dr Douglass Problem List - Problems (1) Acute asthma exacerbation Code(s): J45.901 - UNSPECIFIED ASTHMA WITH (ACUTE) EXACERBATION (2) Cough Code(s): R05 - COUGH (3) Hypoxia Code(s): R09.02 - HYPOXEMIA (4) Seizure Code(s): R56.9 - UNSPECIFIED CONVULSIONS (5) Asthma Code(s): J45.909 - UNSPECIFIED ASTHMA, UNCOMPLICATED (6) GERD (gastroesophageal reflux disease) Code(s): K21.9 - GASTRO-ESOPHAGEAL REFLUX DISEASE WITHOUT ESOPHAGITIS (7) Hydrocephalus Code(s): G91.9 - HYDROCEPHALUS, UNSPECIFIED (8) Mental retardation Code(s): F79 - UNSPECIFIED INTELLECTUAL DISABILITIES (9) PEG (percutaneous endoscopic gastrostomy) status Code(s): Z93.1 - GASTROSTOMY STATUS (10) Seizure disorder Code(s): G40.909 - EPILEPSY, UNSP, NOT INTRACTABLE, WITHOUT STATUS EPILEPTICUS
--- NOTE | 2019-03-15 17:39 | PN ---
Teaching Attending Note Name of Resident: Ayan Arreguin ATTENDING PHYSICIAN STATEMENT I saw and evaluated the patient. I reviewed the resident's note and discussed the case with the resident. I agree with the resident's findings and plan as documented. SUBJECTIVE: no events over night . OBJECTIVE: NAD CV : RRR Lungs: CTAB , no crackles or wheezes. Abd: soft, NT, ND, nl BS, PEG in Ext: No edema or erythema ASSESSMENT AND PLAN: 63 y/o man with h/o functional quadriplegia, seizure, and hydrocephalus who presented [facility] and being treated for Influenza A 1- Influenza A: 2- Possible PNA 3- possible asthma exacerbation plan: s/p tamiflu and steroids and Abx No need for O2. has been stable x 24 hours will dc on symbicort and Albuterol Nebs cont Keppra patient is accepted to [facility] today . was declined yesterday
--- NOTE | 2019-03-15 18:00 | DS ---
Physical Exam: SUBJECTIVE: Patient seen and examined OBJECTIVE: Vital Signs Period Temp Pulse Resp BP Sys/Karimi Pulse Ox Last 24 Hr 97.1 F-98.6 F 60-88 20-20 107-146/55-77 93-94 PHYSICAL EXAM GENERAL: The patient is asleep, in no acute distress. HEAD: Normocephalic, atraumatic. EYES: Unable to open left eye, right eye looks cloudy, unable to observe pupillary reflex ENT: Dry mucous membranes. NECK: Supple without lymphadenopathy. Negative stridor LUNGS: Mild rhonchi auscultated bilaterally, No accessory muscle use. HEART: Regular rate and rhythm. S1, S2 without murmur, rub or gallop. ABDOMEN: Soft, nondistended, nontender to light and deep palpation x4 quadrants. No rebound tenderness, no guarding. Normoactive bowel sounds x4 quadrants. EXTREMITIES: 2+ radial, dorsalis pedis pulses bilaterally. Warm, well-perfused. No lower extremity edema bilaterally. SKIN: Warm, dry. PEG tube in situ; site clean dry. LABS HOSPITAL COURSE: Date of Admission:03/08/19 Date of Discharge: 03/15/19 59 y.o. M w/ PMHx. of hydrocephalus, seizure disorder, functional quadriplegia, asthma presents from [facility] with shortness of breath. CXR with LLL infiltrates. Influenza A postive. Admitted for PNA. Treated with IV abx( cetriaxone x6d), tamiflu x5d. Off NC. Stable for discharge back to [facility] with pO2 93% on RA. Minutes to complete discharge: 34 Discharge Summary Problems reviewed: Yes Reason For Visit: HYPOXIA Condition: Stable - Instructions Diet, Activity, Other Instructions: You were evaluated in the hospital for shortness of breath with associated cough. Imaging showed a left-sided pneumonia. You were also positive for influenza virus. You received intravenous antibiotics and steroids and completed Tamiflu during the hospitalization. Your clinical examination improved , and you are discharged back to [facility]. Medications: - NEW MEDICATIONS: --Albuterol[VENTOLIN 0.083%] Nebulized Solution, 1 ampule IH every 6hours, as necessary for shortness of breath --Budesonide/Formoterol Fumarate[SYMBICORT 160/4.5mcg], 2 puffs twice a day - Resume other previously prescribed medications Please follow-up in 1-2 weeks with the following physicians: - Primary Care Physicians: to discuss your recent hospitalization - [place](Dr Douglass): for follow-up of your pneumonia, asthma Please seek immediate medical evaluation if the patient experiences: - worsened cough - fever, chills, severe lethargy Referrals: Jessa Salinas, CREDIT MANAGER [Primary Care Provider] - Disposition: NURSING HOME FACILITY - Home Medications Comprehensive Discharge Medication List: Ambulatory Orders Acetaminophen Liquid [Tylenol 100mg/mL * Drops* -] 650 mg GT TID PRN 03/08 Citrate Phosphate Dextros Soln [Citrate Phosphate Dextrose] 315 mg GT BID Denosumab [Prolia -] 60 mg SQ ASDIR 03/08/19 Omeprazole 20 mg GT DAILY 03/08/19 Polyethylene Glycol 3350 [Clearlax] 17 gm GT DAILY 03/08/19 Sennosides/Docusate Sodium [Senna-S Tablet] 2 each GT HS 03/08/19 levETIRAcetam [levETIRAcetam ORAL SUSPENSION] 1,500 mg GT BID 03/08/19 Albuterol 0.083% Nebulizer Mehnaz [Ventolin 0.083% Nebulizer Soln -] 1 amp NEB Q4H PRN amp 03/14/19 Budesonide/Formeterol Fumarate [SYMBICORT 160/4.5mcg -] 2 puff IH BID inhaler 03/14/19 This patient is new to me today: No Emergency Visit: No Critical Care patient: No - Discharge Referral Referred to [facility] No ATTENDING PHYSICIAN STATEMENT I saw and evaluated the patient. I reviewed the resident's note and discussed the case with the resident. I agree with the resident's findings and plan as documented. SUBJECTIVE: OBJECTIVE: ASSESSMENT AND PLAN:
== END 2019-03-15 14:52 | DRG 193 ==
LOC: JER 11:10 → JERBED 14:30 → J5S 03-09 19:34
PROVIDERS: ADMIT Internal Medicine; ATTEND Internal Medicine
DX: J11.08 Influenza due to unidentified influenza virus with specified pneumonia (principal); R53.2 Functional quadriplegia; J96.01 Acute respiratory failure with hypoxia; G91.9 Hydrocephalus, unspecified; J45.901 Unspecified asthma with (acute) exacerbation; E46 Unspecified protein-calorie malnutrition; R74.0 Nonspecific elevation of levels of transaminase and lactic acid dehydrogenase [LDH]; J15.4 Pneumonia due to other streptococci; K80.20 Calculus of gallbladder without cholecystitis without obstruction; H54.8 Legal blindness, as defined in USA; G40.909 Epilepsy, unspecified, not intractable, without status epilepticus; E88.09 Other disorders of plasma-protein metabolism, not elsewhere classified; R00.0 Tachycardia, unspecified; K59.09 Other constipation; F79 Unspecified intellectual disabilities; Z93.1 Gastrostomy status
CPT/HCPCS: 36415; 36600; 71045-TC-FY; 76705-TC; 80048; 80053; 81003; 82375; 82803; 83050; 83605; 83735; 84100; 84484; 85025; 85027; 85610; 85730; 87040; 87070; 87186; 87205; 87804; 93005; 93010; 94761; 99285-25; J7030

== ENCOUNTER → 2019-05-20 | Emergency (ER) | payer OTHER ==
[~2019-05-20] MED LIST: ACETAMINOPHEN 650 MG/20.3 ML ORAL SOLUTION (CUPS) PEG ONE; ACETAMINOPHEN 650 MG/20.3 ML ORAL SOLUTION (CUPS) PO ONE; ALBUTEROL SO4 HFA INHALER IH ONE
--- NOTE | 2019-05-20 12:40 | PDOC ---
History of Present Illness - General Chief Complaint: Respiratory Stated Complaint: SOB Time Seen by Provider: 05/20/19 12:39 - History of Present Illness Initial Comments: 05/20/19 12:40 Edison Holly is a 59M [place] patient with H seizure disorder, hydrocephalus, functional quadriplegia, legal blindness, asthma, PEG dependence and history of aspiration PNA presenting with respiratory distress. Patient sent from [place] home for worsening SOB and cough. Patient history unable to be obtained 2/2 clinical condition, non-verbal. Past History - Past Medical History Allergies/Adverse Reactions: Allergies Allergy/AdvReac Type Severity Reaction Status Date / Time Benzodiazepines Allergy Unknown Verified 03/08/19 11:48 Home Medications: Ambulatory Orders Acetaminophen Liquid [Tylenol 100mg/mL *Infant Drops* -] 650 mg GT TID PRN 03/08/19 Citrate Phosphate Dextros Soln [Citrate Phosphate Dextrose] 315 mg GT BID 03/08 Denosumab [Prolia -] 60 mg SQ ASDIR 03/08/19 Omeprazole 20 mg GT DAILY 03/08/19 Polyethylene Glycol 3350 [Clearlax] 17 gm GT DAILY 03/08/19 Sennosides/Docusate Sodium [Senna-S Tablet] 2 each GT HS 03/08/19 levETIRAcetam [levETIRAcetam ORAL SUSPENSION] 1,500 mg GT BID 03/08/19 Albuterol 0.083% Nebulizer Mehnaz [Ventolin 0.083% Nebulizer Soln -] 1 amp NEB Q4H PRN amp 03/14/19 Budesonide/Formeterol Fumarate [SYMBICORT 160/4.5mcg -] 2 puff IH BID inhaler 03/14/19 Anemia: No Asthma: Yes Cancer: No Cardiac Disorders: No CVA: No (hydrocephalous chronic) COPD: No CHF: No Dementia: No Diabetes: No GI Disorders: Yes (gerd/hiatal hernia/dysphagia/constipation) Disorders: No HTN: No Hypercholesterolemia: No Liver Disease: No Seizures: Yes Thyroid Disease: No (osteoporosis, osteoporosis) - Surgical History Abdominal Surgery: No Appendectomy: No Cardiac Surgery: No Cholecystectomy: No GI Surgery: Yes (G tube) Lung Surgery: No Neurologic Surgery: No Orthopedic Surgery: No - Immunization History Immunization Up to Date: Yes - Psycho Social/Smoking Cessation Hx Smoking Status: No Smoking History: Never smoked Have you smoked in the past 12 months: No Number of Cigarettes Smoked Daily: 0 Hx Alcohol Use: No Drug/Substance Use Hx: No Substance Use Type: None Hx Substance Use Treatment: No Review of Systems - Review of Systems Able to Perform ROS?: No (MR) *Physical Exam - Physical Exam General Appearance: Yes: Nourished, Appropriately Dressed, Mild Distress, Other (lying back in bed moaning, limbs contracted) HEENT: positive: EOMI, MAK, Normal ENT Inspection, Symmetrical, Pharynx Normal, Thrush. negative: Scleral Icterus (R), Scleral Icterus (L), Pharyngeal Erythema, Tonsillar Exudate, Tonsillar Erythema Neck: positive: Trachea midline. negative: Tender, Lymphadenopathy (R), Lymphadenopathy (L) Respiratory/Chest: positive: Crackles (bases bilaterally), Rhonchi, Wheezing (mild bilateral end-expiratory), Other (intermittent dry cough). negative: Chest Tender, Lungs Clear, Normal Breath Sounds, Respiratory Distress, Accessory Muscle Use, Labored Respiration, Rapid RR Cardiovascular: positive: Regular Rhythm, Regular Rate Gastrointestinal/Abdominal: positive: Normal Bowel Sounds, Flat, Soft. negative: Tender, Organomegaly, Guarding, Rebound Musculoskeletal: positive: Normal Inspection. negative: CVA Tenderness Extremity: positive: Normal Capillary Refill, Normal Inspection, Normal Range of Motion, Other (all limbs contracted but moving spontaneously). negative: Tender Integumentary: positive: Normal Color, Dry, Warm Neurologic: negative: Fully Oriented, Alert, Normal Mood/Affect, Normal Response Medical Decision Making - Medical Decision Making 05/20/19 12:57 Patient presents from [place] with increased WOB, VS stable in ED without rectal temp elevation but is in the same room as an exposed COVID-19 patient from [place], high suspicion of COVID-19 for all [place] patients. Ddx includes repeat PNA given history, also asthma but no wheezing on exam. Stable at this time, satting well on RA. Getting CXR and testing for COVID-19, giving 650mg PO oral Tylenol via PEG for fever and inhaler MDI for asthma. 05/20/19 13:43 CXR shows perihilar nonspecific increased markings relatively unchanged from prior, no new acute infiltrates. Discharge - Discharge Information Problems reviewed: Yes Clinical Impression/Diagnosis: Suspected COVID-19 virus infection, Shortness of breath Condition: Stable Disposition: [facility] FACILITY - Admission No - Follow up/Referral Referrals: Jessa Salinas NP [Primary Care Provider] - - Patient Discharge Instructions Patient Printed Discharge Instructions: [facility]-Coronavirus Instructions Additional Instructions: Today Edison was evaluated for difficulty breathing. There is a high likelihood that Edison has covid-19, but is breathing well on room air and is in no distress at this time. We have tested him for covid-19, given him Tylenol, and got a chest X-ray that shows no new lung disease. At home, please keep him isolated from other patients and keep an eye on his breathing. Please use his home albuterol/asthma medications if he has difficulty breathing. He was given some albuterol in the emergency room and his breathing improved. It is likely that many of the patients at [place] have covid-19 at this time, but unless they begin to have worse symptoms, they are safe to stay at the facility with Tylenol as needed for fever. If he begins to have uncontrollable fever, sweating, nausea, vomiting, diarrhea, coughing, and has low oxygen saturations on room air, please send him to the emergency room for further evaluation. - Post Discharge Activity
[2019-05-20 12:44] VITALS: BMI 28.1
--- NOTE | 2019-05-20 13:34 | PDOC ---
Documentation entered by Arnie Dove SCRIBE, acting as scribe for César Hough MD. César Hough MD: This documentation has been prepared by the Petty rudolph Nirvannie, SCRIBE, under my direction and personally reviewed by me in its entirety. I confirm that the documentation accurately reflects all work, treatment, procedures, and medical decision making performed by me. Attending Attestation - Resident Resident Name: Aamir Duran - ED Attending Attestation I have performed the following: I have examined & evaluated the patient, The case was reviewed & discussed with the resident, I agree w/resident's findings & plan, Exceptions are as noted - HPI HPI: 05/20/19 12:41 The patient is a 59 year old male with a significant past medical history of seizure disorder, PEG-dependent, hydrocephalus, functional quadriplegia, legal blindness, asthma, and history of aspiration PNA who presents to the ED with fever and cough. History is limited secondary to the patient's clinical condition. Allergies: Benzodiazepines. - Physicial Exam PE: 05/20/19 12:45 See resident exam - Medical Decision Making 05/20/19 12:45 59 M with fever and cough. Wheezing on exam, suggestive of asthma flare. Likely COVID. - CXR - COVID swab - Albuterol MDI 05/20/19 14:29 CXR with no acute changes Lungs clear after albuterol MDI Pt is well appearing, with normal vitals. Clinically stable for DC at this time. Discharge - Discharge Information Clinical Impression/Diagnosis: Suspected COVID-19 virus infection, Shortness of breath Condition: Stable Disposition: [facility] - Follow up/Referral Referrals: Jessa Salinas NP [Primary Care Provider] - - Patient Discharge Instructions Patient Printed Discharge Instructions: [facility]-Coronavirus Instructions Additional Instructions: Today Edison was evaluated for difficulty breathing. There is a high likelihood that Edison has covid-19, but is breathing well on room air and is in no distress at this time. We have tested him for covid-19, given him Tylenol, and got a chest X-ray that shows no new lung disease. At home, please keep him isolated from other patients and keep an eye on his breathing. It is likely that many of the patients at [facility] have covid-19 at this time, but unless they begin to have worse symptoms, they are safe to stay at the facility with Tylenol as needed for fever. If he begins to have uncontrollable fever, sweating, nausea, vomiting, diarrhea, coughing, and has low oxygen saturations on room air, please send him to the emergency room for further evaluation. - Post Discharge Activity
[2019-05-20 18:41] VITALS: BP 88/69; PULSE 89; TEMP 98.5
== END ==
LOC: JER 12:08
DX: R06.02 Shortness of breath (principal); R50.9 Fever, unspecified; R05 Cough
CPT/HCPCS: 71045-TC-FY; 99284-25; U0002

== ENCOUNTER 2019-11-27 10:08 | Inpatient (IN) | payer OTHER ==
[2019-11-27 10:28] VITALS: BMI 27.4
--- NOTE | 2019-11-27 11:42 | PDOC ---
Documentation entered by Bob Brink SCRIBE, acting as scribe for Filiberto Mcconnell MD. Filiberto Mcconnell MD: This documentation has been prepared by the dreweCuba Xhesika, SCRIBE, under my direction and personally reviewed by me in its entirety. I confirm that the documentation accurately reflects all work, treatment, procedures, and medical decision making performed by me. History of Present Illness - General Chief Complaint: Respiratory Stated Complaint: LETHARGIC Time Seen by Provider: 11/27/19 10:30 History Source: Patient Exam Limitations: No Limitations - History of Present Illness Initial Comments: 11/27/19 10:35 The patient is a 59 year old male with a significant past medical history of seizure disorder, PEG-dependent, hydrocephalus, functional quadriplegia, legal blindness, asthma, and history of aspiration PNA who presents to the ED [facility] from [place] for lethargy and facial swelling. Aide states the patient was seen at the dentist yesterday but is unsure of what was done. Aide states the patient is nonverbal at baseline and is wheelchair bound. History is limited secondary to the patient's clinical condition. Allergies: Benzodiazepines. PCP: Jessa Santos Past History - Medical History Allergies/Adverse Reactions: Allergies Allergy/AdvReac Type Severity Reaction Status Date / Time Benzodiazepines Allergy Unknown Verified 03/08/19 11:48 Home Medications: Ambulatory Orders Citrate Phosphate Dextros Soln [Citrate Phosphate Dextrose] 315 mg GT BID 03/08/19 Denosumab [Prolia -] 60 mg SQ ASDIR 03/08/19 Omeprazole 20 mg GT DAILY 03/08/19 Sennosides/Docusate Sodium [Senna-S Tablet] 2 each GT HS 03/08/19 levETIRAcetam [levETIRAcetam ORAL SUSPENSION] 1,500 mg GT BID 03/08/19 Amoxicillin/Potassium Clav [Augmentin 875-125 Tablet] 1 each GT BID 11/27/19 Diazepam Rectal Gel 7.5 mg [Diastat Rectal Gel 7.5 mg] 12.5 mg RC PRN 11/27/19 Ibuprofen [Motrin -] 400 mg GT QID 11/27/19 Anemia: No Asthma: Yes Cancer: No Cardiac Disorders: No CVA: No (hydrocephalous chronic) COPD: No CHF: No Dementia: No Diabetes: No GI Disorders: Yes (gerd/hiatal hernia/dysphagia/constipation) Disorders: No HTN: No Hypercholesterolemia: No Liver Disease: No Seizures: Yes Thyroid Disease: No (osteoporosis, osteoporosis) - Surgical History Abdominal Surgery: No Appendectomy: No Cardiac Surgery: No Cholecystectomy: No GI Surgery: Yes (G tube) Lung Surgery: No Neurologic Surgery: No Orthopedic Surgery: No - Immunization History Immunization Up to Date: Yes - Psycho-Social/Smoking History Smoking Status: No Smoking History: Never smoked Have you smoked in the past 12 months: No Number of Cigarettes Smoked Daily: 0 - Substance Abuse Hx (Audit-C & DAST Scrn) How often the patient has a drink containing alcohol: Never Score: In Men: 4 or > Positive; In Women: 3 or > Positive: 0 Screen Result (Pos requires Nsg. Audit-10AR): Negative In the last yr the pt used illegal drug/Rx for NonMed reason: No Score: Yes response is considered Positive: 0 Screen Result (Positive result requires Nsg. DAST-10): Negative Review of Systems - Review of Systems Able to Perform ROS?: No (unable to obtain ) *Physical Exam - Vital Signs Last Vital Signs Temp Pulse Resp BP Pulse Ox 97.2 F L 95 H 16 137/84 94 L 11/27/19 10:15 11/27/19 10:15 11/27/19 10:15 11/27/19 10:15 11/27/19 10:15 - Physical Exam 11/27/19 11:38 Patient is awake, nonverbal, does not follow commands, moving spontaneously upper extremities, attempting to remove his mask. Microcephalic, atraumatic bilateral corneal opacification, does not respond to hand movements or light upper and lower extremity contractures, Minimal right basilar rhonchi Feeding tube in the epigastrium Heart Score/ECG Review - Colp Colp: Left Colp Deviation - ECG Impressions Normal ECG: Yes ED Treatment Course - LABORATORY CBC & Chemistry Diagram: 11/27/19 13:30 11/27/19 13:30 Medical Decision Making - Medical Decision Making 11/27/19 11:44 Patient is a 59-year-old male with history of profound developmental delay, s pastic quadriplegia, seizures, chronic hyperthermia and hydrocephalus, constipation, bilateral corneal opacity, blindness referred from [facility] for lethargy and desaturation as well as right-sided facial swelling. Patient seen and evaluated by dentistry 1 day prior and cleared from neuro standpoint. In the ER, patient is awake with spontaneous upper extremity movements, does not follow commands, noted to be 97.2. Oxygen saturation noted to be 94 to 98% on room air without supplemental O2. Minimal right-sided rhonchi noted. Chest x-ray reveals basilar consolidation. Patient is currently on augmentin twice daily. Will obtain CT of face to rule out facial abscess. Will obtain COVID swab. Likely discharge to recommend to continue with Augmentin if saturation is maintained. 11/27/19 14:12 Patient is active saturation is noted to be 90 to 91%. He requires 2 L via supplemental O2 to maintain oxygen saturation above 94%. Will administer ceftriaxone and Zithromax. Will admit. Discharge - Discharge Information Problems reviewed: Yes Clinical Impression/Diagnosis: Pneumonia Qualifiers: Pneumonia type: due to unspecified organism Laterality: right Lung location: lower lobe of lung Qualified Code(s): J18.9 - Pneumonia, unspecified organism Condition: Fair - Admission Yes - Follow up/Referral Referrals: Jessa Salinas NP [Primary Care Provider] - - Patient Discharge Instructions - Post Discharge Activity
[2019-11-27 13:47] LABS: BASO % 0.1 % (0-2.0); EOS % 0.2 % (0-4.5); HEMATOCRIT 47.2 % (35.4-49); HEMOGLOBIN 16.1 GM/dL (11.7-16.9); LYMPH % 8.8 % (8-40); MCH 32.2 pg (25.7-33.7); MCHC 34.2 g/dl (32.0-35.9); MEAN CELL VOLUME 94.2 fl (80-96); MEAN PLT VOLUME 9.5 fl (7.5-11.1); MONO % 5.6 % (3.8-10.2); NEUT % 85.3 % (42.8-82.8); PLATELET COUNT 220 K/MM3 (134-434); RBC 5.01 M/mm3 (4.00-5.60); RDW 15.2 % (11.9-15.9); WHITE BLOOD COUNT 9.3 K/mm3 (4.0-10.0)
[2019-11-27 13:54] LABS: INR 0.92 (0.83-1.09); PROTHROMBIN TIME (PATIENT) 10.9 SEC (9.7-13.0)
[2019-11-27] MEDS ORDERED: AZITHROMYCIN IVPB 500 MG in DEXTROSE 5%-WATER - 250 ML IVPB ONE (14:07)
[2019-11-27] MEDS ORDERED: CEFTRIAXONE 1,000 MG in DEXTROSE 5%-WATER - 50 ML IVPB ONE (14:07)
[2019-11-27] MEDS ORDERED: AZITHROMYCIN IVPB 500 MG/250 ML BAG IVPB ONE (14:09)
[2019-11-27] MEDS ORDERED: CEFTRIAXONE 1 GM/50 ML BAG ONE (14:09)
[2019-11-27 14:19] LABS: ALBUMIN 3.5 g/dl (3.4-5.0); BILIRUBIN,TOTAL 0.6 mg/dL (0.2-1); BLOOD UREA NITROGEN 13.4 mg/dL (7-18); CALCIUM 9.7 mg/dL (8.5-10.1); CREATININE 0.5 mg/dL (0.55-1.3); POTASSIUM 5.4 mmol/L (3.5-5.1); TOT PROT 7.5 g/dl (6.4-8.2)
--- NOTE | 2019-11-27 15:28 | HP ---
CHIEF COMPLAINT: PCP: Dr. Benson HISTORY OF PRESENT ILLNESS: Additional history obtained from MARKET RESEARCH SENIOR PROJECT MANAGER Jessa Salinas at [facility] Patient is a 59 year old male with history of hydrocephalus, seizure disorder, functional quadriplegia, legal blindness, asthma, prior aspiration pneumonia presents from [facility] with complaint of lethargy, and right facial swelling. This was sudden in onset yesterday, without clear inciting factor. No recent seizure activities. Patient does not receive pleasure feeds. No trauma recently reported to face. Patient was reportedly seen by dentist yesterday, who performed ?radiograph and did not believe the source of swelling originates from the gums. Today, patient was noted to be more lethargic, and requiring supplemental oxygen to maintain saturation, prompting ED presentation. At baseline patient is non-verbal. ER course was notable for: (1) CT facial bones (2) (3) Recent Travel: denies PAST MEDICAL HISTORY: hydrocephalus, seizure disorder, functional quadriplegia, legal blindness, asthma, prior aspiration pneumonia PAST SURGICAL HISTORY: PEG tube placement Social History: Resident of [facility] Smoking: Denies Alcohol: Denies Drugs: Denies Allergies Benzodiazepines Allergy (Unknown, Verified 03/08/19 11:48) HOME MEDICATIONS: Home Medications Medication Instructions Recorded Citrate Phosphate Dextros Soln 315 mg GT BID 03/08/19 [Citrate Phosphate Dextrose] Denosumab [Prolia -] 60 mg SQ ASDIR 03/08/19 Omeprazole 20 mg GT DAILY 03/08/19 Sennosides/Docusate Sodium 2 each GT HS 03/08/19 [Senna-S Tablet] levETIRAcetam [levETIRAcetam ORAL 1,500 mg GT BID 03/08/19 SUSPENSION] Amoxicillin/Potassium Clav 1 each GT BID 11/27/19 [Augmentin 875-125 Tablet] Diazepam Rectal Gel 7.5 mg 12.5 mg RC PRN 11/27/19 [Diastat Rectal Gel 7.5 mg] Ibuprofen [Motrin -] 400 mg GT QID 11/27/19 REVIEW OF SYSTEMS As per HPI; unable to obtain further given patient's clinical condition; patient is non verbal at baseline. PHYSICAL EXAMINATION Vital Signs - 24 hr 11/27/19 10:15 Temperature 97.2 F L Pulse Rate 95 H Respiratory 16 Rate Blood Pressure 137/84 O2 Sat by Pulse 94 L Oximetry (%) GENERAL: The patient is awake in no acute distress. Right sided facial swelling at maxilla and lip noted. HEAD: Normocephalic, atraumatic. EYES: PERRL, conjunctiva clear. ENT: Oropharynx erythematous, with scrape inside right cheek (appears bitten). Negative fluctuance appreciated. Poor dentition. Dry mucous membranes. NECK: Supple without lymphadenopathy. Negative stridor LUNGS: Rhonchi auscultated bilaterally, with end expiratory wheezing. No accessory muscle use. HEART: Regular rate and rhythm. S1, S2 without murmur, rub or gallop. ABDOMEN: Soft, nondistended, nontender to light and deep palpation x4 quadrants. No rebound tenderness, no guarding. Normoactive bowel sounds x4 quadrants. No hepatosplenomegaly, no masses appreciated. EXTREMITIES: 2+ radial, dorsalis pedis pulses bilaterally. Warm, well-perfused. No lower extremity edema bilaterally. SKIN: Warm, dry. PEG tube in situ; site clean, dry. Laboratory Results - last 24 hr 11/27/19 11/27/19 11/27/19 13:30 13:30 13:30 WBC 9.3 RBC 5.01 Hgb 16.1 Hct 47.2 D MCV 94.2 MCH 32.2 MCHC 34.2 RDW 15.2 Plt Count 220 MPV 9.5 D Absolute Neuts (auto) 8.0 Neutrophils % 85.3 H Lymphocytes % 8.8 Monocytes % 5.6 Eosinophils % 0.2 D Basophils % 0.1 Nucleated RBC % 0 PT with INR 10.90 INR 0.92 Sodium 132 L Potassium 5.4 H Chloride 93 L Carbon Dioxide 35 H Anion Gap 4 L BUN 13.4 Creatinine 0.5 L Est GFR (CKD-EPI)AfAm 137.48 Est GFR (CKD-EPI)NonAf 118.62 Random Glucose 71 L Calcium 9.7 Total Bilirubin 0.6 AST 56 H ALT 57 Alkaline Phosphatase 188 H Total Protein 7.5 Albumin 3.5 ASSESSMENT/PLAN: Patient is a 59 year old male with history of hydrocephalus, seizure disorder, functional quadriplegia, legal blindness, asthma, prior aspiration pneumonia presents from [facility] with complaint of lethargy, and right facial swelling. Right cheek Cellulitis -CT facial bones reveals soft tissue stranding at right face. Negative abscess noted -Patient had been on Augmentin for past two days at [facility]. Will broaden coverage to include Zosyn and Vancomycin one time dose. -ID consult (Dr. Silver) Right lower lobe pneumonia -Concerning for aspiration pneumonia, given recent history of oropharyngeal l esion, ?dental work -Will broaden coverage to include Zosyn, . -Follow blood cultures, urine cultures, sputum cultures -Influenza A/B, SARS-COV-2, RSV PCR -ID recommendations (Dr. Silver) appreciated. -Maintain O2 greater than 90% -Aspiration precautions Seizures - Keppra 1500mg GT BID Constipation -Continue Miralax, Senna PRN Hyperkalemia -Reported sample hemolysis. Follow repeat BMP, will treat medically if indicated. FEN -IV normal saline at 100mL/ hour -Follow BMP -NPO given concern for aspiration. Transmitter Supervisor consult in reinstating tube feeds. Prophylaxis -Lovenox 40mg subq daily -Omeprazole 20mg GT daily Disposition -Admit to medical surgical floor Family Medical History Family History: Unremarkable Visit type - Emergency Visit Emergency Visit: Yes ED Registration Date: 11/27/19 Care time: The patient presented to the Emergency Department on the above date and was hospitalized for further evaluation of their emergent condition. - New Patient This patient is new to me today: No - Critical Care Critical Care patient: No ATTENDING PHYSICIAN STATEMENT I saw and evaluated the patient. I reviewed the resident's note and discussed the case with the resident. I agree with the resident's findings and plan as documented. SUBJECTIVE: OBJECTIVE: ASSESSMENT AND PLAN:
[2019-11-27] MEDS ORDERED: SODIUM CHLORIDE 1,000 ML IV SCH (15:45)
[2019-11-27] MEDS ORDERED: VANCOMYCIN 1 GM in D5W (PRE-DOCKED) 1,000 MG/250 ML IVPB ONE (17:32)
[2019-11-27] MEDS ORDERED: VANCOMYCIN 1 GRAM (PRE-DOCKED) 1,000 MG/250 ML BAG IVPB ONE (17:43)
[2019-11-27] MEDS ORDERED: FAMOTIDINE 20 MG TABLET ONE (23:42)
[2019-11-27] MEDS: levETIRAcetam 500 MG/5 ML ORAL SOLUTION (UNIT-DOSE CUPS) GT SCH (23:57)
[2019-11-27] MEDS: FAMOTIDINE 40 MG/5 ML ORAL SUSPENSION NGT SCH (23:58)
[2019-11-28 07:10] LABS: HEMOGLOBIN 15.7 GM/dL (11.7-16.9); MCH 31.7 pg (25.7-33.7); MCHC 33.3 g/dl (32.0-35.9); MEAN PLT VOLUME 9.8 fl (7.5-11.1); PLATELET COUNT 179 K/MM3 (134-434); RBC 4.94 M/mm3 (4.00-5.60); RDW 14.7 % (11.9-15.9); WHITE BLOOD COUNT 5.7 K/mm3 (4.0-10.0)
[2019-11-28 07:16] LABS: ALBUMIN 3.2 g/dl (3.4-5.0); BILIRUBIN,TOTAL 0.4 mg/dL (0.2-1); BLOOD UREA NITROGEN 7.2 mg/dL (7-18); CALCIUM 8.6 mg/dL (8.5-10.1); CREATININE 0.5 mg/dL (0.55-1.3); MAGNESIUM 1.8 mg/dL (1.8-2.4); POTASSIUM 4.6 mmol/L (3.5-5.1); TOT PROT 6.7 g/dl (6.4-8.2)
[2019-11-28] MEDS ORDERED: PIPERACILLIN/TAZOB 3.375 GM 3.375 GM in DEXTROSE 5%-WATER - 50 ML IVPB SCH (08:00)
[2019-11-28] MEDS ORDERED: PIPERACILLIN/TAZOB 3.375 GM 3.375 GM/50 ML BAG IVPB ONE (09:18)
[2019-11-28] MEDS: levETIRAcetam 500 MG/5 ML ORAL SOLUTION (UNIT-DOSE CUPS) GT SCH ×2 (09:27→22:28)
[2019-11-28] MEDS ORDERED: FAMOTIDINE 20 MG TABLET ONE (09:34)
[2019-11-28] MEDS ORDERED: ENOXAPARIN NA (PORCINE) 40 MG/0.4 ML DISP.SYRIN SQ ONE (09:35)
[2019-11-28] MEDS: FAMOTIDINE 40 MG/5 ML ORAL SUSPENSION NGT SCH (09:42)
[2019-11-28] MEDS: ENOXAPARIN NA (PORCINE) 40 MG/0.4 ML DISP.SYRIN SQ SCH (09:42)
[2019-11-28] MEDS ORDERED: PATIENT'S OWN MEDICATION (NON-FORMULARY) (Omeprazole 20 MG) GT SCH (10:00)
--- NOTE | 2019-11-28 11:36 | PN ---
Teaching Attending Note Name of Resident: Darien Gee ATTENDING PHYSICIAN STATEMENT I saw and evaluated the patient. I reviewed the resident's note and discussed the case with the resident. I agree with the resident's findings and plan as documented. SUBJECTIVE: Patient seen and examined at bedside, admitted for increased WOB, and R facial swelling. OBJECTIVE: GA non-communicative, non-verbal HEENT NC/AT, dry MM, poor dentition, R nasolabial fold erythema/swelling/warmth no fluctuance or mass, no pain around orbits or mastoid process Chest coarse b/l BS, poor inspiratory effort CVS s1, S2+, RRR Abd peg site clean, NT, ND, BS+ Ext no LE edema, contracted extremities Vital Signs (72 hours) 11/27/19 11/27/19 11/28/19 10:15 16:38 02:31 Temperature 97.2 F L Pulse Rate 95 H Pulse Rate [ 67 Left Radial] Pulse Rate [ 71 Right Radial] Respiratory 16 16 22 H Rate Blood Pressure 137/84 Blood Pressure 117/62 115/82 [Left Arm] O2 Sat by Pulse 94 L 99 95 Oximetry (%) 11/28/19 11/28/19 11/28/19 07:19 07:44 07:47 Temperature 95.4 F L Pulse Rate 69 Pulse Rate [ Left Radial] Pulse Rate [ 68 Right Radial] Respiratory 10 17 Rate Blood Pressure Blood Pressure 127/73 [Left Arm] O2 Sat by Pulse 100 98 98 Oximetry (%) 11/28/19 10:58 Temperature Pulse Rate 57 L Pulse Rate [ Left Radial] Pulse Rate [ Right Radial] Respiratory 18 Rate Blood Pressure 117/78 Blood Pressure [Left Arm] O2 Sat by Pulse 100 Oximetry (%) Laboratory Results - last 24 hr 11/27/19 11/27/19 11/27/19 11:15 13:30 13:30 WBC 9.3 RBC 5.01 Hgb 16.1 Hct 47.2 D MCV 94.2 MCH 32.2 MCHC 34.2 RDW 15.2 Plt Count 220 MPV 9.5 D Absolute Neuts (auto) 8.0 Neutrophils % 85.3 H Lymphocytes % 8.8 Monocytes % 5.6 Eosinophils % 0.2 D Basophils % 0.1 Nucleated RBC % 0 PT with INR 10.90 INR 0.92 Sodium Potassium Chloride Carbon Dioxide Anion Gap BUN Creatinine Est GFR (CKD-EPI)AfAm Est GFR (CKD-EPI)NonAf POC Glucometer Random Glucose Calcium Phosphorus Magnesium Total Bilirubin AST ALT Alkaline Phosphatase Total Protein Albumin COVID-19 (DELL) Not detected Influenza A (Rapid) Influenza B (Rapid) RSV Rapid 11/27/19 11/27/19 11/27/19 13:30 16:00 16:00 WBC RBC Hgb Hct MCV MCH MCHC RDW Plt Count MPV Absolute Neuts (auto) Neutrophils % Lymphocytes % Monocytes % Eosinophils % Basophils % Nucleated RBC % PT with INR INR Sodium 132 L Potassium 5.4 H Chloride 93 L Carbon Dioxide 35 H Anion Gap 4 L BUN 13.4 Creatinine 0.5 L Est GFR (CKD-EPI)AfAm 137.48 Est GFR (CKD-EPI)NonAf 118.62 POC Glucometer Random Glucose 71 L Calcium 9.7 Phosphorus Magnesium Total Bilirubin 0.6 AST 56 H ALT 57 Alkaline Phosphatase 188 H Total Protein 7.5 Albumin 3.5 COVID-19 (DELL) Influenza A (Rapid) Negative Influenza B (Rapid) Negative RSV Rapid Negative 11/28/19 11/28/19 11/28/19 06:00 06:11 10:02 WBC 5.7 RBC 4.94 Hgb 15.7 Hct 47.0 MCV 95.0 MCH 31.7 MCHC 33.3 RDW 14.7 Plt Count 179 MPV 9.8 Absolute Neuts (auto) Neutrophils % Lymphocytes % Monocytes % Eosinophils % Basophils % Nucleated RBC % PT with INR INR Sodium 137 Potassium 4.6 Chloride 103 Carbon Dioxide 27 Anion Gap 7 L BUN 7.2 Creatinine 0.5 L Est GFR (CKD-EPI)AfAm 137.48 Est GFR (CKD-EPI)NonAf 118.62 POC Glucometer 98 Random Glucose 56 L Calcium 8.6 Phosphorus 3.0 Magnesium 1.8 Total Bilirubin 0.4 AST 33 ALT 47 Alkaline Phosphatase 157 H Total Protein 6.7 Albumin 3.2 L COVID-19 (DELL) Influenza A (Rapid) Influenza B (Rapid) RSV Rapid Home Medications Medication Instructions Recorded Citrate Phosphate Dextros Soln 315 mg GT BID 03/08/19 [Citrate Phosphate Dextrose] Denosumab [Prolia -] 60 mg SQ ASDIR 03/08/19 Omeprazole 20 mg GT DAILY 03/08/19 Sennosides/Docusate Sodium 2 each GT HS 03/08/19 [Senna-S Tablet] levETIRAcetam [levETIRAcetam ORAL 1,500 mg GT BID 03/08/19 SUSPENSION] Amoxicillin/Potassium Clav 1 each GT BID 11/27/19 [Augmentin 875-125 Tablet] Diazepam Rectal Gel 7.5 mg 12.5 mg RC PRN 11/27/19 [Diastat Rectal Gel 7.5 mg] Ibuprofen [Motrin -] 400 mg GT QID 11/27/19 Current Medications Generic Name Dose Route Start Last Admin Trade Name Freq PRN Reason Stop Dose Admin Enoxaparin Sodium 40 mg 11/28/19 10:00 11/28/19 09:42 Lovenox - SQ 40 mg DAILY CONSTANCE Administration Famotidine 20 mg 11/27/19 22:00 11/28/19 09:42 Pepcid NGT 20 mg BID CONSTANCE Administration Sodium Chloride 1,000 mls @ 100 mls/hr 11/27/19 15:45 11/27/19 16:40 Normal Saline - IV 100 mls/hr ASDIR CONSTANCE Administration Piperacillin Sod/Tazobactam 50 mls @ 100 mls/hr 11/28/19 07:45 Sod 3.375 gm/ Dextrose IVPB Q8H-IV CONSTANCE Protocol Piperacillin Sod/Tazobactam 50 mls @ 100 mls/hr 11/28/19 08:00 11/28/19 09:20 Sod 3.375 gm/ Dextrose IVPB 11/29/19 10:29 100 mls/hr Q8H-IV CONSTANCE Administration Protocol Levetiracetam 1,500 mg 11/27/19 22:00 11/28/19 09:27 Keppra Oral Solution - GT 1,500 mg BID CONSTANCE Administration ASSESSMENT AND PLAN: 59 M R facial cellulitis Seizure disorder MR Non-communicative Cerebral palsy Non-verbal Plan: IV Zosyn for abx Monitor for expansion of cellulitis, per chart patient saw a dentist yesterday who deemed cellulitis is not dental related Restart seizure meds, follow appropriate levels HOB elevation, NC O2 PRN ID following DVT ppx: Lovenox SC
--- NOTE | 2019-11-28 13:07 | PN ---
Progress Note (short form) - Note Progress Note: ID CONSULT DICATED ? FACIAL CELLULITIS ? DENTAL SOURCE HYPOXEMIA POSSIBLE ASPIRATION CP/MR AWAIT C/S EMPIRIC UNASYN+ STAT DOSE VANCOMYCIN
[2019-11-28] MEDS ORDERED: VANCOMYCIN 1 GRAM (PRE-DOCKED) 1,000 MG/250 ML BAG IVPB ONE (13:18)
--- NOTE | 2019-11-28 13:24 | EKG ---
Test Reason : Blood Pressure : / mmHG Vent. Rate : 096 BPM Atrial Rate : 096 BPM P-R Int : 158 ms QRS Dur : 090 ms QT Int : 320 ms P-R-T Axes : 038 -34 004 degrees QTc Int : 404 ms NORMAL SINUS RHYTHM LEFT AXIS DEVIATION ABNORMAL ECG WHEN COMPARED WITH ECG OF 08-MAR-2019 17:14, NO SIGNIFICANT CHANGE WAS FOUND Confirmed by TONYA PETTY MD ([id number]) on 11/28/2019 1:24:13 PM Referred By: Confirmed By:TONYA PETTY MD
[2019-11-28] MEDS: PIPERACILLIN/TAZOB 3.375 GM 3.375 GM in DEXTROSE 5%-WATER - 50 ML IVPB SCH (13:44)
--- NOTE | 2019-11-28 13:51 | CONS ---
INFECTIOUS DISEASE CONSULTATION DATE OF CONSULTATION: DATE OF DICTATION: 11/28/2019 HISTORY: The patient is a 59-year-old male with a history of cerebral palsy, profound mental retardation evaluated for possible facial cellulitis. He is a resident of [facility] ([place]). While there he was noted to be increasingly lethargic. He was noted to have developed right facial swelling. He was seen by dental. An x-ray was performed and apparently was negative for any dental pathology. He was empirically treated with Augmentin. Facial swelling worsened. He was brought to the emergency room. In the emergency room the patient was somnolent. He was afebrile and hypothermic. He was in no acute respiratory distress, however, was noted to be hypoxemic with an O2 saturation of 94%. He was placed on nasal cannula O2. At the present time he is somnolent. He is not verbally responsive at baseline. He is wheelchair bound. His most recent hospitalization was in February 2019 for hypoxemia. He has no history of multidrug-resistant pathogens. PAST MEDICAL HISTORY: Positive for cerebral palsy, mental retardation, hydrocephalus, seizure disorder, blindness, asthma. PAST SURGICAL HISTORY: Status post feeding gastrostomy. ALLERGIES: To BENZODIAZEPINES. MEDICATIONS: Include Zosyn, vancomycin, Lovenox, Keppra, Pepcid. SOCIAL HISTORY: He resides in [facility] ([place]). He is totally dependent in activities of daily living. No active tobacco or alcohol use. SYSTEMS REVIEW: Neurologic: No loss of consciousness, seizure activity, focal weakness. Cardiac: Negative chest pain or palpitations. Respiratory: Negative cough or sputum production. Gastrointestinal: Negative vomiting or diarrhea. Genitourinary: Negative for urinary tract infection. LABORATORY DATA: White count 5.7, hematocrit 47.0, platelets 179. BUN 7.2, creatinine 0.5, total bilirubin 0.4, alkaline phosphatase 157, AST 33. COVID-19 PCR negative. RSV negative. Influenza negative. Blood cultures pending. PHYSICAL EXAMINATION: General: He is somnolent. He is not verbally responsive. He is in no acute distress. His breathing is nonlabored. Vital Signs: Temperature 95.4, blood pressure 127/73, pulse 60 irregular, respirations 10 per minute. HEENT: Sclerae are anicteric. Examination of the face there is diffuse swelling of the right face extending from the area of the right infraorbital area to the mandible and to the preauricular area. There is no erythema, no tenderness elicited, no palpable parotid gland. Heart: Sounds S1, S2. Lungs: Air entry bilaterally, poor inspiratory effort. No wheezing or rales. Abdomen: Soft, nontender. Extremities: Negative for edema. IMPRESSION: 1. Rule out facial cellulitis. 2. Hypoxemia, possible aspiration pneumonia. 3. Profound mental retardation/cerebral palsy. 4. History of hydrocephalus. Will empirically treat with Unasyn plus stat dose vancomycin. Aspiration precautions. Await cultures. Thank you for the kind referral. BIN MOBLEY M.D. [id number]
--- NOTE | 2019-11-28 14:00 | PN ---
Teaching Attending Note Name of Resident: Kristofer Navarro ATTENDING PHYSICIAN STATEMENT I saw and evaluated the patient. I reviewed the resident's note and discussed the case with the resident. I agree with the resident's findings and plan as documented. SUBJECTIVE: Non-verbal, unable to participate in medical interview. OBJECTIVE: Afebrile, Hemodynamicaly Stable. Non-verbal. Last Vital Signs Temp Pulse Resp BP Pulse Ox 95.4 F L 57 L 18 117/78 100 11/28/19 07:19 11/28/19 10:58 11/28/19 10:58 11/28/19 10:58 11/28/19 10:58 HEENT - Atraumatic. R maxillary soft tissue swelling - no clear erythema - no abscess/purulence Heart - S1, S2, RRR Lungs - clear to auscultation Abdomen - Soft, PEG in situ Extremities - contractures, wasting Laboratory Results - last 24 hr 11/27/19 11/27/19 11/27/19 11:15 13:30 16:00 WBC RBC Hgb Hct MCV MCH MCHC RDW Plt Count MPV Sodium 132 L Potassium 5.4 H Chloride 93 L Carbon Dioxide 35 H Anion Gap 4 L BUN 13.4 Creatinine 0.5 L Est GFR (CKD-EPI)AfAm 137.48 Est GFR (CKD-EPI)NonAf 118.62 POC Glucometer Random Glucose 71 L Calcium 9.7 Phosphorus Magnesium Total Bilirubin 0.6 AST 56 H ALT 57 Alkaline Phosphatase 188 H Total Protein 7.5 Albumin 3.5 COVID-19 (DELL) Not detected Influenza A (Rapid) Negative Influenza B (Rapid) Negative RSV Rapid 11/27/19 11/28/19 11/28/19 16:00 06:00 06:11 WBC 5.7 RBC 4.94 Hgb 15.7 Hct 47.0 MCV 95.0 MCH 31.7 MCHC 33.3 RDW 14.7 Plt Count 179 MPV 9.8 Sodium 137 Potassium 4.6 Chloride 103 Carbon Dioxide 27 Anion Gap 7 L BUN 7.2 Creatinine 0.5 L Est GFR (CKD-EPI)AfAm 137.48 Est GFR (CKD-EPI)NonAf 118.62 POC Glucometer Random Glucose 56 L Calcium 8.6 Phosphorus 3.0 Magnesium 1.8 Total Bilirubin 0.4 AST 33 ALT 47 Alkaline Phosphatase 157 H Total Protein 6.7 Albumin 3.2 L COVID-19 (DELL) Influenza A (Rapid) Influenza B (Rapid) RSV Rapid Negative 11/28/19 10:02 WBC RBC Hgb Hct MCV MCH MCHC RDW Plt Count MPV Sodium Potassium Chloride Carbon Dioxide Anion Gap BUN Creatinine Est GFR (CKD-EPI)AfAm Est GFR (CKD-EPI)NonAf POC Glucometer 98 Random Glucose Calcium Phosphorus Magnesium Total Bilirubin AST ALT Alkaline Phosphatase Total Protein Albumin COVID-19 (DELL) Influenza A (Rapid) Influenza B (Rapid) RSV Rapid Current Medications Generic Name Dose Route Start Last Admin Trade Name Freq PRN Reason Stop Dose Admin Enoxaparin Sodium 40 mg 11/28/19 10:00 11/28/19 09:42 Lovenox - SQ 40 mg DAILY CONSTANCE Administration Famotidine 20 mg 11/27/19 22:00 11/28/19 09:42 Pepcid NGT 20 mg BID CONSTANCE Administration Sodium Chloride 1,000 mls @ 100 mls/hr 11/27/19 15:45 11/27/19 16:40 Normal Saline - IV 100 mls/hr ASDIR CONSTANCE Administration Ampicillin Sodium/Sulbactam 100 mls @ 200 mls/hr 11/28/19 15:00 Sodium 1.5 gm/ Sodium Chloride IVPB Q6H-IV CONSTANCE Vancomycin HCl 1,000 mg/ 250 mls @ 166.667 mls/hr 11/28/19 13:18 Dextrose IVPB 11/28/19 14:47 ONCE ONE Protocol Levetiracetam 1,500 mg 11/27/19 22:00 11/28/19 09:27 Keppra Oral Solution - GT 1,500 mg BID CONSTANCE Administration Home Medications Medication Instructions Recorded Citrate Phosphate Dextros Soln 315 mg GT BID 03/08/19 [Citrate Phosphate Dextrose] Denosumab [Prolia -] 60 mg SQ ASDIR 03/08/19 Omeprazole 20 mg GT DAILY 03/08/19 Sennosides/Docusate Sodium 2 each GT HS 03/08/19 [Senna-S Tablet] levETIRAcetam [levETIRAcetam ORAL 1,500 mg GT BID 03/08/19 SUSPENSION] Amoxicillin/Potassium Clav 1 each GT BID 11/27/19 [Augmentin 875-125 Tablet] Diazepam Rectal Gel 7.5 mg 12.5 mg RC PRN 11/27/19 [Diastat Rectal Gel 7.5 mg] Ibuprofen [Motrin -] 400 mg GT QID 11/27/19 ASSESSMENT AND PLAN: 59 year old male with history of Hydrocephalus, Cerebral Palsy, Seizure Disorder, Functional Quadriplegia, feeds via PEG, Legally blind, Asthma, prior aspiration pneumonia presents from [place] with 1 day history of lethargy and right facial swelling. 1. R Maxillary Cellulitis CT Facial Bones - R mandibular swelling/hydrocephalus/Encephalomalacia Received Cef/Vanco in ED - evaluated by ID - continue on Unasyn. Afebrile, Hemodynamically stable. 2, RLL Pneuonia, possible aspiration Unasyn as per ID Flu/RSV/COVID negative Afebrile, Hemodynamically Stable. 3. Seizure Disorder - Continue Kera 4. Hydrocephalus, Cerebral Palsy, Seizure Disorder, Functional Quadriplegia, feeds via PEG Resume feeds 5. Hyperkalemia - resolved. 6. On Denusomab, reason unclear, history to be obtained. DVT Px - Lovenox SQ GI Px - PPI
[2019-11-28] MEDS ORDERED: AMPICILLIN NA/SULBACTAM NA 1.5 GM in SODIUM CHLORIDE 100 ML IVPB SCH (15:00)
--- NOTE | 2019-11-28 15:03 | PN ---
Physical Exam: SUBJECTIVE: Patient seen and examined. OBJECTIVE: Vital Signs Period Temp Pulse Resp BP Sys/Karimi Pulse Ox Last 24 Hr 95.4 F 57-71 10-22 115-127/62-82 95-100 GENERAL: The patient is awake in no acute distress. Right sided facial swelling at maxilla HEAD: Normocephalic, atraumatic. EYES: PERRL, conjunctiva clear. ENT: Oropharynx erythematous, with scrape inside right cheek (appears bitten). Poor dentition. Dry mucous membranes. NECK: Supple without lymphadenopathy. Negative stridor LUNGS: Rhonchi auscultated bilaterally, with end expiratory wheezing. No accessory muscle use. HEART: Regular rate and rhythm. S1, S2 without murmur, rub or gallop. ABDOMEN: Soft, nondistended, nontender to light and deep palpation x4 quadrants. No rebound tenderness, no guarding. Normoactive bowel sounds x4 quadrants. No hepatosplenomegaly, no masses appreciated. EXTREMITIES: 2+ radial, dorsalis pedis pulses bilaterally. Warm, well-perfused. No lower extremity edema bilaterally. SKIN: Warm, dry. PEG tube in situ; site clean, dry. Laboratory Results - last 24 hr 11/27/19 11/27/19 11/27/19 11:15 16:00 16:00 WBC RBC Hgb Hct MCV MCH MCHC RDW Plt Count MPV Sodium Potassium Chloride Carbon Dioxide Anion Gap BUN Creatinine Est GFR (CKD-EPI)AfAm Est GFR (CKD-EPI)NonAf POC Glucometer Random Glucose Calcium Phosphorus Magnesium Total Bilirubin AST ALT Alkaline Phosphatase Total Protein Albumin COVID-19 (DELL) Not detected Influenza A (Rapid) Negative Influenza B (Rapid) Negative RSV Rapid Negative 11/28/19 11/28/19 11/28/19 06:00 06:11 10:02 WBC 5.7 RBC 4.94 Hgb 15.7 Hct 47.0 MCV 95.0 MCH 31.7 MCHC 33.3 RDW 14.7 Plt Count 179 MPV 9.8 Sodium 137 Potassium 4.6 Chloride 103 Carbon Dioxide 27 Anion Gap 7 L BUN 7.2 Creatinine 0.5 L Est GFR (CKD-EPI)AfAm 137.48 Est GFR (CKD-EPI)NonAf 118.62 POC Glucometer 98 Random Glucose 56 L Calcium 8.6 Phosphorus 3.0 Magnesium 1.8 Total Bilirubin 0.4 AST 33 ALT 47 Alkaline Phosphatase 157 H Total Protein 6.7 Albumin 3.2 L COVID-19 (DELL) Influenza A (Rapid) Influenza B (Rapid) RSV Rapid Active Medications Generic Name Dose Route Start Last Admin Trade Name Sebastien PRN Reason Stop Dose Admin Enoxaparin Sodium 40 mg 11/28/19 10:00 11/28/19 09:42 Lovenox - SQ 40 mg DAILY CONSTANCE Administration Sodium Chloride 1,000 mls @ 100 mls/hr 11/27/19 15:45 11/27/19 16:40 Normal Saline - IV 100 mls/hr ASDIR CONSTANCE Administration Ampicillin Sodium/Sulbactam 100 mls @ 200 mls/hr 11/28/19 15:00 Sodium 1.5 gm/ Sodium Chloride IVPB Q6H-IV CONSTANCE Vancomycin HCl 1,000 mg/ 250 mls @ 166.667 mls/hr 11/28/19 13:18 Dextrose IVPB 11/28/19 14:47 ONCE ONE Protocol Levetiracetam 1,500 mg 11/27/19 22:00 11/28/19 09:27 Keppra Oral Solution - GT 1,500 mg BID CONSTANCE Administration ASSESSMENT/PLAN: Pt is a 59 year old male with PMHx of hydrocephalus, cerebral palsy, seizure disorder, functional quadriplegia, feeds via PEG, legally blind, asthma, hx of aspiration pneumonia presenting of [place] with acute onset R facial swelling and lethargy admitted for R maxillary cellulitis. R maxillary cellulitis -CT facial bone showing R mandibular swelling, hydrocephalus and encephalomalac ia seen -in ED, ceftriaxone, vanc rec`d -consulted ID; on Unasyn RLL pneumonia, possible aspiration -Consulted ID; on Unasyn -COVID, flu and RSV negative -afebrile, no leukocytosis Seizure disorder -cont Keppra Hydrocephalus, cerebral palsy, seizure disorder, feeds via PEG -Resumed feeds per dealer card room recs Hyperkalemia -resolved PPx Lovenox PPI FEN Tube feeds resumed Monitor electrolytes No standing fluids Dispo Admitted to med surg. R facial cellulitis and possble RLL pneumonia, on Unasyn. ATTENDING PHYSICIAN STATEMENT I saw and evaluated the patient. I reviewed the resident's note and discussed the case with the resident. I agree with the resident's findings and plan as documented. SUBJECTIVE: OBJECTIVE: ASSESSMENT AND PLAN:
[2019-11-28] MEDS ORDERED: IBUPROFEN 400 MG TABLET (FP) PO PRN (15:25)
[2019-11-28] MEDS ORDERED: PATIENT'S OWN MEDICATION (NON-FORMULARY) (Denosumab 60 MG) SQ SCH (15:30)
[2019-11-28] MEDS ORDERED: diazePAM RECTAL GEL 7.5 MG KIT (PRE-CALIBRATED) RC SCH (15:30)
[2019-11-28] MEDS ORDERED: SENNOSIDES/DOCUSATE COMBO (SENNA PLUS) TABLET (UD) PO SCH (22:00)
[2019-11-28] MEDS ORDERED: [UNRECOGNIZED DRUG - OTHER] GT SCH (22:00)
[2019-11-28] MEDS ORDERED: AMPICILLIN NA/SULBACTAM NA 1.5 GM VIAL ONE (22:11)
[2019-11-28] MEDS ORDERED: SODIUM CHLORIDE 100 ML IVPB ONE (22:12)
[2019-11-28] MEDS: AMPICILLIN NA/SULBACTAM NA 1.5 GM in SODIUM CHLORIDE 100 ML IVPB SCH (22:27)
[2019-11-29] MEDS ORDERED: AMPICILLIN NA/SULBACTAM NA 1.5 GM VIAL ONE ×3 (01:46→14:56)
[2019-11-29] MEDS ORDERED: SODIUM CHLORIDE 100 ML IVPB ONE ×3 (01:46→14:56)
[2019-11-29] MEDS: AMPICILLIN NA/SULBACTAM NA 1.5 GM in SODIUM CHLORIDE 100 ML IVPB SCH ×3 (03:53→14:58)
[2019-11-29] MEDS ORDERED: PT OWN MED DRAWER 7, Y5N ONE (09:00)
[2019-11-29 09:01] LABS: BASO % 0.5 % (0-2.0); EOS % 0.5 % (0-4.5); HEMATOCRIT 49.3 % (35.4-49); HEMOGLOBIN 16.8 GM/dL (11.7-16.9); LYMPH % 10.3 % (8-40); MCH 32.2 pg (25.7-33.7); MEAN CELL VOLUME 94.7 fl (80-96); MEAN PLT VOLUME 9.6 fl (7.5-11.1); MONO % 10.9 % (3.8-10.2); NEUT % 77.8 % (42.8-82.8); PLATELET COUNT 235 K/MM3 (134-434); RDW 15.2 % (11.9-15.9); WHITE BLOOD COUNT 7.1 K/mm3 (4.0-10.0)
[2019-11-29] MEDS: levETIRAcetam 500 MG/5 ML ORAL SOLUTION (UNIT-DOSE CUPS) GT SCH (09:01)
[2019-11-29] MEDS: ENOXAPARIN NA (PORCINE) 40 MG/0.4 ML DISP.SYRIN SQ SCH (09:08)
[2019-11-29 09:29] LABS: ALBUMIN 3.4 g/dl (3.4-5.0); BILIRUBIN,TOTAL 0.9 mg/dL (0.2-1); BLOOD UREA NITROGEN 11.9 mg/dL (7-18); MAGNESIUM 2.3 mg/dL (1.8-2.4); PHOSPHOROUS 3.5 mg/dL (2.5-4.9); POTASSIUM 4.5 mmol/L (3.5-5.1)
[2019-11-29] MEDS ORDERED: FLU VACCINE (FLULAVAL) PF 60 MCG/0.5 ML SYRINGE 2020-2021 IM ONE (10:00)
[2019-11-29 14:20] VITALS: BP 115/88; PULSE 96; TEMP 98.1
--- NOTE | 2019-11-29 14:35 | DS ---
Physical Exam: SUBJECTIVE: Patient seen and examined OBJECTIVE: Vital Signs Period Temp Pulse Resp BP Sys/Karimi Pulse Ox Last 24 Hr 94.2 F-98.9 F 65-113 18-20 100-158/59-97 92-100 PHYSICAL EXAM GENERAL: The patient is awake, alert, and fully oriented, in no acute distress. HEAD: Normal with no signs of trauma. EYES: PERRL, extraocular movements intact, sclera anicteric, conjunctiva clear. ENT: Ears normal, nares patent, oropharynx clear without exudates, moist mucous membranes. NECK: Trachea midline, full range of motion, supple. LUNGS: Breath sounds equal, clear to auscultation bilaterally, no wheezes, no crackles, no accessory muscle use. HEART: Regular rate and rhythm, S1, S2 without murmur, rub or gallop. ABDOMEN: Soft, nontender, nondistended, normoactive bowel sounds, no guarding, no rebound, no hepatosplenomegaly, no masses. EXTREMITIES: 2+ pulses, warm, well-perfused, no edema. NEUROLOGICAL: Cranial nerves II through XII grossly intact. Normal speech, gait not observed. PSYCH: Normal mood, normal affect. SKIN: Warm, dry, normal turgor, no rashes or lesions noted. LABS Laboratory Results - last 24 hr 11/29/19 11/29/19 08:20 08:20 WBC 7.1 RBC 5.20 Hgb 16.8 Hct 49.3 H MCV 94.7 MCH 32.2 MCHC 34.0 RDW 15.2 Plt Count 235 D MPV 9.6 Absolute Neuts (auto) 5.5 Neutrophils % 77.8 Lymphocytes % 10.3 Monocytes % 10.9 H D Eosinophils % 0.5 D Basophils % 0.5 D Nucleated RBC % 0 Sodium 141 Potassium 4.5 Chloride 106 Carbon Dioxide 29 Anion Gap 6 L BUN 11.9 Creatinine 1.0 Est GFR (CKD-EPI)AfAm 95.06 Est GFR (CKD-EPI)NonAf 82.02 Random Glucose 119 H Calcium 9.0 Phosphorus 3.5 Magnesium 2.3 Total Bilirubin 0.9 AST 30 ALT 48 Alkaline Phosphatase 173 H Total Protein 7.0 Albumin 3.4 HOSPITAL COURSE: Date of Admission:11/27/19 Date of Discharge: 11/29/19 Minutes to complete discharge: 36 Discharge Summary Problems reviewed: Yes Reason For Visit: PNEUMONIA Current Active Problems Pneumonia (Acute) Condition: Improved - Instructions Diet, Activity, Other Instructions: You were admitted to the hospital for weakness and right sided cheek swelling. We did not find any concerning imaging findings. You are being treated with antibiotics. Medications:. Augmentin 875-12mg two times per day via G-tube for 7 more days. You will complete this medication on 12/06/19 Continue to take all other medications as prescribed. Follow up appointments: -Primary care provider Jessa Salinas within 1-2 weeks at your facility. If you have any new, worsening or changing symptoms please return to the ED or call 911. Referrals: Jessa Salinas, OTR [employer] [Primary Care Provider] - 2 Weeks Disposition: ALF FACILITY - Home Medications Comprehensive Discharge Medication List: Ambulatory Orders Citrate Phosphate Dextros Soln [Citrate Phosphate Dextrose] 315 mg GT BID 03/08/19 Denosumab [Prolia -] 60 mg SQ ASDIR 03/08/19 Omeprazole 20 mg GT DAILY 03/08/19 Sennosides/Docusate Sodium [Senna-S Tablet] 2 each GT HS 03/08/19 levETIRAcetam [levETIRAcetam ORAL SUSPENSION] 1,500 mg GT BID 03/08/19 Amoxicillin/Potassium Clav [Augmentin 875-125 Tablet] 1 each GT BID 11/27/19 Diazepam Rectal Gel 7.5 mg [Diastat Rectal Gel 7.5 mg] 12.5 mg RC PRN 11/27/19 Ibuprofen [Motrin -] 400 mg GT QID 11/27/19 Amoxicillin/Potassium Clav [Augmentin 875-125 Tablet] 1 each GT BID 7 Days #14 tablet 11/29/19 ATTENDING PHYSICIAN STATEMENT I saw and evaluated the patient. I reviewed the resident's note and discussed the case with the resident. I agree with the resident's findings and plan as documented. SUBJECTIVE: OBJECTIVE: ASSESSMENT AND PLAN:
--- NOTE | 2019-11-29 15:45 | PN ---
Teaching Attending Note Name of Resident: Kristofer Navarro ATTENDING PHYSICIAN STATEMENT I saw and evaluated the patient. I reviewed the resident's note and discussed the case with the resident. I agree with the resident's findings and plan as documented. SUBJECTIVE: Non-verbal, unable to participate in medical interview. OBJECTIVE: Afebrile, Hemodynamicaly Stable. Non-verbal. Last Vital Signs Temp Pulse Resp BP Pulse Ox 98.1 F 96 H 20 115/88 94 L 11/29/19 14:19 11/29/19 14:19 11/29/19 14:19 11/29/19 14:19 11/29/19 14:19 HEENT - Atraumatic. R maxillary soft tissue swelling much improved - no clear erythema - no abscess/purulence Heart - S1, S2, RRR Lungs - clear to auscultation Abdomen - Soft, PEG in situ Extremities - contractures, wasting Laboratory Results - last 24 hr 11/29/19 11/29/19 08:20 08:20 WBC 7.1 RBC 5.20 Hgb 16.8 Hct 49.3 H MCV 94.7 MCH 32.2 MCHC 34.0 RDW 15.2 Plt Count 235 D MPV 9.6 Absolute Neuts (auto) 5.5 Neutrophils % 77.8 Lymphocytes % 10.3 Monocytes % 10.9 H D Eosinophils % 0.5 D Basophils % 0.5 D Nucleated RBC % 0 Sodium 141 Potassium 4.5 Chloride 106 Carbon Dioxide 29 Anion Gap 6 L BUN 11.9 Creatinine 1.0 Est GFR (CKD-EPI)AfAm 95.06 Est GFR (CKD-EPI)NonAf 82.02 Random Glucose 119 H Calcium 9.0 Phosphorus 3.5 Magnesium 2.3 Total Bilirubin 0.9 AST 30 ALT 48 Alkaline Phosphatase 173 H Total Protein 7.0 Albumin 3.4 Current Medications Generic Name Dose Route Start Last Admin Trade Name Freq PRN Reason Stop Dose Admin Diazepam 12.5 mg 11/28/19 16:40 Diastat Rectal Gel - RC PRN PRN for seizures Enoxaparin Sodium 40 mg 11/28/19 10:00 11/29/19 09:08 Lovenox - SQ 40 mg DAILY CONSTANCE Administration Ampicillin Sodium/Sulbactam 100 mls @ 200 mls/hr 11/28/19 15:09 11/29/19 14:58 Sodium 1.5 gm/ Sodium Chloride IVPB 200 mls/hr Q6H-IV CONSTANCE Administration Ibuprofen 400 mg 11/28/19 15:25 Motrin - PO Q6H PRN FEVER Levetiracetam 1,500 mg 11/27/19 22:00 11/29/19 09:01 Keppra Oral Solution - GT 1,500 mg BID CONSTANCE Administration Non-Formulary Medication 315 mg 11/28/19 22:00 Citrate Phosphate Dextros Soln [Citrate Phosphate Dextrose] GT BID CONSTANCE Senna/Docusate Sodium 2 tablet 11/28/19 22:00 11/28/19 23:50 Pericolace - PO Not Given HS [facility] Home Medications Medication Instructions Recorded Citrate Phosphate Dextros Soln 315 mg GT BID 03/08/19 [Citrate Phosphate Dextrose] Denosumab [Prolia -] 60 mg SQ ASDIR 03/08/19 Omeprazole 20 mg GT DAILY 03/08/19 Sennosides/Docusate Sodium 2 each GT HS 03/08/19 [Senna-S Tablet] levETIRAcetam [levETIRAcetam ORAL 1,500 mg GT BID 03/08/19 SUSPENSION] Amoxicillin/Potassium Clav 1 each GT BID 11/27/19 [Augmentin 875-125 Tablet] Diazepam Rectal Gel 7.5 mg 12.5 mg RC PRN 11/27/19 [Diastat Rectal Gel 7.5 mg] Ibuprofen [Motrin -] 400 mg GT QID 11/27/19 Amoxicillin/Potassium Clav 1 each GT BID 7 Days #14 tablet 11/29/19 [Augmentin 875-125 Tablet] ASSESSMENT AND PLAN: 59 year old male with history of Hydrocephalus, Cerebral Palsy, Seizure Disorder, Functional Quadriplegia, feeds via PEG, Legally blind, Asthma, prior aspiration pneumonia presents from [place] with 1 day history of lethargy and right facial swelling. 1. R Maxillary Cellulitis CT Facial Bones - R mandibular swelling/hydrocephalus/Encephalomalacia Received Cef/Vanco in ED - evaluated by ID - switched to Unasyn, recommendation for 7 additional days of Augmentin by ID. Afebrile, Hemodynamically stable, medically stable for transfer to [place]. 2, RLL Pneumonia, possible aspiration Flu/RSV/COVID negative Afebrile, Hemodynamically Stable. Stable for discharge on 7 days of Augmentin. 3. Seizure Disorder - Continue Keppra 4. Hydrocephalus, Cerebral Palsy, Seizure Disorder, Functional Quadriplegia, feeds via PEG - feeds resumed. 5. Hyperkalemia - resolved. 6. On Denusomab q6mo, reason unclear, history to be obtained. Medically stable and optimized for discharge back to [place].
--- NOTE | 2019-11-29 23:31 | PN ---
Progress Note, Physician Chief Complaint: NOT VERBALLY RESPONSIVE NO ACUTE DISTRESS AFEBRILE WBC WNL - Objective Vital Signs: Vital Signs Temperature 98.1 F 11/29/19 14:19 Pulse Rate 96 H 11/29/19 14:19 Respiratory Rate 20 11/29/19 14:19 Blood Pressure 115/88 11/29/19 14:19 O2 Sat by Pulse Oximetry (%) 94 L 11/29/19 14:19 Constitutional: Yes: No Distress HENT: Yes: Other (DECREASED R FACIAL SWELLING NO ERYTHEMA/WARMTH) Cardiovascular: Yes: Regular Rate and Rhythm, S1, S2 Respiratory: Yes: CTA Bilaterally Edema: No Labs: CBC, BMP 11/29/19 08:20 11/29/19 08:20 INR, PTT INR 0.92 (0.83-1.09) 11/27/19 13:30 Assessment/Plan ? R FACIAL CELLULITIS IMPROVED POSSIBLE ASPIRATION CP/MR SUBSTITUTE AUGMENTIN
== END 2019-11-29 17:18 | disposition home or self-care (01) | DRG 177 ==
LOC: JER 10:08 → JERBED 15:36 → J5S 11-28 12:46
PROC: 3E0G76Z Introduction of Nutritional Substance into Upper GI, Via Natural or Artificial Opening (ICD-10-PCS; principal; 2019-11-27)
DX: J69.0 Pneumonitis due to inhalation of food and vomit (principal); R53.2 Functional quadriplegia; L03.211 Cellulitis of face; G91.9 Hydrocephalus, unspecified; F73 Profound intellectual disabilities; G40.909 Epilepsy, unspecified, not intractable, without status epilepticus; Z93.1 Gastrostomy status; H54.8 Legal blindness, as defined in USA; J45.909 Unspecified asthma, uncomplicated; Q02 Microcephaly; K59.00 Constipation, unspecified; E87.5 Hyperkalemia; G80.9 Cerebral palsy, unspecified; G93.89 Other specified disorders of brain
CPT/HCPCS: 36415; 70486-TC; 71045-TC-FY; 76937; 80053; 82962; 83735; 84100; 85025; 85027; 85610; 87040; 87804; 87807; 93005; 93010; 99285-25; C9803; Q2036; U0003

== ENCOUNTER 2020-09-20 06:29 | Inpatient (IN) | payer OTHER ==
[2020-09-20 08:54] LABS: BASO % 0.2 % (0-2.0); EOS % 0.1 % (0-4.5); HEMATOCRIT 44.4 % (35.4-49); HEMOGLOBIN 15.5 GM/dL (11.7-16.9); LYMPH % 2.3 % (8-40); MCH 32.4 pg (25.7-33.7); MCHC 34.9 g/dl (32.0-35.9); MEAN PLT VOLUME 8.8 fl (7.5-11.1); MONO % 3.1 % (3.8-10.2); NEUT % 94.3 % (42.8-82.8); PLATELET COUNT 266 10^3/uL (134-434); RBC 4.77 M/mm3 (4.00-5.60); WHITE BLOOD COUNT 15.4 K/mm3 (4.0-10.0)
[2020-09-20 08:55] LABS: VENOUS O2 SATURATION 36.2 % (70-80); VENOUS PH 7.247 (7.310-7.410)
[2020-09-20 08:57] LABS: VENOUS PCO2 75.9 mmHg (38-52)
[2020-09-20] MEDS ORDERED: VANCOMYCIN 1 GM in D5W (PRE-DOCKED) 1,000 MG/250 ML IVPB ONE (09:02)
[2020-09-20] MEDS ORDERED: PIPERACILLIN/TAZOB 3.375 GM 3.375 GM in DEXTROSE 5%-WATER - 50 ML IVPB ONE ×2 (09:02→17:00)
[2020-09-20] MEDS ORDERED: SODIUM CHLORIDE 0.9% 500 ML INFUS.BAG IV ONE (09:05)
[2020-09-20] MEDS ORDERED: VANCOMYCIN 1 GRAM (PRE-DOCKED) 1,000 MG/250 ML BAG IVPB ONE (09:09)
[2020-09-20] MEDS ORDERED: PIPERACILLIN/TAZOB 3.375 GM 3.375 GM/50 ML BAG IVPB ONE (09:10)
[2020-09-20 09:12] LABS: ALBUMIN 3.8 g/dl (3.4-5.0); BLOOD UREA NITROGEN 12.8 mg/dL (7-18); CALCIUM 9.4 mg/dL (8.5-10.1)
[2020-09-20 09:15] LABS: CREATININE 0.8 mg/dL (0.55-1.3)
[2020-09-20 09:17] LABS: BILIRUBIN,TOTAL 0.5 mg/dL (0.2-1); TOT PROT 7.5 g/dl (6.4-8.2)
[2020-09-20 10:15] LABS: PLATELET ESTIMATE NORMAL
[2020-09-20 11:33] LABS: ARTERIAL BLD GAS O2 SATURATION 99.8 % (95-98); ARTERIAL BLOOD GAS BASE EXCESS -1.8 mmol/L (-2-2); ARTERIAL BLOOD GAS PO2 369.5 mmHg (80-100); ARTERIAL BLOOD GAS pH 7.315 (7.350-7.450)
[2020-09-20 11:34] LABS: ALLENS TEST POSITIVE
[2020-09-20] MEDS ORDERED: SODIUM CHLORIDE 1,000 ML IV STA (11:56)
[2020-09-20] MEDS ORDERED: DEXAMETHASONE SOD PHOSPHATE 10 MG/1 ML VIAL IVPUSH ONE (11:58)
[2020-09-20] MEDS: ALBUTEROL SO4 2.5/IPRATROPIUM 0.5 INH SOL 3 ML VIAL.NEB. NEB SCH ×5 (12:00→20:19)
[2020-09-20] MEDS ORDERED: ALBUTEROL SO4 0.083% IH SOL 2.5 MG/3 ML VIAL.NEB. NEB PRN (12:30)
[2020-09-20] MEDS: levETIRAcetam 500 MG/5 ML ORAL SOLUTION BULK GT SCH ×2 (14:29→21:59)
[2020-09-20] MEDS: ZINC OXIDE 20% TOPICAL OINTMENT 454 GM JAR TP SCH ×3 (14:29→22:00)
[2020-09-20] MEDS: SODIUM CHLORIDE 1,000 ML IV SCH ×2 (14:29→18:02)
[2020-09-20] MEDS ORDERED: PIPERACILLIN/TAZOBACTAM 3.375 GM VIAL IVPB ONE (17:53)
[2020-09-20] MEDS ORDERED: PIPERACILLIN/TAZOB 3.375 GM 3.375 GM in DEXTROSE 5%-WATER - 50 ML IVPB SCH (18:00)
[2020-09-20] MEDS ORDERED: DEXTROSE 50%-WATER - 25 GM/50 ML VIAL IVPUSH ONE (19:55)
[2020-09-20] MEDS: DOCUSATE NA 100 MG/10 ML UNIT-DOSE CUPS GT SCH (21:59)
[2020-09-20] MEDS: SENNOSIDES 8.8 MG/5 ML BULK BOTTLE GT SCH (21:59)
[2020-09-20] MEDS: methylPREDNISolone NA SUCC 40 MG/1 ML VIAL IVPUSH SCH (21:59)
[2020-09-20] MEDS ORDERED: SENNOSIDES/DOCUSATE COMBO (SENNA PLUS) TABLET (UD) PO SCH (22:00)
[2020-09-20 22:25] LABS: BLOOD UREA NITROGEN 12.8 mg/dL (7-18); CALCIUM 8.7 mg/dL (8.5-10.1)
[2020-09-20 22:29] LABS: CREATININE 0.6 mg/dL (0.55-1.3)
[2020-09-21] MEDS ORDERED: PIPERACILLIN/TAZOBACTAM 3.375 GM VIAL IVPB ONE ×3 (01:20→17:12)
[2020-09-21] MEDS ORDERED: DEXTROSE 5%-WATER - 50 ML IVPB ONE ×3 (01:20→17:12)
[2020-09-21] MEDS: PIPERACILLIN/TAZOB 3.375 GM 3.375 GM in DEXTROSE 5%-WATER - 50 ML IVPB SCH ×3 (01:44→17:33)
[2020-09-21] MEDS: ALBUTEROL SO4 2.5/IPRATROPIUM 0.5 INH SOL 3 ML VIAL.NEB. NEB SCH ×4 (07:30→19:45)
[2020-09-21 07:45] LABS: HEMATOCRIT 39.7 % (35.4-49); HEMOGLOBIN 13.6 GM/dL (11.7-16.9); MCH 31.8 pg (25.7-33.7); MCHC 34.2 g/dl (32.0-35.9); MEAN PLT VOLUME 8.7 fl (7.5-11.1); PLATELET COUNT 207 10^3/uL (134-434); RBC 4.27 M/mm3 (4.00-5.60); RDW 14.1 % (11.9-15.9); WHITE BLOOD COUNT 13.3 K/mm3 (4.0-10.0)
[2020-09-21 07:56] LABS: BLOOD UREA NITROGEN 11.2 mg/dL (7-18); CALCIUM 8.4 mg/dL (8.5-10.1)
[2020-09-21 07:59] LABS: CREATININE 0.7 mg/dL (0.55-1.3)
[2020-09-21 08:01] LABS: BILIRUBIN,TOTAL 0.4 mg/dL (0.2-1); TOT PROT 5.9 g/dl (6.4-8.2)
[2020-09-21 08:05] LABS: ALBUMIN 2.8 g/dl (3.4-5.0)
[2020-09-21] MEDS: ENOXAPARIN NA (PORCINE) 40 MG/0.4 ML DISP.SYRIN SQ SCH (10:29)
[2020-09-21] MEDS: ZINC OXIDE 20% TOPICAL OINTMENT 454 GM JAR TP SCH ×4 (10:29→22:43)
[2020-09-21] MEDS: methylPREDNISolone NA SUCC 40 MG/1 ML VIAL IVPUSH SCH ×2 (10:31→22:43)
[2020-09-21] MEDS: FAMOTIDINE 40 MG/5 ML ORAL SUSPENSION NGT SCH ×2 (10:31→14:27)
[2020-09-21] MEDS: levETIRAcetam 500 MG/5 ML ORAL SOLUTION BULK GT SCH ×2 (10:32→22:42)
[2020-09-21] MEDS: SODIUM CHLORIDE 1,000 ML IV SCH (13:00)
[2020-09-21] MEDS ORDERED: PT OWN MED DRAWER 7, Y5N ONE (13:59)
[2020-09-21] MEDS: DOCUSATE NA 100 MG/10 ML UNIT-DOSE CUPS GT SCH (22:40)
[2020-09-21] MEDS: SENNOSIDES 8.8 MG/5 ML BULK BOTTLE GT SCH (22:42)
[2020-09-22] MEDS: SODIUM CHLORIDE 1,000 ML IV SCH ×2 (00:02→15:17)
[2020-09-22] MEDS ORDERED: PIPERACILLIN/TAZOBACTAM 3.375 GM VIAL IVPB ONE ×3 (00:50→17:22)
[2020-09-22] MEDS ORDERED: DEXTROSE 5%-WATER - 50 ML IVPB ONE ×3 (00:51→17:23)
[2020-09-22] MEDS: PIPERACILLIN/TAZOB 3.375 GM 3.375 GM in DEXTROSE 5%-WATER - 50 ML IVPB SCH ×3 (01:22→17:28)
[2020-09-22] MEDS ORDERED: PT OWN MED DRAWER 7, Y5N ONE ×2 (07:14→10:09)
[2020-09-22] MEDS: ALBUTEROL SO4 2.5/IPRATROPIUM 0.5 INH SOL 3 ML VIAL.NEB. NEB SCH ×4 (07:24→20:10)
[2020-09-22 07:59] LABS: HEMATOCRIT 37.3 % (35.4-49); HEMOGLOBIN 12.9 GM/dL (11.7-16.9); LYMPH % 2.4 % (8-40); MCH 32.1 pg (25.7-33.7); MCHC 34.4 g/dl (32.0-35.9); MEAN CELL VOLUME 93.3 fl (80-96); MEAN PLT VOLUME 9.1 fl (7.5-11.1); MONO % 3.5 % (3.8-10.2); NEUT % 94.1 % (42.8-82.8); PLATELET COUNT 213 10^3/uL (134-434); WHITE BLOOD COUNT 9.9 K/mm3 (4.0-10.0)
[2020-09-22 08:03] LABS: BLOOD UREA NITROGEN 9.3 mg/dL (7-18); CALCIUM 7.8 mg/dL (8.5-10.1)
[2020-09-22 08:04] LABS: ALBUMIN 2.8 g/dl (3.4-5.0)
[2020-09-22 08:07] LABS: CREATININE 0.6 mg/dL (0.55-1.3)
[2020-09-22 08:08] LABS: BILIRUBIN,TOTAL 0.6 mg/dL (0.2-1); TOT PROT 5.8 g/dl (6.4-8.2)
[2020-09-22] MEDS: ZINC OXIDE 20% TOPICAL OINTMENT 454 GM JAR TP SCH ×4 (10:00→21:16)
[2020-09-22] MEDS: ENOXAPARIN NA (PORCINE) 40 MG/0.4 ML DISP.SYRIN SQ SCH (10:11)
[2020-09-22] MEDS: levETIRAcetam 500 MG/5 ML ORAL SOLUTION BULK GT SCH ×2 (10:12→21:16)
[2020-09-22] MEDS: FAMOTIDINE 40 MG/5 ML ORAL SUSPENSION NGT SCH (10:12)
[2020-09-22 10:24] LABS: ANISOCYTOSIS 1+; MACROCYTOSIS 0; PLATELET ESTIMATE NORMAL; TARGET CELLS 1+; TEAR DROP CELLS 1+
[2020-09-22] MEDS: methylPREDNISolone NA SUCC 40 MG/1 ML VIAL IVPUSH SCH ×2 (10:47→21:15)
[2020-09-22 15:21] VITALS: BMI 27.0
[2020-09-22] MEDS: DOCUSATE NA 100 MG/10 ML UNIT-DOSE CUPS GT SCH (21:15)
[2020-09-22] MEDS: SENNOSIDES 8.8 MG/5 ML BULK BOTTLE GT SCH (21:16)
[2020-09-23] MEDS ORDERED: DEXTROSE 5%-WATER - 50 ML IVPB ONE ×3 (00:53→17:00)
[2020-09-23] MEDS ORDERED: PIPERACILLIN/TAZOBACTAM 3.375 GM VIAL IVPB ONE ×3 (00:53→17:00)
[2020-09-23] MEDS: SODIUM CHLORIDE 1,000 ML IV SCH ×2 (01:07→14:14)
[2020-09-23] MEDS: PIPERACILLIN/TAZOB 3.375 GM 3.375 GM in DEXTROSE 5%-WATER - 50 ML IVPB SCH ×3 (01:07→17:11)
[2020-09-23 07:19] LABS: BASO % 0.1 % (0-2.0); HEMATOCRIT 37.5 % (35.4-49); HEMOGLOBIN 12.8 GM/dL (11.7-16.9); LYMPH % 4.1 % (8-40); MCH 32.1 pg (25.7-33.7); MCHC 34.2 g/dl (32.0-35.9); MEAN CELL VOLUME 93.7 fl (80-96); MEAN PLT VOLUME 9.1 fl (7.5-11.1); NEUT % 89.8 % (42.8-82.8); PLATELET COUNT 215 10^3/uL (134-434); RDW 14.1 % (11.9-15.9); WHITE BLOOD COUNT 9.6 K/mm3 (4.0-10.0)
[2020-09-23] MEDS: ALBUTEROL SO4 2.5/IPRATROPIUM 0.5 INH SOL 3 ML VIAL.NEB. NEB SCH ×4 (07:45→20:26)
[2020-09-23 09:07] LABS: ALBUMIN 2.7 g/dl (3.4-5.0); BLOOD UREA NITROGEN 9.9 mg/dL (7-18); CALCIUM 8.3 mg/dL (8.5-10.1)
[2020-09-23 09:10] LABS: CREATININE 0.6 mg/dL (0.55-1.3)
[2020-09-23 09:12] LABS: BILIRUBIN,TOTAL 0.3 mg/dL (0.2-1); TOT PROT 5.6 g/dl (6.4-8.2)
[2020-09-23] MEDS ORDERED: PT OWN MED DRAWER 7, Y5N ONE ×4 (09:51→21:21)
[2020-09-23] MEDS: levETIRAcetam 500 MG/5 ML ORAL SOLUTION BULK GT SCH ×2 (09:59→21:26)
[2020-09-23] MEDS: methylPREDNISolone NA SUCC 40 MG/1 ML VIAL IVPUSH SCH (09:59)
[2020-09-23] MEDS: ENOXAPARIN NA (PORCINE) 40 MG/0.4 ML DISP.SYRIN SQ SCH (09:59)
[2020-09-23] MEDS: FAMOTIDINE 40 MG/5 ML ORAL SUSPENSION NGT SCH (10:00)
[2020-09-23] MEDS: ZINC OXIDE 20% TOPICAL OINTMENT 454 GM JAR TP SCH ×4 (10:01→21:26)
[2020-09-23 13:57] LABS: ARTERIAL BLD GAS O2 SATURATION 94.6 % (95-98); ARTERIAL BLOOD GAS BASE EXCESS 3.8 mmol/L (-2-2); ARTERIAL BLOOD GAS PO2 71.8 mmHg (80-100); ARTERIAL BLOOD GAS pH 7.416 (7.350-7.450)
[2020-09-23 14:06] LABS: ALLENS TEST POSITIVE
[2020-09-23] MEDS ORDERED: FUROSEMIDE 40 MG/4 ML INJECTABLE VIAL IVPUSH ONE (14:27)
[2020-09-23 18:28] LABS: PH,URINE 6.5 (5.0-8.0); URINE APPEARANCE CLEAR; URINE BILIRUBIN NEGATIVE (NEGATIVE); URINE COLOR YELLOW; URINE GLUCOSE (UA) NEGATIVE (NEGATIVE); URINE KETONE NEGATIVE (NEGATIVE); URINE LEUK ESTERASE NEGATIVE (NEGATIVE); URINE NITRITE NEGATIVE (NEGATIVE); URINE PROTEIN TRACE (NEGATIVE); URINE UROBILINOGEN 0.2 mg/dL (0.2-1.0)
[2020-09-23] MEDS: DOCUSATE NA 100 MG/10 ML UNIT-DOSE CUPS GT SCH (21:26)
[2020-09-23] MEDS: SENNOSIDES 8.8 MG/5 ML BULK BOTTLE GT SCH (21:26)
[2020-09-24] MEDS: methylPREDNISolone NA SUCC 40 MG/1 ML VIAL IVPUSH SCH ×3 (00:24→21:38)
[2020-09-24] MEDS ORDERED: DEXTROSE 5%-WATER - 50 ML IVPB ONE ×3 (01:46→16:51)
[2020-09-24] MEDS ORDERED: PIPERACILLIN/TAZOBACTAM 3.375 GM VIAL IVPB ONE ×3 (01:46→16:51)
[2020-09-24] MEDS: PIPERACILLIN/TAZOB 3.375 GM 3.375 GM in DEXTROSE 5%-WATER - 50 ML IVPB SCH ×3 (01:54→17:05)
[2020-09-24] MEDS: ALBUTEROL SO4 2.5/IPRATROPIUM 0.5 INH SOL 3 ML VIAL.NEB. NEB SCH ×4 (07:40→19:25)
[2020-09-24 08:26] LABS: BASO % 0.1 % (0-2.0); HEMATOCRIT 39.3 % (35.4-49); HEMOGLOBIN 13.4 GM/dL (11.7-16.9); LYMPH % 8.2 % (8-40); MCH 31.9 pg (25.7-33.7); MCHC 34.1 g/dl (32.0-35.9); MEAN CELL VOLUME 93.6 fl (80-96); MEAN PLT VOLUME 9.3 fl (7.5-11.1); MONO % 4.8 % (3.8-10.2); NEUT % 86.9 % (42.8-82.8); PLATELET COUNT 213 10^3/uL (134-434); RDW 14.3 % (11.9-15.9); WHITE BLOOD COUNT 7.5 K/mm3 (4.0-10.0)
[2020-09-24] MEDS ORDERED: ALBUTEROL SO4 0.083% IH SOL 2.5 MG/3 ML VIAL.NEB. NEB PRN (08:49)
[2020-09-24 08:54] LABS: CALCIUM 8.4 mg/dL (8.5-10.1)
[2020-09-24 08:55] LABS: ALBUMIN 2.9 g/dl (3.4-5.0); BLOOD UREA NITROGEN 12.2 mg/dL (7-18); MAGNESIUM 2.2 mg/dL (1.8-2.4)
[2020-09-24 08:58] LABS: CREATININE 0.6 mg/dL (0.55-1.3)
[2020-09-24 09:00] LABS: BILIRUBIN,TOTAL 0.3 mg/dL (0.2-1); TOT PROT 6.1 g/dl (6.4-8.2)
[2020-09-24] MEDS ORDERED: PANTOPRAZOLE SODIUM 160 MG in SODIUM CHLORIDE 290 ML IVPB SCH (10:00)
[2020-09-24] MEDS ORDERED: ZINC OXIDE 20% TOPICAL OINTMENT 454 GM JAR TP SCH (10:00)
[2020-09-24] MEDS ORDERED: PANTOPRAZOLE SODIUM 40 MG in SODIUM CHLORIDE 100 ML IVPB SCH (10:00)
[2020-09-24] MEDS ORDERED: PT OWN MED DRAWER 7, Y5N ONE ×2 (10:01→21:36)
[2020-09-24] MEDS: levETIRAcetam 500 MG/5 ML ORAL SOLUTION BULK GT SCH ×2 (10:05→21:38)
[2020-09-24] MEDS: ENOXAPARIN NA (PORCINE) 40 MG/0.4 ML DISP.SYRIN SQ SCH (10:07)
[2020-09-24] MEDS: FAMOTIDINE 40 MG/5 ML ORAL SUSPENSION NGT SCH (10:07)
[2020-09-24] MEDS: ZINC OXIDE 20% TOPICAL OINTMENT 454 GM JAR TP SCH ×4 (10:07→22:52)
[2020-09-24 10:39] LABS: ANISOCYTOSIS 0; MACROCYTOSIS 0; PLATELET ESTIMATE NORMAL
[2020-09-24] MEDS: FUROSEMIDE 40 MG/4 ML INJECTABLE VIAL IVPUSH SCH (15:38)
[2020-09-24] MEDS: DOCUSATE NA 100 MG/10 ML UNIT-DOSE CUPS GT SCH (21:38)
[2020-09-24] MEDS: SENNOSIDES 8.8 MG/5 ML BULK BOTTLE GT SCH (21:39)
[2020-09-25] MEDS ORDERED: DEXTROSE 5%-WATER - 50 ML IVPB ONE ×3 (01:09→16:51)
[2020-09-25] MEDS ORDERED: PIPERACILLIN/TAZOBACTAM 3.375 GM VIAL IVPB ONE ×3 (01:09→16:50)
[2020-09-25] MEDS: PIPERACILLIN/TAZOB 3.375 GM 3.375 GM in DEXTROSE 5%-WATER - 50 ML IVPB SCH ×3 (02:18→21:49)
[2020-09-25] MEDS: ALBUTEROL SO4 2.5/IPRATROPIUM 0.5 INH SOL 3 ML VIAL.NEB. NEB SCH ×4 (07:45→20:30)
[2020-09-25 08:45] LABS: BASO % 0.3 % (0-2.0); HEMOGLOBIN 14.4 GM/dL (11.7-16.9); LYMPH % 6.5 % (8-40); MCH 31.8 pg (25.7-33.7); MCHC 34.4 g/dl (32.0-35.9); MEAN CELL VOLUME 92.3 fl (80-96); MEAN PLT VOLUME 8.7 fl (7.5-11.1); MONO % 6.1 % (3.8-10.2); NEUT % 87.1 % (42.8-82.8); PLATELET COUNT 229 10^3/uL (134-434); RBC 4.54 M/mm3 (4.00-5.60); RDW 14.1 % (11.9-15.9); WHITE BLOOD COUNT 14.4 K/mm3 (4.0-10.0)
[2020-09-25 09:07] LABS: ALBUMIN 2.9 g/dl (3.4-5.0); BLOOD UREA NITROGEN 16.5 mg/dL (7-18); MAGNESIUM 2.1 mg/dL (1.8-2.4)
[2020-09-25 09:10] LABS: CREATININE 0.6 mg/dL (0.55-1.3)
[2020-09-25 09:11] LABS: BILIRUBIN,TOTAL 0.5 mg/dL (0.2-1)
[2020-09-25 09:12] LABS: TOT PROT 6.3 g/dl (6.4-8.2)
[2020-09-25] MEDS ORDERED: PT OWN MED DRAWER 7, Y5N ONE ×2 (10:22→21:48)
[2020-09-25] MEDS: ZINC OXIDE 20% TOPICAL OINTMENT 454 GM JAR TP SCH ×3 (11:02→21:53)
[2020-09-25] MEDS: methylPREDNISolone NA SUCC 40 MG/1 ML VIAL IVPUSH SCH ×2 (11:02→21:51)
[2020-09-25] MEDS: ENOXAPARIN NA (PORCINE) 40 MG/0.4 ML DISP.SYRIN SQ SCH (11:05)
[2020-09-25] MEDS: FAMOTIDINE 40 MG/5 ML ORAL SUSPENSION NGT SCH (11:05)
[2020-09-25] MEDS: levETIRAcetam 500 MG/5 ML ORAL SOLUTION BULK GT SCH ×2 (11:06→21:52)
[2020-09-25] MEDS: FUROSEMIDE 40 MG/4 ML INJECTABLE VIAL IVPUSH SCH (11:06)
[2020-09-25] MEDS ORDERED: ZINC OXIDE/PANTHENOL/VITAMIN E 56 GM TUBE TP PRN (14:54)
[2020-09-25] MEDS: DOCUSATE NA 100 MG/10 ML UNIT-DOSE CUPS GT SCH (21:52)
[2020-09-25] MEDS: SENNOSIDES 8.8 MG/5 ML BULK BOTTLE GT SCH (21:52)
[2020-09-26] MEDS ORDERED: PIPERACILLIN/TAZOBACTAM 3.375 GM VIAL IVPB ONE ×3 (01:31→16:10)
[2020-09-26] MEDS ORDERED: DEXTROSE 5%-WATER - 50 ML IVPB ONE ×3 (01:31→16:10)
[2020-09-26] MEDS: PIPERACILLIN/TAZOB 3.375 GM 3.375 GM in DEXTROSE 5%-WATER - 50 ML IVPB SCH ×3 (02:23→17:57)
[2020-09-26] MEDS: ALBUTEROL SO4 2.5/IPRATROPIUM 0.5 INH SOL 3 ML VIAL.NEB. NEB SCH ×4 (07:45→20:00)
[2020-09-26] MEDS ORDERED: PT OWN MED DRAWER 7, Y5N ONE ×2 (08:50→21:50)
[2020-09-26 09:16] LABS: HEMATOCRIT 44.3 % (35.4-49); HEMOGLOBIN 15.1 GM/dL (11.7-16.9); LYMPH % 8.8 % (8-40); MCH 31.9 pg (25.7-33.7); MCHC 34.2 g/dl (32.0-35.9); MEAN CELL VOLUME 93.2 fl (80-96); MEAN PLT VOLUME 8.6 fl (7.5-11.1); MONO % 7.9 % (3.8-10.2); NEUT % 83.3 % (42.8-82.8); PLATELET COUNT 240 10^3/uL (134-434); RBC 4.75 M/mm3 (4.00-5.60); RDW 13.7 % (11.9-15.9); WHITE BLOOD COUNT 7.1 K/mm3 (4.0-10.0)
[2020-09-26 09:35] LABS: CALCIUM 8.8 mg/dL (8.5-10.1)
[2020-09-26 09:38] LABS: CREATININE 0.8 mg/dL (0.55-1.3)
[2020-09-26 09:39] LABS: BILIRUBIN,TOTAL 0.5 mg/dL (0.2-1)
[2020-09-26 09:40] LABS: TOT PROT 6.5 g/dl (6.4-8.2)
[2020-09-26] MEDS: FUROSEMIDE 40 MG/4 ML INJECTABLE VIAL IVPUSH SCH (09:42)
[2020-09-26] MEDS: methylPREDNISolone NA SUCC 40 MG/1 ML VIAL IVPUSH SCH ×2 (09:43→22:01)
[2020-09-26] MEDS: ENOXAPARIN NA (PORCINE) 40 MG/0.4 ML DISP.SYRIN SQ SCH (09:44)
[2020-09-26] MEDS: FAMOTIDINE 40 MG/5 ML ORAL SUSPENSION NGT SCH (09:44)
[2020-09-26] MEDS: levETIRAcetam 500 MG/5 ML ORAL SOLUTION BULK GT SCH ×2 (09:44→22:02)
[2020-09-26] MEDS: ZINC OXIDE 20% TOPICAL OINTMENT 454 GM JAR TP SCH ×4 (09:46→22:02)
[2020-09-26 11:34] LABS: ANISOCYTOSIS 0; MACROCYTOSIS 0; PLATELET ESTIMATE NORMAL
[2020-09-26 17:24] LABS: ARTERIAL BLD GAS O2 SATURATION 98.2 % (95-98); ARTERIAL BLOOD GAS BASE EXCESS 12.6 mmol/L (-2-2); ARTERIAL BLOOD GAS PO2 106.8 mmHg (80-100); ARTERIAL BLOOD GAS pH 7.508 (7.350-7.450)
[2020-09-26 17:25] LABS: ALLENS TEST POSITIVE; PT'S TEMP 98.6
[2020-09-26] MEDS: SENNOSIDES 8.8 MG/5 ML BULK BOTTLE GT SCH (22:01)
[2020-09-26] MEDS: DOCUSATE NA 100 MG/10 ML UNIT-DOSE CUPS GT SCH (22:02)
[2020-09-27] MEDS ORDERED: DEXTROSE 5%-WATER - 50 ML IVPB ONE ×3 (01:01→16:50)
[2020-09-27] MEDS ORDERED: PIPERACILLIN/TAZOBACTAM 3.375 GM VIAL IVPB ONE ×3 (01:01→16:50)
[2020-09-27] MEDS: PIPERACILLIN/TAZOB 3.375 GM 3.375 GM in DEXTROSE 5%-WATER - 50 ML IVPB SCH ×3 (01:33→17:09)
[2020-09-27 07:01] LABS: BASO % 0.2 % (0-2.0); HEMATOCRIT 43.1 % (35.4-49); LYMPH % 4.3 % (8-40); MCH 32.2 pg (25.7-33.7); MCHC 34.8 g/dl (32.0-35.9); MEAN CELL VOLUME 92.4 fl (80-96); MEAN PLT VOLUME 8.2 fl (7.5-11.1); MONO % 6.7 % (3.8-10.2); NEUT % 88.8 % (42.8-82.8); PLATELET COUNT 238 10^3/uL (134-434); RBC 4.67 M/mm3 (4.00-5.60); WHITE BLOOD COUNT 10.3 K/mm3 (4.0-10.0)
[2020-09-27 07:21] LABS: CALCIUM 8.7 mg/dL (8.5-10.1)
[2020-09-27 07:23] LABS: ALBUMIN 2.8 g/dl (3.4-5.0); BLOOD UREA NITROGEN 24.8 mg/dL (7-18); MAGNESIUM 2.2 mg/dL (1.8-2.4)
[2020-09-27 07:26] LABS: CREATININE 0.8 mg/dL (0.55-1.3)
[2020-09-27 07:27] LABS: BILIRUBIN,TOTAL 0.6 mg/dL (0.2-1); TOT PROT 6.2 g/dl (6.4-8.2)
[2020-09-27] MEDS: ALBUTEROL SO4 2.5/IPRATROPIUM 0.5 INH SOL 3 ML VIAL.NEB. NEB SCH ×4 (07:58→20:07)
[2020-09-27] MEDS ORDERED: PT OWN MED DRAWER 7, Y5N ONE ×2 (08:49→22:05)
[2020-09-27] MEDS: FUROSEMIDE 40 MG/4 ML INJECTABLE VIAL IVPUSH SCH (09:22)
[2020-09-27] MEDS: ENOXAPARIN NA (PORCINE) 40 MG/0.4 ML DISP.SYRIN SQ SCH (09:23)
[2020-09-27] MEDS: methylPREDNISolone NA SUCC 40 MG/1 ML VIAL IVPUSH SCH ×2 (09:23→22:09)
[2020-09-27] MEDS: levETIRAcetam 500 MG/5 ML ORAL SOLUTION BULK GT SCH ×2 (09:24→22:09)
[2020-09-27] MEDS: FAMOTIDINE 40 MG/5 ML ORAL SUSPENSION NGT SCH (09:24)
[2020-09-27] MEDS: ZINC OXIDE 20% TOPICAL OINTMENT 454 GM JAR TP SCH ×4 (09:25→22:10)
[2020-09-27 09:40] LABS: ANISOCYTOSIS 0; HELMET CELLS 0; HOWELL-JOLLY BODIES 0; MACROCYTOSIS 0; OVALOCYTE 0; PLATELET ESTIMATE NORMAL; ROULEAU 0; SICKELED CELLS 0; TARGET CELLS 0; TEAR DROP CELLS 0; TOXIC GRANULATION 0
[2020-09-27] MEDS: SENNOSIDES 8.8 MG/5 ML BULK BOTTLE GT SCH (22:09)
[2020-09-27] MEDS: DOCUSATE NA 100 MG/10 ML UNIT-DOSE CUPS GT SCH (22:09)
[2020-09-28] MEDS ORDERED: PIPERACILLIN/TAZOBACTAM 3.375 GM VIAL IVPB ONE ×3 (01:08→18:49)
[2020-09-28] MEDS ORDERED: DEXTROSE 5%-WATER - 50 ML IVPB ONE ×3 (01:09→18:49)
[2020-09-28] MEDS: PIPERACILLIN/TAZOB 3.375 GM 3.375 GM in DEXTROSE 5%-WATER - 50 ML IVPB SCH ×3 (01:18→18:53)
[2020-09-28] MEDS: ALBUTEROL SO4 2.5/IPRATROPIUM 0.5 INH SOL 3 ML VIAL.NEB. NEB SCH ×4 (07:07→19:50)
[2020-09-28 08:59] LABS: HEMATOCRIT 41.7 % (35.4-49); HEMOGLOBIN 14.4 GM/dL (11.7-16.9); MCH 31.7 pg (25.7-33.7); MCHC 34.4 g/dl (32.0-35.9); MEAN CELL VOLUME 92.1 fl (80-96); MEAN PLT VOLUME 9.2 fl (7.5-11.1); RBC 4.53 M/mm3 (4.00-5.60); RDW 13.9 % (11.9-15.9); WHITE BLOOD COUNT 10.7 K/mm3 (4.0-10.0)
[2020-09-28 09:01] LABS: PLATELET COUNT 250 10^3/uL (134-434)
[2020-09-28 09:21] LABS: ALBUMIN 2.8 g/dl (3.4-5.0); BLOOD UREA NITROGEN 24.3 mg/dL (7-18); MAGNESIUM 2.1 mg/dL (1.8-2.4)
[2020-09-28 09:24] LABS: CREATININE 0.7 mg/dL (0.55-1.3)
[2020-09-28 09:26] LABS: BILIRUBIN,TOTAL 0.5 mg/dL (0.2-1); TOT PROT 6.3 g/dl (6.4-8.2)
[2020-09-28] MEDS ORDERED: PT OWN MED DRAWER 7, Y5N ONE (10:26)
[2020-09-28] MEDS: ENOXAPARIN NA (PORCINE) 40 MG/0.4 ML DISP.SYRIN SQ SCH (10:35)
[2020-09-28] MEDS: levETIRAcetam 500 MG/5 ML ORAL SOLUTION BULK GT SCH ×2 (10:36→21:18)
[2020-09-28] MEDS: FUROSEMIDE 40 MG/4 ML INJECTABLE VIAL IVPUSH SCH (10:38)
[2020-09-28] MEDS: FAMOTIDINE 40 MG/5 ML ORAL SUSPENSION NGT SCH (10:38)
[2020-09-28] MEDS: methylPREDNISolone NA SUCC 40 MG/1 ML VIAL IVPUSH SCH ×2 (10:38→21:18)
[2020-09-28] MEDS: ZINC OXIDE 20% TOPICAL OINTMENT 454 GM JAR TP SCH ×4 (10:39→21:20)
[2020-09-28 10:42] LABS: ANISOCYTOSIS 1+; MACROCYTOSIS 1+; PLATELET ESTIMATE NORMAL
[2020-09-28] MEDS ORDERED: ZINC OXIDE/PANTHENOL/VITAMIN E 56 GM TUBE TP PRN (12:07)
[2020-09-28] MEDS ORDERED: ALBUTEROL SO4 0.083% IH SOL 2.5 MG/3 ML VIAL.NEB. NEB PRN (12:07)
[2020-09-28] MEDS: SENNOSIDES 8.8 MG/5 ML BULK BOTTLE GT SCH (21:17)
[2020-09-28] MEDS: DOCUSATE NA 100 MG/10 ML UNIT-DOSE CUPS GT SCH (21:18)
[2020-09-29] MEDS ORDERED: PIPERACILLIN/TAZOBACTAM 3.375 GM VIAL IVPB ONE ×2 (00:40→09:41)
[2020-09-29] MEDS ORDERED: DEXTROSE 5%-WATER - 50 ML IVPB ONE ×2 (00:40→09:41)
[2020-09-29] MEDS: PIPERACILLIN/TAZOB 3.375 GM 3.375 GM in DEXTROSE 5%-WATER - 50 ML IVPB SCH ×2 (02:03→09:49)
[2020-09-29] MEDS: ALBUTEROL SO4 2.5/IPRATROPIUM 0.5 INH SOL 3 ML VIAL.NEB. NEB SCH ×4 (08:01→20:10)
[2020-09-29 08:56] LABS: BASO % 0.1 % (0-2.0); HEMATOCRIT 43.7 % (35.4-49); MCH 31.8 pg (25.7-33.7); MCHC 34.4 g/dl (32.0-35.9); MEAN CELL VOLUME 92.6 fl (80-96); MEAN PLT VOLUME 8.1 fl (7.5-11.1); MONO % 11.7 % (3.8-10.2); NEUT % 82.2 % (42.8-82.8); PLATELET COUNT 295 10^3/uL (134-434); RBC 4.72 M/mm3 (4.00-5.60); RDW 13.8 % (11.9-15.9); WHITE BLOOD COUNT 8.9 K/mm3 (4.0-10.0)
[2020-09-29 09:20] LABS: CALCIUM 9.1 mg/dL (8.5-10.1)
[2020-09-29 09:21] LABS: BLOOD UREA NITROGEN 32.6 mg/dL (7-18); MAGNESIUM 2.2 mg/dL (1.8-2.4)
[2020-09-29 09:25] LABS: BILIRUBIN,TOTAL 0.5 mg/dL (0.2-1); CREATININE 0.9 mg/dL (0.55-1.3); TOT PROT 6.7 g/dl (6.4-8.2)
[2020-09-29] MEDS: methylPREDNISolone NA SUCC 40 MG/1 ML VIAL IVPUSH SCH (09:54)
[2020-09-29] MEDS ORDERED: FUROSEMIDE 40 MG/4 ML INJECTABLE VIAL IVPUSH SCH (10:00)
[2020-09-29] MEDS: ENOXAPARIN NA (PORCINE) 40 MG/0.4 ML DISP.SYRIN SQ SCH (10:04)
[2020-09-29] MEDS: levETIRAcetam 500 MG/5 ML ORAL SOLUTION BULK GT SCH ×2 (10:05→22:08)
[2020-09-29] MEDS: ZINC OXIDE 20% TOPICAL OINTMENT 454 GM JAR TP SCH ×4 (10:06→22:09)
[2020-09-29] MEDS: FAMOTIDINE 40 MG/5 ML ORAL SUSPENSION NGT SCH (10:06)
[2020-09-29] MEDS ORDERED: PT OWN MED DRAWER 7, Y5N ONE ×4 (10:15→22:11)
[2020-09-29] MEDS: SENNOSIDES 8.8 MG/5 ML BULK BOTTLE GT SCH (22:09)
[2020-09-29] MEDS: DOCUSATE NA 100 MG/10 ML UNIT-DOSE CUPS GT SCH (22:09)
[2020-09-30] MEDS: ALBUTEROL SO4 2.5/IPRATROPIUM 0.5 INH SOL 3 ML VIAL.NEB. NEB SCH ×4 (08:17→20:19)
[2020-09-30 08:59] LABS: BASO % 0.2 % (0-2.0); EOS % 0.2 % (0-4.5); HEMATOCRIT 45.9 % (35.4-49); HEMOGLOBIN 15.7 GM/dL (11.7-16.9); MCH 32.1 pg (25.7-33.7); MCHC 34.3 g/dl (32.0-35.9); MEAN CELL VOLUME 93.6 fl (80-96); MEAN PLT VOLUME 8.4 fl (7.5-11.1); MONO % 11.5 % (3.8-10.2); NEUT % 76.1 % (42.8-82.8); PLATELET COUNT 315 10^3/uL (134-434); RDW 13.9 % (11.9-15.9)
[2020-09-30 09:11] LABS: ALBUMIN 3.1 g/dl (3.4-5.0); BLOOD UREA NITROGEN 30.6 mg/dL (7-18); CALCIUM 9.3 mg/dL (8.5-10.1)
[2020-09-30 09:13] LABS: MAGNESIUM 2.2 mg/dL (1.8-2.4)
[2020-09-30 09:15] LABS: CREATININE 0.7 mg/dL (0.55-1.3)
[2020-09-30 09:16] LABS: BILIRUBIN,TOTAL 0.6 mg/dL (0.2-1); TOT PROT 6.6 g/dl (6.4-8.2)
[2020-09-30] MEDS: ENOXAPARIN NA (PORCINE) 40 MG/0.4 ML DISP.SYRIN SQ SCH (09:27)
[2020-09-30] MEDS: levETIRAcetam 500 MG/5 ML ORAL SOLUTION BULK GT SCH ×2 (09:27→21:38)
[2020-09-30] MEDS: FUROSEMIDE 40 MG/5 ML UNIT-DOSE CUP GT SCH (09:28)
[2020-09-30] MEDS: FAMOTIDINE 40 MG/5 ML ORAL SUSPENSION NGT SCH (09:28)
[2020-09-30] MEDS: ZINC OXIDE 20% TOPICAL OINTMENT 454 GM JAR TP SCH ×4 (09:29→21:40)
[2020-09-30] MEDS ORDERED: methylPREDNISolone NA SUCC 40 MG/1 ML VIAL IVPUSH SCH (10:00)
[2020-09-30] MEDS ORDERED: POTASSIUM CHLORIDE ORAL LIQUID 20 MEQ/15 ML GT ONE (10:30)
[2020-09-30] MEDS: DOCUSATE NA 100 MG/10 ML UNIT-DOSE CUPS GT SCH (21:38)
[2020-09-30] MEDS: SENNOSIDES 8.8 MG/5 ML BULK BOTTLE GT SCH (21:38)
[2020-10-01] MEDS: ALBUTEROL SO4 2.5/IPRATROPIUM 0.5 INH SOL 3 ML VIAL.NEB. NEB SCH ×2 (07:53→11:20)
[2020-10-01] MEDS ORDERED: PT OWN MED DRAWER 7, Y5N ONE (10:43)
[2020-10-01] MEDS: ENOXAPARIN NA (PORCINE) 40 MG/0.4 ML DISP.SYRIN SQ SCH (10:45)
[2020-10-01] MEDS: FAMOTIDINE 40 MG/5 ML ORAL SUSPENSION NGT SCH (10:45)
[2020-10-01] MEDS: levETIRAcetam 500 MG/5 ML ORAL SOLUTION BULK GT SCH (10:46)
[2020-10-01] MEDS: FUROSEMIDE 40 MG/5 ML UNIT-DOSE CUP GT SCH (10:46)
[2020-10-01] MEDS: ZINC OXIDE 20% TOPICAL OINTMENT 454 GM JAR TP SCH ×2 (10:47→14:56)
[2020-10-01 12:27] VITALS: BP 117/75; PULSE 88; TEMP 98.5
== END 2020-10-01 14:47 | DRG 871 ==
LOC: JER 06:29 → JERBED 09:21 → J6S 13:08 → J4S 17:38 → J8W 09-28 11:53
PROVIDERS: ADMIT Internal Medicine; ATTEND Nurse Practitioner Acute Care
DX: A41.9 Sepsis, unspecified organism (principal); J18.9 Pneumonia, unspecified organism; J96.01 Acute respiratory failure with hypoxia; R53.2 Functional quadriplegia; J96.02 Acute respiratory failure with hypercapnia; G93.41 Metabolic encephalopathy; G91.9 Hydrocephalus, unspecified; G40.909 Epilepsy, unspecified, not intractable, without status epilepticus; H54.8 Legal blindness, as defined in USA; J45.909 Unspecified asthma, uncomplicated; Z93.1 Gastrostomy status; K21.9 Gastro-esophageal reflux disease without esophagitis; F79 Unspecified intellectual disabilities
CPT/HCPCS: 36415; 36600; 70450-TC; 71045-TC-FY; 71250-TC; 80048; 80053; 81003; 82803; 82962; 83036; 83605; 83735; 84100; 85025; 85027; 85379; 87040; 87086; 87899; 93005; 93010; 93306-TC; 94640; 99285-25; C9803; J1100; U0003; U0005

== ENCOUNTER 2020-12-06 10:59 | Emergency (ER) | payer OTHER ==
[2020-12-06 11:51] VITALS: BMI 19.3
[2020-12-06 12:50] LABS: BASO % 0.9 % (0-2.0); EOS % 0.6 % (0-4.5); HEMATOCRIT 43.8 % (35.4-49); HEMOGLOBIN 15.1 GM/dL (11.7-16.9); LYMPH % 16.7 % (8-40); MCHC 34.5 g/dl (32.0-35.9); MEAN PLT VOLUME 8.7 fl (7.5-11.1); MONO % 8.4 % (3.8-10.2); NEUT % 73.4 % (42.8-82.8); PLATELET COUNT 263 10^3/uL (134-434); RBC 4.71 M/mm3 (4.00-5.60); RDW 14.3 % (11.9-15.9); WHITE BLOOD COUNT 8.5 K/mm3 (4.0-10.0)
[2020-12-06 13:52] LABS: CHLORIDE 117 mmol/L (98-107); SODIUM 147 mmol/L (136-145)
[2020-12-06 13:54] LABS: ANION GAP 9 MMOL/L (8-16); BLOOD UREA NITROGEN 11.7 mg/dL (7-18); CO2 21 mmol/L (21-32); GLUCOSE,RANDOM 61 mg/dL (74-106)
[2020-12-06 13:57] LABS: CREATININE 0.4 mg/dL (0.55-1.3); SGPT/ALT 29 U/L (13-61)
[2020-12-06 13:58] LABS: SGOT/AST 25 U/L (15-37)
[2020-12-06 14:00] LABS: ALK PHOS 115 U/L (45-117); BILIRUBIN,TOTAL 0.3 mg/dL (0.2-1); TOT PROT 4.4 g/dl (6.4-8.2)
[2020-12-06] MEDS ORDERED: POTASSIUM CHLORIDE ORAL LIQUID 20 MEQ/15 ML PO ONE (14:15)
[2020-12-06 14:37] LABS: CALCIUM 5.7 mg/dL (8.5-10.1)
[2020-12-06] MEDS ORDERED: POTASSIUM CHLORIDE ORAL LIQUID 20 MEQ/15 ML ONE (14:37)
[2020-12-06 21:54] VITALS: BP 127/87; PULSE 104; TEMP 99.6
== END 2020-12-06 22:34 | disposition home or self-care (01) ==
LOC: JER 10:59
DX: R05.9 Cough, unspecified (principal)
CPT/HCPCS: 36415; 71045-TC-FY; 80053; 85025; 93005; 93010; 99284-25

== ENCOUNTER 2020-12-06 23:52 | Emergency (ER) | payer OTHER ==
[2020-12-07 00:18] VITALS: BMI 19.3
[2020-12-07] MEDS ORDERED: MAGNESIUM SULF 50% (8.12 MEQ/2 ML-1 GM VIAL) IVPB ONE (01:11)
[2020-12-07] MEDS ORDERED: LACTATED RINGERS SOLUTION 1,000 ML/1,000 ML INFUS.BAG IV SCH (01:15)
[2020-12-07] MEDS ORDERED: MAGNESIUM SULFATE IN WATER 2 GM/50 ML IVPB IVPB ONE (01:33)
[2020-12-07 02:45] LABS: BLOOD UREA NITROGEN 18.3 mg/dL (7-18)
[2020-12-07 02:48] LABS: CREATININE 0.9 mg/dL (0.55-1.3)
[2020-12-07 02:50] LABS: BILIRUBIN,TOTAL 0.6 mg/dL (0.2-1)
[2020-12-07 03:06] LABS: ALBUMIN 3.7 g/dl (3.4-5.0); CALCIUM 8.7 mg/dL (8.5-10.1)
[2020-12-07 12:35] VITALS: BP 140/77; PULSE 94; TEMP 98.2
== END 2020-12-07 12:55 | disposition home or self-care (01) ==
LOC: JER 23:52
PROC: 3E033NZ Introduction of Analgesics, Hypnotics, Sedatives into Peripheral Vein, Percutaneous Approach (ICD-10-PCS; principal; 2020-12-07)
DX: R05.9 Cough, unspecified (principal)
CPT/HCPCS: 36415; 71045-TC-FY; 80053; 83605; 85025; 93005; 93010; 96374; 99284-25

== ENCOUNTER 2021-02-28 21:37 | Inpatient (IN) | payer OTHER ==
[2021-02-28 21:55] VITALS: BMI 20.9
[2021-02-28] MEDS ORDERED: DEXAMETHASONE SOD PHOSPHATE 10 MG/1 ML VIAL IVPUSH ONE (21:59)
[2021-02-28] MEDS ORDERED: ALBUTEROL SO4 2.5/IPRATROPIUM 0.5 INH SOL 3 ML VIAL.NEB. NEB ONE ×2 (22:00→22:05)
[2021-02-28] MEDS ORDERED: DEXAMETHASONE SOD PHOSPHATE 10 MG/1 ML VIAL ONE (22:05)
[2021-02-28 22:40] LABS: VENOUS BASE EXCESS 3.2 mmol/L (-2-2); VENOUS O2 SATURATION 91.3 % (70-80); VENOUS PCO2 46.7 mmHg (38-52); VENOUS PH 7.407 (7.310-7.410)
[2021-02-28 22:44] LABS: INR 1.04 (0.83-1.09)
[2021-02-28 22:45] LABS: BASO % 0.1 % (0-2.0); EOS % 0.1 % (0-4.5); HEMATOCRIT 46.5 % (35.4-49); HEMOGLOBIN 15.9 GM/dL (11.7-16.9); LYMPH % 4.9 % (8-40); MCH 31.1 pg (25.7-33.7); MCHC 34.1 g/dl (32.0-35.9); MEAN CELL VOLUME 91.2 fl (80-96); MEAN PLT VOLUME 8.6 fl (7.5-11.1); MONO % 8.4 % (3.8-10.2); NEUT % 86.5 % (42.8-82.8); PLATELET COUNT 267 10^3/uL (134-434); RBC 5.11 M/mm3 (4.00-5.60); RDW 13.8 % (11.9-15.9); WHITE BLOOD COUNT 9.5 K/mm3 (4.0-10.0)
[2021-02-28 22:47] LABS: ACTIVATED PTT 36.7 SECONDS (25.2-36.5)
[2021-02-28 22:56] LABS: CHLORIDE 98 mmol/L (98-107); SODIUM 135 mmol/L (136-145)
[2021-02-28 22:58] LABS: CALCIUM 9.6 mg/dL (8.5-10.1)
[2021-02-28 22:59] LABS: ALBUMIN 3.9 g/dl (3.4-5.0); ANION GAP 9 MMOL/L (8-16); BLOOD UREA NITROGEN 16.2 mg/dL (7-18); CO2 28 mmol/L (21-32); GLUCOSE,RANDOM 83 mg/dL (74-106)
[2021-02-28 23:01] LABS: BILIRUBIN,DIRECT 0.1 mg/dL (0.0-0.2)
[2021-02-28 23:02] LABS: CREATININE 0.9 mg/dL (0.55-1.3); SGOT/AST 41 U/L (15-37); SGPT/ALT 46 U/L (13-61)
[2021-02-28 23:03] LABS: BILIRUBIN,TOTAL 0.5 mg/dL (0.2-1); LDH 251 U/L (87-246); TOT PROT 7.5 g/dl (6.4-8.2)
[2021-02-28 23:04] LABS: ALK PHOS 170 U/L (45-117)
[2021-02-28 23:13] LABS: EPI CELLS 7 /uL (0-25.1); HYALINE CASTS 3 /uL (0-3.1); PH,URINE 6.5 (5.0-8.0); URINE APPEARANCE CLOUDY; URINE BACTERIA 12 /uL (0-1359); URINE BILIRUBIN NEGATIVE (NEGATIVE); URINE COLOR YELLOW; URINE GLUCOSE (UA) NEGATIVE (NEGATIVE); URINE KETONE 2+ (NEGATIVE); URINE LEUK ESTERASE NEGATIVE (NEGATIVE); URINE NITRITE NEGATIVE (NEGATIVE); URINE PROTEIN TRACE (NEGATIVE); URINE RBC 160 /uL (0-23.9); URINE UROBILINOGEN 0.2 mg/dL (0.2-1.0); URINE WBC 8 /uL (0-25.8)
[2021-03-01] MEDS ORDERED: ALBUTEROL SO4 0.083% IH SOL 2.5 MG/3 ML VIAL.NEB. NEB PRN (01:24)
[2021-03-01] MEDS ORDERED: ASCORBIC ACID 500 MG TABLET (FP) ONE ×3 (03:33→22:25)
[2021-03-01] MEDS: ASCORBIC ACID 500 MG TABLET (FP) PO SCH ×3 (03:40→23:00)
[2021-03-01] MEDS ORDERED: ALBUTEROL SO4 2.5/IPRATROPIUM 0.5 INH SOL 3 ML VIAL.NEB. NEB ONE ×5 (04:03→21:04)
[2021-03-01] MEDS: ALBUTEROL SO4 2.5/IPRATROPIUM 0.5 INH SOL 3 ML VIAL.NEB. NEB SCH ×5 (04:17→21:49)
[2021-03-01 07:40] LABS: HEMATOCRIT 49.8 % (35.4-49); HEMOGLOBIN 16.4 GM/dL (11.7-16.9); MCH 30.7 pg (25.7-33.7); MEAN CELL VOLUME 93.1 fl (80-96); MEAN PLT VOLUME 9.3 fl (7.5-11.1); PLATELET COUNT 276 10^3/uL (134-434); RBC 5.35 M/mm3 (4.00-5.60); RDW 14.1 % (11.9-15.9)
[2021-03-01 08:09] LABS: CALCIUM 9.7 mg/dL (8.5-10.1)
[2021-03-01 08:10] LABS: ALBUMIN 3.8 g/dl (3.4-5.0); BLOOD UREA NITROGEN 15.1 mg/dL (7-18); MAGNESIUM 2.5 mg/dL (1.8-2.4)
[2021-03-01 08:13] LABS: CREATININE 0.8 mg/dL (0.55-1.3)
[2021-03-01 08:14] LABS: BILIRUBIN,TOTAL 0.5 mg/dL (0.2-1)
[2021-03-01 08:16] LABS: TOT PROT 7.6 g/dl (6.4-8.2)
[2021-03-01] MEDS ORDERED: ENOXAPARIN NA (PORCINE) 40 MG/0.4 ML DISP.SYRIN SQ ONE (08:54)
[2021-03-01] MEDS ORDERED: DEXAMETHASONE 4 MG TABLET (FP) ONE (08:54)
[2021-03-01] MEDS ORDERED: REMDESIVIR 200 MG in SODIUM CHLORIDE 250 ML IVPB ONE ×2 (09:00→13:26)
[2021-03-01] MEDS: ENOXAPARIN NA (PORCINE) 40 MG/0.4 ML DISP.SYRIN SQ SCH (09:35)
[2021-03-01] MEDS: DEXAMETHASONE SOD PHOSPHATE 10 MG/1 ML VIAL IVPUSH SCH (09:35)
[2021-03-01] MEDS: levETIRAcetam 500 MG/5 ML ORAL SOLUTION (UNIT-DOSE CUPS) PEG SCH ×2 (09:58→23:00)
[2021-03-01] MEDS ORDERED: DEXAMETHASONE SOD PHOSPHATE 10 MG/1 ML VIAL IVPUSH SCH (10:00)
[2021-03-01] MEDS ORDERED: levETIRAcetam 500 MG/5 ML ORAL SOLUTION (UNIT-DOSE CUPS) PO SCH (10:00)
[2021-03-01] MEDS ORDERED: DEXAMETHASONE 4 MG TABLET (FP) PO SCH (10:00)
[2021-03-01] MEDS: BARICITINIB 1 MG/10 ML LIQUID NGT SCH (16:50)
[2021-03-02 02:30] LABS: HEMATOCRIT 42.8 % (35.4-49); HEMOGLOBIN 14.6 GM/dL (11.7-16.9); MCH 31.1 pg (25.7-33.7); MEAN CELL VOLUME 91.4 fl (80-96); MEAN PLT VOLUME 9.1 fl (7.5-11.1); PLATELET COUNT 245 10^3/uL (134-434); RBC 4.69 M/mm3 (4.00-5.60); RDW 13.9 % (11.9-15.9); WHITE BLOOD COUNT 11.8 K/mm3 (4.0-10.0)
[2021-03-02] MEDS: ALBUTEROL SO4 2.5/IPRATROPIUM 0.5 INH SOL 3 ML VIAL.NEB. NEB SCH ×6 (02:37→21:40)
[2021-03-02 03:29] LABS: ANISOCYTOSIS 1+; MACROCYTOSIS 1+; PLATELET ESTIMATE NORMAL
[2021-03-02] MEDS ORDERED: PT OWN MED DRAWER 7, Y5N ONE (09:20)
[2021-03-02] MEDS: DEXAMETHASONE SOD PHOSPHATE 10 MG/1 ML VIAL IVPUSH SCH (09:22)
[2021-03-02] MEDS: ENOXAPARIN NA (PORCINE) 40 MG/0.4 ML DISP.SYRIN SQ SCH (09:24)
[2021-03-02] MEDS: levETIRAcetam 500 MG/5 ML ORAL SOLUTION (UNIT-DOSE CUPS) PEG SCH ×2 (09:24→22:10)
[2021-03-02] MEDS: BARICITINIB 1 MG/10 ML LIQUID NGT SCH (09:25)
[2021-03-02 09:37] LABS: ALBUMIN 3.4 g/dl (3.4-5.0); BLOOD UREA NITROGEN 20.5 mg/dL (7-18); CREATININE 0.8 mg/dL (0.55-1.3)
[2021-03-02 09:38] LABS: BILIRUBIN,TOTAL 0.4 mg/dL (0.2-1); TOT PROT 6.9 g/dl (6.4-8.2)
[2021-03-02 09:40] LABS: CALCIUM 9.2 mg/dL (8.5-10.1); MAGNESIUM 2.5 mg/dL (1.8-2.4)
[2021-03-02] MEDS ORDERED: FLU VACC QS2021-22(6MOS UP)/PF 60 MCG/0.5 ML SYRINGE IM ONE (10:00)
[2021-03-02] MEDS ORDERED: ASCORBIC ACID 500 MG/5 ML GT SCH (12:23)
[2021-03-02] MEDS: ASCORBIC ACID 500 MG TABLET (FP) PO SCH (13:07)
[2021-03-02] MEDS ORDERED: REMDESIVIR 100 MG in SODIUM CHLORIDE 250 ML IVPB SCH (13:26)
[2021-03-02] MEDS: REMDESIVIR 100 MG in SODIUM CHLORIDE 250 ML IVPB SCH (13:37)
[2021-03-02] MEDS: ASCORBIC ACID 500 MG/5 ML GT SCH (22:10)
[2021-03-03 08:21] LABS: HEMATOCRIT 41.9 % (35.4-49); HEMOGLOBIN 13.9 GM/dL (11.7-16.9); LYMPH % 12.2 % (8-40); MCH 30.9 pg (25.7-33.7); MCHC 33.3 g/dl (32.0-35.9); MEAN CELL VOLUME 92.7 fl (80-96); MEAN PLT VOLUME 9.1 fl (7.5-11.1); MONO % 6.6 % (3.8-10.2); NEUT % 81.2 % (42.8-82.8); PLATELET COUNT 244 10^3/uL (134-434); RBC 4.51 M/mm3 (4.00-5.60); RDW 14.2 % (11.9-15.9); WHITE BLOOD COUNT 6.8 K/mm3 (4.0-10.0)
[2021-03-03 08:34] LABS: CALCIUM 8.9 mg/dL (8.5-10.1)
[2021-03-03 08:35] LABS: ALBUMIN 3.1 g/dl (3.4-5.0); BLOOD UREA NITROGEN 25.6 mg/dL (7-18); MAGNESIUM 2.1 mg/dL (1.8-2.4)
[2021-03-03 08:38] LABS: CREATININE 0.6 mg/dL (0.55-1.3)
[2021-03-03 08:39] LABS: TOT PROT 6.5 g/dl (6.4-8.2)
[2021-03-03 08:40] LABS: BILIRUBIN,TOTAL 0.3 mg/dL (0.2-1)
[2021-03-03] MEDS: ENOXAPARIN NA (PORCINE) 40 MG/0.4 ML DISP.SYRIN SQ SCH (09:19)
[2021-03-03] MEDS: DEXAMETHASONE SOD PHOSPHATE 10 MG/1 ML VIAL IVPUSH SCH (09:20)
[2021-03-03] MEDS: ASCORBIC ACID 500 MG/5 ML GT SCH ×2 (09:21→22:00)
[2021-03-03] MEDS: BARICITINIB 1 MG/10 ML LIQUID NGT SCH (09:22)
[2021-03-03] MEDS: levETIRAcetam 500 MG/5 ML ORAL SOLUTION (UNIT-DOSE CUPS) PEG SCH ×2 (09:22→22:00)
[2021-03-03] MEDS: ALBUTEROL SO4 2.5/IPRATROPIUM 0.5 INH SOL 3 ML VIAL.NEB. NEB SCH ×2 (11:00→20:30)
[2021-03-03] MEDS: BUDESONIDE 0.5 MG/2 ML INH SUSP VIAL NEB SCH (11:01)
[2021-03-03] MEDS: REMDESIVIR 100 MG in SODIUM CHLORIDE 250 ML IVPB SCH (14:07)
[2021-03-04] MEDS: ALBUTEROL SO4 2.5/IPRATROPIUM 0.5 INH SOL 3 ML VIAL.NEB. NEB SCH ×6 (03:47→20:10)
[2021-03-04 08:56] LABS: HEMATOCRIT 43.2 % (35.4-49); HEMOGLOBIN 14.1 GM/dL (11.7-16.9); LYMPH % 12.3 % (8-40); MCH 30.4 pg (25.7-33.7); MCHC 32.7 g/dl (32.0-35.9); MEAN PLT VOLUME 9.1 fl (7.5-11.1); MONO % 10.6 % (3.8-10.2); NEUT % 77.1 % (42.8-82.8); PLATELET COUNT 253 10^3/uL (134-434); RBC 4.64 M/mm3 (4.00-5.60); RDW 13.8 % (11.9-15.9); WHITE BLOOD COUNT 7.2 K/mm3 (4.0-10.0)
[2021-03-04 09:30] LABS: ALBUMIN 3.1 g/dl (3.4-5.0); CALCIUM 9.3 mg/dL (8.5-10.1); MAGNESIUM 2.2 mg/dL (1.8-2.4)
[2021-03-04 09:33] LABS: CREATININE 0.5 mg/dL (0.55-1.3)
[2021-03-04 09:34] LABS: BILIRUBIN,TOTAL 0.3 mg/dL (0.2-1); TOT PROT 6.4 g/dl (6.4-8.2)
[2021-03-04] MEDS: DEXAMETHASONE SOD PHOSPHATE 10 MG/1 ML VIAL IVPUSH SCH (09:42)
[2021-03-04] MEDS: ENOXAPARIN NA (PORCINE) 40 MG/0.4 ML DISP.SYRIN SQ SCH (09:43)
[2021-03-04] MEDS: levETIRAcetam 500 MG/5 ML ORAL SOLUTION (UNIT-DOSE CUPS) PEG SCH ×2 (09:43→22:02)
[2021-03-04] MEDS: ASCORBIC ACID 500 MG/5 ML GT SCH ×2 (09:44→22:01)
[2021-03-04] MEDS: BARICITINIB 1 MG/10 ML LIQUID NGT SCH (09:45)
[2021-03-04] MEDS: REMDESIVIR 100 MG in SODIUM CHLORIDE 250 ML IVPB SCH (14:11)
[2021-03-04] MEDS: BUDESONIDE 0.5 MG/2 ML INH SUSP VIAL NEB SCH (20:10)
[2021-03-05] MEDS: BUDESONIDE 0.5 MG/2 ML INH SUSP VIAL NEB SCH (02:10)
[2021-03-05] MEDS: ALBUTEROL SO4 2.5/IPRATROPIUM 0.5 INH SOL 3 ML VIAL.NEB. NEB SCH ×2 (02:10)
[2021-03-05 08:08] LABS: HEMATOCRIT 41.3 % (35.4-49); HEMOGLOBIN 13.9 GM/dL (11.7-16.9); LYMPH % 19.5 % (8-40); MCH 31.3 pg (25.7-33.7); MCHC 33.7 g/dl (32.0-35.9); MEAN CELL VOLUME 92.7 fl (80-96); MEAN PLT VOLUME 8.9 fl (7.5-11.1); MONO % 10.4 % (3.8-10.2); NEUT % 70.1 % (42.8-82.8); PLATELET COUNT 218 10^3/uL (134-434); RBC 4.46 M/mm3 (4.00-5.60); RDW 14.2 % (11.9-15.9); WHITE BLOOD COUNT 6.2 K/mm3 (4.0-10.0)
[2021-03-05] MEDS: ASCORBIC ACID 500 MG/5 ML GT SCH ×2 (10:21→22:11)
[2021-03-05] MEDS: ENOXAPARIN NA (PORCINE) 40 MG/0.4 ML DISP.SYRIN SQ SCH (10:21)
[2021-03-05] MEDS: DEXAMETHASONE SOD PHOSPHATE 10 MG/1 ML VIAL IVPUSH SCH (10:21)
[2021-03-05] MEDS: levETIRAcetam 500 MG/5 ML ORAL SOLUTION (UNIT-DOSE CUPS) PEG SCH ×2 (10:21→22:11)
[2021-03-05] MEDS: BARICITINIB 1 MG/10 ML LIQUID NGT SCH (10:22)
[2021-03-05 14:25] LABS: BLOOD UREA NITROGEN 22.8 mg/dL (7-18); CALCIUM 9.1 mg/dL (8.5-10.1)
[2021-03-05 14:26] LABS: ALBUMIN 3.1 g/dl (3.4-5.0); MAGNESIUM 2.3 mg/dL (1.8-2.4)
[2021-03-05] MEDS: REMDESIVIR 100 MG in SODIUM CHLORIDE 250 ML IVPB SCH (14:26)
[2021-03-05 14:28] LABS: CREATININE 0.5 mg/dL (0.55-1.3)
[2021-03-05 14:30] LABS: BILIRUBIN,TOTAL 0.3 mg/dL (0.2-1); TOT PROT 6.4 g/dl (6.4-8.2)
[2021-03-06 08:58] LABS: CALCIUM 9.1 mg/dL (8.5-10.1)
[2021-03-06 08:59] LABS: BLOOD UREA NITROGEN 24.9 mg/dL (7-18); MAGNESIUM 2.1 mg/dL (1.8-2.4)
[2021-03-06 09:02] LABS: CREATININE 0.6 mg/dL (0.55-1.3)
[2021-03-06 09:03] LABS: BILIRUBIN,TOTAL 0.5 mg/dL (0.2-1); TOT PROT 6.3 g/dl (6.4-8.2)
[2021-03-06] MEDS: ENOXAPARIN NA (PORCINE) 40 MG/0.4 ML DISP.SYRIN SQ SCH (10:41)
[2021-03-06] MEDS: DEXAMETHASONE SOD PHOSPHATE 10 MG/1 ML VIAL IVPUSH SCH (10:41)
[2021-03-06] MEDS: levETIRAcetam 500 MG/5 ML ORAL SOLUTION (UNIT-DOSE CUPS) PEG SCH ×2 (10:42→22:35)
[2021-03-06] MEDS: ASCORBIC ACID 500 MG/5 ML GT SCH ×2 (10:42→22:35)
[2021-03-06] MEDS: BARICITINIB 1 MG/10 ML LIQUID NGT SCH (10:44)
[2021-03-07] MEDS: DEXAMETHASONE SOD PHOSPHATE 10 MG/1 ML VIAL IVPUSH SCH ×2 (09:25→10:35)
[2021-03-07 10:28] LABS: CALCIUM 9.1 mg/dL (8.5-10.1)
[2021-03-07 10:29] LABS: BLOOD UREA NITROGEN 24.7 mg/dL (7-18); MAGNESIUM 1.6 mg/dL (1.8-2.4)
[2021-03-07 10:32] LABS: CREATININE 0.6 mg/dL (0.55-1.3)
[2021-03-07 10:34] LABS: BILIRUBIN,TOTAL 0.4 mg/dL (0.2-1); TOT PROT 6.2 g/dl (6.4-8.2)
[2021-03-07] MEDS: ENOXAPARIN NA (PORCINE) 40 MG/0.4 ML DISP.SYRIN SQ SCH (10:35)
[2021-03-07] MEDS: BARICITINIB 1 MG/10 ML LIQUID NGT SCH (10:36)
[2021-03-07] MEDS: levETIRAcetam 500 MG/5 ML ORAL SOLUTION (UNIT-DOSE CUPS) PEG SCH ×2 (10:36→22:00)
[2021-03-07] MEDS: ASCORBIC ACID 500 MG/5 ML GT SCH ×2 (10:36→22:00)
[2021-03-07] MEDS ORDERED: DEXAMETHASONE SOD PHOSPHATE 10 MG/1 ML VIAL PO SCH (15:19)
[2021-03-08] MEDS: ENOXAPARIN NA (PORCINE) 40 MG/0.4 ML DISP.SYRIN SQ SCH (10:48)
[2021-03-08] MEDS: DEXAMETHASONE 4 MG TABLET (FP) PEG SCH (10:49)
[2021-03-08] MEDS: levETIRAcetam 500 MG/5 ML ORAL SOLUTION (UNIT-DOSE CUPS) PEG SCH ×2 (10:49→21:12)
[2021-03-08] MEDS: ASCORBIC ACID 500 MG/5 ML GT SCH ×2 (10:49→21:12)
[2021-03-08 15:00] LABS: CALCIUM 9.2 mg/dL (8.5-10.1)
[2021-03-08 15:01] LABS: ALBUMIN 3.2 g/dl (3.4-5.0); BLOOD UREA NITROGEN 26.4 mg/dL (7-18); MAGNESIUM 2.4 mg/dL (1.8-2.4)
[2021-03-08 15:04] LABS: CREATININE 0.7 mg/dL (0.55-1.3)
[2021-03-08 15:05] LABS: BILIRUBIN,TOTAL 0.4 mg/dL (0.2-1)
[2021-03-08 15:06] LABS: TOT PROT 6.4 g/dl (6.4-8.2)
[2021-03-08] MEDS: SCOPOLAMINE HYDROBROMIDE 1 PATCH PATCH.TD72 TD SCH (21:12)
[2021-03-09] MEDS ORDERED: ALBUTEROL SO4 0.083% IH SOL 2.5 MG/3 ML VIAL.NEB. NEB PRN (07:08)
[2021-03-09] MEDS: ALBUTEROL SO4 2.5/IPRATROPIUM 0.5 INH SOL 3 ML VIAL.NEB. NEB SCH ×4 (08:08→21:03)
[2021-03-09] MEDS: DEXAMETHASONE 4 MG TABLET (FP) PEG SCH (09:45)
[2021-03-09] MEDS: levETIRAcetam 500 MG/5 ML ORAL SOLUTION (UNIT-DOSE CUPS) PEG SCH ×2 (09:46→22:27)
[2021-03-09] MEDS: ENOXAPARIN NA (PORCINE) 40 MG/0.4 ML DISP.SYRIN SQ SCH (09:46)
[2021-03-09] MEDS: ASCORBIC ACID 500 MG/5 ML GT SCH ×2 (09:47→22:26)
[2021-03-10] MEDS: ALBUTEROL SO4 2.5/IPRATROPIUM 0.5 INH SOL 3 ML VIAL.NEB. NEB SCH ×5 (00:04→20:05)
[2021-03-10] MEDS: ASCORBIC ACID 500 MG/5 ML GT SCH ×2 (10:26→21:47)
[2021-03-10] MEDS: ENOXAPARIN NA (PORCINE) 40 MG/0.4 ML DISP.SYRIN SQ SCH (10:26)
[2021-03-10] MEDS: DEXAMETHASONE 4 MG TABLET (FP) PEG SCH (10:26)
[2021-03-10] MEDS: levETIRAcetam 500 MG/5 ML ORAL SOLUTION (UNIT-DOSE CUPS) PEG SCH ×2 (10:31→21:47)
[2021-03-11] MEDS: ALBUTEROL SO4 2.5/IPRATROPIUM 0.5 INH SOL 3 ML VIAL.NEB. NEB SCH ×5 (00:10→21:07)
[2021-03-11] MEDS: levETIRAcetam 500 MG/5 ML ORAL SOLUTION (UNIT-DOSE CUPS) PEG SCH ×2 (10:46→21:19)
[2021-03-11] MEDS: ASCORBIC ACID 500 MG/5 ML GT SCH ×2 (10:46→21:15)
[2021-03-11] MEDS: ENOXAPARIN NA (PORCINE) 40 MG/0.4 ML DISP.SYRIN SQ SCH (10:46)
[2021-03-11] MEDS: DEXAMETHASONE 4 MG TABLET (FP) PEG SCH (13:12)
[2021-03-11] MEDS: SCOPOLAMINE HYDROBROMIDE 1 PATCH PATCH.TD72 TD SCH (20:30)
[2021-03-12] MEDS: ALBUTEROL SO4 2.5/IPRATROPIUM 0.5 INH SOL 3 ML VIAL.NEB. NEB SCH ×5 (07:57→21:29)
[2021-03-12] MEDS: ASCORBIC ACID 500 MG/5 ML GT SCH ×2 (10:09→21:28)
[2021-03-12] MEDS: ENOXAPARIN NA (PORCINE) 40 MG/0.4 ML DISP.SYRIN SQ SCH (10:10)
[2021-03-12] MEDS: levETIRAcetam 500 MG/5 ML ORAL SOLUTION (UNIT-DOSE CUPS) PEG SCH ×2 (10:10→21:28)
[2021-03-12] MEDS: DEXAMETHASONE 4 MG TABLET (FP) PEG SCH (10:11)
[2021-03-12] MEDS ORDERED: ALBUTEROL SO4 HFA INHALER IH PRN (22:57)
[2021-03-13] MEDS: ENOXAPARIN NA (PORCINE) 40 MG/0.4 ML DISP.SYRIN SQ SCH (10:26)
[2021-03-13] MEDS: levETIRAcetam 500 MG/5 ML ORAL SOLUTION (UNIT-DOSE CUPS) PEG SCH ×2 (10:26→22:37)
[2021-03-13] MEDS: DEXAMETHASONE 4 MG TABLET (FP) PEG SCH (10:26)
[2021-03-13] MEDS: ASCORBIC ACID 500 MG/5 ML GT SCH ×2 (10:26→22:37)
[2021-03-13 10:54] LABS: BASO % 0.2 % (0-2.0); HEMATOCRIT 41.7 % (35.4-49); LYMPH % 6.2 % (8-40); MCH 30.9 pg (25.7-33.7); MCHC 33.5 g/dl (32.0-35.9); MEAN CELL VOLUME 92.4 fl (80-96); MEAN PLT VOLUME 8.3 fl (7.5-11.1); MONO % 6.2 % (3.8-10.2); NEUT % 87.4 % (42.8-82.8); PLATELET COUNT 325 10^3/uL (134-434); RBC 4.51 M/mm3 (4.00-5.60); RDW 14.1 % (11.9-15.9); WHITE BLOOD COUNT 18.2 K/mm3 (4.0-10.0)
[2021-03-13 11:15] LABS: BLOOD UREA NITROGEN 25.3 mg/dL (7-18); CALCIUM 8.9 mg/dL (8.5-10.1); MAGNESIUM 2.1 mg/dL (1.8-2.4)
[2021-03-13 11:16] LABS: ALBUMIN 2.9 g/dl (3.4-5.0)
[2021-03-13 11:19] LABS: CREATININE 0.6 mg/dL (0.55-1.3)
[2021-03-13 11:20] LABS: BILIRUBIN,TOTAL 0.3 mg/dL (0.2-1); TOT PROT 6.1 g/dl (6.4-8.2)
[2021-03-13] MEDS: MOMETASONE FUROATE 220 MCG/IH INHALER IH SCH (22:37)
[2021-03-14 07:33] LABS: HEMATOCRIT 41.1 % (35.4-49); HEMOGLOBIN 13.8 GM/dL (11.7-16.9); LYMPH % 9.2 % (8-40); MCH 31.2 pg (25.7-33.7); MCHC 33.6 g/dl (32.0-35.9); MEAN CELL VOLUME 92.7 fl (80-96); MEAN PLT VOLUME 7.9 fl (7.5-11.1); NEUT % 82.8 % (42.8-82.8); PLATELET COUNT 352 10^3/uL (134-434); RBC 4.43 M/mm3 (4.00-5.60); RDW 14.3 % (11.9-15.9); WHITE BLOOD COUNT 10.8 K/mm3 (4.0-10.0)
[2021-03-14 07:58] LABS: ALBUMIN 2.8 g/dl (3.4-5.0); BLOOD UREA NITROGEN 23.6 mg/dL (7-18); MAGNESIUM 2.1 mg/dL (1.8-2.4)
[2021-03-14 08:00] LABS: CREATININE 0.5 mg/dL (0.55-1.3)
[2021-03-14 08:03] LABS: BILIRUBIN,TOTAL 0.3 mg/dL (0.2-1)
[2021-03-14] MEDS: ENOXAPARIN NA (PORCINE) 40 MG/0.4 ML DISP.SYRIN SQ SCH (10:01)
[2021-03-14] MEDS: DEXAMETHASONE 4 MG TABLET (FP) PEG SCH (10:03)
[2021-03-14] MEDS: ASCORBIC ACID 500 MG/5 ML GT SCH ×2 (10:03→22:06)
[2021-03-14] MEDS: levETIRAcetam 500 MG/5 ML ORAL SOLUTION (UNIT-DOSE CUPS) PEG SCH ×2 (10:03→22:06)
[2021-03-14] MEDS: AMINO ACIDS 4.25%/D5W 1,000 ML IV SCH (12:04)
[2021-03-14] MEDS: SCOPOLAMINE HYDROBROMIDE 1 PATCH PATCH.TD72 TD SCH (22:05)
[2021-03-14] MEDS: MOMETASONE FUROATE 220 MCG/IH INHALER IH SCH (22:07)
[2021-03-15 09:57] LABS: BASO % 0.1 % (0-2.0); HEMATOCRIT 42.3 % (35.4-49); HEMOGLOBIN 14.3 GM/dL (11.7-16.9); LYMPH % 9.5 % (8-40); MCH 31.3 pg (25.7-33.7); MCHC 33.7 g/dl (32.0-35.9); MEAN CELL VOLUME 92.8 fl (80-96); MEAN PLT VOLUME 8.2 fl (7.5-11.1); MONO % 10.1 % (3.8-10.2); NEUT % 80.3 % (42.8-82.8); PLATELET COUNT 370 10^3/uL (134-434); RBC 4.56 M/mm3 (4.00-5.60); RDW 14.2 % (11.9-15.9); WHITE BLOOD COUNT 8.6 K/mm3 (4.0-10.0)
[2021-03-15] MEDS: AMINO ACIDS 4.25%/D5W 1,000 ML IV SCH ×2 (10:11→14:20)
[2021-03-15] MEDS: ENOXAPARIN NA (PORCINE) 40 MG/0.4 ML DISP.SYRIN SQ SCH (10:12)
[2021-03-15] MEDS: DEXAMETHASONE 4 MG TABLET (FP) PEG SCH (10:12)
[2021-03-15 10:13] LABS: ALBUMIN 2.7 g/dl (3.4-5.0); BLOOD UREA NITROGEN 33.5 mg/dL (7-18); CALCIUM 8.3 mg/dL (8.5-10.1)
[2021-03-15 10:16] LABS: CREATININE 0.5 mg/dL (0.55-1.3)
[2021-03-15 10:18] LABS: BILIRUBIN,TOTAL 0.4 mg/dL (0.2-1); TOT PROT 5.8 g/dl (6.4-8.2)
[2021-03-15 10:20] LABS: MAGNESIUM 1.8 mg/dL (1.8-2.4)
[2021-03-15] MEDS: levETIRAcetam 500 MG/5 ML ORAL SOLUTION (UNIT-DOSE CUPS) PEG SCH (10:34)
[2021-03-15] MEDS: ASCORBIC ACID 500 MG/5 ML GT SCH (10:35)
[2021-03-15] MEDS: DEXAMETHASONE SOD PHOSPHATE 10 MG/1 ML VIAL IVPUSH SCH (10:45)
[2021-03-15] MEDS: levETIRAcetam 500 MG/5 ML INJECTION VIAL IVPB SCH (10:46)
[2021-03-15] MEDS: MOMETASONE FUROATE 220 MCG/IH INHALER IH SCH (23:29)
[2021-03-16] MEDS: levETIRAcetam 500 MG/5 ML INJECTION VIAL IVPB SCH ×3 (04:35→21:32)
[2021-03-16] MEDS: ENOXAPARIN NA (PORCINE) 40 MG/0.4 ML DISP.SYRIN SQ SCH (11:39)
[2021-03-16] MEDS: DEXAMETHASONE SOD PHOSPHATE 10 MG/1 ML VIAL IVPUSH SCH (11:39)
[2021-03-16] MEDS: AMINO ACIDS 4.25%/D5W 1,000 ML IV SCH ×2 (16:38→21:36)
[2021-03-16 17:16] LABS: HEMATOCRIT 42.6 % (35.4-49); HEMOGLOBIN 14.1 GM/dL (11.7-16.9); MCH 30.7 pg (25.7-33.7); MEAN CELL VOLUME 92.8 fl (80-96); MEAN PLT VOLUME 8.3 fl (7.5-11.1); PLATELET COUNT 403 10^3/uL (134-434); RBC 4.59 M/mm3 (4.00-5.60); RDW 14.3 % (11.9-15.9); WHITE BLOOD COUNT 16.3 K/mm3 (4.0-10.0)
[2021-03-16 17:45] LABS: CALCIUM 8.2 mg/dL (8.5-10.1)
[2021-03-16 17:46] LABS: ALBUMIN 2.7 g/dl (3.4-5.0)
[2021-03-16 17:47] LABS: MAGNESIUM 2.4 mg/dL (1.8-2.4)
[2021-03-16 17:49] LABS: CREATININE 0.5 mg/dL (0.55-1.3)
[2021-03-16 17:50] LABS: BILIRUBIN,TOTAL 0.5 mg/dL (0.2-1)
[2021-03-16 17:51] LABS: TOT PROT 5.8 g/dl (6.4-8.2)
[2021-03-16 19:37] LABS: PLATELET ESTIMATE NORMAL
[2021-03-16] MEDS: MOMETASONE FUROATE 220 MCG/IH INHALER IH SCH (21:36)
[2021-03-17 10:55] LABS: BASO % 0.1 % (0-2.0); HEMATOCRIT 44.3 % (35.4-49); HEMOGLOBIN 13.9 GM/dL (11.7-16.9); LYMPH % 4.4 % (8-40); MCH 30.1 pg (25.7-33.7); MCHC 31.4 g/dl (32.0-35.9); MEAN CELL VOLUME 95.8 fl (80-96); MEAN PLT VOLUME 8.8 fl (7.5-11.1); NEUT % 87.5 % (42.8-82.8); PLATELET COUNT 391 10^3/uL (134-434); RBC 4.62 M/mm3 (4.00-5.60); RDW 14.4 % (11.9-15.9)
[2021-03-17] MEDS: AMINO ACIDS 4.25%/D5W 1,000 ML IV SCH (10:56)
[2021-03-17 10:59] LABS: CALCIUM 7.5 mg/dL (8.5-10.1)
[2021-03-17 11:00] LABS: ALBUMIN 2.7 g/dl (3.4-5.0); BLOOD UREA NITROGEN 27.2 mg/dL (7-18); MAGNESIUM 2.3 mg/dL (1.8-2.4)
[2021-03-17 11:03] LABS: BILIRUBIN,TOTAL 0.5 mg/dL (0.2-1); CREATININE 0.6 mg/dL (0.55-1.3)
[2021-03-17 11:04] LABS: TOT PROT 5.6 g/dl (6.4-8.2)
[2021-03-17] MEDS: levETIRAcetam 500 MG/5 ML INJECTION VIAL IVPB SCH ×2 (11:39→21:24)
[2021-03-17] MEDS: POLYETHYLENE GLYCOL (HEALTHYLAX) 3350 17 GM PACKET GT SCH ×2 (11:39→21:24)
[2021-03-17] MEDS: ENOXAPARIN NA (PORCINE) 40 MG/0.4 ML DISP.SYRIN SQ SCH (11:39)
[2021-03-17] MEDS: DEXAMETHASONE SOD PHOSPHATE 10 MG/1 ML VIAL IVPUSH SCH (11:40)
[2021-03-17 17:01] LABS: CALCIUM 7.9 mg/dL (8.5-10.1)
[2021-03-17 17:02] LABS: BLOOD UREA NITROGEN 27.5 mg/dL (7-18)
[2021-03-17 17:05] LABS: CREATININE 0.4 mg/dL (0.55-1.3)
[2021-03-17] MEDS ORDERED: CEFEPIME HCL 1 GM VIAL (RESTRICTED TO ID) ONE ×2 (18:48→23:58)
[2021-03-17] MEDS ORDERED: DEXTROSE 5%-WATER 100 ML IVPB ONE ×2 (18:48→23:58)
[2021-03-17] MEDS: CEFEPIME 1 GM in DEXTROSE 5%-WATER 1 GM/100 ML BAG IVPB SCH (18:50)
[2021-03-17] MEDS: SCOPOLAMINE HYDROBROMIDE 1 PATCH PATCH.TD72 TD SCH (21:24)
[2021-03-17] MEDS: MOMETASONE FUROATE 220 MCG/IH INHALER IH SCH (21:24)
[2021-03-18] MEDS ORDERED: METOCLOPRAMIDE HCL INJECTION 10 MG/2 ML VIAL IVPUSH ONE (04:57)
[2021-03-18] MEDS ORDERED: CEFEPIME HCL 1 GM VIAL (RESTRICTED TO ID) ONE ×2 (08:10→22:04)
[2021-03-18] MEDS ORDERED: DEXTROSE 5%-WATER 100 ML IVPB ONE ×2 (08:10→22:04)
[2021-03-18] MEDS: CEFEPIME 1 GM in DEXTROSE 5%-WATER 1 GM/100 ML BAG IVPB SCH ×2 (08:51)
[2021-03-18] MEDS: DEXAMETHASONE SOD PHOSPHATE 10 MG/1 ML VIAL IVPUSH SCH (10:24)
[2021-03-18] MEDS: levETIRAcetam 500 MG/5 ML INJECTION VIAL IVPB SCH ×2 (10:33→22:07)
[2021-03-18] MEDS: POLYETHYLENE GLYCOL (HEALTHYLAX) 3350 17 GM PACKET GT SCH ×2 (10:33→22:08)
[2021-03-18] MEDS: ENOXAPARIN NA (PORCINE) 40 MG/0.4 ML DISP.SYRIN SQ SCH (10:33)
[2021-03-18 13:20] LABS: BASO % 0.1 % (0-2.0); HEMATOCRIT 40.1 % (35.4-49); HEMOGLOBIN 12.9 GM/dL (11.7-16.9); LYMPH % 4.3 % (8-40); MCH 30.2 pg (25.7-33.7); MCHC 32.2 g/dl (32.0-35.9); MEAN CELL VOLUME 93.5 fl (80-96); MEAN PLT VOLUME 8.3 fl (7.5-11.1); MONO % 4.2 % (3.8-10.2); NEUT % 91.4 % (42.8-82.8); PLATELET COUNT 330 10^3/uL (134-434); RBC 4.29 M/mm3 (4.00-5.60)
[2021-03-18 15:10] LABS: ANISOCYTOSIS 1+; MACROCYTOSIS 1+; PLATELET ESTIMATE NORMAL
[2021-03-18 21:25] LABS: BILIRUBIN,TOTAL 0.7 mg/dL (0.2-1)
[2021-03-18] MEDS: MOMETASONE FUROATE 220 MCG/IH INHALER IH SCH (22:08)
[2021-03-18] MEDS: CEFEPIME 1 GM in DEXTROSE 5%-WATER 100 ML IVPB SCH ×3 (23:04→23:34)
[2021-03-19] MEDS ORDERED: CEFEPIME HCL 1 GM VIAL (RESTRICTED TO ID) ONE ×3 (06:22→22:37)
[2021-03-19] MEDS ORDERED: DEXTROSE 5%-WATER 100 ML IVPB ONE ×3 (06:23→22:38)
[2021-03-19] MEDS: CEFEPIME 1 GM in DEXTROSE 5%-WATER 100 ML IVPB SCH ×3 (06:25→22:49)
[2021-03-19 09:06] LABS: BASO % 0.1 % (0-2.0); HEMATOCRIT 40.7 % (35.4-49); HEMOGLOBIN 13.1 GM/dL (11.7-16.9); LYMPH % 6.3 % (8-40); MCH 30.1 pg (25.7-33.7); MCHC 32.1 g/dl (32.0-35.9); MEAN CELL VOLUME 93.6 fl (80-96); MEAN PLT VOLUME 8.4 fl (7.5-11.1); MONO % 4.5 % (3.8-10.2); NEUT % 89.1 % (42.8-82.8); PLATELET COUNT 318 10^3/uL (134-434); RBC 4.35 M/mm3 (4.00-5.60); RDW 14.6 % (11.9-15.9); WHITE BLOOD COUNT 11.6 K/mm3 (4.0-10.0)
[2021-03-19 09:39] LABS: ALBUMIN 2.4 g/dl (3.4-5.0); BLOOD UREA NITROGEN 21.9 mg/dL (7-18)
[2021-03-19 09:42] LABS: CREATININE 0.5 mg/dL (0.55-1.3)
[2021-03-19 09:43] LABS: TOT PROT 5.3 g/dl (6.4-8.2)
[2021-03-19 09:44] LABS: MAGNESIUM 2.2 mg/dL (1.8-2.4)
[2021-03-19 09:45] LABS: BILIRUBIN,TOTAL 0.7 mg/dL (0.2-1)
[2021-03-19] MEDS: ENOXAPARIN NA (PORCINE) 40 MG/0.4 ML DISP.SYRIN SQ SCH (10:56)
[2021-03-19] MEDS: DEXAMETHASONE SOD PHOSPHATE 10 MG/1 ML VIAL IVPUSH SCH (10:56)
[2021-03-19] MEDS: levETIRAcetam 500 MG/5 ML INJECTION VIAL IVPB SCH (10:57)
[2021-03-19] MEDS: POLYETHYLENE GLYCOL (HEALTHYLAX) 3350 17 GM PACKET GT SCH ×3 (10:57→23:00)
[2021-03-19 19:19] LABS: ALBUMIN 2.5 g/dl (3.4-5.0); BLOOD UREA NITROGEN 20.7 mg/dL (7-18); CALCIUM 8.2 mg/dL (8.5-10.1); CREATININE 0.5 mg/dL (0.55-1.3); MAGNESIUM 2.3 mg/dL (1.8-2.4); TOT PROT 5.2 g/dl (6.4-8.2)
[2021-03-19] MEDS: levETIRAcetam 500 MG/5 ML ORAL SOLUTION (UNIT-DOSE CUPS) GT SCH (22:48)
[2021-03-19] MEDS: MOMETASONE FUROATE 220 MCG/IH INHALER IH SCH (22:48)
[2021-03-20] MEDS ORDERED: DEXTROSE 5%-WATER 100 ML IVPB ONE ×3 (05:30→20:46)
[2021-03-20] MEDS ORDERED: CEFEPIME HCL 1 GM VIAL (RESTRICTED TO ID) ONE ×3 (05:30→20:46)
[2021-03-20] MEDS: CEFEPIME 1 GM in DEXTROSE 5%-WATER 100 ML IVPB SCH ×3 (05:56→21:05)
[2021-03-20] MEDS: DEXAMETHASONE SOD PHOSPHATE 10 MG/1 ML VIAL IVPUSH SCH ×2 (09:35→14:53)
[2021-03-20] MEDS: levETIRAcetam 500 MG/5 ML ORAL SOLUTION (UNIT-DOSE CUPS) GT SCH ×2 (09:35→21:05)
[2021-03-20] MEDS: ENOXAPARIN NA (PORCINE) 40 MG/0.4 ML DISP.SYRIN SQ SCH (09:35)
[2021-03-20] MEDS: POLYETHYLENE GLYCOL (HEALTHYLAX) 3350 17 GM PACKET GT SCH ×2 (09:36→21:05)
[2021-03-20 15:13] LABS: HEMATOCRIT 37.7 % (35.4-49); HEMOGLOBIN 12.6 GM/dL (11.7-16.9); MCH 30.9 pg (25.7-33.7); MCHC 33.4 g/dl (32.0-35.9); MEAN CELL VOLUME 92.7 fl (80-96); MEAN PLT VOLUME 8.6 fl (7.5-11.1); PLATELET COUNT 284 10^3/uL (134-434); RBC 4.07 M/mm3 (4.00-5.60); RDW 14.6 % (11.9-15.9); WHITE BLOOD COUNT 11.7 K/mm3 (4.0-10.0)
[2021-03-20 15:39] LABS: ALBUMIN 2.4 g/dl (3.4-5.0); BLOOD UREA NITROGEN 20.5 mg/dL (7-18); CALCIUM 8.5 mg/dL (8.5-10.1); MAGNESIUM 2.1 mg/dL (1.8-2.4)
[2021-03-20 15:42] LABS: CREATININE 0.5 mg/dL (0.55-1.3)
[2021-03-20 15:44] LABS: BILIRUBIN,TOTAL 0.5 mg/dL (0.2-1); TOT PROT 5.3 g/dl (6.4-8.2)
[2021-03-20 16:03] LABS: ANISOCYTOSIS 0; MACROCYTOSIS 0; PLATELET ESTIMATE NORMAL
[2021-03-20] MEDS: MOMETASONE FUROATE 220 MCG/IH INHALER IH SCH (21:05)
[2021-03-20] MEDS: SCOPOLAMINE HYDROBROMIDE 1 PATCH PATCH.TD72 TD SCH (21:05)
[2021-03-21] MEDS ORDERED: CEFEPIME HCL 1 GM VIAL (RESTRICTED TO ID) ONE ×3 (05:32→20:17)
[2021-03-21] MEDS ORDERED: DEXTROSE 5%-WATER 100 ML IVPB ONE ×3 (05:32→20:17)
[2021-03-21] MEDS: CEFEPIME 1 GM in DEXTROSE 5%-WATER 100 ML IVPB SCH ×3 (05:45→21:25)
[2021-03-21 08:24] LABS: BLOOD UREA NITROGEN 18.7 mg/dL (7-18)
[2021-03-21 08:25] LABS: ALBUMIN 2.3 g/dl (3.4-5.0)
[2021-03-21 08:27] LABS: CREATININE 0.5 mg/dL (0.55-1.3)
[2021-03-21 08:29] LABS: BILIRUBIN,TOTAL 0.5 mg/dL (0.2-1)
[2021-03-21] MEDS ORDERED: ARTIFICIAL TEARS (POLYVINYL ALCOHOL) OPTH DROPS OU PRN (10:04)
[2021-03-21] MEDS: DEXAMETHASONE SOD PHOSPHATE 10 MG/1 ML VIAL IVPUSH SCH (10:04)
[2021-03-21] MEDS: levETIRAcetam 500 MG/5 ML ORAL SOLUTION (UNIT-DOSE CUPS) GT SCH ×2 (10:09→21:25)
[2021-03-21] MEDS: ENOXAPARIN NA (PORCINE) 40 MG/0.4 ML DISP.SYRIN SQ SCH (10:10)
[2021-03-21] MEDS: POLYETHYLENE GLYCOL (HEALTHYLAX) 3350 17 GM PACKET GT SCH ×2 (10:10→21:25)
[2021-03-21 10:54] LABS: HEMATOCRIT 37.2 % (35.4-49); HEMOGLOBIN 12.3 GM/dL (11.7-16.9); MCH 30.7 pg (25.7-33.7); MEAN CELL VOLUME 92.8 fl (80-96); MEAN PLT VOLUME 8.4 fl (7.5-11.1); PLATELET COUNT 270 10^3/uL (134-434); RDW 14.4 % (11.9-15.9); WHITE BLOOD COUNT 10.8 K/mm3 (4.0-10.0)
[2021-03-21 12:53] LABS: ANISOCYTOSIS 1+; MACROCYTOSIS 0; PLATELET ESTIMATE NORMAL
[2021-03-21] MEDS: MOMETASONE FUROATE 220 MCG/IH INHALER IH SCH (21:25)
[2021-03-22] MEDS ORDERED: CEFEPIME HCL 1 GM VIAL (RESTRICTED TO ID) ONE ×3 (05:31→21:52)
[2021-03-22] MEDS ORDERED: DEXTROSE 5%-WATER 100 ML IVPB ONE ×3 (05:31→21:52)
[2021-03-22] MEDS: CEFEPIME 1 GM in DEXTROSE 5%-WATER 100 ML IVPB SCH ×3 (05:39→21:54)
[2021-03-22 07:35] LABS: BASO % 0.2 % (0-2.0); EOS % 0.1 % (0-4.5); HEMATOCRIT 35.3 % (35.4-49); HEMOGLOBIN 11.7 GM/dL (11.7-16.9); LYMPH % 8.1 % (8-40); MCH 30.5 pg (25.7-33.7); MCHC 33.1 g/dl (32.0-35.9); MEAN CELL VOLUME 92.2 fl (80-96); MEAN PLT VOLUME 8.3 fl (7.5-11.1); MONO % 8.1 % (3.8-10.2); NEUT % 83.5 % (42.8-82.8); PLATELET COUNT 272 10^3/uL (134-434); RBC 3.83 M/mm3 (4.00-5.60); RDW 14.2 % (11.9-15.9); WHITE BLOOD COUNT 10.6 K/mm3 (4.0-10.0)
[2021-03-22 08:08] LABS: ALBUMIN 2.2 g/dl (3.4-5.0); BLOOD UREA NITROGEN 16.5 mg/dL (7-18); CALCIUM 8.3 mg/dL (8.5-10.1)
[2021-03-22 08:10] LABS: CREATININE 0.5 mg/dL (0.55-1.3)
[2021-03-22 08:12] LABS: BILIRUBIN,TOTAL 0.4 mg/dL (0.2-1); TOT PROT 5.1 g/dl (6.4-8.2)
[2021-03-22] MEDS: POLYETHYLENE GLYCOL (HEALTHYLAX) 3350 17 GM PACKET GT SCH ×2 (10:02→21:54)
[2021-03-22] MEDS: levETIRAcetam 500 MG/5 ML ORAL SOLUTION (UNIT-DOSE CUPS) GT SCH ×2 (10:07→21:54)
[2021-03-22] MEDS: DEXAMETHASONE SOD PHOSPHATE 10 MG/1 ML VIAL IVPUSH SCH (10:08)
[2021-03-22] MEDS: MOMETASONE FUROATE 220 MCG/IH INHALER IH SCH (21:54)
[2021-03-23] MEDS ORDERED: DEXTROSE 5%-WATER 100 ML IVPB ONE ×3 (05:26→21:39)
[2021-03-23] MEDS ORDERED: CEFEPIME HCL 1 GM VIAL (RESTRICTED TO ID) ONE ×3 (05:26→21:39)
[2021-03-23] MEDS: CEFEPIME 1 GM in DEXTROSE 5%-WATER 100 ML IVPB SCH ×3 (05:29→21:41)
[2021-03-23 07:36] LABS: BASO % 0.1 % (0-2.0); EOS % 0.3 % (0-4.5); HEMATOCRIT 38.2 % (35.4-49); HEMOGLOBIN 12.6 GM/dL (11.7-16.9); LYMPH % 11.8 % (8-40); MCH 30.6 pg (25.7-33.7); MCHC 32.9 g/dl (32.0-35.9); MEAN CELL VOLUME 93.2 fl (80-96); MEAN PLT VOLUME 8.6 fl (7.5-11.1); MONO % 9.7 % (3.8-10.2); NEUT % 78.1 % (42.8-82.8); PLATELET COUNT 269 10^3/uL (134-434); RDW 14.3 % (11.9-15.9); WHITE BLOOD COUNT 7.5 K/mm3 (4.0-10.0)
[2021-03-23 07:59] LABS: CALCIUM 8.5 mg/dL (8.5-10.1)
[2021-03-23 08:00] LABS: ALBUMIN 2.4 g/dl (3.4-5.0); BLOOD UREA NITROGEN 16.8 mg/dL (7-18)
[2021-03-23 08:03] LABS: CREATININE 0.5 mg/dL (0.55-1.3)
[2021-03-23 08:04] LABS: TOT PROT 5.5 g/dl (6.4-8.2)
[2021-03-23 08:05] LABS: BILIRUBIN,TOTAL 0.4 mg/dL (0.2-1)
[2021-03-23] MEDS: POLYETHYLENE GLYCOL (HEALTHYLAX) 3350 17 GM PACKET GT SCH ×2 (09:40→21:42)
[2021-03-23] MEDS: DEXAMETHASONE SOD PHOSPHATE 4 MG/1 ML VIAL IVPUSH SCH (09:40)
[2021-03-23] MEDS: levETIRAcetam 500 MG/5 ML ORAL SOLUTION (UNIT-DOSE CUPS) GT SCH ×2 (09:41→21:42)
[2021-03-23] MEDS: SCOPOLAMINE HYDROBROMIDE 1 PATCH PATCH.TD72 TD SCH (21:42)
[2021-03-23] MEDS: MOMETASONE FUROATE 220 MCG/IH INHALER IH SCH (21:42)
[2021-03-24] MEDS ORDERED: DEXTROSE 5%-WATER 100 ML IVPB ONE ×3 (05:15→20:33)
[2021-03-24] MEDS ORDERED: CEFEPIME HCL 1 GM VIAL (RESTRICTED TO ID) ONE ×3 (05:15→20:33)
[2021-03-24] MEDS: CEFEPIME 1 GM in DEXTROSE 5%-WATER 100 ML IVPB SCH ×3 (05:17→21:13)
[2021-03-24 09:13] LABS: BASO % 0.3 % (0-2.0); EOS % 0.5 % (0-4.5); HEMATOCRIT 39.8 % (35.4-49); HEMOGLOBIN 13.4 GM/dL (11.7-16.9); LYMPH % 14.3 % (8-40); MCH 31.2 pg (25.7-33.7); MCHC 33.8 g/dl (32.0-35.9); MEAN CELL VOLUME 92.4 fl (80-96); MEAN PLT VOLUME 9.2 fl (7.5-11.1); MONO % 9.4 % (3.8-10.2); NEUT % 75.5 % (42.8-82.8); PLATELET COUNT 227 10^3/uL (134-434); RBC 4.31 M/mm3 (4.00-5.60); RDW 14.7 % (11.9-15.9); WHITE BLOOD COUNT 10.1 K/mm3 (4.0-10.0)
[2021-03-24] MEDS: levETIRAcetam 500 MG/5 ML ORAL SOLUTION (UNIT-DOSE CUPS) GT SCH ×2 (09:27→21:13)
[2021-03-24] MEDS: POLYETHYLENE GLYCOL (HEALTHYLAX) 3350 17 GM PACKET GT SCH ×2 (09:27→21:12)
[2021-03-24] MEDS: DEXAMETHASONE SOD PHOSPHATE 4 MG/1 ML VIAL IVPUSH SCH (09:27)
[2021-03-24 09:40] LABS: PLATELET ESTIMATE ADEQUATE
[2021-03-24 10:04] LABS: CALCIUM 8.7 mg/dL (8.5-10.1)
[2021-03-24 10:05] LABS: ALBUMIN 2.6 g/dl (3.4-5.0); BLOOD UREA NITROGEN 18.1 mg/dL (7-18); MAGNESIUM 2.1 mg/dL (1.8-2.4)
[2021-03-24 10:10] LABS: CREATININE 0.6 mg/dL (0.55-1.3)
[2021-03-24 10:11] LABS: TOT PROT 5.9 g/dl (6.4-8.2)
[2021-03-24 10:12] LABS: BILIRUBIN,TOTAL 0.7 mg/dL (0.2-1)
[2021-03-24] MEDS: MOMETASONE FUROATE 220 MCG/IH INHALER IH SCH (21:12)
[2021-03-25] MEDS ORDERED: CEFEPIME HCL 1 GM VIAL (RESTRICTED TO ID) ONE ×2 (06:19→14:45)
[2021-03-25] MEDS ORDERED: DEXTROSE 5%-WATER 100 ML IVPB ONE ×2 (06:20→14:45)
[2021-03-25] MEDS: CEFEPIME 1 GM in DEXTROSE 5%-WATER 100 ML IVPB SCH ×2 (06:26→14:50)
[2021-03-25] MEDS: DEXAMETHASONE SOD PHOSPHATE 4 MG/1 ML VIAL IVPUSH SCH (09:41)
[2021-03-25] MEDS: POLYETHYLENE GLYCOL (HEALTHYLAX) 3350 17 GM PACKET GT SCH ×2 (09:42→21:40)
[2021-03-25] MEDS: levETIRAcetam 500 MG/5 ML ORAL SOLUTION (UNIT-DOSE CUPS) GT SCH ×2 (09:42→21:41)
[2021-03-25] MEDS: MOMETASONE FUROATE 220 MCG/IH INHALER IH SCH (21:41)
[2021-03-26 08:27] LABS: BASO % 0.1 % (0-2.0); EOS % 0.4 % (0-4.5); HEMATOCRIT 41.2 % (35.4-49); HEMOGLOBIN 13.9 GM/dL (11.7-16.9); LYMPH % 9.9 % (8-40); MCH 31.4 pg (25.7-33.7); MCHC 33.7 g/dl (32.0-35.9); MEAN CELL VOLUME 93.2 fl (80-96); MEAN PLT VOLUME 7.9 fl (7.5-11.1); MONO % 7.5 % (3.8-10.2); NEUT % 82.1 % (42.8-82.8); PLATELET COUNT 268 10^3/uL (134-434); RBC 4.42 M/mm3 (4.00-5.60); RDW 14.7 % (11.9-15.9)
[2021-03-26 08:45] LABS: CALCIUM 8.8 mg/dL (8.5-10.1)
[2021-03-26 08:46] LABS: ALBUMIN 2.8 g/dl (3.4-5.0); MAGNESIUM 2.2 mg/dL (1.8-2.4)
[2021-03-26 08:49] LABS: CREATININE 0.6 mg/dL (0.55-1.3)
[2021-03-26 08:51] LABS: BILIRUBIN,TOTAL 0.5 mg/dL (0.2-1); TOT PROT 6.1 g/dl (6.4-8.2)
[2021-03-26] MEDS: levETIRAcetam 500 MG/5 ML ORAL SOLUTION (UNIT-DOSE CUPS) GT SCH (10:50)
[2021-03-26] MEDS: POLYETHYLENE GLYCOL (HEALTHYLAX) 3350 17 GM PACKET GT SCH (10:50)
[2021-03-26] MEDS: DEXAMETHASONE SOD PHOSPHATE 4 MG/1 ML VIAL IVPUSH SCH (11:14)
[2021-03-26 13:47] VITALS: BP 120/63; PULSE 73; TEMP 97.8
== END 2021-03-26 14:25 | DRG 177 ==
LOC: JER 21:37 → JERBED 03-01 00:12 → J4S 03-02 00:04
PROVIDERS: ADMIT Hospitalist; ATTEND Nurse Practitioner Family
PROC: XW033E5 Introduction of Remdesivir Anti-infective into Peripheral Vein, Percutaneous Approach, New Technology Group 5 (ICD-10-PCS; principal; 2021-03-05)
DX: U07.1 COVID-19 (principal); J96.01 Acute respiratory failure with hypoxia; R53.2 Functional quadriplegia; J12.82 Pneumonia due to coronavirus disease 2019; G93.41 Metabolic encephalopathy; F73 Profound intellectual disabilities; E87.1 Hypo-osmolality and hyponatremia; G93.1 Anoxic brain damage, not elsewhere classified; G80.9 Cerebral palsy, unspecified; Z93.1 Gastrostomy status; K21.9 Gastro-esophageal reflux disease without esophagitis
CPT/HCPCS: 36415; 71045-TC-FY; 74018-TC-FY; 74019-TC-FY; 74021-TC-FY; 74176-TC; 80048; 80053; 81003; 82248; 82550; 82553; 82728; 82803; 83605; 83615; 83735; 84484; 85025; 85027; 85379; 85610; 85730; 86140; 86480; 86707; 87040; 87086; 87350; 87804; 87807; 93005; 93010; 94640; 94660; 94761; 99285-25; C9399; C9803; J1100; Q9967; U0003; U0005

== ENCOUNTER 2021-06-20 15:19 | Inpatient (IN) | payer OTHER ==
[2021-06-20] MEDS ORDERED: PIPERACILLIN/TAZOB 4.5 GM 4.5 GM in DEXTROSE 5%-WATER 100 ML IVPB ONE (16:14)
[2021-06-20] MEDS ORDERED: VANCOMYCIN 1 GM in D5W (PRE-DOCKED) 1,000 MG/250 ML IVPB ONE (16:14)
[2021-06-20 16:25] LABS: BASO % 0.5 % (0-2.0); HEMATOCRIT 45.5 % (35.4-49); HEMOGLOBIN 15.5 GM/dL (11.7-16.9); LYMPH % 19.1 % (8-40); MCH 30.9 pg (25.7-33.7); MEAN CELL VOLUME 90.8 fl (80-96); MEAN PLT VOLUME 8.1 fl (7.5-11.1); MONO % 7.6 % (3.8-10.2); NEUT % 71.8 % (42.8-82.8); PLATELET COUNT 306 10^3/uL (134-434); RBC 5.02 M/mm3 (4.00-5.60); RDW 15.6 % (11.9-15.9); WHITE BLOOD COUNT 6.7 K/mm3 (4.0-10.0)
[2021-06-20 16:29] LABS: VENOUS BASE EXCESS 0.7 mmol/L (-2-2); VENOUS O2 SATURATION 88.4 % (70-80); VENOUS PCO2 49.5 mmHg (38-52); VENOUS PH 7.356 (7.310-7.410)
[2021-06-20 16:32] LABS: INR 0.97 (0.83-1.09); PROTHROMBIN TIME (PATIENT) 11.1 SEC (9.7-13.0)
[2021-06-20] MEDS ORDERED: VANCOMYCIN 1 GRAM (PRE-DOCKED) 1,000 MG/250 ML BAG IVPB ONE (16:32)
[2021-06-20] MEDS ORDERED: PIPERACILLIN/TAZOB 4.5 GM 4.5 GM/100 ML BAG IVPB ONE (16:32)
[2021-06-20 16:35] LABS: ACTIVATED PTT 37.6 SECONDS (25.2-36.5)
[2021-06-20 16:45] LABS: CALCIUM 9.3 mg/dL (8.5-10.1)
[2021-06-20 16:46] LABS: ALBUMIN 3.7 g/dl (3.4-5.0); BLOOD UREA NITROGEN 11.2 mg/dL (7-18)
[2021-06-20 16:49] LABS: CREATININE 0.7 mg/dL (0.55-1.3)
[2021-06-20 16:51] LABS: BILIRUBIN,TOTAL 0.4 mg/dL (0.2-1); TOT PROT 7.3 g/dl (6.4-8.2)
[2021-06-20] MEDS: levETIRAcetam 500 MG/5 ML ORAL SOLUTION (UNIT-DOSE CUPS) PEG SCH (22:44)
[2021-06-20] MEDS ORDERED: diazePAM RECTAL GEL 10 MG KIT (PRE-CALIBRATED) RC PRN (23:15)
[2021-06-21] MEDS: ALBUTEROL SO4 2.5/IPRATROPIUM 0.5 INH SOL 3 ML VIAL.NEB. NEB SCH ×6 (00:39→20:16)
[2021-06-21 01:06] LABS: EPI CELLS 34 /uL (0-25.1); HYALINE CASTS 2 /uL (0-3.1); PH,URINE 7.5 (5.0-8.0); URINE APPEARANCE CLEAR; URINE BILIRUBIN NEGATIVE (NEGATIVE); URINE COLOR YELLOW; URINE GLUCOSE (UA) NEGATIVE (NEGATIVE); URINE KETONE NEGATIVE (NEGATIVE); URINE LEUK ESTERASE TRACE (NEGATIVE); URINE NITRITE POSITIVE (NEGATIVE); URINE PROTEIN NEGATIVE (NEGATIVE); URINE RBC 22 /uL (0-23.9); URINE UROBILINOGEN 0.2 mg/dL (0.2-1.0); URINE WBC 23 /uL (0-25.8)
[2021-06-21] MEDS ORDERED: PIPERACILLIN/TAZOB 3.375 GM 3.375 GM/50 ML BAG IVPB ONE (01:21)
[2021-06-21] MEDS: PIPERACILLIN/TAZOB 3.375 GM 3.375 GM in DEXTROSE 5%-WATER - 50 ML IVPB SCH ×3 (02:12→19:20)
[2021-06-21 03:51] VITALS: BMI 26.2
[2021-06-21] MEDS ORDERED: ARFORMOTEROL TARTRATE 15 MCG/2 ML VIAL NEB SCH ×2 (08:00→10:00)
[2021-06-21 09:41] LABS: BASO % 0.6 % (0-2.0); EOS % 0.8 % (0-4.5); HEMATOCRIT 44.2 % (35.4-49); HEMOGLOBIN 14.6 GM/dL (11.7-16.9); MCH 30.4 pg (25.7-33.7); MCHC 33.1 g/dl (32.0-35.9); MEAN CELL VOLUME 91.8 fl (80-96); MEAN PLT VOLUME 8.4 fl (7.5-11.1); MONO % 7.7 % (3.8-10.2); NEUT % 66.9 % (42.8-82.8); PLATELET COUNT 278 10^3/uL (134-434); RBC 4.81 M/mm3 (4.00-5.60); RDW 15.5 % (11.9-15.9); WHITE BLOOD COUNT 7.4 K/mm3 (4.0-10.0)
[2021-06-21] MEDS: levETIRAcetam 500 MG/5 ML ORAL SOLUTION (UNIT-DOSE CUPS) PEG SCH ×2 (12:07→22:19)
[2021-06-21] MEDS: ENOXAPARIN NA (PORCINE) 40 MG/0.4 ML DISP.SYRIN SQ SCH (12:08)
[2021-06-21] MEDS: FUROSEMIDE 40 MG TABLET (FP) GT SCH (12:08)
[2021-06-21 12:13] LABS: INR 1.03 (0.83-1.09); PROTHROMBIN TIME (PATIENT) 11.8 SEC (9.7-13.0)
[2021-06-21 12:45] LABS: CALCIUM 8.9 mg/dL (8.5-10.1)
[2021-06-21 12:46] LABS: ALBUMIN 3.4 g/dl (3.4-5.0); BLOOD UREA NITROGEN 7.6 mg/dL (7-18); MAGNESIUM 2.4 mg/dL (1.8-2.4)
[2021-06-21 12:48] LABS: PHOSPHOROUS 3.3 mg/dL (2.5-4.9)
[2021-06-21 12:49] LABS: CREATININE 0.6 mg/dL (0.55-1.3)
[2021-06-21 12:50] LABS: BILIRUBIN,TOTAL 0.5 mg/dL (0.2-1); TOT PROT 6.4 g/dl (6.4-8.2)
[2021-06-21] MEDS ORDERED: AMOX TR/POT CLAV 500MG/125MG TABLETS (FP) PO ONE (14:30)
[2021-06-21 15:58] LABS: URINE BACTERIA 94.8 /uL (0-1359)
[2021-06-21] MEDS ORDERED: DEXTROSE 5%-WATER - 50 ML IVPB ONE (17:54)
[2021-06-21] MEDS ORDERED: PIPERACILLIN/TAZOBACTAM 3.375 GM VIAL IVPB ONE (17:54)
[2021-06-21] MEDS: BUDESONIDE 0.5 MG/2 ML INH SUSP VIAL NEB SCH (22:00)
[2021-06-22] MEDS ORDERED: PIPERACILLIN/TAZOBACTAM 3.375 GM VIAL IVPB ONE ×2 (01:24→11:00)
[2021-06-22] MEDS ORDERED: DEXTROSE 5%-WATER - 50 ML IVPB ONE ×2 (01:25→11:00)
[2021-06-22] MEDS: PIPERACILLIN/TAZOB 3.375 GM 3.375 GM in DEXTROSE 5%-WATER - 50 ML IVPB SCH ×2 (01:34→11:10)
[2021-06-22] MEDS: ALBUTEROL SO4 2.5/IPRATROPIUM 0.5 INH SOL 3 ML VIAL.NEB. NEB SCH ×6 (04:00→20:00)
[2021-06-22 09:44] LABS: BASO % 0.3 % (0-2.0); EOS % 0.3 % (0-4.5); HEMATOCRIT 46.8 % (35.4-49); HEMOGLOBIN 15.7 GM/dL (11.7-16.9); LYMPH % 15.4 % (8-40); MCH 30.5 pg (25.7-33.7); MCHC 33.6 g/dl (32.0-35.9); MEAN CELL VOLUME 90.9 fl (80-96); MEAN PLT VOLUME 8.5 fl (7.5-11.1); MONO % 6.4 % (3.8-10.2); NEUT % 77.6 % (42.8-82.8); PLATELET COUNT 307 10^3/uL (134-434); RBC 5.16 M/mm3 (4.00-5.60); RDW 15.4 % (11.9-15.9)
[2021-06-22 10:16] LABS: CALCIUM 9.1 mg/dL (8.5-10.1)
[2021-06-22 10:17] LABS: ALBUMIN 3.6 g/dl (3.4-5.0); BLOOD UREA NITROGEN 8.9 mg/dL (7-18); MAGNESIUM 2.5 mg/dL (1.8-2.4)
[2021-06-22 10:20] LABS: CREATININE 0.6 mg/dL (0.55-1.3)
[2021-06-22 10:21] LABS: BILIRUBIN,TOTAL 0.5 mg/dL (0.2-1); TOT PROT 7.1 g/dl (6.4-8.2)
[2021-06-22] MEDS: BUDESONIDE 0.5 MG/2 ML INH SUSP VIAL NEB SCH ×2 (11:00→22:00)
[2021-06-22] MEDS: ENOXAPARIN NA (PORCINE) 40 MG/0.4 ML DISP.SYRIN SQ SCH (11:09)
[2021-06-22] MEDS: FUROSEMIDE 40 MG TABLET (FP) GT SCH (11:09)
[2021-06-22] MEDS: levETIRAcetam 500 MG/5 ML ORAL SOLUTION (UNIT-DOSE CUPS) PEG SCH ×2 (11:09→22:19)
[2021-06-22] MEDS ORDERED: DEXTROSE 5%-WATER 100 ML IVPB ONE (21:46)
[2021-06-22] MEDS ORDERED: DOXYCYCLINE HYCLATE 100 MG VIAL ONE (21:46)
[2021-06-22] MEDS: DOXYCYCLINE INJECTION 100 MG in DEXTROSE 5%-WATER 100 ML IVPB SCH (22:19)
[2021-06-23] MEDS: ALBUTEROL SO4 2.5/IPRATROPIUM 0.5 INH SOL 3 ML VIAL.NEB. NEB SCH ×7 (03:36→23:06)
[2021-06-23] MEDS: BUDESONIDE 0.5 MG/2 ML INH SUSP VIAL NEB SCH ×2 (08:45→22:32)
[2021-06-23 08:58] LABS: BASO % 0.3 % (0-2.0); EOS % 0.3 % (0-4.5); HEMATOCRIT 45.6 % (35.4-49); HEMOGLOBIN 15.1 GM/dL (11.7-16.9); LYMPH % 10.7 % (8-40); MCH 30.4 pg (25.7-33.7); MCHC 33.1 g/dl (32.0-35.9); MEAN CELL VOLUME 92.1 fl (80-96); MEAN PLT VOLUME 8.4 fl (7.5-11.1); NEUT % 82.7 % (42.8-82.8); PLATELET COUNT 277 10^3/uL (134-434); RBC 4.96 M/mm3 (4.00-5.60); RDW 15.3 % (11.9-15.9); WHITE BLOOD COUNT 10.8 K/mm3 (4.0-10.0)
[2021-06-23 09:30] LABS: ALBUMIN 3.4 g/dl (3.4-5.0); CALCIUM 9.4 mg/dL (8.5-10.1)
[2021-06-23 09:31] LABS: BLOOD UREA NITROGEN 11.2 mg/dL (7-18)
[2021-06-23 09:34] LABS: CREATININE 0.6 mg/dL (0.55-1.3)
[2021-06-23 09:35] LABS: BILIRUBIN,TOTAL 0.4 mg/dL (0.2-1)
[2021-06-23] MEDS: FUROSEMIDE 40 MG TABLET (FP) GT SCH (09:49)
[2021-06-23] MEDS: levETIRAcetam 500 MG/5 ML ORAL SOLUTION (UNIT-DOSE CUPS) PEG SCH ×2 (09:50→22:07)
[2021-06-23] MEDS: ENOXAPARIN NA (PORCINE) 40 MG/0.4 ML DISP.SYRIN SQ SCH (09:50)
[2021-06-23] MEDS ORDERED: DOXYCYCLINE HYCLATE 100 MG VIAL ONE (09:58)
[2021-06-23] MEDS ORDERED: DEXTROSE 5%-WATER 100 ML IVPB ONE (09:58)
[2021-06-23] MEDS: DOXYCYCLINE INJECTION 100 MG in DEXTROSE 5%-WATER 100 ML IVPB SCH (10:01)
[2021-06-23] MEDS ORDERED: VANCOMYCIN/WATER FOR INJ (PEG) 1,000 MG/200 ML BAG IVPB SCH (13:15)
[2021-06-23] MEDS ORDERED: PIPERACILLIN/TAZOBACTAM 3.375 GM VIAL IVPB ONE (16:23)
[2021-06-23] MEDS ORDERED: DEXTROSE 5%-WATER - 50 ML IVPB ONE (16:24)
[2021-06-23] MEDS: PIPERACILLIN/TAZOB 3.375 GM 3.375 GM in DEXTROSE 5%-WATER - 50 ML IVPB SCH ×2 (16:27→17:29)
[2021-06-24] MEDS ORDERED: PIPERACILLIN/TAZOBACTAM 3.375 GM VIAL IVPB ONE ×3 (01:01→17:17)
[2021-06-24] MEDS ORDERED: DEXTROSE 5%-WATER - 50 ML IVPB ONE ×3 (01:01→17:18)
[2021-06-24] MEDS: PIPERACILLIN/TAZOB 3.375 GM 3.375 GM in DEXTROSE 5%-WATER - 50 ML IVPB SCH ×3 (01:17→17:38)
[2021-06-24] MEDS: ALBUTEROL SO4 2.5/IPRATROPIUM 0.5 INH SOL 3 ML VIAL.NEB. NEB SCH ×5 (03:43→21:34)
[2021-06-24] MEDS: BUDESONIDE 0.5 MG/2 ML INH SUSP VIAL NEB SCH ×2 (09:13→21:35)
[2021-06-24 10:02] LABS: BASO % 0.3 % (0-2.0); EOS % 0.9 % (0-4.5); HEMATOCRIT 43.2 % (35.4-49); HEMOGLOBIN 14.6 GM/dL (11.7-16.9); LYMPH % 17.8 % (8-40); MCH 30.7 pg (25.7-33.7); MCHC 33.8 g/dl (32.0-35.9); MEAN CELL VOLUME 90.8 fl (80-96); MEAN PLT VOLUME 8.2 fl (7.5-11.1); MONO % 9.7 % (3.8-10.2); NEUT % 71.3 % (42.8-82.8); PLATELET COUNT 271 10^3/uL (134-434); RBC 4.76 M/mm3 (4.00-5.60); RDW 15.2 % (11.9-15.9); WHITE BLOOD COUNT 8.2 K/mm3 (4.0-10.0)
[2021-06-24] MEDS: levETIRAcetam 500 MG/5 ML ORAL SOLUTION (UNIT-DOSE CUPS) PEG SCH ×2 (10:11→22:13)
[2021-06-24] MEDS: ENOXAPARIN NA (PORCINE) 40 MG/0.4 ML DISP.SYRIN SQ SCH (10:11)
[2021-06-24] MEDS: FUROSEMIDE 40 MG TABLET (FP) GT SCH (10:11)
[2021-06-24 10:26] LABS: ALBUMIN 3.4 g/dl (3.4-5.0); BLOOD UREA NITROGEN 14.4 mg/dL (7-18); CALCIUM 9.7 mg/dL (8.5-10.1)
[2021-06-24 10:29] LABS: CREATININE 0.6 mg/dL (0.55-1.3); PHOSPHOROUS 3.6 mg/dL (2.5-4.9)
[2021-06-24 10:31] LABS: BILIRUBIN,TOTAL 0.6 mg/dL (0.2-1); TOT PROT 6.9 g/dl (6.4-8.2)
[2021-06-25] MEDS: ALBUTEROL SO4 2.5/IPRATROPIUM 0.5 INH SOL 3 ML VIAL.NEB. NEB SCH ×5 (00:03→22:09)
[2021-06-25] MEDS ORDERED: PIPERACILLIN/TAZOBACTAM 3.375 GM VIAL IVPB ONE ×3 (01:12→17:10)
[2021-06-25] MEDS: PIPERACILLIN/TAZOB 3.375 GM 3.375 GM in DEXTROSE 5%-WATER - 50 ML IVPB SCH ×3 (02:20→17:33)
[2021-06-25 09:25] LABS: BASO % 0.8 % (0-2.0); EOS % 2.2 % (0-4.5); HEMATOCRIT 42.9 % (35.4-49); HEMOGLOBIN 14.3 GM/dL (11.7-16.9); LYMPH % 30.1 % (8-40); MCH 30.7 pg (25.7-33.7); MCHC 33.4 g/dl (32.0-35.9); MEAN CELL VOLUME 91.9 fl (80-96); MEAN PLT VOLUME 8.2 fl (7.5-11.1); MONO % 13.7 % (3.8-10.2); NEUT % 53.2 % (42.8-82.8); PLATELET COUNT 290 10^3/uL (134-434); RBC 4.67 M/mm3 (4.00-5.60); RDW 15.4 % (11.9-15.9); WHITE BLOOD COUNT 4.5 K/mm3 (4.0-10.0)
[2021-06-25] MEDS ORDERED: DEXTROSE 5%-WATER - 50 ML IVPB ONE ×2 (09:43→17:10)
[2021-06-25 09:51] LABS: CALCIUM 9.6 mg/dL (8.5-10.1)
[2021-06-25 09:53] LABS: ALBUMIN 3.2 g/dl (3.4-5.0); BLOOD UREA NITROGEN 14.7 mg/dL (7-18)
[2021-06-25 09:56] LABS: CREATININE 0.6 mg/dL (0.55-1.3)
[2021-06-25] MEDS: levETIRAcetam 500 MG/5 ML ORAL SOLUTION (UNIT-DOSE CUPS) PEG SCH ×2 (09:56→21:55)
[2021-06-25] MEDS: ENOXAPARIN NA (PORCINE) 40 MG/0.4 ML DISP.SYRIN SQ SCH (09:57)
[2021-06-25] MEDS: FUROSEMIDE 40 MG TABLET (FP) GT SCH (09:57)
[2021-06-25 09:58] LABS: BILIRUBIN,TOTAL 0.7 mg/dL (0.2-1)
[2021-06-25 09:59] LABS: TOT PROT 6.6 g/dl (6.4-8.2)
[2021-06-25] MEDS: BUDESONIDE 0.5 MG/2 ML INH SUSP VIAL NEB SCH ×2 (10:18→22:09)
[2021-06-25] MEDS ORDERED: AMOX TR/POTASSIUM CLAVULANATE 400 MG/5 ML BOTTLE GT SCH (17:30)
[2021-06-25] MEDS ORDERED: AMOX TR/POTASSIUM CLAVULANATE 400 MG/5 ML BOTTLE PO SCH (17:30)
[2021-06-26] MEDS ORDERED: PIPERACILLIN/TAZOBACTAM 3.375 GM VIAL IVPB ONE ×3 (01:15→18:18)
[2021-06-26] MEDS ORDERED: DEXTROSE 5%-WATER - 50 ML IVPB ONE ×3 (01:15→18:18)
[2021-06-26] MEDS: PIPERACILLIN/TAZOB 3.375 GM 3.375 GM in DEXTROSE 5%-WATER - 50 ML IVPB SCH ×3 (01:41→18:53)
[2021-06-26] MEDS: ALBUTEROL SO4 2.5/IPRATROPIUM 0.5 INH SOL 3 ML VIAL.NEB. NEB SCH ×4 (09:32→21:06)
[2021-06-26] MEDS: BUDESONIDE 0.5 MG/2 ML INH SUSP VIAL NEB SCH ×2 (09:33→21:06)
[2021-06-26 10:02] LABS: HEMATOCRIT 41.5 % (35.4-49); MCHC 33.7 g/dl (32.0-35.9); MEAN CELL VOLUME 92.1 fl (80-96); MEAN PLT VOLUME 8.3 fl (7.5-11.1); PLATELET COUNT 291 10^3/uL (134-434); RBC 4.51 M/mm3 (4.00-5.60); RDW 15.8 % (11.9-15.9); WHITE BLOOD COUNT 5.4 K/mm3 (4.0-10.0)
[2021-06-26] MEDS: FUROSEMIDE 40 MG TABLET (FP) GT SCH (10:13)
[2021-06-26] MEDS: levETIRAcetam 500 MG/5 ML ORAL SOLUTION (UNIT-DOSE CUPS) PEG SCH ×2 (10:13→22:09)
[2021-06-26] MEDS: ENOXAPARIN NA (PORCINE) 40 MG/0.4 ML DISP.SYRIN SQ SCH (10:13)
[2021-06-26 10:19] LABS: ALBUMIN 3.2 g/dl (3.4-5.0); BLOOD UREA NITROGEN 17.3 mg/dL (7-18); CALCIUM 9.3 mg/dL (8.5-10.1)
[2021-06-26 10:24] LABS: BILIRUBIN,TOTAL 0.4 mg/dL (0.2-1); TOT PROT 6.6 g/dl (6.4-8.2)
[2021-06-26 10:25] LABS: CREATININE 0.8 mg/dL (0.55-1.3)
[2021-06-26 10:46] LABS: ANISOCYTOSIS 1+; MACROCYTOSIS 0
[2021-06-27] MEDS: PIPERACILLIN/TAZOB 3.375 GM 3.375 GM in DEXTROSE 5%-WATER - 50 ML IVPB SCH ×2 (01:01→11:59)
[2021-06-27] MEDS ORDERED: DEXTROSE 5%-WATER - 50 ML IVPB ONE (09:12)
[2021-06-27] MEDS ORDERED: PIPERACILLIN/TAZOBACTAM 3.375 GM VIAL IVPB ONE (09:12)
[2021-06-27] MEDS: BUDESONIDE 0.5 MG/2 ML INH SUSP VIAL NEB SCH ×2 (09:25→20:10)
[2021-06-27] MEDS: ALBUTEROL SO4 2.5/IPRATROPIUM 0.5 INH SOL 3 ML VIAL.NEB. NEB SCH ×4 (09:25→20:00)
[2021-06-27 09:26] LABS: BASO % 1.4 % (0-2.0); HEMATOCRIT 43.4 % (35.4-49); HEMOGLOBIN 14.6 GM/dL (11.7-16.9); LYMPH % 33.3 % (8-40); MCH 30.9 pg (25.7-33.7); MCHC 33.7 g/dl (32.0-35.9); MEAN CELL VOLUME 91.9 fl (80-96); MONO % 12.7 % (3.8-10.2); NEUT % 49.6 % (42.8-82.8); PLATELET COUNT 285 10^3/uL (134-434); RBC 4.73 M/mm3 (4.00-5.60); RDW 15.5 % (11.9-15.9); WHITE BLOOD COUNT 3.8 K/mm3 (4.0-10.0)
[2021-06-27] MEDS: ENOXAPARIN NA (PORCINE) 40 MG/0.4 ML DISP.SYRIN SQ SCH (09:39)
[2021-06-27] MEDS: levETIRAcetam 500 MG/5 ML ORAL SOLUTION (UNIT-DOSE CUPS) PEG SCH ×2 (09:39→22:33)
[2021-06-27] MEDS: FUROSEMIDE 40 MG TABLET (FP) GT SCH (09:40)
[2021-06-27 09:56] LABS: BLOOD UREA NITROGEN 21.8 mg/dL (7-18)
[2021-06-27 09:57] LABS: CALCIUM 9.7 mg/dL (8.5-10.1)
[2021-06-27 09:58] LABS: ALBUMIN 3.4 g/dl (3.4-5.0)
[2021-06-27 10:01] LABS: CREATININE 0.8 mg/dL (0.55-1.3)
[2021-06-27 10:02] LABS: BILIRUBIN,TOTAL 0.6 mg/dL (0.2-1)
[2021-06-27] MEDS: AMOX TR/POT CLAV 875MG/125MG TABLETS (FP) PO SCH (19:02)
[2021-06-28] MEDS: ALBUTEROL SO4 2.5/IPRATROPIUM 0.5 INH SOL 3 ML VIAL.NEB. NEB SCH ×2 (07:30→11:39)
[2021-06-28] MEDS: BUDESONIDE 0.5 MG/2 ML INH SUSP VIAL NEB SCH (09:25)
[2021-06-28] MEDS: levETIRAcetam 500 MG/5 ML ORAL SOLUTION (UNIT-DOSE CUPS) PEG SCH (11:07)
[2021-06-28] MEDS: FUROSEMIDE 40 MG TABLET (FP) GT SCH (11:07)
[2021-06-28] MEDS: AMOX TR/POT CLAV 875MG/125MG TABLETS (FP) PO SCH (11:07)
[2021-06-28 16:27] VITALS: BP 124/76; PULSE 84; TEMP 97.2
== END 2021-06-28 18:09 | disposition home or self-care (01) | DRG 177 ==
LOC: EDSEX 15:19 → JER 15:19 → JERBED 21:26 → MERGE 21:26 → J8W 06-21 02:30
PROVIDERS: ADMIT Hospitalist; ATTEND Internal Medicine
PROC: 3E0G76Z Introduction of Nutritional Substance into Upper GI, Via Natural or Artificial Opening (ICD-10-PCS; principal; 2021-06-20)
DX: J69.0 Pneumonitis due to inhalation of food and vomit (principal); G80.0 Spastic quadriplegic cerebral palsy; J96.01 Acute respiratory failure with hypoxia; R53.2 Functional quadriplegia; G91.9 Hydrocephalus, unspecified; I50.32 Chronic diastolic (congestive) heart failure; F72 Severe intellectual disabilities; Z74.01 Bed confinement status; G40.909 Epilepsy, unspecified, not intractable, without status epilepticus; J44.9 Chronic obstructive pulmonary disease, unspecified; Z86.16 Personal history of COVID-19; Z93.1 Gastrostomy status
CPT/HCPCS: 36415; 71045-TC-FY; 71250-TC; 80053; 81003; 82803; 83605; 83735; 84100; 85025; 85610; 85730; 86850; 86900; 86901; 87040; 87086; 87186; 87804; 87899; 93005; 93010; 94640; 99285-25; C9803-CS; U0003; U0005

== ENCOUNTER 2022-04-07 03:21 | Inpatient (IN) | payer OTHER ==
[2022-04-07 03:51] VITALS: BMI 24.4
[2022-04-07 05:01] LABS: EPI CELLS >36 /uL (0-25.1); HYALINE CASTS 1 /uL (0-3.1); PH,URINE 7.5 (5.0-8.0); URINE APPEARANCE CLEAR; URINE BACTERIA 30 /uL (0-1359); URINE BILIRUBIN NEGATIVE (NEGATIVE); URINE COLOR YELLOW; URINE GLUCOSE (UA) NEGATIVE (NEGATIVE); URINE KETONE NEGATIVE (NEGATIVE); URINE LEUK ESTERASE NEGATIVE (NEGATIVE); URINE NITRITE NEGATIVE (NEGATIVE); URINE PROTEIN NEGATIVE (NEGATIVE); URINE RBC 18 /uL (0-23.9); URINE UROBILINOGEN 0.2 mg/dL (0.2-1.0); URINE WBC 31 /uL (0-25.8)
[2022-04-07 05:07] LABS: ARTERIAL BLD GAS O2 SATURATION 99.3 % (95-98); ARTERIAL BLOOD GAS BASE EXCESS 2.3 mmol/L (-2-2); ARTERIAL BLOOD GAS PO2 190.1 mmHg (80-100); ARTERIAL BLOOD GAS pH 7.427 (7.350-7.450)
[2022-04-07 05:10] LABS: PROTHROMBIN TIME (PATIENT) 11.6 SEC (9.7-13.0)
[2022-04-07 05:12] LABS: ACTIVATED PTT 36.6 SECONDS (25.2-36.5)
[2022-04-07 05:17] LABS: CALCIUM 8.9 mg/dL (8.5-10.1)
[2022-04-07 05:19] LABS: ALBUMIN 3.4 g/dl (3.4-5.0); BLOOD UREA NITROGEN 15.3 mg/dL (7-18)
[2022-04-07] MEDS ORDERED: DEXTROSE 50%-WATER - 25 GM/50 ML VIAL IVPUSH ONE (05:19)
[2022-04-07] MEDS ORDERED: VANCOMYCIN 1,000 MG in DEXTROSE 5%-WATER - 250 ML IVPB ONE (05:21)
[2022-04-07] MEDS ORDERED: PIPERACILLIN/TAZOB 4.5 GM 4.5 GM in DEXTROSE 5%-WATER 100 ML IVPB ONE (05:21)
[2022-04-07 05:22] LABS: BILIRUBIN,TOTAL 0.4 mg/dL (0.2-1); CREATININE 0.7 mg/dL (0.55-1.3); TOT PROT 6.6 g/dl (6.4-8.2)
[2022-04-07] MEDS ORDERED: DEXTROSE 50%-WATER 25 GM/50 ML DISP.SYRIN ONE (05:23)
[2022-04-07] MEDS ORDERED: PIPERACILLIN/TAZOB 3.375 GM 3.375 GM/50 ML BAG IVPB ONE (05:24)
[2022-04-07 05:35] LABS: BASO % 0.3 % (0-2.0); EOS % 0.3 % (0-4.5); HEMATOCRIT 40.1 % (35.4-49); HEMOGLOBIN 13.6 GM/dL (11.7-16.9); LYMPH % 9.2 % (8-40); MCH 31.2 pg (25.7-33.7); MEAN CELL VOLUME 91.9 fl (80-96); MEAN PLT VOLUME 8.5 fl (7.5-11.1); MONO % 6.3 % (3.8-10.2); NEUT % 83.9 % (42.8-82.8); PLATELET COUNT 274 10^3/uL (134-434); RBC 4.36 M/mm3 (4.00-5.60); RDW 13.8 % (11.9-15.9); WHITE BLOOD COUNT 11.1 K/mm3 (4.0-10.0)
[2022-04-07] MEDS ORDERED: VANCOMYCIN/WATER FOR INJ (PEG) 1,000 MG/200 ML BAG IVPB ONE (06:30)
[2022-04-07] MEDS ORDERED: SODIUM CHLORIDE 0.9% 500 ML INFUS.BAG IV ONE (07:05)
[2022-04-07] MEDS ORDERED: ZINC OXIDE 20% TOPICAL OINTMENT 30 GM TUBE TP PRN (07:31)
[2022-04-07] MEDS ORDERED: POLYETHYLENE GLYCOL (HEALTHYLAX) 3350 17 GM PACKET PO PRN (07:31)
[2022-04-07] MEDS ORDERED: ALBUTEROL SO4 2.5/IPRATROPIUM 0.5 INH SOL 3 ML VIAL.NEB. NEB PRN (07:33)
[2022-04-07] MEDS ORDERED: POLYETHYLENE GLYCOL (HEALTHYLAX) 3350 17 GM PACKET GT PRN (08:05)
[2022-04-07] MEDS ORDERED: BISACODYL 10 MG SUPP.RECT RC PRN (09:14)
[2022-04-07] MEDS ORDERED: SODIUM PHOSPHATE/NA BIPHOS 133 ML ENEMA RC PRN (09:14)
[2022-04-07] MEDS: BUDESONIDE 0.5 MG/2 ML INH SUSP VIAL NEB SCH ×2 (09:42→20:15)
[2022-04-07] MEDS ORDERED: MULTIVITAMINS (DAILY MVI) TABLET (FP) PO SCH (10:00)
[2022-04-07] MEDS ORDERED: FUROSEMIDE 40 MG/5 ML UNIT-DOSE CUP GT SCH (10:00)
[2022-04-07] MEDS: AMPICILLIN NA/SULBACTAM NA 1.5 GM in SODIUM CHLORIDE 100 ML IVPB SCH ×3 (11:37→20:49)
[2022-04-07] MEDS: CLINDAMYCIN PHOSPHATE 1% TOPICAL GEL 30 GM TUBE TP SCH (11:37)
[2022-04-07] MEDS: levETIRAcetam 500 MG/5 ML ORAL SOLUTION (UNIT-DOSE CUPS) PEG SCH ×2 (11:38→21:02)
[2022-04-07] MEDS: CALCIUM 250MG/VIT-D 125 UNITS 1 COMBO TABLET NR SCH (11:44)
[2022-04-07] MEDS: ENOXAPARIN NA (PORCINE) 40 MG/0.4 ML DISP.SYRIN SQ SCH (11:44)
[2022-04-07] MEDS: SENNOSIDES/DOCUSATE COMBO (SENNA PLUS) TABLET (UD) PO SCH (21:38)
[2022-04-08] MEDS: AMPICILLIN NA/SULBACTAM NA 1.5 GM in SODIUM CHLORIDE 100 ML IVPB SCH ×4 (02:12→21:38)
[2022-04-08] MEDS: BUDESONIDE 0.5 MG/2 ML INH SUSP VIAL NEB SCH ×2 (08:29→20:39)
[2022-04-08] MEDS: ENOXAPARIN NA (PORCINE) 40 MG/0.4 ML DISP.SYRIN SQ SCH (10:44)
[2022-04-08] MEDS: levETIRAcetam 500 MG/5 ML ORAL SOLUTION (UNIT-DOSE CUPS) PEG SCH ×2 (10:44→21:38)
[2022-04-08] MEDS: MULTIVIT-MINERALS ORAL LIQUID GT SCH (10:45)
[2022-04-08] MEDS: CALCIUM 250MG/VIT-D 125 UNITS 1 COMBO TABLET NR SCH (10:45)
[2022-04-08] MEDS: CLINDAMYCIN PHOSPHATE 1% TOPICAL GEL 30 GM TUBE TP SCH (10:58)
[2022-04-08 12:08] LABS: HEMATOCRIT 38.7 % (35.4-49); HEMOGLOBIN 13.5 GM/dL (11.7-16.9); MCH 32.3 pg (25.7-33.7); MCHC 34.9 g/dl (32.0-35.9); MEAN CELL VOLUME 92.6 fl (80-96); MEAN PLT VOLUME 8.2 fl (7.5-11.1); PLATELET COUNT 270 10^3/uL (134-434); RBC 4.18 M/mm3 (4.00-5.60); RDW 13.9 % (11.9-15.9); WHITE BLOOD COUNT 8.8 K/mm3 (4.0-10.0)
[2022-04-08 12:31] LABS: BLOOD UREA NITROGEN 12.1 mg/dL (7-18)
[2022-04-08 12:34] LABS: CREATININE 0.8 mg/dL (0.55-1.3)
[2022-04-08] MEDS: SENNOSIDES/DOCUSATE COMBO (SENNA PLUS) TABLET (UD) PO SCH (21:38)
[2022-04-09] MEDS: AMPICILLIN NA/SULBACTAM NA 1.5 GM in SODIUM CHLORIDE 100 ML IVPB SCH ×4 (02:37→20:13)
[2022-04-09 08:40] LABS: BASO % 0.5 % (0-2.0); EOS % 1.3 % (0-4.5); HEMATOCRIT 39.8 % (35.4-49); HEMOGLOBIN 13.6 GM/dL (11.7-16.9); LYMPH % 20.3 % (8-40); MCH 31.7 pg (25.7-33.7); MCHC 34.1 g/dl (32.0-35.9); MEAN CELL VOLUME 92.9 fl (80-96); MEAN PLT VOLUME 8.2 fl (7.5-11.1); MONO % 11.4 % (3.8-10.2); NEUT % 66.5 % (42.8-82.8); PLATELET COUNT 292 10^3/uL (134-434); RBC 4.28 M/mm3 (4.00-5.60); WHITE BLOOD COUNT 6.3 K/mm3 (4.0-10.0)
[2022-04-09] MEDS: BUDESONIDE 0.5 MG/2 ML INH SUSP VIAL NEB SCH ×2 (08:48→20:25)
[2022-04-09 08:53] LABS: CALCIUM 8.8 mg/dL (8.5-10.1)
[2022-04-09 08:54] LABS: ALBUMIN 3.2 g/dl (3.4-5.0); BLOOD UREA NITROGEN 11.8 mg/dL (7-18); MAGNESIUM 2.2 mg/dL (1.8-2.4)
[2022-04-09 08:57] LABS: CREATININE 0.7 mg/dL (0.55-1.3); PHOSPHOROUS 2.8 mg/dL (2.5-4.9)
[2022-04-09 08:59] LABS: BILIRUBIN,TOTAL 0.4 mg/dL (0.2-1); TOT PROT 6.6 g/dl (6.4-8.2)
[2022-04-09] MEDS: levETIRAcetam 500 MG/5 ML ORAL SOLUTION (UNIT-DOSE CUPS) PEG SCH ×2 (09:48→22:44)
[2022-04-09] MEDS: MULTIVIT-MINERALS ORAL LIQUID GT SCH (09:48)
[2022-04-09] MEDS: ENOXAPARIN NA (PORCINE) 40 MG/0.4 ML DISP.SYRIN SQ SCH (09:49)
[2022-04-09] MEDS: CALCIUM 250MG/VIT-D 125 UNITS 1 COMBO TABLET NR SCH (09:49)
[2022-04-09] MEDS: CLINDAMYCIN PHOSPHATE 1% TOPICAL GEL 30 GM TUBE TP SCH (10:37)
[2022-04-09] MEDS: SENNOSIDES/DOCUSATE COMBO (SENNA PLUS) TABLET (UD) PO SCH (22:43)
[2022-04-10] MEDS: AMPICILLIN NA/SULBACTAM NA 1.5 GM in SODIUM CHLORIDE 100 ML IVPB SCH ×4 (02:02→21:34)
[2022-04-10] MEDS: BUDESONIDE 0.5 MG/2 ML INH SUSP VIAL NEB SCH ×2 (08:21→20:02)
[2022-04-10] MEDS: ENOXAPARIN NA (PORCINE) 40 MG/0.4 ML DISP.SYRIN SQ SCH (09:51)
[2022-04-10] MEDS: CALCIUM 250MG/VIT-D 125 UNITS 1 COMBO TABLET NR SCH (09:51)
[2022-04-10] MEDS: MULTIVIT-MINERALS ORAL LIQUID GT SCH (09:52)
[2022-04-10] MEDS: levETIRAcetam 500 MG/5 ML ORAL SOLUTION (UNIT-DOSE CUPS) PEG SCH ×2 (09:52→21:34)
[2022-04-10] MEDS: CLINDAMYCIN PHOSPHATE 1% TOPICAL GEL 30 GM TUBE TP SCH (09:53)
[2022-04-10 10:12] LABS: ALBUMIN 2.6 g/dl (3.4-5.0)
[2022-04-10 10:13] LABS: BLOOD UREA NITROGEN 13.5 mg/dL (7-18)
[2022-04-10 10:16] LABS: CREATININE 0.7 mg/dL (0.55-1.3)
[2022-04-10 10:17] LABS: BILIRUBIN,TOTAL 0.4 mg/dL (0.2-1); TOT PROT 6.3 g/dl (6.4-8.2)
[2022-04-10] MEDS: SENNOSIDES/DOCUSATE COMBO (SENNA PLUS) TABLET (UD) PO SCH (21:40)
[2022-04-11] MEDS: AMPICILLIN NA/SULBACTAM NA 1.5 GM in SODIUM CHLORIDE 100 ML IVPB SCH ×4 (03:29→20:49)
[2022-04-11] MEDS: BUDESONIDE 0.5 MG/2 ML INH SUSP VIAL NEB SCH ×2 (07:51→20:00)
[2022-04-11 08:56] LABS: BASO % 0.6 % (0-2.0); EOS % 3.8 % (0-4.5); HEMATOCRIT 40.2 % (35.4-49); HEMOGLOBIN 13.4 GM/dL (11.7-16.9); LYMPH % 28.8 % (8-40); MCH 31.2 pg (25.7-33.7); MCHC 33.3 g/dl (32.0-35.9); MEAN CELL VOLUME 93.7 fl (80-96); MEAN PLT VOLUME 8.4 fl (7.5-11.1); MONO % 11.8 % (3.8-10.2); PLATELET COUNT 313 10^3/uL (134-434); RBC 4.29 M/mm3 (4.00-5.60); WHITE BLOOD COUNT 5.2 K/mm3 (4.0-10.0)
[2022-04-11 09:00] LABS: CALCIUM 8.6 mg/dL (8.5-10.1)
[2022-04-11 09:01] LABS: ALBUMIN 2.9 g/dl (3.4-5.0)
[2022-04-11 09:03] LABS: BILIRUBIN,TOTAL 0.4 mg/dL (0.2-1)
[2022-04-11 09:04] LABS: CREATININE 0.5 mg/dL (0.55-1.3)
[2022-04-11 09:06] LABS: TOT PROT 6.1 g/dl (6.4-8.2)
[2022-04-11] MEDS: CALCIUM 250MG/VIT-D 125 UNITS 1 COMBO TABLET NR SCH (09:27)
[2022-04-11] MEDS: MULTIVIT-MINERALS ORAL LIQUID GT SCH (09:27)
[2022-04-11] MEDS: levETIRAcetam 500 MG/5 ML ORAL SOLUTION (UNIT-DOSE CUPS) PEG SCH ×2 (09:27→22:00)
[2022-04-11] MEDS: ENOXAPARIN NA (PORCINE) 40 MG/0.4 ML DISP.SYRIN SQ SCH (09:27)
[2022-04-11] MEDS: CLINDAMYCIN PHOSPHATE 1% TOPICAL GEL 30 GM TUBE TP SCH (09:27)
[2022-04-11 10:54] LABS: MAGNESIUM 1.9 mg/dL (1.8-2.4)
[2022-04-11 10:58] LABS: PHOSPHOROUS 3.4 mg/dL (2.5-4.9)
[2022-04-11] MEDS: SENNOSIDES/DOCUSATE COMBO (SENNA PLUS) TABLET (UD) PO SCH (22:01)
[2022-04-12] MEDS: AMPICILLIN NA/SULBACTAM NA 1.5 GM in SODIUM CHLORIDE 100 ML IVPB SCH ×4 (02:11→20:27)
[2022-04-12] MEDS: BUDESONIDE 0.5 MG/2 ML INH SUSP VIAL NEB SCH ×2 (08:40→20:05)
[2022-04-12] MEDS: levETIRAcetam 500 MG/5 ML INJECTION VIAL IVPB SCH ×2 (09:17→22:12)
[2022-04-12] MEDS: MULTIVIT-MINERALS ORAL LIQUID GT SCH (09:17)
[2022-04-12] MEDS: CALCIUM 250MG/VIT-D 125 UNITS 1 COMBO TABLET NR SCH (09:18)
[2022-04-12] MEDS: ENOXAPARIN NA (PORCINE) 40 MG/0.4 ML DISP.SYRIN SQ SCH (09:18)
[2022-04-12] MEDS: CLINDAMYCIN PHOSPHATE 1% TOPICAL GEL 30 GM TUBE TP SCH (09:19)
[2022-04-12 10:13] LABS: HEMATOCRIT 39.8 % (35.4-49); HEMOGLOBIN 13.5 GM/dL (11.7-16.9); MCH 31.6 pg (25.7-33.7); MCHC 33.8 g/dl (32.0-35.9); MEAN CELL VOLUME 93.3 fl (80-96); MEAN PLT VOLUME 8.8 fl (7.5-11.1); RBC 4.26 M/mm3 (4.00-5.60); RDW 14.2 % (11.9-15.9)
[2022-04-12 10:17] LABS: PLATELET COUNT 180 10^3/uL (134-434)
[2022-04-12 10:35] LABS: BLOOD UREA NITROGEN 10.3 mg/dL (7-18); CALCIUM 8.6 mg/dL (8.5-10.1)
[2022-04-12 10:38] LABS: CREATININE 0.5 mg/dL (0.55-1.3); PHOSPHOROUS 3.2 mg/dL (2.5-4.9)
[2022-04-12 10:39] LABS: BILIRUBIN,TOTAL 0.4 mg/dL (0.2-1); TOT PROT 6.3 g/dl (6.4-8.2)
[2022-04-12 11:55] LABS: ANISOCYTOSIS 0; MACROCYTOSIS 0
[2022-04-12] MEDS: SENNOSIDES/DOCUSATE COMBO (SENNA PLUS) TABLET (UD) PO SCH (22:08)
[2022-04-12] MEDS: levETIRAcetam 500 MG/5 ML ORAL SOLUTION (UNIT-DOSE CUPS) PEG SCH (22:08)
[2022-04-13] MEDS: AMPICILLIN NA/SULBACTAM NA 1.5 GM in SODIUM CHLORIDE 100 ML IVPB SCH ×4 (02:23→20:52)
[2022-04-13] MEDS: BUDESONIDE 0.5 MG/2 ML INH SUSP VIAL NEB SCH ×2 (08:20→21:21)
[2022-04-13 09:46] LABS: BASO % 0.7 % (0-2.0); HEMATOCRIT 40.1 % (35.4-49); LYMPH % 27.7 % (8-40); MCH 32.6 pg (25.7-33.7); MCHC 34.9 g/dl (32.0-35.9); MEAN CELL VOLUME 93.5 fl (80-96); MEAN PLT VOLUME 7.8 fl (7.5-11.1); MONO % 12.7 % (3.8-10.2); NEUT % 55.9 % (42.8-82.8); PLATELET COUNT 311 10^3/uL (134-434); RBC 4.29 M/mm3 (4.00-5.60); WHITE BLOOD COUNT 4.6 K/mm3 (4.0-10.0)
[2022-04-13 10:01] LABS: CALCIUM 8.8 mg/dL (8.5-10.1)
[2022-04-13 10:02] LABS: ALBUMIN 3.1 g/dl (3.4-5.0); BLOOD UREA NITROGEN 11.9 mg/dL (7-18)
[2022-04-13 10:05] LABS: CREATININE 0.7 mg/dL (0.55-1.3); PHOSPHOROUS 2.8 mg/dL (2.5-4.9)
[2022-04-13 10:06] LABS: BILIRUBIN,TOTAL 0.4 mg/dL (0.2-1)
[2022-04-13 10:07] LABS: TOT PROT 6.4 g/dl (6.4-8.2)
[2022-04-13] MEDS: ENOXAPARIN NA (PORCINE) 40 MG/0.4 ML DISP.SYRIN SQ SCH (10:19)
[2022-04-13] MEDS: levETIRAcetam 500 MG/5 ML INJECTION VIAL IVPB SCH ×2 (10:20→21:58)
[2022-04-13] MEDS: MULTIVIT-MINERALS ORAL LIQUID GT SCH (10:20)
[2022-04-13] MEDS: CALCIUM 250MG/VIT-D 125 UNITS 1 COMBO TABLET NR SCH (10:21)
[2022-04-13] MEDS: CLINDAMYCIN PHOSPHATE 1% TOPICAL GEL 30 GM TUBE TP SCH (10:22)
[2022-04-13] MEDS ORDERED: SODIUM CHLORIDE 1,000 ML IV SCH (16:45)
[2022-04-13] MEDS: DEXTROSE 5%-LACTATED RINGERS 1,000 ML IV SCH (18:14)
[2022-04-13] MEDS: ACETYLCYSTEINE 20% 200MG/ML 30 ML VIAL *FOR ORAL / INH USE ONLY NEB SCH (21:26)
[2022-04-13] MEDS: ALBUTEROL SO4 0.083% IH SOL 2.5 MG/3 ML VIAL.NEB. NEB SCH (21:26)
[2022-04-13] MEDS: SENNOSIDES/DOCUSATE COMBO (SENNA PLUS) TABLET (UD) PO SCH (21:52)
[2022-04-14] MEDS: AMPICILLIN NA/SULBACTAM NA 1.5 GM in SODIUM CHLORIDE 100 ML IVPB SCH ×4 (02:39→21:00)
[2022-04-14] MEDS: DEXTROSE 5%-LACTATED RINGERS 1,000 ML IV SCH (05:44)
[2022-04-14] MEDS: BUDESONIDE 0.5 MG/2 ML INH SUSP VIAL NEB SCH ×2 (07:58→21:25)
[2022-04-14] MEDS: ALBUTEROL SO4 0.083% IH SOL 2.5 MG/3 ML VIAL.NEB. NEB SCH ×4 (07:58→21:25)
[2022-04-14] MEDS: ACETYLCYSTEINE 20% 200MG/ML 30 ML VIAL *FOR ORAL / INH USE ONLY NEB SCH ×4 (07:58→21:25)
[2022-04-14] MEDS ORDERED: BISACODYL 10 MG SUPP.RECT PR PRN (08:09)
[2022-04-14 08:43] LABS: BASO % 0.7 % (0-2.0); EOS % 1.3 % (0-4.5); HEMATOCRIT 40.8 % (35.4-49); HEMOGLOBIN 13.7 GM/dL (11.7-16.9); LYMPH % 17.5 % (8-40); MCH 31.3 pg (25.7-33.7); MCHC 33.5 g/dl (32.0-35.9); MEAN CELL VOLUME 93.4 fl (80-96); MEAN PLT VOLUME 8.3 fl (7.5-11.1); MONO % 11.1 % (3.8-10.2); NEUT % 69.4 % (42.8-82.8); PLATELET COUNT 354 10^3/uL (134-434); RBC 4.37 M/mm3 (4.00-5.60); RDW 13.6 % (11.9-15.9); WHITE BLOOD COUNT 4.8 K/mm3 (4.0-10.0)
[2022-04-14 08:48] LABS: ALBUMIN 3.1 g/dl (3.4-5.0); BLOOD UREA NITROGEN 10.2 mg/dL (7-18); CALCIUM 8.6 mg/dL (8.5-10.1); MAGNESIUM 2.1 mg/dL (1.8-2.4)
[2022-04-14 08:50] LABS: BILIRUBIN,TOTAL 0.3 mg/dL (0.2-1); CREATININE 0.6 mg/dL (0.55-1.3); PHOSPHOROUS 1.8 mg/dL (2.5-4.9); TOT PROT 6.4 g/dl (6.4-8.2)
[2022-04-14] MEDS ORDERED: BISACODYL 10 MG SUPP.RECT PR SCH (10:00)
[2022-04-14] MEDS: levETIRAcetam 500 MG/5 ML INJECTION VIAL IVPB SCH ×2 (10:31→21:51)
[2022-04-14] MEDS: ENOXAPARIN NA (PORCINE) 40 MG/0.4 ML DISP.SYRIN SQ SCH (10:31)
[2022-04-14] MEDS: MULTIVIT-MINERALS ORAL LIQUID GT SCH (10:32)
[2022-04-14] MEDS: CLINDAMYCIN PHOSPHATE 1% TOPICAL GEL 30 GM TUBE TP SCH (10:33)
[2022-04-14] MEDS: CALCIUM 250MG/VIT-D 125 UNITS 1 COMBO TABLET NR SCH (10:33)
[2022-04-14] MEDS: POLYETHYLENE GLYCOL (HEALTHYLAX) 3350 17 GM PACKET GT SCH ×2 (15:40→21:51)
[2022-04-14] MEDS: SENNOSIDES/DOCUSATE COMBO (SENNA PLUS) TABLET (UD) PO SCH (22:08)
[2022-04-15] MEDS: AMPICILLIN NA/SULBACTAM NA 1.5 GM in SODIUM CHLORIDE 100 ML IVPB SCH ×6 (02:54→21:27)
[2022-04-15] MEDS: POLYETHYLENE GLYCOL (HEALTHYLAX) 3350 17 GM PACKET GT SCH ×3 (05:17→22:44)
[2022-04-15] MEDS: BUDESONIDE 0.5 MG/2 ML INH SUSP VIAL NEB SCH ×2 (07:38→20:15)
[2022-04-15] MEDS: ALBUTEROL SO4 0.083% IH SOL 2.5 MG/3 ML VIAL.NEB. NEB SCH ×4 (07:39→20:58)
[2022-04-15] MEDS: ACETYLCYSTEINE 20% 200MG/ML 30 ML VIAL *FOR ORAL / INH USE ONLY NEB SCH ×3 (08:38→15:48)
[2022-04-15] MEDS: ENOXAPARIN NA (PORCINE) 40 MG/0.4 ML DISP.SYRIN SQ SCH (09:38)
[2022-04-15] MEDS: MULTIVIT-MINERALS ORAL LIQUID GT SCH (09:40)
[2022-04-15] MEDS: CALCIUM 250MG/VIT-D 125 UNITS 1 COMBO TABLET NR SCH (09:41)
[2022-04-15] MEDS: CLINDAMYCIN PHOSPHATE 1% TOPICAL GEL 30 GM TUBE TP SCH (09:41)
[2022-04-15] MEDS: levETIRAcetam 500 MG/5 ML INJECTION VIAL IVPB SCH ×2 (09:41→10:37)
[2022-04-15] MEDS: levETIRAcetam 500 MG/5 ML ORAL SOLUTION (UNIT-DOSE CUPS) PEG SCH ×2 (10:49→22:43)
[2022-04-15] MEDS: NAPH,MB-DB/K PH,MBDB POWDER PACKET PO SCH ×2 (13:45→22:44)
[2022-04-15] MEDS: ACETYLCYSTEINE 20% 200MG/ML 4 ML VIAL *FOR ORAL / INH USE ONLY NEB SCH (20:15)
[2022-04-15] MEDS: SENNOSIDES/DOCUSATE COMBO (SENNA PLUS) TABLET (UD) PO SCH (22:43)
[2022-04-16] MEDS: AMPICILLIN NA/SULBACTAM NA 1.5 GM in SODIUM CHLORIDE 100 ML IVPB SCH ×3 (02:44→14:12)
[2022-04-16] MEDS: POLYETHYLENE GLYCOL (HEALTHYLAX) 3350 17 GM PACKET GT SCH (05:22)
[2022-04-16] MEDS: NAPH,MB-DB/K PH,MBDB POWDER PACKET PO SCH (05:22)
[2022-04-16] MEDS: BUDESONIDE 0.5 MG/2 ML INH SUSP VIAL NEB SCH ×2 (09:30→20:40)
[2022-04-16] MEDS: ACETYLCYSTEINE 20% 200MG/ML 4 ML VIAL *FOR ORAL / INH USE ONLY NEB SCH ×4 (09:40→20:40)
[2022-04-16] MEDS: ALBUTEROL SO4 0.083% IH SOL 2.5 MG/3 ML VIAL.NEB. NEB SCH ×4 (09:40→20:40)
[2022-04-16 09:52] LABS: BLOOD UREA NITROGEN 7.6 mg/dL (7-18)
[2022-04-16 09:55] LABS: CREATININE 0.7 mg/dL (0.55-1.3); PHOSPHOROUS 3.5 mg/dL (2.5-4.9)
[2022-04-16] MEDS: ENOXAPARIN NA (PORCINE) 40 MG/0.4 ML DISP.SYRIN SQ SCH (11:54)
[2022-04-16] MEDS: levETIRAcetam 500 MG/5 ML ORAL SOLUTION (UNIT-DOSE CUPS) PEG SCH ×2 (11:55→22:20)
[2022-04-16] MEDS: MULTIVIT-MINERALS ORAL LIQUID GT SCH (11:55)
[2022-04-16] MEDS: CALCIUM 250MG/VIT-D 125 UNITS 1 COMBO TABLET NR SCH (11:55)
[2022-04-16] MEDS: CLINDAMYCIN PHOSPHATE 1% TOPICAL GEL 30 GM TUBE TP SCH (11:56)
[2022-04-16] MEDS: AMOX TR/POTASSIUM CLAVULANATE 600 MG/5 ML GT SCH (22:20)
[2022-04-16] MEDS: SENNOSIDES/DOCUSATE COMBO (SENNA PLUS) TABLET (UD) PO SCH (22:22)
[2022-04-17] MEDS: BUDESONIDE 0.5 MG/2 ML INH SUSP VIAL NEB SCH ×2 (07:35→21:17)
[2022-04-17] MEDS: ALBUTEROL SO4 0.083% IH SOL 2.5 MG/3 ML VIAL.NEB. NEB SCH ×4 (07:35→21:18)
[2022-04-17] MEDS: ACETYLCYSTEINE 20% 200MG/ML 4 ML VIAL *FOR ORAL / INH USE ONLY NEB SCH ×4 (07:50→21:18)
[2022-04-17] MEDS ORDERED: ACETAMINOPHEN 1000 MG/100 ML BAG IVPB ONE (09:15)
[2022-04-17] MEDS ORDERED: ACETAMINOPHEN 650 MG/20.3 ML ORAL SOLUTION (CUPS) GT ONE (09:36)
[2022-04-17] MEDS ORDERED: VANCOMYCIN/WATER FOR INJ (PEG) 1,000 MG/200 ML BAG IVPB SCH (10:00)
[2022-04-17] MEDS ORDERED: PIPERACILLIN/TAZOB 3.375 GM 3.375 GM in DEXTROSE 5%-WATER - 50 ML IVPB SCH (10:00)
[2022-04-17 10:06] LABS: URINE APPEARANCE CLEAR; URINE BILIRUBIN NEGATIVE (NEGATIVE); URINE COLOR YELLOW; URINE GLUCOSE (UA) NEGATIVE (NEGATIVE); URINE KETONE NEGATIVE (NEGATIVE); URINE LEUK ESTERASE NEGATIVE (NEGATIVE); URINE NITRITE NEGATIVE (NEGATIVE); URINE PROTEIN TRACE (NEGATIVE); URINE UROBILINOGEN 0.2 mg/dL (0.2-1.0)
[2022-04-17] MEDS: levETIRAcetam 500 MG/5 ML ORAL SOLUTION (UNIT-DOSE CUPS) PEG SCH ×2 (10:45→22:08)
[2022-04-17] MEDS: ENOXAPARIN NA (PORCINE) 40 MG/0.4 ML DISP.SYRIN SQ SCH (10:45)
[2022-04-17] MEDS: MULTIVIT-MINERALS ORAL LIQUID GT SCH (10:46)
[2022-04-17] MEDS: CALCIUM 250MG/VIT-D 125 UNITS 1 COMBO TABLET NR SCH (10:46)
[2022-04-17] MEDS: CLINDAMYCIN PHOSPHATE 1% TOPICAL GEL 30 GM TUBE TP SCH (10:57)
[2022-04-17] MEDS: PIPERACILLIN/TAZOB 3.375 GM 3.375 GM in DEXTROSE 5%-WATER - 50 ML IVPB SCH ×2 (12:25→17:51)
[2022-04-17] MEDS: AMOX TR/POTASSIUM CLAVULANATE 600 MG/5 ML GT SCH (12:52)
[2022-04-17] MEDS: VANCOMYCIN/WATER FOR INJ (PEG) 1,000 MG/200 ML BAG IVPB SCH ×2 (13:23→23:15)
[2022-04-17 17:07] LABS: BASO % 0.4 % (0-2.0); EOS % 0.4 % (0-4.5); HEMATOCRIT 33.7 % (35.4-49); HEMOGLOBIN 11.5 GM/dL (11.7-16.9); LYMPH % 21.3 % (8-40); MCH 31.5 pg (25.7-33.7); MEAN CELL VOLUME 92.5 fl (80-96); MEAN PLT VOLUME 8.3 fl (7.5-11.1); MONO % 6.7 % (3.8-10.2); NEUT % 71.2 % (42.8-82.8); PLATELET COUNT 279 10^3/uL (134-434); RBC 3.64 M/mm3 (4.00-5.60); RDW 14.6 % (11.9-15.9); WHITE BLOOD COUNT 11.3 K/mm3 (4.0-10.0)
[2022-04-17 17:38] LABS: CALCIUM 8.6 mg/dL (8.5-10.1)
[2022-04-17 17:39] LABS: ALBUMIN 2.6 g/dl (3.4-5.0)
[2022-04-17 17:42] LABS: CREATININE 0.7 mg/dL (0.55-1.3)
[2022-04-17 17:43] LABS: TOT PROT 5.6 g/dl (6.4-8.2)
[2022-04-17 17:44] LABS: BILIRUBIN,TOTAL 0.5 mg/dL (0.2-1)
[2022-04-17] MEDS ORDERED: AMOX TR/POT CLAV 875MG/125MG TABLETS (FP) PO SCH (19:31)
[2022-04-17] MEDS: SENNOSIDES/DOCUSATE COMBO (SENNA PLUS) TABLET (UD) PO SCH (22:08)
[2022-04-18] MEDS ORDERED: PIPERACILLIN/TAZOBACTAM 3.375 GM VIAL IVPB ONE (01:19)
[2022-04-18] MEDS: PIPERACILLIN/TAZOB 3.375 GM 3.375 GM in DEXTROSE 5%-WATER - 50 ML IVPB SCH ×3 (02:01→17:34)
[2022-04-18] MEDS: ALBUTEROL SO4 0.083% IH SOL 2.5 MG/3 ML VIAL.NEB. NEB SCH ×4 (08:30→20:22)
[2022-04-18] MEDS: BUDESONIDE 0.5 MG/2 ML INH SUSP VIAL NEB SCH ×2 (08:30→20:22)
[2022-04-18] MEDS: ACETYLCYSTEINE 20% 200MG/ML 4 ML VIAL *FOR ORAL / INH USE ONLY NEB SCH ×4 (08:30→20:21)
[2022-04-18 09:18] LABS: BASO % 0.3 % (0-2.0); EOS % 1.8 % (0-4.5); HEMATOCRIT 35.5 % (35.4-49); HEMOGLOBIN 12.1 GM/dL (11.7-16.9); LYMPH % 16.6 % (8-40); MCH 31.4 pg (25.7-33.7); MEAN CELL VOLUME 92.4 fl (80-96); MEAN PLT VOLUME 8.6 fl (7.5-11.1); MONO % 6.7 % (3.8-10.2); NEUT % 74.6 % (42.8-82.8); PLATELET COUNT 299 10^3/uL (134-434); RBC 3.84 M/mm3 (4.00-5.60); WHITE BLOOD COUNT 7.6 K/mm3 (4.0-10.0)
[2022-04-18 09:48] LABS: BILIRUBIN,TOTAL 0.5 mg/dL (0.2-1)
[2022-04-18 09:49] LABS: ALBUMIN 2.6 g/dl (3.4-5.0); CALCIUM 8.4 mg/dL (8.5-10.1); MAGNESIUM 1.9 mg/dL (1.8-2.4)
[2022-04-18 09:50] LABS: BLOOD UREA NITROGEN 9.9 mg/dL (7-18); PHOSPHOROUS 3.4 mg/dL (2.5-4.9)
[2022-04-18 09:51] LABS: CREATININE 0.7 mg/dL (0.55-1.3); TOT PROT 5.8 g/dl (6.4-8.2)
[2022-04-18] MEDS: MULTIVIT-MINERALS ORAL LIQUID GT SCH (10:05)
[2022-04-18] MEDS: levETIRAcetam 500 MG/5 ML ORAL SOLUTION (UNIT-DOSE CUPS) PEG SCH ×2 (10:06→22:13)
[2022-04-18] MEDS: CALCIUM 250MG/VIT-D 125 UNITS 1 COMBO TABLET NR SCH (10:07)
[2022-04-18] MEDS: ENOXAPARIN NA (PORCINE) 40 MG/0.4 ML DISP.SYRIN SQ SCH (10:07)
[2022-04-18] MEDS: CLINDAMYCIN PHOSPHATE 1% TOPICAL GEL 30 GM TUBE TP SCH (10:12)
[2022-04-18] MEDS: VANCOMYCIN/WATER FOR INJ (PEG) 1,000 MG/200 ML BAG IVPB SCH (12:38)
[2022-04-18] MEDS: SENNOSIDES/DOCUSATE COMBO (SENNA PLUS) TABLET (UD) PO SCH (22:13)
[2022-04-19] MEDS: PIPERACILLIN/TAZOB 3.375 GM 3.375 GM in DEXTROSE 5%-WATER - 50 ML IVPB SCH ×3 (02:00→18:20)
[2022-04-19] MEDS: ALBUTEROL SO4 0.083% IH SOL 2.5 MG/3 ML VIAL.NEB. NEB SCH ×4 (07:56→19:49)
[2022-04-19] MEDS: BUDESONIDE 0.5 MG/2 ML INH SUSP VIAL NEB SCH ×2 (07:56→19:49)
[2022-04-19] MEDS: ACETYLCYSTEINE 20% 200MG/ML 4 ML VIAL *FOR ORAL / INH USE ONLY NEB SCH ×4 (07:56→19:49)
[2022-04-19 09:25] LABS: BASO % 0.4 % (0-2.0); EOS % 4.1 % (0-4.5); HEMATOCRIT 35.8 % (35.4-49); HEMOGLOBIN 12.1 GM/dL (11.7-16.9); LYMPH % 26.6 % (8-40); MCH 31.7 pg (25.7-33.7); MCHC 33.8 g/dl (32.0-35.9); MEAN PLT VOLUME 8.7 fl (7.5-11.1); MONO % 10.1 % (3.8-10.2); NEUT % 58.8 % (42.8-82.8); PLATELET COUNT 322 10^3/uL (134-434); RBC 3.81 M/mm3 (4.00-5.60); RDW 14.1 % (11.9-15.9); WHITE BLOOD COUNT 6.8 K/mm3 (4.0-10.0)
[2022-04-19] MEDS: ENOXAPARIN NA (PORCINE) 40 MG/0.4 ML DISP.SYRIN SQ SCH (09:45)
[2022-04-19] MEDS: levETIRAcetam 500 MG/5 ML ORAL SOLUTION (UNIT-DOSE CUPS) PEG SCH ×2 (09:47→21:36)
[2022-04-19] MEDS: MULTIVIT-MINERALS ORAL LIQUID GT SCH (09:48)
[2022-04-19] MEDS: CALCIUM 250MG/VIT-D 125 UNITS 1 COMBO TABLET NR SCH (09:48)
[2022-04-19 10:00] LABS: ALBUMIN 2.7 g/dl (3.4-5.0); CALCIUM 8.8 mg/dL (8.5-10.1)
[2022-04-19 10:01] LABS: BLOOD UREA NITROGEN 10.7 mg/dL (7-18); MAGNESIUM 2.1 mg/dL (1.8-2.4)
[2022-04-19 10:03] LABS: CREATININE 0.7 mg/dL (0.55-1.3)
[2022-04-19 10:04] LABS: PHOSPHOROUS 3.1 mg/dL (2.5-4.9)
[2022-04-19 10:05] LABS: BILIRUBIN,TOTAL 0.5 mg/dL (0.2-1)
[2022-04-19] MEDS: CLINDAMYCIN PHOSPHATE 1% TOPICAL GEL 30 GM TUBE TP SCH (14:09)
[2022-04-19] MEDS: SENNOSIDES/DOCUSATE COMBO (SENNA PLUS) TABLET (UD) PO SCH (21:36)
[2022-04-20] MEDS ORDERED: PIPERACILLIN/TAZOBACTAM 3.375 GM VIAL IVPB ONE (01:16)
[2022-04-20] MEDS: PIPERACILLIN/TAZOB 3.375 GM 3.375 GM in DEXTROSE 5%-WATER - 50 ML IVPB SCH ×2 (01:42→10:09)
[2022-04-20] MEDS: ALBUTEROL SO4 0.083% IH SOL 2.5 MG/3 ML VIAL.NEB. NEB SCH ×4 (07:48→20:29)
[2022-04-20] MEDS: ACETYLCYSTEINE 20% 200MG/ML 4 ML VIAL *FOR ORAL / INH USE ONLY NEB SCH ×3 (07:48→16:58)
[2022-04-20] MEDS: BUDESONIDE 0.5 MG/2 ML INH SUSP VIAL NEB SCH ×2 (09:30→20:29)
[2022-04-20] MEDS: ENOXAPARIN NA (PORCINE) 40 MG/0.4 ML DISP.SYRIN SQ SCH (10:08)
[2022-04-20] MEDS: MULTIVIT-MINERALS ORAL LIQUID GT SCH (10:08)
[2022-04-20] MEDS: levETIRAcetam 500 MG/5 ML ORAL SOLUTION (UNIT-DOSE CUPS) PEG SCH ×2 (10:08→23:21)
[2022-04-20] MEDS: AMINO ACIDS/PROTEIN HYDROLYS 30 ML LIQUID.PKT PEG SCH (10:09)
[2022-04-20] MEDS: CALCIUM 250MG/VIT-D 125 UNITS 1 COMBO TABLET NR SCH (10:09)
[2022-04-20] MEDS: CLINDAMYCIN PHOSPHATE 1% TOPICAL GEL 30 GM TUBE TP SCH (10:55)
[2022-04-20] MEDS ORDERED: ZINC OXIDE/PANTHENOL/VITAMIN E 56 GM TUBE TP PRN (13:52)
[2022-04-20] MEDS: SENNOSIDES/DOCUSATE COMBO (SENNA PLUS) TABLET (UD) PO SCH (23:21)
[2022-04-21] MEDS: ALBUTEROL SO4 0.083% IH SOL 2.5 MG/3 ML VIAL.NEB. NEB SCH ×3 (07:45→15:00)
[2022-04-21] MEDS: BUDESONIDE 0.5 MG/2 ML INH SUSP VIAL NEB SCH (07:45)
[2022-04-21] MEDS: AMINO ACIDS/PROTEIN HYDROLYS 30 ML LIQUID.PKT PEG SCH (08:14)
[2022-04-21] MEDS: MULTIVIT-MINERALS ORAL LIQUID GT SCH (09:05)
[2022-04-21] MEDS: ENOXAPARIN NA (PORCINE) 40 MG/0.4 ML DISP.SYRIN SQ SCH (09:05)
[2022-04-21] MEDS: CLINDAMYCIN PHOSPHATE 1% TOPICAL GEL 30 GM TUBE TP SCH (09:06)
[2022-04-21] MEDS: CALCIUM 250MG/VIT-D 125 UNITS 1 COMBO TABLET NR SCH (09:06)
[2022-04-21] MEDS: levETIRAcetam 500 MG/5 ML ORAL SOLUTION (UNIT-DOSE CUPS) PEG SCH (09:06)
[2022-04-21 09:14] VITALS: RESP 18
[2022-04-21 16:02] VITALS: BP 120/75; PULSE 81; TEMP 97.4
== END 2022-04-21 16:41 | disposition home or self-care (01) | DRG 177 ==
LOC: JER 03:21 → UNDOADMOB 06:07 → JERBED 06:07 → INTOOBSV 06:07 → JERBED 07:24 → J5S 09:09 → OBSVTOIN 12:13
PROVIDERS: ADMIT Internal Medicine; ATTEND Internal Medicine
DX: J69.0 Pneumonitis due to inhalation of food and vomit (principal); G82.50 Quadriplegia, unspecified; J96.01 Acute respiratory failure with hypoxia; G91.9 Hydrocephalus, unspecified; J98.11 Atelectasis; G91.8 Other hydrocephalus; J44.0 Chronic obstructive pulmonary disease with (acute) lower respiratory infection; F72 Severe intellectual disabilities; E16.2 Hypoglycemia, unspecified; R56.9 Unspecified convulsions; K21.9 Gastro-esophageal reflux disease without esophagitis; K59.09 Other constipation; G47.33 Obstructive sleep apnea (adult) (pediatric); J45.909 Unspecified asthma, uncomplicated
CPT/HCPCS: 0241U-QW; 36415; 36600; 71045-TC-FY; 74018-TC-FY; 74177-TC; 80048; 80053; 81003; 82550; 82553; 82803; 82962; 83605; 83735; 84100; 84484; 85025; 85027; 85610; 85730; 86850; 86900; 86901; 87040; 87086; 93005; 93010; 94640; 99285-25; C9803-CS; G0378; G0480; Q9967; U0003; U0005

== ENCOUNTER 2022-05-21 05:24 | Inpatient (IN) | payer OTHER ==
[2022-05-21] MEDS ORDERED: PIPERACILLIN/TAZOB 3.375 GM 3.375 GM in DEXTROSE 5%-WATER - 50 ML IVPB ONE (06:12)
[2022-05-21] MEDS ORDERED: VANCOMYCIN 1 GM in D5W (PRE-DOCKED) 1,000 MG/250 ML IVPB ONE (06:12)
[2022-05-21] MEDS ORDERED: PIPERACILLIN/TAZOB 3.375 GM 3.375 GM/50 ML BAG IVPB ONE (06:14)
[2022-05-21 06:26] LABS: VENOUS BASE EXCESS 4.7 mmol/L (-2-2); VENOUS O2 SATURATION 81.6 % (70-80); VENOUS PCO2 52.6 mmHg (38-52); VENOUS PH 7.389 (7.310-7.410)
[2022-05-21 06:37] LABS: HEMATOCRIT 39.2 % (35.4-49); HEMOGLOBIN 13.3 GM/dL (11.7-16.9); MCH 30.7 pg (25.7-33.7); MEAN CELL VOLUME 90.2 fl (80-96); MEAN PLT VOLUME 8.5 fl (7.5-11.1); PLATELET COUNT 328 10^3/uL (134-434); RBC 4.35 M/mm3 (4.00-5.60); RDW 14.5 % (11.9-15.9); WHITE BLOOD COUNT 15.2 K/mm3 (4.0-10.0)
[2022-05-21] MEDS ORDERED: VANCOMYCIN/WATER FOR INJ (PEG) 1,000 MG/200 ML BAG IVPB ONE (06:41)
[2022-05-21 06:43] LABS: PH,URINE 5.5 (5.0-8.0); URINE APPEARANCE CLEAR; URINE BILIRUBIN NEGATIVE (NEGATIVE); URINE COLOR YELLOW; URINE GLUCOSE (UA) NEGATIVE (NEGATIVE); URINE KETONE NEGATIVE (NEGATIVE); URINE LEUK ESTERASE NEGATIVE (NEGATIVE); URINE NITRITE NEGATIVE (NEGATIVE); URINE PROTEIN NEGATIVE (NEGATIVE); URINE UROBILINOGEN 0.2 mg/dL (0.2-1.0)
[2022-05-21 06:58] LABS: ACTIVATED PTT 30.5 SECONDS (25.2-36.5); INR 0.94 (0.83-1.09); PROTHROMBIN TIME (PATIENT) 10.9 SEC (9.7-13.0)
[2022-05-21 07:03] LABS: CALCIUM 8.8 mg/dL (8.5-10.1)
[2022-05-21 07:04] LABS: ALBUMIN 3.3 g/dl (3.4-5.0); BLOOD UREA NITROGEN 21.4 mg/dL (7-18)
[2022-05-21 07:07] LABS: CREATININE 0.8 mg/dL (0.55-1.3)
[2022-05-21 07:09] LABS: BILIRUBIN,TOTAL 0.5 mg/dL (0.2-1); TOT PROT 6.9 g/dl (6.4-8.2)
[2022-05-21] MEDS ORDERED: guaiFENesin 200 MG/10 ML 10 ML UNIT-DOSE CUPS GT ONE (08:04)
[2022-05-21] MEDS ORDERED: guaiFENesin/D-METHORPHAN HB 10 ML UNIT-DOSE CUPS ONE (08:05)
[2022-05-21 08:38] LABS: CALCIUM 9.2 mg/dL (8.5-10.1)
[2022-05-21] MEDS ORDERED: SODIUM CHLORIDE 0.9% 500 ML INFUS.BAG IV ONE (08:38)
[2022-05-21 08:39] LABS: BLOOD UREA NITROGEN 21.3 mg/dL (7-18)
[2022-05-21 08:42] LABS: CREATININE 0.8 mg/dL (0.55-1.3)
[2022-05-21] MEDS ORDERED: POLYETHYLENE GLYCOL (HEALTHYLAX) 3350 17 GM PACKET GT PRN (08:57)
[2022-05-21] MEDS ORDERED: SODIUM PHOSPHATE/NA BIPHOS 133 ML ENEMA RC PRN (08:57)
[2022-05-21] MEDS ORDERED: BISACODYL 10 MG SUPP.RECT RC PRN (08:57)
[2022-05-21] MEDS ORDERED: CEFEPIME HCL/D5W 1 GM/50 ML BAG IVPB SCH (09:15)
[2022-05-21] MEDS ORDERED: ARFORMOTEROL TARTRATE 15 MCG/2 ML VIAL NEB SCH (10:00)
[2022-05-21] MEDS ORDERED: DOXYCYCLINE INJECTION 100 MG in DEXTROSE 5%-WATER 100 ML IVPB SCH (10:00)
[2022-05-21] MEDS ORDERED: CLINDAMYCIN PHOSPHATE 1% TOPICAL GEL 30 GM TUBE TP SCH (10:00)
[2022-05-21 10:13] LABS: ANISOCYTOSIS 0; MACROCYTOSIS 0
[2022-05-21 10:24] LABS: ARTERIAL BLD GAS O2 SATURATION 97.8 % (95-98); ARTERIAL BLOOD GAS BASE EXCESS 3.7 mmol/L (-2-2); ARTERIAL BLOOD GAS PO2 106.6 mmHg (80-100); ARTERIAL BLOOD GAS pH 7.393 (7.350-7.450)
[2022-05-21] MEDS ORDERED: CEFEPIME 1 GM in DEXTROSE 5%-WATER 100 ML IVPB SCH ×2 (10:30→22:00)
[2022-05-21 10:33] LABS: ALLENS TEST POSITIVE
[2022-05-21] MEDS: methylPREDNISolone NA SUCC 40 MG/1 ML VIAL IVPUSH SCH ×2 (11:01→23:26)
[2022-05-21] MEDS: HEPARIN NA (PORCINE) 5,000 UNITS/ML 1ML VIAL SQ SCH ×2 (11:01→23:26)
[2022-05-21] MEDS: SODIUM CHLORIDE 1,000 ML IV SCH ×2 (11:08→23:24)
[2022-05-21] MEDS: ALBUTEROL SO4 2.5/IPRATROPIUM 0.5 INH SOL 3 ML VIAL.NEB. NEB SCH ×4 (11:33→23:13)
[2022-05-21] MEDS: MULTIVIT-MINERALS ORAL LIQUID GT SCH (11:37)
[2022-05-21] MEDS: levETIRAcetam 500 MG/5 ML ORAL SOLUTION (UNIT-DOSE CUPS) PEG SCH ×2 (11:38→23:25)
[2022-05-21] MEDS: PIPERACILLIN/TAZOB 3.375 GM 3.375 GM in DEXTROSE 5%-WATER - 50 ML IVPB SCH (17:19)
[2022-05-21] MEDS: SENNOSIDES 8.8 MG/5 ML BULK BOTTLE GT SCH (23:25)
[2022-05-22] MEDS: PIPERACILLIN/TAZOB 3.375 GM 3.375 GM in DEXTROSE 5%-WATER - 50 ML IVPB SCH ×3 (02:19→17:20)
[2022-05-22] MEDS: ALBUTEROL SO4 2.5/IPRATROPIUM 0.5 INH SOL 3 ML VIAL.NEB. NEB SCH ×5 (03:33→21:18)
[2022-05-22 09:16] LABS: BASO % 0.1 % (0-2.0); HEMATOCRIT 35.8 % (35.4-49); HEMOGLOBIN 12.2 GM/dL (11.7-16.9); LYMPH % 7.6 % (8-40); MCH 30.9 pg (25.7-33.7); MCHC 34.1 g/dl (32.0-35.9); MEAN CELL VOLUME 90.6 fl (80-96); MEAN PLT VOLUME 7.6 fl (7.5-11.1); MONO % 5.3 % (3.8-10.2); PLATELET COUNT 332 10^3/uL (134-434); RBC 3.95 M/mm3 (4.00-5.60); RDW 14.5 % (11.9-15.9); WHITE BLOOD COUNT 8.8 K/mm3 (4.0-10.0)
[2022-05-22 09:50] LABS: CALCIUM 8.1 mg/dL (8.5-10.1)
[2022-05-22 09:56] LABS: CREATININE 0.8 mg/dL (0.55-1.3)
[2022-05-22] MEDS: SODIUM CHLORIDE 1,000 ML IV SCH (10:46)
[2022-05-22] MEDS: MULTIVIT-MINERALS ORAL LIQUID GT SCH (10:48)
[2022-05-22] MEDS: AMINO ACIDS/PROTEIN HYDROLYS 30 ML LIQUID.PKT PEG SCH (10:48)
[2022-05-22] MEDS: HEPARIN NA (PORCINE) 5,000 UNITS/ML 1ML VIAL SQ SCH ×2 (10:50→23:55)
[2022-05-22] MEDS: methylPREDNISolone NA SUCC 40 MG/1 ML VIAL IVPUSH SCH (10:50)
[2022-05-22] MEDS: CALCIUM 500MG/VIT-D 200 UNITS COMBO TABLET (FP) GT SCH (12:49)
[2022-05-22] MEDS: levETIRAcetam 500 MG/5 ML ORAL SOLUTION (UNIT-DOSE CUPS) PEG SCH ×2 (12:49→12:59)
[2022-05-22] MEDS: SENNOSIDES 8.8 MG/5 ML BULK BOTTLE GT SCH (23:54)
[2022-05-23] MEDS: ALBUTEROL SO4 2.5/IPRATROPIUM 0.5 INH SOL 3 ML VIAL.NEB. NEB SCH ×7 (00:09→20:33)
[2022-05-23] MEDS: levETIRAcetam 500 MG/5 ML ORAL SOLUTION (UNIT-DOSE CUPS) PEG SCH ×3 (01:29→23:19)
[2022-05-23] MEDS: methylPREDNISolone NA SUCC 40 MG/1 ML VIAL IVPUSH SCH ×2 (01:32→11:00)
[2022-05-23] MEDS: PIPERACILLIN/TAZOB 3.375 GM 3.375 GM in DEXTROSE 5%-WATER - 50 ML IVPB SCH ×3 (03:23→17:38)
[2022-05-23] MEDS: CALCIUM 500MG/VIT-D 200 UNITS COMBO TABLET (FP) GT SCH (11:00)
[2022-05-23] MEDS: MULTIVIT-MINERALS ORAL LIQUID GT SCH (11:00)
[2022-05-23] MEDS: HEPARIN NA (PORCINE) 5,000 UNITS/ML 1ML VIAL SQ SCH ×2 (11:00→23:19)
[2022-05-23] MEDS: AMINO ACIDS/PROTEIN HYDROLYS 30 ML LIQUID.PKT PEG SCH (11:00)
[2022-05-23] MEDS ORDERED: FUROSEMIDE 40 MG/4 ML INJECTABLE VIAL IVPUSH ONE (12:43)
[2022-05-23 14:28] VITALS: BMI 27.2
[2022-05-23] MEDS: predniSONE 20 MG TABLET (UD) PO SCH (23:18)
[2022-05-23] MEDS: SENNOSIDES 8.8 MG/5 ML BULK BOTTLE GT SCH (23:19)
[2022-05-24] MEDS: PIPERACILLIN/TAZOB 3.375 GM 3.375 GM in DEXTROSE 5%-WATER - 50 ML IVPB SCH ×3 (01:39→17:07)
[2022-05-24 08:34] LABS: BASO % 0.1 % (0-2.0); HEMATOCRIT 40.3 % (35.4-49); HEMOGLOBIN 13.8 GM/dL (11.7-16.9); LYMPH % 6.8 % (8-40); MCH 31.1 pg (25.7-33.7); MCHC 34.2 g/dl (32.0-35.9); MEAN CELL VOLUME 90.8 fl (80-96); MEAN PLT VOLUME 7.5 fl (7.5-11.1); MONO % 7.8 % (3.8-10.2); NEUT % 85.3 % (42.8-82.8); PLATELET COUNT 399 10^3/uL (134-434); RBC 4.44 M/mm3 (4.00-5.60); RDW 14.7 % (11.9-15.9); WHITE BLOOD COUNT 9.5 K/mm3 (4.0-10.0)
[2022-05-24] MEDS: ALBUTEROL SO4 2.5/IPRATROPIUM 0.5 INH SOL 3 ML VIAL.NEB. NEB SCH ×4 (08:40→20:30)
[2022-05-24 09:05] LABS: BLOOD UREA NITROGEN 25.1 mg/dL (7-18); CREATININE 0.9 mg/dL (0.55-1.3); PHOSPHOROUS 1.8 mg/dL (2.5-4.9)
[2022-05-24 09:07] LABS: BILIRUBIN,TOTAL 0.4 mg/dL (0.2-1); TOT PROT 6.6 g/dl (6.4-8.2)
[2022-05-24 09:08] LABS: CALCIUM 9.1 mg/dL (8.5-10.1); MAGNESIUM 2.4 mg/dL (1.8-2.4)
[2022-05-24] MEDS: MULTIVIT-MINERALS ORAL LIQUID GT SCH (10:09)
[2022-05-24] MEDS: AMINO ACIDS/PROTEIN HYDROLYS 30 ML LIQUID.PKT PEG SCH (10:09)
[2022-05-24] MEDS: CALCIUM 500MG/VIT-D 200 UNITS COMBO TABLET (FP) GT SCH (10:10)
[2022-05-24] MEDS: predniSONE 20 MG TABLET (UD) PO SCH ×2 (10:10→22:00)
[2022-05-24] MEDS: HEPARIN NA (PORCINE) 5,000 UNITS/ML 1ML VIAL SQ SCH ×2 (10:11→22:00)
[2022-05-24] MEDS ORDERED: SODIUM PHOSPHATE - 30 MM in SODIUM CHLORIDE 500 ML IVPB ONE (11:30)
[2022-05-24] MEDS: levETIRAcetam 500 MG/5 ML ORAL SOLUTION (UNIT-DOSE CUPS) PEG SCH ×2 (12:17→22:00)
[2022-05-24 14:24] VITALS: RESP 20
[2022-05-24] MEDS: SENNOSIDES 8.8 MG/5 ML BULK BOTTLE GT SCH (22:00)
[2022-05-25] MEDS: PIPERACILLIN/TAZOB 3.375 GM 3.375 GM in DEXTROSE 5%-WATER - 50 ML IVPB SCH ×2 (02:04→10:15)
[2022-05-25] MEDS: ALBUTEROL SO4 2.5/IPRATROPIUM 0.5 INH SOL 3 ML VIAL.NEB. NEB SCH ×3 (07:26→15:21)
[2022-05-25 09:06] LABS: HEMATOCRIT 37.8 % (35.4-49); HEMOGLOBIN 12.7 GM/dL (11.7-16.9); LYMPH % 13.9 % (8-40); MCH 30.5 pg (25.7-33.7); MCHC 33.5 g/dl (32.0-35.9); MEAN PLT VOLUME 7.3 fl (7.5-11.1); MONO % 9.8 % (3.8-10.2); NEUT % 76.3 % (42.8-82.8); PLATELET COUNT 399 10^3/uL (134-434); RBC 4.16 M/mm3 (4.00-5.60); RDW 14.3 % (11.9-15.9); WHITE BLOOD COUNT 9.1 K/mm3 (4.0-10.0)
[2022-05-25 09:20] LABS: ALBUMIN 2.8 g/dl (3.4-5.0); BLOOD UREA NITROGEN 25.5 mg/dL (7-18); MAGNESIUM 2.3 mg/dL (1.8-2.4)
[2022-05-25 09:23] LABS: CREATININE 0.7 mg/dL (0.55-1.3); PHOSPHOROUS 3.4 mg/dL (2.5-4.9)
[2022-05-25 09:25] LABS: BILIRUBIN,TOTAL 0.5 mg/dL (0.2-1)
[2022-05-25] MEDS ORDERED: FUROSEMIDE 20 MG TABLET (FP) PO SCH (10:00)
[2022-05-25] MEDS: AMINO ACIDS/PROTEIN HYDROLYS 30 ML LIQUID.PKT PEG SCH (10:13)
[2022-05-25] MEDS: MULTIVIT-MINERALS ORAL LIQUID GT SCH (10:14)
[2022-05-25] MEDS: HEPARIN NA (PORCINE) 5,000 UNITS/ML 1ML VIAL SQ SCH (10:14)
[2022-05-25] MEDS: predniSONE 20 MG TABLET (UD) PO SCH (10:14)
[2022-05-25] MEDS: levETIRAcetam 500 MG/5 ML ORAL SOLUTION (UNIT-DOSE CUPS) PEG SCH (10:15)
[2022-05-25] MEDS: CALCIUM 500MG/VIT-D 200 UNITS COMBO TABLET (FP) GT SCH (10:15)
[2022-05-25 13:58] VITALS: BP 145/88; PULSE 94; TEMP 98.6
== END 2022-05-25 16:10 | DRG 177 ==
LOC: JER 05:24 → JERBED 07:17 → J7W 09:54
PROVIDERS: ADMIT Internal Medicine; ATTEND Internal Medicine
DX: J69.0 Pneumonitis due to inhalation of food and vomit (principal); R53.2 Functional quadriplegia; I50.32 Chronic diastolic (congestive) heart failure; G91.8 Other hydrocephalus; E87.1 Hypo-osmolality and hyponatremia; F72 Severe intellectual disabilities; Z93.1 Gastrostomy status; G40.909 Epilepsy, unspecified, not intractable, without status epilepticus
CPT/HCPCS: 0241U-QW; 36415; 36600; 70450-TC; 71045-TC-FY; 71250-TC; 80048; 80053; 81003; 82803; 82962; 83605; 83735; 84100; 84484; 85025; 85610; 85730; 87040; 87086; 87899; 93005; 93010; 94640; 99285-25; C9803-CS; J1644; U0003; U0005

== ENCOUNTER 2022-12-02 17:58 | Inpatient (IN) | payer OTHER ==
[2022-12-02 20:22] LABS: VENOUS BASE EXCESS 0.8 mmol/L (-2-2); VENOUS O2 SATURATION 64.8 % (70-80); VENOUS PH 7.281 (7.310-7.410)
[2022-12-02 20:26] LABS: BASO % 0.3 % (0-2.0); EOS % 0.2 % (0-4.5); HEMATOCRIT 45.5 % (35.4-49); HEMOGLOBIN 15.5 GM/dL (11.7-16.9); LYMPH % 5.7 % (8-40); MCH 30.1 pg (25.7-33.7); MCHC 34.1 g/dl (32.0-35.9); MEAN CELL VOLUME 88.2 fl (80-96); MEAN PLT VOLUME 8.4 fl (7.5-11.1); MONO % 5.6 % (3.8-10.2); NEUT % 88.2 % (42.8-82.8); PLATELET COUNT 337 10^3/uL (134-434); RBC 5.16 M/mm3 (4.00-5.60); RDW 15.7 % (11.9-15.9); WHITE BLOOD COUNT 12.4 K/mm3 (4.0-10.0)
[2022-12-02 20:33] LABS: INR 0.97 (0.83-1.09); PROTHROMBIN TIME (PATIENT) 11.2 SEC (9.7-13.0)
[2022-12-02 20:36] LABS: ACTIVATED PTT 39.2 SECONDS (25.2-36.5)
[2022-12-02 20:47] LABS: ALBUMIN 4.4 g/dl (3.4-5.0); BLOOD UREA NITROGEN 25.5 mg/dL (7-18); CALCIUM 9.8 mg/dL (8.5-10.1)
[2022-12-02 20:50] LABS: CREATININE 1.1 mg/dL (0.55-1.3)
[2022-12-02 20:52] LABS: BILIRUBIN,TOTAL 0.5 mg/dL (0.2-1); TOT PROT 8.7 g/dl (6.4-8.2)
[2022-12-02 20:57] LABS: LACTIC ACID 2.9 mmol/L (0.4-2.0)
[2022-12-02] MEDS ORDERED: SODIUM CHLORIDE 0.9% 500 ML INFUS.BAG IV ONE (21:03)
[2022-12-02] MEDS ORDERED: PIPERACILLIN/TAZOB 4.5 GM 4.5 GM in DEXTROSE 5%-WATER 100 ML IVPB ONE (21:04)
[2022-12-02] MEDS ORDERED: VANCOMYCIN 1,000 MG in DEXTROSE 5%-WATER - 250 ML IVPB ONE (21:04)
[2022-12-02] MEDS ORDERED: VANCOMYCIN 1 GRAM (PRE-DOCKED) 1,000 MG/250 ML BAG IVPB ONE (21:05)
[2022-12-02] MEDS ORDERED: PIPERACILLIN/TAZOB 4.5 GM 4.5 GM/100 ML BAG IVPB ONE (21:05)
[2022-12-02 21:32] LABS: EPI CELLS 1 /uL (0-25.1); HYALINE CASTS 1 /uL (0-3.1); URINE APPEARANCE CLOUDY; URINE BACTERIA 2370 /uL (0-1359); URINE BILIRUBIN NEGATIVE (NEGATIVE); URINE COLOR YELLOW; URINE GLUCOSE (UA) NEGATIVE (NEGATIVE); URINE KETONE NEGATIVE (NEGATIVE); URINE LEUK ESTERASE 3+ (NEGATIVE); URINE NITRITE NEGATIVE (NEGATIVE); URINE PROTEIN 1+ (NEGATIVE); URINE RBC 21 /uL (0-23.9); URINE UROBILINOGEN 0.2 mg/dL (0.2-1.0); URINE WBC 568 /uL (0-25.8)
[2022-12-02] MEDS ORDERED: SODIUM CHLORIDE 1,000 ML IV STA (23:13)
[2022-12-03 06:19] LABS: BASO % 0.3 % (0-2.0); EOS % 3.1 % (0-4.5); HEMATOCRIT 40.5 % (35.4-49); HEMOGLOBIN 13.2 GM/dL (11.7-16.9); MCH 29.6 pg (25.7-33.7); MCHC 32.6 g/dl (32.0-35.9); MEAN CELL VOLUME 90.8 fl (80-96); MEAN PLT VOLUME 8.4 fl (7.5-11.1); MONO % 5.9 % (3.8-10.2); NEUT % 83.7 % (42.8-82.8); PLATELET COUNT 265 10^3/uL (134-434); RBC 4.46 M/mm3 (4.00-5.60); RDW 15.4 % (11.9-15.9); WHITE BLOOD COUNT 8.3 K/mm3 (4.0-10.0)
[2022-12-03 06:28] LABS: POTASSIUM 4.5 mmol/L (3.5-5.1)
[2022-12-03 06:31] LABS: BLOOD UREA NITROGEN 19.5 mg/dL (7-18); CALCIUM 8.4 mg/dL (8.5-10.1); MAGNESIUM 1.9 mg/dL (1.8-2.4)
[2022-12-03 06:35] LABS: CREATININE 0.9 mg/dL (0.55-1.3)
[2022-12-03] MEDS ORDERED: ARFORMOTEROL TARTRATE 15 MCG/2 ML VIAL NEB PRN (08:29)
[2022-12-03] MEDS ORDERED: POLYETHYLENE GLYCOL (HEALTHYLAX) 3350 17 GM PACKET GT PRN (08:29)
[2022-12-03] MEDS ORDERED: diazePAM RECTAL GEL 10 MG KIT (PRE-CALIBRATED) RC PRN (08:29)
[2022-12-03] MEDS ORDERED: BISACODYL 10 MG SUPP.RECT RC PRN (08:29)
[2022-12-03] MEDS ORDERED: ALBUTEROL SO4 0.083% IH SOL 2.5 MG/3 ML VIAL.NEB. NEB PRN (08:29)
[2022-12-03] MEDS ORDERED: PATIENT'S OWN MEDICATION (NON-FORMULARY) (Acetaminophen [Tylenol] 325 MG Capsule) PO SCH (08:30)
[2022-12-03] MEDS ORDERED: ACETAMINOPHEN 325 MG TABLET (FP) PO ONE (08:30)
[2022-12-03] MEDS ORDERED: ACETAMINOPHEN 325 MG TABLET (FP) ONE (08:42)
[2022-12-03] MEDS ORDERED: PATIENT'S OWN MEDICATION (NON-FORMULARY) (Lactose-Reduced Food/Fiber [Jevity 1.5 Cal Liqui GT SCH (10:00)
[2022-12-03] MEDS ORDERED: PIPERACILLIN/TAZOB 3.375 GM 3.375 GM in DEXTROSE 5%-WATER - 50 ML IVPB SCH (10:00)
[2022-12-03] MEDS ORDERED: CLINDAMYCIN PHOSPHATE 1% TOPICAL GEL 30 GM TUBE TP SCH (10:00)
[2022-12-03] MEDS ORDERED: ALBUTEROL SO4 2.5/IPRATROPIUM 0.5 INH SOL 3 ML VIAL.NEB. NEB ONE ×2 (10:34→13:59)
[2022-12-03] MEDS ORDERED: ENOXAPARIN NA (PORCINE) 40 MG/0.4 ML DISP.SYRIN SQ ONE (10:36)
[2022-12-03] MEDS ORDERED: PIPERACILLIN/TAZOB 3.375 GM 3.375 GM/50 ML BAG IVPB ONE (10:37)
[2022-12-03] MEDS: ENOXAPARIN NA (PORCINE) 40 MG/0.4 ML DISP.SYRIN SQ SCH (10:42)
[2022-12-03] MEDS: ALBUTEROL SO4 2.5/IPRATROPIUM 0.5 INH SOL 3 ML VIAL.NEB. NEB SCH ×3 (10:42→20:35)
[2022-12-03] MEDS: levETIRAcetam 500 MG/5 ML ORAL SOLUTION (UNIT-DOSE CUPS) PEG SCH ×2 (11:21→22:02)
[2022-12-03] MEDS: BUDESONIDE 0.5 MG/2 ML INH SUSP VIAL NEB SCH ×2 (11:42→22:05)
[2022-12-03] MEDS: D5-1/2NS+10 MEQ KCL - 10 MEQ/1,000 ML INFUS.BAG IV SCH ×2 (16:44)
[2022-12-03] MEDS ORDERED: D5-1/2NS+10 MEQ KCL - 10 MEQ/1,000 ML INFUS.BAG IV SCH (17:31)
[2022-12-03] MEDS: PIPERACILLIN/TAZOB 3.375 GM 3.375 GM in DEXTROSE 5%-WATER - 50 ML IVPB SCH (17:42)
[2022-12-04] MEDS: ALBUTEROL SO4 2.5/IPRATROPIUM 0.5 INH SOL 3 ML VIAL.NEB. NEB SCH ×6 (00:47→23:19)
[2022-12-04] MEDS: PIPERACILLIN/TAZOB 3.375 GM 3.375 GM in DEXTROSE 5%-WATER - 50 ML IVPB SCH ×3 (01:22→17:17)
[2022-12-04] MEDS: AMINO ACIDS/PROTEIN HYDROLYS 30 ML LIQUID.PKT PEG SCH (09:04)
[2022-12-04] MEDS: BUDESONIDE 0.5 MG/2 ML INH SUSP VIAL NEB SCH ×2 (09:31→22:01)
[2022-12-04 10:15] LABS: BASO % 0.8 % (0-2.0); EOS % 8.8 % (0-4.5); HEMATOCRIT 39.5 % (35.4-49); HEMOGLOBIN 12.9 GM/dL (11.7-16.9); LYMPH % 13.9 % (8-40); MCH 29.5 pg (25.7-33.7); MCHC 32.6 g/dl (32.0-35.9); MEAN CELL VOLUME 90.5 fl (80-96); MEAN PLT VOLUME 8.6 fl (7.5-11.1); NEUT % 66.5 % (42.8-82.8); PLATELET COUNT 324 10^3/uL (134-434); RBC 4.36 M/mm3 (4.00-5.60); RDW 15.7 % (11.9-15.9); WHITE BLOOD COUNT 7.3 K/mm3 (4.0-10.0)
[2022-12-04] MEDS: ENOXAPARIN NA (PORCINE) 40 MG/0.4 ML DISP.SYRIN SQ SCH (10:23)
[2022-12-04] MEDS: levETIRAcetam 500 MG/5 ML ORAL SOLUTION (UNIT-DOSE CUPS) PEG SCH ×2 (10:23→21:37)
[2022-12-04 10:39] LABS: POTASSIUM 4.5 mmol/L (3.5-5.1)
[2022-12-04 10:43] LABS: BLOOD UREA NITROGEN 10.5 mg/dL (7-18)
[2022-12-04 10:47] LABS: BILIRUBIN,TOTAL 0.4 mg/dL (0.2-1); CREATININE 0.7 mg/dL (0.55-1.3)
[2022-12-04 10:51] LABS: ALBUMIN 3.1 g/dl (3.4-5.0); TOT PROT 6.6 g/dl (6.4-8.2)
[2022-12-04 12:28] VITALS: BMI 34.8
[2022-12-05] MEDS: PIPERACILLIN/TAZOB 3.375 GM 3.375 GM in DEXTROSE 5%-WATER - 50 ML IVPB SCH ×3 (01:21→17:43)
[2022-12-05] MEDS: ALBUTEROL SO4 2.5/IPRATROPIUM 0.5 INH SOL 3 ML VIAL.NEB. NEB SCH ×6 (04:20→23:26)
[2022-12-05] MEDS: ENOXAPARIN NA (PORCINE) 40 MG/0.4 ML DISP.SYRIN SQ SCH (09:16)
[2022-12-05] MEDS: AMINO ACIDS/PROTEIN HYDROLYS 30 ML LIQUID.PKT PEG SCH (09:17)
[2022-12-05] MEDS: levETIRAcetam 500 MG/5 ML ORAL SOLUTION (UNIT-DOSE CUPS) PEG SCH ×2 (09:17→22:24)
[2022-12-05] MEDS: BUDESONIDE 0.5 MG/2 ML INH SUSP VIAL NEB SCH ×2 (09:40→22:44)
[2022-12-05 09:53] LABS: BASO % 0.4 % (0-2.0); EOS % 0.9 % (0-4.5); HEMATOCRIT 38.7 % (35.4-49); HEMOGLOBIN 12.8 GM/dL (11.7-16.9); LYMPH % 9.8 % (8-40); MCH 29.9 pg (25.7-33.7); MCHC 33.1 g/dl (32.0-35.9); MEAN CELL VOLUME 90.2 fl (80-96); MEAN PLT VOLUME 8.2 fl (7.5-11.1); MONO % 6.1 % (3.8-10.2); NEUT % 82.8 % (42.8-82.8); PLATELET COUNT 310 10^3/uL (134-434); RBC 4.29 M/mm3 (4.00-5.60); RDW 15.9 % (11.9-15.9); WHITE BLOOD COUNT 12.9 K/mm3 (4.0-10.0)
[2022-12-05 10:01] LABS: POTASSIUM 4.4 mmol/L (3.5-5.1)
[2022-12-05 10:02] LABS: CALCIUM 8.2 mg/dL (8.5-10.1)
[2022-12-05 10:03] LABS: BLOOD UREA NITROGEN 9.4 mg/dL (7-18); MAGNESIUM 1.9 mg/dL (1.8-2.4)
[2022-12-05 10:06] LABS: CREATININE 0.8 mg/dL (0.55-1.3)
[2022-12-05 10:07] LABS: BILIRUBIN,TOTAL 0.3 mg/dL (0.2-1); TOT PROT 6.5 g/dl (6.4-8.2)
[2022-12-05] MEDS: AMINO ACIDS 4.25%/D5W 1,000 ML IV SCH (17:29)
[2022-12-05] MEDS ORDERED: ACETAMINOPHEN 1000 MG/100 ML BAG IVPB PRN (19:17)
[2022-12-06] MEDS: PIPERACILLIN/TAZOB 3.375 GM 3.375 GM in DEXTROSE 5%-WATER - 50 ML IVPB SCH ×2 (01:20→10:01)
[2022-12-06] MEDS: ALBUTEROL SO4 2.5/IPRATROPIUM 0.5 INH SOL 3 ML VIAL.NEB. NEB SCH ×6 (03:26→21:03)
[2022-12-06] MEDS: BUDESONIDE 0.5 MG/2 ML INH SUSP VIAL NEB SCH ×2 (07:45→21:03)
[2022-12-06] MEDS: levETIRAcetam 500 MG/5 ML ORAL SOLUTION (UNIT-DOSE CUPS) PEG SCH ×2 (10:01→21:31)
[2022-12-06] MEDS: ENOXAPARIN NA (PORCINE) 40 MG/0.4 ML DISP.SYRIN SQ SCH (10:02)
[2022-12-06] MEDS: AMINO ACIDS/PROTEIN HYDROLYS 30 ML LIQUID.PKT PEG SCH (10:02)
[2022-12-06 10:28] LABS: BASO % 0.7 % (0-2.0); EOS % 4.4 % (0-4.5); HEMATOCRIT 37.5 % (35.4-49); HEMOGLOBIN 12.3 GM/dL (11.7-16.9); LYMPH % 28.3 % (8-40); MCH 29.5 pg (25.7-33.7); MCHC 32.8 g/dl (32.0-35.9); MEAN CELL VOLUME 90.1 fl (80-96); MEAN PLT VOLUME 8.3 fl (7.5-11.1); MONO % 11.1 % (3.8-10.2); NEUT % 55.5 % (42.8-82.8); PLATELET COUNT 294 10^3/uL (134-434); RBC 4.16 M/mm3 (4.00-5.60); RDW 16.1 % (11.9-15.9); WHITE BLOOD COUNT 7.2 K/mm3 (4.0-10.0)
[2022-12-06 10:57] LABS: ALBUMIN 2.9 g/dl (3.4-5.0); BLOOD UREA NITROGEN 14.8 mg/dL (7-18); CALCIUM 8.6 mg/dL (8.5-10.1); MAGNESIUM 2.1 mg/dL (1.8-2.4)
[2022-12-06 11:00] LABS: CREATININE 0.7 mg/dL (0.55-1.3)
[2022-12-06 11:02] LABS: BILIRUBIN,TOTAL 0.4 mg/dL (0.2-1)
[2022-12-06 11:03] LABS: TOT PROT 6.5 g/dl (6.4-8.2)
[2022-12-06] MEDS ORDERED: guaiFENesin 600 MG TABLET.ER (FP) PO SCH (11:30)
[2022-12-06] MEDS: guaiFENesin 200 MG/10 ML 10 ML UNIT-DOSE CUPS PO SCH ×2 (13:16→18:15)
[2022-12-06] MEDS: CEFTRIAXONE 1 GM in DEXTROSE 5%-WATER - 50 ML IVPB SCH (15:23)
[2022-12-06] MEDS: AMINO ACIDS 4.25%/D5W 1,000 ML IV SCH (15:26)
[2022-12-07] MEDS: ALBUTEROL SO4 2.5/IPRATROPIUM 0.5 INH SOL 3 ML VIAL.NEB. NEB SCH ×6 (00:05→20:06)
[2022-12-07] MEDS: AMINO ACIDS 4.25%/D5W 1,000 ML IV SCH (00:19)
[2022-12-07] MEDS: guaiFENesin 200 MG/10 ML 10 ML UNIT-DOSE CUPS PO SCH ×4 (00:19→17:05)
[2022-12-07] MEDS: levETIRAcetam 500 MG/5 ML ORAL SOLUTION (UNIT-DOSE CUPS) PEG SCH ×2 (09:02→21:41)
[2022-12-07] MEDS: CEFTRIAXONE 1 GM in DEXTROSE 5%-WATER - 50 ML IVPB SCH (09:02)
[2022-12-07] MEDS: AMINO ACIDS/PROTEIN HYDROLYS 30 ML LIQUID.PKT PEG SCH (09:02)
[2022-12-07] MEDS: ENOXAPARIN NA (PORCINE) 40 MG/0.4 ML DISP.SYRIN SQ SCH (09:02)
[2022-12-07] MEDS: BUDESONIDE 0.5 MG/2 ML INH SUSP VIAL NEB SCH ×2 (09:07→22:54)
[2022-12-07 10:02] LABS: BASO % 0.8 % (0-2.0); EOS % 7.8 % (0-4.5); HEMATOCRIT 37.8 % (35.4-49); HEMOGLOBIN 12.5 GM/dL (11.7-16.9); LYMPH % 26.8 % (8-40); MCH 29.7 pg (25.7-33.7); MEAN CELL VOLUME 89.9 fl (80-96); MEAN PLT VOLUME 7.9 fl (7.5-11.1); MONO % 11.8 % (3.8-10.2); NEUT % 52.8 % (42.8-82.8); PLATELET COUNT 301 10^3/uL (134-434); RDW 15.7 % (11.9-15.9)
[2022-12-07 10:11] LABS: POTASSIUM 4.1 mmol/L (3.5-5.1)
[2022-12-07 10:21] LABS: ALBUMIN 2.9 g/dl (3.4-5.0); BLOOD UREA NITROGEN 15.4 mg/dL (7-18); CALCIUM 8.5 mg/dL (8.5-10.1)
[2022-12-07 10:24] LABS: CREATININE 0.6 mg/dL (0.55-1.3)
[2022-12-07 10:25] LABS: TOT PROT 6.5 g/dl (6.4-8.2)
[2022-12-07 10:28] LABS: BILIRUBIN,TOTAL 0.5 mg/dL (0.2-1)
[2022-12-07] MEDS: guaiFENesin 200 MG/10 ML 10 ML UNIT-DOSE CUPS PEG SCH (23:20)
[2022-12-08] MEDS: ALBUTEROL SO4 2.5/IPRATROPIUM 0.5 INH SOL 3 ML VIAL.NEB. NEB SCH ×6 (00:07→20:05)
[2022-12-08] MEDS: guaiFENesin 200 MG/10 ML 10 ML UNIT-DOSE CUPS PEG SCH ×4 (04:30→22:12)
[2022-12-08] MEDS: BUDESONIDE 0.5 MG/2 ML INH SUSP VIAL NEB SCH ×2 (09:00→20:05)
[2022-12-08 09:08] LABS: BASO % 0.9 % (0-2.0); EOS % 5.3 % (0-4.5); HEMATOCRIT 36.6 % (35.4-49); HEMOGLOBIN 12.3 GM/dL (11.7-16.9); LYMPH % 23.1 % (8-40); MCH 30.2 pg (25.7-33.7); MCHC 33.5 g/dl (32.0-35.9); MEAN CELL VOLUME 90.2 fl (80-96); MEAN PLT VOLUME 7.8 fl (7.5-11.1); MONO % 10.7 % (3.8-10.2); PLATELET COUNT 312 10^3/uL (134-434); RBC 4.06 M/mm3 (4.00-5.60); RDW 15.4 % (11.9-15.9); WHITE BLOOD COUNT 7.1 K/mm3 (4.0-10.0)
[2022-12-08 09:22] LABS: POTASSIUM 3.7 mmol/L (3.5-5.1)
[2022-12-08 09:30] LABS: CALCIUM 8.4 mg/dL (8.5-10.1)
[2022-12-08 09:31] LABS: ALBUMIN 2.9 g/dl (3.4-5.0); BLOOD UREA NITROGEN 14.4 mg/dL (7-18)
[2022-12-08 09:34] LABS: CREATININE 0.6 mg/dL (0.55-1.3)
[2022-12-08 09:35] LABS: TOT PROT 6.5 g/dl (6.4-8.2)
[2022-12-08 09:37] LABS: BILIRUBIN,TOTAL 0.2 mg/dL (0.2-1)
[2022-12-08] MEDS: levETIRAcetam 500 MG/5 ML ORAL SOLUTION (UNIT-DOSE CUPS) PEG SCH ×2 (09:37→22:12)
[2022-12-08] MEDS: CEFTRIAXONE 1 GM in DEXTROSE 5%-WATER - 50 ML IVPB SCH (09:37)
[2022-12-08] MEDS: ENOXAPARIN NA (PORCINE) 40 MG/0.4 ML DISP.SYRIN SQ SCH (09:38)
[2022-12-08] MEDS: AMINO ACIDS/PROTEIN HYDROLYS 30 ML LIQUID.PKT PEG SCH (09:54)
[2022-12-09] MEDS: ALBUTEROL SO4 2.5/IPRATROPIUM 0.5 INH SOL 3 ML VIAL.NEB. NEB SCH ×6 (04:00→20:56)
[2022-12-09] MEDS: guaiFENesin 200 MG/10 ML 10 ML UNIT-DOSE CUPS PEG SCH ×4 (05:18→21:25)
[2022-12-09] MEDS: BUDESONIDE 0.5 MG/2 ML INH SUSP VIAL NEB SCH ×2 (07:30→20:56)
[2022-12-09] MEDS: ENOXAPARIN NA (PORCINE) 40 MG/0.4 ML DISP.SYRIN SQ SCH (09:47)
[2022-12-09] MEDS: FUROSEMIDE 40 MG/5 ML UNIT-DOSE CUP GT SCH (09:47)
[2022-12-09] MEDS: CEFTRIAXONE 1 GM in DEXTROSE 5%-WATER - 50 ML IVPB SCH (09:47)
[2022-12-09] MEDS: levETIRAcetam 500 MG/5 ML ORAL SOLUTION (UNIT-DOSE CUPS) PEG SCH ×2 (09:47→21:20)
[2022-12-09] MEDS: AMINO ACIDS/PROTEIN HYDROLYS 30 ML LIQUID.PKT PEG SCH (09:47)
[2022-12-09 10:53] LABS: HEMATOCRIT 39.1 % (35.4-49); HEMOGLOBIN 12.9 GM/dL (11.7-16.9); MCH 29.8 pg (25.7-33.7); MCHC 32.8 g/dl (32.0-35.9); MEAN CELL VOLUME 90.7 fl (80-96); MEAN PLT VOLUME 8.1 fl (7.5-11.1); PLATELET COUNT 354 10^3/uL (134-434); RBC 4.31 M/mm3 (4.00-5.60); RDW 15.7 % (11.9-15.9); WHITE BLOOD COUNT 5.7 K/mm3 (4.0-10.0)
[2022-12-09 11:11] LABS: POTASSIUM 4.3 mmol/L (3.5-5.1)
[2022-12-09 11:16] LABS: CALCIUM 9.4 mg/dL (8.5-10.1)
[2022-12-09 11:17] LABS: ALBUMIN 3.2 g/dl (3.4-5.0); BLOOD UREA NITROGEN 15.5 mg/dL (7-18); MAGNESIUM 2.2 mg/dL (1.8-2.4)
[2022-12-09 11:20] LABS: CREATININE 0.7 mg/dL (0.55-1.3)
[2022-12-09 11:22] LABS: BILIRUBIN,TOTAL 0.2 mg/dL (0.2-1)
[2022-12-09 11:51] LABS: ANISOCYTOSIS 1+; MACROCYTOSIS 0
[2022-12-10] MEDS: ALBUTEROL SO4 2.5/IPRATROPIUM 0.5 INH SOL 3 ML VIAL.NEB. NEB SCH ×6 (00:30→21:34)
[2022-12-10] MEDS: guaiFENesin 200 MG/10 ML 10 ML UNIT-DOSE CUPS PEG SCH ×4 (04:45→22:00)
[2022-12-10] MEDS: BUDESONIDE 0.5 MG/2 ML INH SUSP VIAL NEB SCH ×2 (07:25→21:35)
[2022-12-10] MEDS: CEFTRIAXONE 1 GM in DEXTROSE 5%-WATER - 50 ML IVPB SCH (09:44)
[2022-12-10 09:49] LABS: BASO % 0.4 % (0-2.0); EOS % 3.2 % (0-4.5); HEMATOCRIT 37.6 % (35.4-49); HEMOGLOBIN 13.1 GM/dL (11.7-16.9); LYMPH % 25.2 % (8-40); MCH 30.8 pg (25.7-33.7); MCHC 34.9 g/dl (32.0-35.9); MEAN CELL VOLUME 88.3 fl (80-96); MEAN PLT VOLUME 7.8 fl (7.5-11.1); MONO % 10.6 % (3.8-10.2); NEUT % 60.6 % (42.8-82.8); PLATELET COUNT 377 10^3/uL (134-434); RBC 4.26 M/mm3 (4.00-5.60); RDW 15.8 % (11.9-15.9); WHITE BLOOD COUNT 7.5 K/mm3 (4.0-10.0)
[2022-12-10 09:58] LABS: POTASSIUM 4.1 mmol/L (3.5-5.1)
[2022-12-10 10:13] LABS: CALCIUM 8.9 mg/dL (8.5-10.1)
[2022-12-10 10:14] LABS: ALBUMIN 3.2 g/dl (3.4-5.0); BLOOD UREA NITROGEN 18.5 mg/dL (7-18)
[2022-12-10 10:16] LABS: CREATININE 0.7 mg/dL (0.55-1.3)
[2022-12-10 10:18] LABS: TOT PROT 6.9 g/dl (6.4-8.2)
[2022-12-10 10:23] LABS: BILIRUBIN,TOTAL 0.2 mg/dL (0.2-1)
[2022-12-10] MEDS: levETIRAcetam 500 MG/5 ML ORAL SOLUTION (UNIT-DOSE CUPS) PEG SCH ×2 (11:33→21:59)
[2022-12-10] MEDS: ENOXAPARIN NA (PORCINE) 40 MG/0.4 ML DISP.SYRIN SQ SCH (11:33)
[2022-12-10] MEDS: AMINO ACIDS/PROTEIN HYDROLYS 30 ML LIQUID.PKT PEG SCH (11:34)
[2022-12-10] MEDS: FUROSEMIDE 40 MG/5 ML UNIT-DOSE CUP GT SCH (11:36)
[2022-12-11] MEDS: ALBUTEROL SO4 2.5/IPRATROPIUM 0.5 INH SOL 3 ML VIAL.NEB. NEB SCH ×6 (00:02→20:51)
[2022-12-11] MEDS: guaiFENesin 200 MG/10 ML 10 ML UNIT-DOSE CUPS PEG SCH ×4 (04:58→21:55)
[2022-12-11] MEDS: BUDESONIDE 0.5 MG/2 ML INH SUSP VIAL NEB SCH ×2 (07:39→20:52)
[2022-12-11] MEDS: levETIRAcetam 500 MG/5 ML ORAL SOLUTION (UNIT-DOSE CUPS) PEG SCH ×2 (10:08→21:55)
[2022-12-11] MEDS: FUROSEMIDE 40 MG/5 ML UNIT-DOSE CUP GT SCH (10:09)
[2022-12-11] MEDS: AMINO ACIDS/PROTEIN HYDROLYS 30 ML LIQUID.PKT PEG SCH (10:09)
[2022-12-11] MEDS: ENOXAPARIN NA (PORCINE) 40 MG/0.4 ML DISP.SYRIN SQ SCH (10:09)
[2022-12-11] MEDS: CEFTRIAXONE 1 GM in DEXTROSE 5%-WATER - 50 ML IVPB SCH (10:10)
[2022-12-11 21:58] VITALS: RESP 18
[2022-12-12] MEDS: ALBUTEROL SO4 2.5/IPRATROPIUM 0.5 INH SOL 3 ML VIAL.NEB. NEB SCH ×5 (00:34→16:53)
[2022-12-12] MEDS: guaiFENesin 200 MG/10 ML 10 ML UNIT-DOSE CUPS PEG SCH ×2 (05:29→10:50)
[2022-12-12] MEDS: AMINO ACIDS/PROTEIN HYDROLYS 30 ML LIQUID.PKT PEG SCH (07:40)
[2022-12-12] MEDS: BUDESONIDE 0.5 MG/2 ML INH SUSP VIAL NEB SCH (08:59)
[2022-12-12] MEDS: levETIRAcetam 500 MG/5 ML ORAL SOLUTION (UNIT-DOSE CUPS) PEG SCH (10:49)
[2022-12-12] MEDS: FUROSEMIDE 40 MG/5 ML UNIT-DOSE CUP GT SCH (10:50)
[2022-12-12] MEDS: ENOXAPARIN NA (PORCINE) 40 MG/0.4 ML DISP.SYRIN SQ SCH (10:50)
[2022-12-12] MEDS ORDERED: guaiFENesin 200 MG/10 ML 10 ML UNIT-DOSE CUPS PEG SCH ×2 (12:00→22:00)
[2022-12-12 14:48] VITALS: BP 127/86; PULSE 88; TEMP 98.3
== END 2022-12-12 18:32 | disposition home or self-care (01) | DRG 871 ==
LOC: JER 17:58 → JERBED 21:33 → J8W 12-03 14:01 → JERBED 12-03 14:46 → J8W 12-03 15:45
PROVIDERS: ADMIT Student in an Organized Health Care Education/Training Program; ATTEND Nurse Practitioner Acute Care
DX: A41.9 Sepsis, unspecified organism (principal); G80.0 Spastic quadriplegic cerebral palsy; G93.41 Metabolic encephalopathy; J69.0 Pneumonitis due to inhalation of food and vomit; E87.1 Hypo-osmolality and hyponatremia; I50.32 Chronic diastolic (congestive) heart failure; N39.0 Urinary tract infection, site not specified; G91.8 Other hydrocephalus; F73 Profound intellectual disabilities; E87.20 Acidosis, unspecified; N17.9 Acute kidney failure, unspecified; G40.909 Epilepsy, unspecified, not intractable, without status epilepticus; K21.9 Gastro-esophageal reflux disease without esophagitis; J44.9 Chronic obstructive pulmonary disease, unspecified; Z74.01 Bed confinement status; Z86.16 Personal history of COVID-19; Z99.81 Dependence on supplemental oxygen; Z93.1 Gastrostomy status
CPT/HCPCS: 0241U-QW; 36415; 71045-TC-FY; 71250-TC; 80048; 80053; 81003; 82550; 82553; 82803; 83605; 83735; 84484; 85025; 85610; 85730; 86850; 86900; 86901; 87040; 87086; 87186; 87635; 87899; 93005; 93010; 94640; 99285-25

== ENCOUNTER 2023-09-05 11:43 | Inpatient (IN) | payer OTHER ==
[2023-09-05 12:52] LABS: HEMATOCRIT 39.4 % (35.4-49); HEMOGLOBIN 13.1 GM/dL (11.7-16.9); MCH 30.9 pg (25.7-33.7); MCHC 33.3 g/dl (32.0-35.9); MEAN CELL VOLUME 92.8 fl (80-96); MEAN PLT VOLUME 8.2 fl (7.5-11.1); PLATELET COUNT 365 10^3/uL (134-434); RBC 4.25 M/mm3 (4.00-5.60); RDW 15.1 % (11.9-15.9); VENOUS BASE EXCESS 4.9 mmol/L (-2-2); VENOUS O2 SATURATION 80.1 % (70-80); VENOUS PCO2 53.1 mmHg (38-52); VENOUS PH 7.389 (7.310-7.410); WHITE BLOOD COUNT 16.7 K/mm3 (4.0-10.0)
[2023-09-05] MEDS ORDERED: VANCOMYCIN/WATER 1250 MG 1,250 MG/250 ML BAG IVPB ONE (12:57)
[2023-09-05 12:58] LABS: INR 0.99 (0.83-1.09); PROTHROMBIN TIME (PATIENT) 11.4 SEC (9.7-13.0)
[2023-09-05 13:11] LABS: POTASSIUM 4.9 mmol/L (3.5-5.1)
[2023-09-05 13:14] LABS: ALBUMIN 3.6 g/dl (3.4-5.0); BLOOD UREA NITROGEN 25.2 mg/dL (7-18); CALCIUM 9.5 mg/dL (8.5-10.1)
[2023-09-05 13:19] LABS: BILIRUBIN,TOTAL 0.5 mg/dL (0.2-1); TOT PROT 7.4 g/dl (6.4-8.2)
[2023-09-05] MEDS: VANCOMYCIN/WATER 1250 MG 1,250 MG/250 ML BAG IVPB ONE (13:24)
[2023-09-05 13:41] LABS: ANISOCYTOSIS 1+; MACROCYTOSIS 0
[2023-09-05 13:45] LABS: PLATELET ESTIMATE ADEQUATE
[2023-09-05] MEDS: VANCOMYCIN 1,250 MG in DEXTROSE 5%-WATER - 500 ML IVPB ONE (15:14)
[2023-09-05] MEDS ORDERED: PIPERACILLIN/TAZOB 4.5 GM 4.5 GM/100 ML BAG IVPB ONE (16:11)
[2023-09-05] MEDS: PIPERACILLIN/TAZOBACTAM 4.5 GM VIAL IVPB ONE (16:12)
[2023-09-05] MEDS ORDERED: DIAZEPAM RC PRN (20:13)
[2023-09-05] MEDS ORDERED: ALBUTEROL SO4 0.083% IH SOL 2.5 MG/3 ML VIAL.NEB. NEB PRN (20:13)
[2023-09-05] MEDS ORDERED: ARFORMOTEROL TARTRATE 15 MCG/2 ML VIAL NEB PRN (20:13)
[2023-09-05] MEDS ORDERED: POLYETHYLENE GLYCOL (HEALTHYLAX) 3350 17 GM PACKET GT PRN (20:13)
[2023-09-05] MEDS ORDERED: BISACODYL 10 MG SUPP.RECT RC PRN (20:13)
[2023-09-05] MEDS: MULTIVITAMINS (DAILY MVI) TABLET (FP) PO SCH (20:51)
[2023-09-05] MEDS ORDERED: levETIRAcetam 500 MG TABLET (FP) PO ONE (22:28)
[2023-09-05] MEDS: SODIUM CHLORIDE 1,000 ML IV SCH (22:42)
[2023-09-05] MEDS ORDERED: DOXYCYCLINE HYCLATE 100 MG VIAL ONE (22:44)
[2023-09-05] MEDS: DOXYCYCLINE INJECTION 100 MG in DEXTROSE 5%-WATER 100 ML IVPB SCH (22:54)
[2023-09-05] MEDS: SENNOSIDES/DOCUSATE COMBO (SENNA PLUS) TABLET (UD) PO SCH (23:30)
[2023-09-05] MEDS ORDERED: ALBUTEROL SO4 2.5/IPRATROPIUM 0.5 INH SOL 3 ML VIAL.NEB. NEB ONE (23:31)
[2023-09-05] MEDS: ALBUTEROL SO4 2.5/IPRATROPIUM 0.5 INH SOL 3 ML VIAL.NEB. NEB SCH (23:43)
[2023-09-05] MEDS: levETIRAcetam 500 MG/5 ML ORAL SOLUTION (UNIT-DOSE CUPS) PEG SCH (23:52)
[2023-09-06] MEDS: BUDESONIDE 0.5 MG/2 ML INH SUSP VIAL NEB SCH (00:18)
[2023-09-06] MEDS ORDERED: ALBUTEROL SO4 2.5/IPRATROPIUM 0.5 INH SOL 3 ML VIAL.NEB. NEB ONE ×4 (04:19→15:46)
[2023-09-06 06:14] LABS: HEMATOCRIT 40.6 % (35.4-49); HEMOGLOBIN 13.3 GM/dL (11.7-16.9); MCH 30.8 pg (25.7-33.7); MCHC 32.8 g/dl (32.0-35.9); MEAN CELL VOLUME 94.1 fl (80-96); MEAN PLT VOLUME 7.6 fl (7.5-11.1); PLATELET COUNT 302 10^3/uL (134-434); RBC 4.31 M/mm3 (4.00-5.60); RDW 14.7 % (11.9-15.9); WHITE BLOOD COUNT 8.9 K/mm3 (4.0-10.0)
[2023-09-06 06:34] LABS: BLOOD UREA NITROGEN 16.4 mg/dL (7-18); CALCIUM 8.5 mg/dL (8.5-10.1); MAGNESIUM 2.1 mg/dL (1.8-2.4)
[2023-09-06 06:38] LABS: CREATININE 0.6 mg/dL (0.55-1.3); PHOSPHOROUS 2.5 mg/dL (2.5-4.9)
[2023-09-06] MEDS ORDERED: PATIENT'S OWN MEDICATION (NON-FORMULARY) (Lactose-Reduced Food/Fiber [Jevity 1.5 Cal Liqui GT SCH (10:00)
[2023-09-06] MEDS ORDERED: CEFTRIAXONE 1 GM/50 ML BAG ONE (10:13)
[2023-09-06] MEDS: CEFTRIAXONE 1 GM in DEXTROSE 5%-WATER - 50 ML IVPB SCH (10:20)
[2023-09-06] MEDS: CALCIUM 500MG/VIT-D 200 UNITS COMBO TABLET (FP) GT SCH (10:20)
[2023-09-06 10:34] LABS: EPI CELLS 9 /uL (0-25.1); HYALINE CASTS 1 /uL (0-3.1); PH,URINE 5.5 (5.0-8.0); URINE APPEARANCE CLEAR; URINE BACTERIA 5 /uL (0-1359); URINE BILIRUBIN NEGATIVE (NEGATIVE); URINE COLOR YELLOW; URINE GLUCOSE (UA) NEGATIVE (NEGATIVE); URINE KETONE 1+ (NEGATIVE); URINE LEUK ESTERASE NEGATIVE (NEGATIVE); URINE NITRITE NEGATIVE (NEGATIVE); URINE PROTEIN NEGATIVE (NEGATIVE); URINE RBC 458 /uL (0-23.9); URINE UROBILINOGEN 0.2 mg/dL (0.2-1.0); URINE WBC 9 /uL (0-25.8)
[2023-09-06] MEDS: CLINDAMYCIN PHOSPHATE 1% TOPICAL GEL 30 GM TUBE TP SCH (12:10)
[2023-09-06] MEDS ORDERED: AZITHROMYCIN IVPB 500 MG/250 ML BAG IVPB ONE (12:11)
[2023-09-06] MEDS: AZITHROMYCIN IVPB 500 MG/250 ML BAG IVPB SCH (12:14)
[2023-09-06] MEDS: AMINO ACIDS/PROTEIN HYDROLYS 30 ML LIQUID.PKT PEG SCH (13:45)
[2023-09-06 17:54] VITALS: BMI 31.8
[2023-09-06 20:07] LABS: EPI CELLS 10 /uL (0-25.1); HYALINE CASTS 2 /uL (0-3.1); PH,URINE 6.5 (5.0-8.0); URINE APPEARANCE CLEAR; URINE BACTERIA 4 /uL (0-1359); URINE BILIRUBIN NEGATIVE (NEGATIVE); URINE COLOR YELLOW; URINE GLUCOSE (UA) NEGATIVE (NEGATIVE); URINE KETONE 2+ (NEGATIVE); URINE LEUK ESTERASE NEGATIVE (NEGATIVE); URINE NITRITE NEGATIVE (NEGATIVE); URINE PROTEIN 1+ (NEGATIVE); URINE RBC 39 /uL (0-23.9); URINE UROBILINOGEN 0.2 mg/dL (0.2-1.0); URINE WBC 14 /uL (0-25.8)
[2023-09-06] MEDS: AMPICILLIN NA/SULBACTAM NA 1.5 GM in SODIUM CHLORIDE 100 ML IVPB SCH (20:46)
[2023-09-06] MEDS: HEPARIN NA (PORCINE) 5,000 UNITS/ML 1ML VIAL SQ SCH (22:17)
[2023-09-07] MEDS: ARFORMOTEROL TARTRATE 15 MCG/2 ML VIAL NEB SCH (07:27)
[2023-09-07 09:37] LABS: POTASSIUM 3.7 mmol/L (3.5-5.1)
[2023-09-07 09:41] LABS: HEMATOCRIT 35.2 % (35.4-49); MCH 31.1 pg (25.7-33.7); MEAN CELL VOLUME 91.4 fl (80-96); MEAN PLT VOLUME 8.1 fl (7.5-11.1); PLATELET COUNT 322 10^3/uL (134-434); RBC 3.85 M/mm3 (4.00-5.60); RDW 14.7 % (11.9-15.9); WHITE BLOOD COUNT 10.7 K/mm3 (4.0-10.0)
[2023-09-07 10:09] LABS: CALCIUM 8.2 mg/dL (8.5-10.1)
[2023-09-07 10:10] LABS: BLOOD UREA NITROGEN 11.4 mg/dL (7-18)
[2023-09-07 10:13] LABS: CREATININE 0.6 mg/dL (0.55-1.3); PHOSPHOROUS 1.6 mg/dL (2.5-4.9)
[2023-09-07 10:15] LABS: BILIRUBIN,TOTAL 0.3 mg/dL (0.2-1)
[2023-09-07 10:26] LABS: ALBUMIN 2.8 g/dl (3.4-5.0)
[2023-09-07] MEDS: NAPH,MB-DB/K PH,MBDB POWDER PACKET PO ONE (12:01)
[2023-09-08 10:35] LABS: HEMATOCRIT 34.1 % (35.4-49); HEMOGLOBIN 11.6 GM/dL (11.7-16.9); MCH 31.3 pg (25.7-33.7); MEAN CELL VOLUME 92.3 fl (80-96); MEAN PLT VOLUME 7.9 fl (7.5-11.1); PLATELET COUNT 309 10^3/uL (134-434); RBC 3.69 M/mm3 (4.00-5.60); RDW 14.6 % (11.9-15.9); WHITE BLOOD COUNT 9.3 K/mm3 (4.0-10.0)
[2023-09-08 10:50] LABS: POTASSIUM 3.9 mmol/L (3.5-5.1)
[2023-09-08 10:55] LABS: CALCIUM 8.5 mg/dL (8.5-10.1)
[2023-09-08 10:56] LABS: ALBUMIN 2.6 g/dl (3.4-5.0); MAGNESIUM 2.2 mg/dL (1.8-2.4)
[2023-09-08 10:58] LABS: PHOSPHOROUS 1.9 mg/dL (2.5-4.9)
[2023-09-08 10:59] LABS: CREATININE 0.6 mg/dL (0.55-1.3)
[2023-09-08 11:00] LABS: BILIRUBIN,TOTAL 0.2 mg/dL (0.2-1); TOT PROT 5.9 g/dl (6.4-8.2)
[2023-09-08] MEDS: SCOPOLAMINE HYDROBROMIDE 1 PATCH PATCH.TD72 TD SCH (14:34)
[2023-09-08] MEDS: NAPH,MB-DB/K PH,MBDB POWDER PACKET PO ONE (16:09)
[2023-09-09 10:20] LABS: HEMATOCRIT 35.3 % (35.4-49); HEMOGLOBIN 11.7 GM/dL (11.7-16.9); MCHC 33.3 g/dl (32.0-35.9); MEAN CELL VOLUME 93.2 fl (80-96); MEAN PLT VOLUME 7.8 fl (7.5-11.1); PLATELET COUNT 343 10^3/uL (134-434); RBC 3.79 M/mm3 (4.00-5.60); WHITE BLOOD COUNT 7.8 K/mm3 (4.0-10.0)
[2023-09-09 10:49] LABS: ALBUMIN 2.8 g/dl (3.4-5.0); BLOOD UREA NITROGEN 11.4 mg/dL (7-18)
[2023-09-09 10:52] LABS: CREATININE 0.7 mg/dL (0.55-1.3); PHOSPHOROUS 3.6 mg/dL (2.5-4.9)
[2023-09-09 10:54] LABS: BILIRUBIN,TOTAL 0.3 mg/dL (0.2-1); TOT PROT 6.3 g/dl (6.4-8.2)
[2023-09-09] MEDS: BUDESONIDE 0.5 MG/2 ML INH SUSP VIAL NEB SCH (20:22)
[2023-09-10 08:44] LABS: BLOOD UREA NITROGEN 13.1 mg/dL (7-18); CALCIUM 8.5 mg/dL (8.5-10.1)
[2023-09-10 08:46] LABS: HEMATOCRIT 33.5 % (35.4-49); HEMOGLOBIN 11.2 GM/dL (11.7-16.9); MCH 31.2 pg (25.7-33.7); MCHC 33.4 g/dl (32.0-35.9); MEAN CELL VOLUME 93.4 fl (80-96); MEAN PLT VOLUME 7.7 fl (7.5-11.1); PLATELET COUNT 336 10^3/uL (134-434); RBC 3.58 M/mm3 (4.00-5.60); RDW 14.4 % (11.9-15.9)
[2023-09-10 08:48] LABS: CREATININE 0.6 mg/dL (0.55-1.3)
[2023-09-10 09:45] LABS: ANISOCYTOSIS 0; MACROCYTOSIS 0; TARGET CELLS 1+
[2023-09-11 09:41] LABS: BASO % 0.5 % (0-2.0); EOS % 3.9 % (0-4.5); HEMATOCRIT 33.4 % (35.4-49); HEMOGLOBIN 11.3 GM/dL (11.7-16.9); LYMPH % 20.9 % (8-40); MCHC 33.8 g/dl (32.0-35.9); MEAN CELL VOLUME 91.9 fl (80-96); MEAN PLT VOLUME 7.5 fl (7.5-11.1); MONO % 10.2 % (3.8-10.2); NEUT % 64.5 % (42.8-82.8); PLATELET COUNT 350 10^3/uL (134-434); RBC 3.64 M/mm3 (4.00-5.60); RDW 14.4 % (11.9-15.9); WHITE BLOOD COUNT 8.5 K/mm3 (4.0-10.0)
[2023-09-11 09:44] LABS: POTASSIUM 4.1 mmol/L (3.5-5.1)
[2023-09-11 09:50] LABS: CALCIUM 8.4 mg/dL (8.5-10.1)
[2023-09-11 09:51] LABS: BLOOD UREA NITROGEN 13.1 mg/dL (7-18)
[2023-09-11 09:54] LABS: CREATININE 0.6 mg/dL (0.55-1.3)
[2023-09-11 14:11] VITALS: RESP 18
[2023-09-11] MEDS ORDERED: PIPERACILLIN/TAZOB 3.375 GM 3.375 GM in DEXTROSE 5%-WATER - 50 ML IVPB SCH (15:45)
[2023-09-11] MEDS: PIPERACILLIN/TAZOB 3.375 GM 3.375 GM in DEXTROSE 5%-WATER - 50 ML IVPB SCH (16:12)
[2023-09-12] MEDS: PIPERACILLIN/TAZOB 3.375 GM 3.375 GM in DEXTROSE 5%-WATER - 50 ML IVPB SCH (02:58)
[2023-09-12 08:47] LABS: HEMATOCRIT 33.6 % (35.4-49); HEMOGLOBIN 11.6 GM/dL (11.7-16.9); MCHC 34.5 g/dl (32.0-35.9); MEAN CELL VOLUME 92.7 fl (80-96); MEAN PLT VOLUME 7.5 fl (7.5-11.1); PLATELET COUNT 342 10^3/uL (134-434); RBC 3.63 M/mm3 (4.00-5.60); RDW 14.2 % (11.9-15.9); WHITE BLOOD COUNT 8.7 K/mm3 (4.0-10.0)
[2023-09-12 09:05] LABS: POTASSIUM 4.2 mmol/L (3.5-5.1)
[2023-09-12 09:13] LABS: CALCIUM 8.7 mg/dL (8.5-10.1)
[2023-09-12 09:14] LABS: ALBUMIN 2.8 g/dl (3.4-5.0); BLOOD UREA NITROGEN 15.2 mg/dL (7-18)
[2023-09-12 09:17] LABS: CREATININE 0.7 mg/dL (0.55-1.3)
[2023-09-12 09:19] LABS: BILIRUBIN,TOTAL 0.4 mg/dL (0.2-1); TOT PROT 6.4 g/dl (6.4-8.2)
[2023-09-12 10:11] LABS: ANISOCYTOSIS 0; MACROCYTOSIS 0
[2023-09-12 10:13] LABS: PLATELET ESTIMATE ADEQUATE
[2023-09-13 09:04] LABS: HEMATOCRIT 33.2 % (35.4-49); HEMOGLOBIN 11.3 GM/dL (11.7-16.9); MCH 31.5 pg (25.7-33.7); MCHC 33.9 g/dl (32.0-35.9); MEAN CELL VOLUME 92.9 fl (80-96); MEAN PLT VOLUME 7.6 fl (7.5-11.1); PLATELET COUNT 393 10^3/uL (134-434); RBC 3.58 M/mm3 (4.00-5.60); RDW 14.6 % (11.9-15.9); WHITE BLOOD COUNT 9.2 K/mm3 (4.0-10.0)
[2023-09-13 09:11] LABS: POTASSIUM 4.1 mmol/L (3.5-5.1)
[2023-09-13 09:13] LABS: CALCIUM 8.3 mg/dL (8.5-10.1)
[2023-09-13 09:14] LABS: ALBUMIN 2.7 g/dl (3.4-5.0); MAGNESIUM 2.2 mg/dL (1.8-2.4)
[2023-09-13 09:16] LABS: BLOOD UREA NITROGEN 15.3 mg/dL (7-18)
[2023-09-13 09:17] LABS: CREATININE 0.7 mg/dL (0.55-1.3)
[2023-09-13 09:18] LABS: BILIRUBIN,TOTAL 0.3 mg/dL (0.2-1); TOT PROT 6.3 g/dl (6.4-8.2)
[2023-09-13 10:08] LABS: ANISOCYTOSIS 0; MACROCYTOSIS 0
[2023-09-13 10:09] LABS: PLATELET ESTIMATE ADEQUATE
[2023-09-13 13:15] VITALS: BP 142/74; PULSE 73; TEMP 97.5
== END 2023-09-13 14:04 | disposition home or self-care (01) | DRG 177 ==
LOC: JER 11:43 → JERBED 16:45 → J8W 09-06 17:08
PROVIDERS: ADMIT Internal Medicine; ATTEND Nurse Practitioner Acute Care
DX: J69.0 Pneumonitis due to inhalation of food and vomit (principal); G82.50 Quadriplegia, unspecified; J96.01 Acute respiratory failure with hypoxia; G91.9 Hydrocephalus, unspecified; K21.9 Gastro-esophageal reflux disease without esophagitis; M81.0 Age-related osteoporosis without current pathological fracture; G40.909 Epilepsy, unspecified, not intractable, without status epilepticus; N21.0 Calculus in bladder; K59.00 Constipation, unspecified; R33.8 Other retention of urine; J44.9 Chronic obstructive pulmonary disease, unspecified; Z93.1 Gastrostomy status
CPT/HCPCS: 0241U-QW; 36415; 71045-TC-FY; 71250-TC; 74176-TC; 80048; 80053; 81003; 82803; 83605; 83735; 84100; 85025; 85027; 85610; 87040; 87070; 87081; 87086; 87186; 87205; 87635; 87899; 93005; 93010; 94640; 99285-25; J1644